=== PATIENT | female | born 1935 | race Caucasian/White ===

== ENCOUNTER → 2016-06-22 | Outpatient (CLI) | payer OTHER, MEDICARE ==
[~2016-06-22] MED LIST: ALBUAER19 INH; ALPR-411 PO; ATRINS NEB; B-COCAP2 PO; BIOT1CAP8 PO; BRVIN INH; BUDE0.5S INH; CALC250T8 PO; CHOL100010 PO; FLUO20CA35 PO; GLUCTAB32 PO; MISCCAP80 PO; OMEG10007 PO; OXGN; PRLSR20 PO
--- NOTE | 2016-06-22 11:30 | DIAGNOSTIC IMAGING REPORT ---
CHEST 2 VIEWS ROUTINE CLINICAL HISTORY: ASTHMA, GENERAL WEAKNESS, SHORTNESS OF BREATH COMPARISON STUDY: 01/21/2016 FINDINGS: There is a severe scoliosis. The cardiac and sternal contours remain stable. There is no lobar consolidation. Right basilar opacities are likely atelectatic.[There is no failure. There is a small right pleural effusion. IMPRESSION: Severe scoliosis. Right basilar opacities statistically atelectatic. Small right pleural effusion. Electronically signed by: Kt Painter M.D. 06/22/2016 11:29 AM Dictated Date/Time: 06/22/2016 11:27 AM
[2016-06-22 13:36] LABS: BASO % 0.3 %; BASO ABS # 0.02 K/uL (0-0.2); COMPLETE YES; HEMATOCRIT 36.7 % (37-47); IG% 0.2 %; LYMPH % 19.6 %; LYMPH ABS # 1.27 K/uL (1.2-3.4); MEAN CELL VOLUME 88.9 fL (80-100); MEAN CORPUSCULAR HEMOGLOBIN 30.3 pg (25-34); MEAN CORPUSCULAR HGB CONC 34.1 g/dl (32-36); MEAN PLATELET VOLUME 8.8 fL (7.4-10.4); MONO % 4.8 %; NEUT % 73.1 %; PLATELET COUNT 274 K/uL (130-400); RED BLOOD COUNT 4.13 M/uL (4.2-5.4); WHITE BLOOD COUNT 6.48 K/uL (4.8-10.8)
[2016-06-22 13:42] LABS: URINE APPEARANCE CLEAR (CLEAR); URINE BILIRUBIN NEG (NEG); URINE COLOR YELLOW; URINE NITRITE NEG (NEG); URINE PH 7.5 (4.5-7.5); UROBILINOGEN NEG (NEG)
[2016-06-22 13:50] LABS: MANUAL MICROSCOPIC REQUIRED? NO; REVIEW REQ? NO
[2016-06-22 14:13] LABS: BLOOD UREA NITROGEN 17 mg/dl (7-18); BUN/CREATININE RATIO 23.1 (10-20); CALCIUM 9.1 mg/dl (8.5-10.1); CARBON DIOXIDE 29 mmol/L (21-32); CHLORIDE 100 mmol/L (98-107); CREATININE 0.72 mg/dl (0.60-1.20); GLUCOSE 111 mg/dl (70-99); POTASSIUM 4.1 mmol/L (3.5-5.1); SODIUM 135 mmol/L (136-145)
[2016-06-22 14:20] LABS: RHEUMATOID FACTOR < 10.0 U/mL (0-15)
[2016-06-27 00:40] LABS: MYELOPEROXIDASE AB <1.0 AI (<1.0)
[2016-06-28 04:31] LABS: ANTI-CENTROMERE AB <1.0 NEG AI (<1.0 NEG); ANTI-SS-A <1.0 NEG AI (<1.0 NEG); ANTI-SS-B <1.0 NEG AI (<1.0 NEG); DNA ds CRITHIDIA NEGATIVE (NEGATIVE); Sm Antibody <1.0 NEG AI (<1.0 NEG)
== END | disposition home or self-care (01) ==
LOC: C.RADBC 10:36
PROVIDERS: ATTEND Physician Assistant Medical
DX: J45.909 Unspecified asthma, uncomplicated (principal); R53.1 Weakness; R06.02 Shortness of breath; M25.50 Pain in unspecified joint; M35.1 Other overlap syndromes; R76.8 Other specified abnormal immunological findings in serum

== ENCOUNTER → 2016-09-05 | Outpatient (CLI) | payer OTHER, MEDICARE ==
[2016-09-05 14:39] LABS: BASO % 0.4 %; BASO ABS # 0.02 K/uL (0-0.2); COMPLETE YES; EOS % 3.6 %; HEMATOCRIT 37.3 % (37-47); IG% 0.2 %; LYMPH % 31.7 %; LYMPH ABS # 1.78 K/uL (1.2-3.4); MEAN CELL VOLUME 91.2 fL (80-100); MEAN CORPUSCULAR HEMOGLOBIN 30.6 pg (25-34); MEAN CORPUSCULAR HGB CONC 33.5 g/dl (32-36); MEAN PLATELET VOLUME 8.9 fL (7.4-10.4); MONO % 9.1 %; PLATELET COUNT 286 K/uL (130-400); RED BLOOD COUNT 4.09 M/uL (4.2-5.4); WHITE BLOOD COUNT 5.62 K/uL (4.8-10.8)
[2016-09-05 14:44] LABS: ALT/SGPT 26 U/L (12-78); BLOOD UREA NITROGEN 14 mg/dl (7-18); BUN/CREATININE RATIO 18.4 (10-20); CARBON DIOXIDE 29 mmol/L (21-32); CHLORIDE 100 mmol/L (98-107); CREATININE 0.74 mg/dl (0.60-1.20); GLUCOSE 99 mg/dl (70-99); MAGNESIUM 2.3 mg/dl (1.8-2.4); POTASSIUM 3.9 mmol/L (3.5-5.1); SODIUM 136 mmol/L (136-145)
[2016-09-05 14:47] LABS: ALB/GLOB RATIO 0.9 (0.9-2); ALKALINE PHOSPHATASE 74 U/L (45-117); AST/SGOT 21 U/L (15-37)
[2016-09-05 14:51] LABS: CALCIUM 9.4 mg/dl (8.5-10.1)
== END | disposition home or self-care (01) ==
LOC: C.LABBC 10:18
PROVIDERS: ATTEND Internal Medicine
DX: M25.50 Pain in unspecified joint (principal)

== ENCOUNTER → 2017-03-09 | Outpatient (CLI) | payer OTHER, MEDICARE ==
[2017-03-09 11:18] LABS: ALKALINE PHOSPHATASE 84 U/L (45-117); ALT/SGPT 26 U/L (12-78); AST/SGOT 20 U/L (15-37); BLOOD UREA NITROGEN 17 mg/dl (7-18); BUN/CREATININE RATIO 21.6 (10-20); CALCIUM 9.6 mg/dl (8.5-10.1); CARBON DIOXIDE 29 mmol/L (21-32); CHLORIDE 100 mmol/L (98-107); CHOLESTEROL 346 mg/dl (0-200); CHOLESTEROL/HDL RATIO 2.6; CREATININE 0.81 mg/dl (0.60-1.20); GLUCOSE 108 mg/dl (70-99); HDL CHOLESTEROL 133 mg/dl; LDL CHOLESTEROL CALCULATED 200 mg/dl; SODIUM 135 mmol/L (136-145); TRIGLYCERIDES 67 mg/dl (0-150); VERY LOW DENSITY LIPOPROT CALC 13 mg/dl
[2017-03-09 11:20] LABS: BASO % 0.5 %; BASO ABS # 0.03 K/uL (0-0.2); COMPLETE YES; EOS % 3.2 %; HEMATOCRIT 39.4 % (37-47); IG% 0.2 %; LYMPH % 38.4 %; LYMPH ABS # 2.38 K/uL (1.2-3.4); MEAN CELL VOLUME 92.3 fL (80-100); MEAN CORPUSCULAR HEMOGLOBIN 31.1 pg (25-34); MEAN CORPUSCULAR HGB CONC 33.8 g/dl (32-36); MONO % 9.5 %; NEUT % 48.2 %; PLATELET COUNT 274 K/uL (130-400); RED BLOOD COUNT 4.27 M/uL (4.2-5.4); WHITE BLOOD COUNT 6.19 K/uL (4.8-10.8)
[2017-03-09 11:29] LABS: ALB/GLOB RATIO 0.9 (0.9-2)
== END | disposition home or self-care (01) ==
LOC: C.LABBC 07:40
PROVIDERS: ATTEND Internal Medicine
DX: M85.80 Other specified disorders of bone density and structure, unspecified site (principal); J45.909 Unspecified asthma, uncomplicated; M35.1 Other overlap syndromes; R73.9 Hyperglycemia, unspecified; E78.5 Hyperlipidemia, unspecified; M25.50 Pain in unspecified joint; M62.81 Muscle weakness (generalized)

== ENCOUNTER 2018-03-04 09:20 | Inpatient (IN) ==
[2018-03-04] MEDS ORDERED: ALBUT/IPRATROP 3MG/0.5MG NEB 3 ML VIAL INH STA (09:40)
[2018-03-04] MEDS ORDERED: VANCOMYCIN CONSULT ACTIVE PRN (09:40)
[2018-03-04] MEDS ORDERED: VANCOMYCIN HCL 1,250 MG in SODIUM CHLORIDE 0.9% 500 ML IV STA (09:40)
[2018-03-04] MEDS ORDERED: PIPERACILLIN/TAZOBACTAM 4.5 GM/120 ML BAG IV STA (09:40)
--- NOTE | 2018-03-04 10:00 | Emergency Department Note ---
Entered by Anamaria Umana acting as a scribe for ED Provider Note CHIEF COMPLAINT: Respiratory problems HISTORY OF PRESENT ILLNESS: The patient is an 82 year old female who presents to the Emergency Room with complaints of worsening respiratory problems that started 4 days ago. The patient notes she has constant cough and congestion. She reports she has been coughing constantly since 2am. The patient describes her pain as motor running in her chest and cant get a good breath She states she has congested lung disease but does not always have congestion in her lungs. She reports she has nausea and some vomiting, due to her cough. The patient states the slightest movement makes her experience shortness of breath. . She reports she is coughing up dark yellow phlegm that has not changed since she started getting sick. The patient notes she is weak all over. She was seen in the ER on day 1 of illness and treated with Levaquin. Her inhalers are not helping either. Pt denies LOC, headache, fevers, chills, diaphoresis, visual changes, neck pain, abdominal pain, back pain, melena, hematochezia, urinary symptoms, numbness, lymphadenopathy, rash, or other complaints. REVIEW OF SYSTEMS: See HPI for pertinent positives and negatives. A total of ten systems were reviewed and were otherwise negative. PMHx/PSHx: Bronchitis Scoliosis Dyspnea Hypokalemia UTI Weakness SOCIAL HISTORY: Patient lives at home. PHYSICAL EXAM: GENERAL: Awake, alert, well-appearing, in no distress HENT: Normocephalic, atraumatic. Oropharynx unremarkable. EYES: Normal conjunctiva. Sclera non-icteric. NECK: Inspection normal. Non-tender. Supple. No nuchal rigidity. FROM. No masses. RESPIRATORY: Expiratory wheezes and crackles in the right base and somewhat on the left base. Normal respiratory effort. CARDIAC: Tachycardic rate. Normal rhythm. No murmurs. No rubs. Extremities warm and well perfused. Pulses equal. No JVD. GI: Soft, non-distended. No tenderness to palpation. No rebound or guarding. No masses. RECTAL: Deferred. MUSCULOSKELETAL: Atraumatic. Chest examination reveals no tenderness. The back is symmetrical on inspection without obvious abnormality. There is no CVA tenderness to palpation. No joint edema. LOWER EXTREMITIES: Calves are equal size bilaterally and non-tender. No edema. No discoloration. NEURO: Normal sensorium. No sensory or motor deficits noted. SKIN: No rash or jaundice noted. EMERGENCY DEPARTMENT COURSE: 0937: Past medical records reviewed. The patient was evaluated in room B6, and a complete history and physical examination were performed. 1123: I checked on the patient. 1137: I reviewed the patient's case with Dr. Arcos, [facility]-Hospitalist . He will evaluate the patient for further management. MEDICAL DECISION MAKING: Triage Nursing notes reviewed. The patient's presentation and history were concerning for dyspnea and cough. Etiologies such as pneumonia, reactive airway disease, CHF, cardiac ischemia, pulmonary embolism, pneumothorax, COPD, musculoskeletal, infections, gastrointestinal, as well as others were entertained. The patient had increased breathing and was dyspneic. She has a productive cough. Despite using oral Levaquin and home nebulizer she is getting worse. She states she is having difficulty ambulating or doing anything with exertion because she gets extremely short of breath. The patient had an IV established. Blood work was obtained. She had blood cultures as well as a lactate performed. The patient was started on IV Zosyn and vancomycin. The patient had a DuoNeb performed as well. Given the patient's history of restrictive lung disease and her worsening condition she underwent CT imaging of the chest. The patient was found to have multifocal pneumonia, an unremarkable CBC, but elevated troponin. EKG showed a Q wave had developed in lead V2. She was given asa, lopressor, and started on IV heparin. Consultation made with internal medicine. I did educate her, her and daughter(RN), on the findings and need for further treatment. Pt was evaluated in the ER by the hospitalist team for admission. IMPRESSION: Multifocal pneumonia Non-STEMI Restrictive lung disease. PLAN: Admitted. I have personally spent greater than 30 minutes of critical care time in the direct management of this patient. This includes bedside care, interpretation of diagnostic studies, and testing, discussion with consultants, patient, and family members, and other required patient management activities. This 30 minutes is in excess of all separately billable procedures. The scribe's documentation has been prepared under my direction and personally reviewed by me in its entirety. I confirm that the note above accurately reflects all work, treatment, procedures, and medical decision making performed by me. Impression & Plan Multifocal pneumonia, Non-ST elevated myocardial infarction (non-STEMI) Past Med/Surg History Medical History Restrictive lung disease (Chronic) Bronchitis (Resolved) Scoliosis (Chronic) Urinary tract infection (Resolved) Family History Other Heart attack Social History Feels Safe at Home: Yes Smoking Status: Never smoker Preferred Language: Amharic Results & Data Vital Signs Vital Signs - 24 hr 03/04/18 09:28 03/04/18 09:37 03/04/18 09:40 Temperature 36.8 C Temperature Source Oral Sepsis Recent Fever Within 48 Hours No Sepsis New/Unexplained Change in Mental Status No Sepsis Action Taken by Nursing No Action Required Pulse Rate 106 H 98 H Pulse Rate [Apical] Pulse Rhythm Regular Pulse Rhythm [Apical] Pulse Strength Normal Respiratory Rate 20 30 H Respiratory Effort / Characteristics Non-Labored Respiratory Depth Normal Blood Pressure 134/72 139/78 Blood Pressure [Right Arm] Blood Pressure Mean 92 98 Blood Pressure Mean [Right Arm] Pulse Oximetry 92 94 Oxygen Delivery Method Room Air Room Air 03/04/18 09:41 03/04/18 09:54 03/04/18 10:00 Temperature Temperature Source Sepsis Recent Fever Within 48 Hours Sepsis New/Unexplained Change in Mental Status Sepsis Action Taken by Nursing Pulse Rate 100 H 101 H Pulse Rate [Apical] Pulse Rhythm Pulse Rhythm [Apical] Pulse Strength Respiratory Rate 35 H 26 H Respiratory Effort / Characteristics Respiratory Depth Blood Pressure 103/70 Blood Pressure [Right Arm] Blood Pressure Mean 81 Blood Pressure Mean [Right Arm] Pulse Oximetry 94 93 92 Oxygen Delivery Method Room Air 03/04/18 10:37 03/04/18 11:50 03/04/18 11:51 Temperature Temperature Source Sepsis Recent Fever Within 48 Hours Sepsis New/Unexplained Change in Mental Status Sepsis Action Taken by Nursing Pulse Rate 94 H 102 H Pulse Rate [Apical] 101 H Pulse Rhythm Pulse Rhythm [Apical] Regular Pulse Strength Respiratory Rate 24 22 Respiratory Effort / Characteristics Respiratory Depth Blood Pressure 130/89 Blood Pressure [Right Arm] 130/89 Blood Pressure Mean Blood Pressure Mean [Right Arm] 102 Pulse Oximetry 92 Oxygen Delivery Method Room Air Home Medications Current Medication List: was personally reviewed by me Laboratory Data Attestation: I reviewed the patient's lab results. Result diagrams: 03/04/18 09:45 03/04/18 09:45 Lab Results 03/04/18 03/04/18 03/04/18 Range/Units 09:45 09:45 09:45 WBC 4.66 L (4.8-10.8) K/uL RBC 4.04 L (4.2-5.4) M/uL Hgb 12.4 (12.0-16.0) g/dL Hct 36.4 L (37-47) % MCV 90.1 (80-100) fL MCH 30.7 (25-34) pg MCHC 34.1 (32-36) g/dL RDW Std Deviation 45.5 (36.4-46.3) fL RDW Coeff of Jaren 13.7 (11.5-14.5) % Plt Count 180 (130-400) K/uL MPV 9.3 (7.4-10.4) fL Immature Gran % (Auto) 0.2 % Neut % (Auto) 63.5 % Lymph % (Auto) 26.2 % Rutherford % (Auto) 9.7 % Eos % (Auto) 0.2 % Baso % (Auto) 0.2 % Immature Gran # (Auto) 0.01 (0.00-0.02) K/uL Neut # (Auto) 2.96 (1.4-6.5) K/uL Lymph # (Auto) 1.22 (1.2-3.4) K/uL Rutherford # (Auto) 0.45 (0.11-0.59) K/uL Eos # (Auto) 0.01 (0-0.5) K/uL Baso # (Auto) 0.01 (0-0.2) K/uL APTT 29.4 (21.0-31.0) Seconds PTT Ratio 1.1 Sodium 134 L (136-145) mmol/L Potassium 3.4 L (3.5-5.1) mmol/L Chloride 99 (98-107) mmol/L Carbon Dioxide 23 (21-32) mmol/L Anion Gap 12.0 H (3-11) BUN 10 (7-18) mg/dl Creatinine 0.78 (0.6-1.2) mg/dl Est Cr Clr Drug Dosing Not Reportable Est GFR ( Amer) 83.2 Est GFR (Non-Af Amer) 71.8 BUN/Creatinine Ratio 12.8 (10-20) Glucose 113 H (70-99) mg/dl Calcium 8.2 L (8.5-10.1) mg/dl Magnesium 2.0 (1.8-2.4) mg/dl Total Bilirubin 0.3 (0.1-1) mg/dl AST 38 H (15-37) U/L ALT 28 (12-78) U/L Alkaline Phosphatase 82 (45-117) U/L Troponin I 2.230 H* (0-0.045) ng/ml Total Protein 7.8 (6.4-8.2) gm/dl Albumin 3.5 (3.4-5.0) gm/dl Globulin 4.3 H (2.5-4.0) gm/dl Albumin/Globulin Ratio 0.8 L (0.9-2) Influenza Type A (PCR) (Neg) Influenza Type B (PCR) (Neg) 03/04/18 Range/Units 09:45 WBC (4.8-10.8) K/uL RBC (4.2-5.4) M/uL Hgb (12.0-16.0) g/dL Hct (37-47) % MCV (80-100) fL MCH (25-34) pg MCHC (32-36) g/dL RDW Std Deviation (36.4-46.3) fL RDW Coeff of Jaren (11.5-14.5) % Plt Count (130-400) K/uL MPV (7.4-10.4) fL Immature Gran % (Auto) % Neut % (Auto) % Lymph % (Auto) % Rutherford % (Auto) % Eos % (Auto) % Baso % (Auto) % Immature Gran # (Auto) (0.00-0.02) K/uL Neut # (Auto) (1.4-6.5) K/uL Lymph # (Auto) (1.2-3.4) K/uL Rutherford # (Auto) (0.11-0.59) K/uL Eos # (Auto) (0-0.5) K/uL Baso # (Auto) (0-0.2) K/uL APTT (21.0-31.0) Seconds PTT Ratio Sodium (136-145) mmol/L Potassium (3.5-5.1) mmol/L Chloride (98-107) mmol/L Carbon Dioxide (21-32) mmol/L Anion Gap (3-11) BUN (7-18) mg/dl Creatinine (0.6-1.2) mg/dl Est Cr Clr Drug Dosing Est GFR ( Amer) Est GFR (Non-Af Amer) BUN/Creatinine Ratio (10-20) Glucose (70-99) mg/dl Calcium (8.5-10.1) mg/dl Magnesium (1.8-2.4) mg/dl Total Bilirubin (0.1-1) mg/dl AST (15-37) U/L ALT (12-78) U/L Alkaline Phosphatase (45-117) U/L Troponin I (0-0.045) ng/ml Total Protein (6.4-8.2) gm/dl Albumin (3.4-5.0) gm/dl Globulin (2.5-4.0) gm/dl Albumin/Globulin Ratio (0.9-2) Influenza Type A (PCR) Neg for Influ A (Neg) Influenza Type B (PCR) Neg for Influ B (Neg) Administered Medications Vancomycin HCl 1,250 mg/ (Sodium Chloride) 525 mls @ 200 mls/hr IV NOW STA Stop: 03/04/18 12:09 Last Admin: 03/04/18 10:40 Dose: 200 mls/hr Discontinued Medications Albuterol (Duoneb) 3 ml INH NOW STA Stop: 03/04/18 09:41 Last Admin: 03/04/18 10:40 Dose: 3 ml Piperacillin Sod/Tazobactam Sod (Zosyn) 4.5 gm in 120 mls @ 200 mls/hr IV NOW STA Stop: 03/04/18 10:15 Last Infusion: 03/04/18 11:28 Dose: Admin: 03/04/18 10:40 Dose: 200 mls/hr Metoprolol Tartrate (Lopressor) 2.5 mg IV NOW STA Stop: 03/04/18 11:22 Last Admin: 03/04/18 11:51 Dose: 2.5 mg Imaging Data Radiologist's Impression: Radiology results as stated below per my review and the radiologist's interpretation: CT SCAN OF THE CHEST WITHOUT IV CONTRAST CLINICAL HISTORY: Dyspnea. COMPARISON STUDY: Chest x-ray dated 03/01/2018. Chest CT dated 10/22/2013. TECHNIQUE: CT scan of the thorax was performed from the thoracic inlet to the upper abdomen. Images are reviewed in the axial, sagittal, and coronal planes. IV contrast was not administered for this examination. A dose lowering technique was utilized adhering to the principles of ALARA. CT DOSE: 204.40 mGy.cm FINDINGS: Thyroid: Imaged portions of the thyroid gland are normal in size and attenuation. Thoracic aorta: There is mild atherosclerotic calcification of the thoracic aorta, which is normal in caliber and demonstrates standard 3-vessel arch anatomy. Heart: The heart is top normal in size and without pericardial effusion. The coronary arteries are densely calcified. Lungs and pleural spaces: There is atelectasis of the right lower lung secondary to severe scoliosis. Dense airspace consolidation is seen at the right lung base with a small right pleural effusion. Patchy airspace consolidation is identified in the left upper lobe and lingula, and the appearance is typical for multifocal pneumonia. Trace pleural effusion is seen on the left. A nodular focus of consolidation the left upper lobe seen on image #122 measures up to 10 mm. The trachea is patent. Fluid/secretions are suggested in the right lower lobe airways. Mediastinum: Prominent mediastinal lymph nodes are noted. A precarinal node measures 8 mm short axis. Marla: Not well assessed without IV contrast. Axillae: There is no axillary lymphadenopathy. Upper abdomen: Diverticula are noted in the partially imaged left colon visualized upper abdominal viscera is otherwise grossly unremarkable. Skeletal structures: The skeletal structures are osteopenic. There is severe thoracolumbar scoliosis with significant distortion of the thoracic cavity. No lytic or blastic bony lesions are seen. Chronic posttraumatic deformity is noted in the left proximal humerus. IMPRESSION: 1. There is dense airspace consolidation at the right lung base, with patchy airspace consolidation seen throughout the left upper lobe. The appearance is typical for multifocal pneumonia/aspiration pneumonitis. Clinical correlation will be required. 2. Several foci of consolidation in the left upper lobe demonstrate a more nodular appearance. These are almost certainly on an infectious/inflammatory basis. A follow-up chest CT in 3-4 months time is recommended to document resolution. 3. Small pleural effusions, right larger than left. 4. Severe thoracolumbar scoliosis. 5. Additional findings as above. Electronically signed by: Renan Lester M.D. 03/04/2018 10:34 AM ECG Data Attestation: I personally reviewed and interpreted this ECG as follows: Indication: SOB/dyspnea (dyspnea) Rate (beats per minute): 94 Rhythm: normal sinus Findings: + Q waves (Septal Q wave) and + ST depression (slight depression in lead IV-) Comparison ECG Date: from (03/01/18) Change: the following changes noted (Septal Q wave is new ) Blood Pressure Blood Pressure Findings: Normal blood pressure Blood Pressure Disposition: did not require urgent referral Discharge Plan Visit Data Chief Complaint: Respiratory Problems Stated Complaint: SOB,BRONCHITIS ED Provider: Jose Webber Discharge Problem: Multifocal pneumonia, Non-ST elevated myocardial infarction (non-STEMI) Patient Disposition: Being Evaluated by Hospitalist Forms Stand Alone Forms: My [facility] Prescriptions Prescriptions: No Action fluoxetine 20 mg capsule 20 mg PO DAILY RF: 0 glucosamine sulfate [Glucosamine] 500 mg Tablet 500 mg PO QPM RF: 0 omeprazole 40 mg capsule,delayed release(DR/EC) 40 mg PO QAM PRN (Reason: Gastric Reflux) RF: 0 alprazolam 0.5 mg tablet 1 tab PO HS RF: 0 budesonide [Pulmicort] 0.5 mg/2 mL Suspension For Nebulization 2 ml INHALATION BID RF: 0 vitamin B complex Tablet 1 tab PO HS RF: 0 albuterol sulfate [Ventolin HFA] 90 mcg/actuation Hfa Aerosol Inhaler 2 puff INHALATION QID PRN (Reason: Shortness Of Breath Or Wheezing) RF: 0 celecoxib 100 mg capsule 100 mg PO QAM RF: 0 ipratropium bromide 0.02 % Solution 2.5 ml INHALATION BID RF: 0 calcium citrate 200 mg (950 mg) Tablet 200 mg PO QPM RF: 0 arformoterol [Brovana] 15 mcg/2 mL Solution For Nebulization 2 ml INHALATION BID RF: 0 cholecalciferol (vitamin D3) [Vitamin D3] 2,000 unit Tablet 2,000 unit PO 1700 RF: 0 omega 8-[id number]-vpd-fish oil [Fish Oil] 1,000 mg (120 mg-180 mg) Capsule 1 cap PO 1700 RF: 0 biotin 1 mg Capsule 1 mg PO 1700 RF: 0 Referrals Referrals: Siddharth Spaulding MD [Primary Care Provider] - The scribe's documentation has been prepared under my direction and personally reviewed by me in its entirety. I confirm that the note above accurately reflects all work, treatment, procedures, and medical decision making performed by me.
[2018-03-04 10:02] LABS: Basophils # (auto) 0.01 K/uL (0-0.2); Basophils % (auto) 0.2 %; Eosinophils # (auto) 0.01 K/uL (0-0.5); Eosinophils % (auto) 0.2 %; Hematocrit (blood only) 36.4 % (37-47); Hemoglobin 12.4 g/dL (12.0-16.0); Immature Granulocytes # (auto) 0.01 K/uL (0.00-0.02); Immature Granulocytes % (auto) 0.2 %; Lymphocytes # (auto) 1.22 K/uL (1.2-3.4); Lymphocytes % (auto) 26.2 %; Mean Corpuscular Hgb Conc 34.1 g/dL (32-36); Mean Corpuscular Volume 90.1 fL (80-100); Mean Platelet Volume 9.3 fL (7.4-10.4); Monocytes # (auto) 0.45 K/uL (0.11-0.59); Monocytes % (auto) 9.7 %; Neutrophils # (auto) 2.96 K/uL (1.4-6.5); Neutrophils % (auto) 63.5 %; Platelet Count 180 K/uL (130-400); RDW Coefficient of Variation 13.7 % (11.5-14.5); RDW Standard Deviation 45.5 fL (36.4-46.3); Red Blood Count 4.04 M/uL (4.2-5.4); White Blood Count 4.66 K/uL (4.8-10.8)
[2018-03-04 10:10] LABS: Partial Thromboplastin Ratio 1.1; Partial Thromboplastin Time 29.4 Seconds (21.0-31.0)
[2018-03-04 10:27] LABS: Albumin Level 3.5 gm/dl (3.4-5.0); Aspartate Aminotransferase 38 U/L (15-37); BUN Creatinine Ratio 12.8 (10-20); Blood Urea Nitrogen 10 mg/dl (7-18); Calcium 8.2 mg/dl (8.5-10.1); Carbon Dioxide 23 mmol/L (21-32); Chloride 99 mmol/L (98-107); Est GFR (African American) 83.2; Est GFR (Non-African American) 71.8; Glucose 113 mg/dl (70-99); Potassium 3.4 mmol/L (3.5-5.1); Sodium 134 mmol/L (136-145)
[2018-03-04 10:29] LABS: Influenza A virus by PCR Neg for Influ A (Neg); Influenza B virus by PCR Neg for Influ B (Neg)
--- NOTE | 2018-03-04 10:35 | CT Scan Report ---
CT SCAN OF THE CHEST WITHOUT IV CONTRAST CLINICAL HISTORY: Dyspnea. COMPARISON STUDY: Chest x-ray dated 03/01/2018. Chest CT dated 10/22/2013. TECHNIQUE: CT scan of the thorax was performed from the thoracic inlet to the upper abdomen. Images are reviewed in the axial, sagittal, and coronal planes. IV contrast was not administered for this ex amination. A dose lowering technique was utilized adhering to the principles of ALARA. CT DOSE: 204.40 mGy.cm FINDINGS: Thyroid: Imaged portions of the thyroid gland are normal in size and attenuation. Thoracic aorta: There is mild atherosclerotic calcification of the thoracic aorta, which is normal in caliber and demonstrates standard 3-vessel arch anatomy. Heart: The heart is top normal in size and without pericardial effusion. The coronary arteries are de nsely calcified. Lungs and pleural spaces: There is atelectasis of the right lower lung secondary to severe scoliosis. Dense airspace consolidation is seen at the right lung base with a small right pleural effusion. Pat duglas airspace consolidation is identified in the left upper lobe and lingula, and the appearance is ty pical for multifocal pneumonia. Trace pleural effusion is seen on the left. A nodular focus of consol idation the left upper lobe seen on image #122 measures up to 10 mm. The trachea is patent. Fluid/sec retions are suggested in the right lower lobe airways. Mediastinum: Prominent mediastinal lymph nodes are noted. A precarinal node measures 8 mm short axis. Marla: Not well assessed without IV contrast. Axillae: There is no axillary lymphadenopathy. Upper abdomen: Diverticula are noted in the partially imaged left colon visualized upper abdominal vi scera is otherwise grossly unremarkable. Skeletal structures: The skeletal structures are osteopenic. There is severe thoracolumbar scoliosis with significant distortion of the thoracic cavity. No lytic or blastic bony lesions are seen. Chroni c posttraumatic deformity is noted in the left proximal humerus. IMPRESSION: 1. There is dense airspace consolidation at the right lung base, with patchy airspace consolidation s een throughout the left upper lobe. The appearance is typical for multifocal pneumonia/aspiration pne umonitis. Clinical correlation will be required. 2. Several foci of consolidation in the left upper lobe demonstrate a more nodular appearance. These are almost certainly on an infectious/inflammatory basis. A follow-up chest CT in 3-4 months time is recommended to document resolution. 3. Small pleural effusions, right larger than left. 4. Severe thoracolumbar scoliosis. 5. Additional findings as above. Electronically signed by: Renan Lester M.D. 03/04/2018 10:34 AM
[2018-03-04 10:54] LABS: Alanine Aminotransferase 28 U/L (12-78); Albumin Globulin Ratio 0.8 (0.9-2); Alkaline Phosphatase 82 U/L (45-117); Bilirubin,Total 0.3 mg/dl (0.1-1); Globulin 4.3 gm/dl (2.5-4.0); Total Protein 7.8 gm/dl (6.4-8.2)
[2018-03-04] MEDS ORDERED: METOPROLOL TARTRATE 1 MG/ML VIAL IV STA (11:21)
[2018-03-04] MEDS ORDERED: ASPIRIN CHEW 324 MG PO STA (11:21)
[2018-03-04] MEDS ORDERED: HEPARIN 25000 UNIT/500 ML D5W IV ONE (11:45)
[2018-03-04] MEDS: HEPARIN SOD 5,000 UNIT/0.5 ML VIAL ONE (11:53)
[2018-03-04 11:55] LABS: Prothrombin Time 10.3 Seconds (9.0-12.0)
[2018-03-04 12:21] LABS: Appearance Urine Clear (Clear); Bacteria Urine Automated Negative (Negative); Bilirubin Urine Negative (Negative); Color Urine Yellow; Glucose Urine UA Negative (Negative); Ketones Urine 1+ (Negative); Leukocyte Esterase Urine Negative (Negative); Nitrite Urine Negative (Negative); Protein Urine 1+ (Negative); Specific Gravity Urine 1.017 (1.000-1.030); Urobilinogen Urine Negative (Negative)
--- NOTE | 2018-03-04 13:18 | History & Physical Report ---
Date of Service March 04, 2018 Assessment & Plan (1) Multifocal pneumonia: CT chest on 03/04 showed multifocal pneumonia in the RLL and BROCK. Has been having fevers, shortness of breath, and productive cough at home. Has been on levofloxacin since 03/01 as outpatient with worsening of symptoms. - Vanc/Zosyn (skip atypical coverage as she hadn't improved with the levofloxacin) - MRSA swab - Sputum culture - [facility] consult as CT scan indicated concern for aspiration. Patient does report occasionally coughing with PO intake. - Pulm consult given her underlying restrictive lung disease - Hold steroids as below - Guiafenasin - Follow up blood cultures from 03/04 - DuoNebs standing (2) Non-ST elevated myocardial infarction (non-STEMI): Per patient, had an outpatient echo and stress test in the last month for some chest pain, ordered by Dr. Blakely, her chemical production technician. However, I cannot find the results of either test in [facility] or [facility] despite her reporting they were done at [facility]. Troponin in ED was 2.2, and she was given aspirin and started on heparin gtt. Denies chest pain, and EKG is stable from 12/2017 without ischemic changes (STDs in II & V4-V6 are sub-milimeter and similar to prior). - Hold heparin gtt - Start ASA 81mg daily - Cardiology consult - Trend troponins and EKGs (3) Restrictive lung disease: Life-long issues due to her scoliosis. Sees Dr. Blakely as outpatient with repeat PFTs planned next year. - Continue home long-acting nebulized treatments - DuoNebs standing - Hold prednisone as I do not think there is a large reactive component to her illness, plus she has had myopathy with steroids in the past and would prefer not to take them (except as part of her inhaled regimen) (4) Anxiety: - Continue home fluoxetine and Xanax PRN before bed. (5) DVT prophylaxis: Lovenox 40mg daily History of Present Illness Primary Care Provider: Siddharth Spaulding MD 82yo F w/ hx of scoliosis and restrictive lung disease who presents with multifocal pneumonia. She reports that she began coughing on Monday. She went to the ED on 03/01 and was started on a course of levofloxacin as an outpatient, but denies any improvement and has actually been getting worse. ( This is actually different than her PCP appt on 03/02 where it is recorded taht she was feeling better.) She reports a productive cough and fevers up to 101.7 at home. She also reports some nausea with coughing as well as some soreness. She has been feeling overall weak as well and has a headache. She has been taking Tylenol at home for her fevers. Allergies Allergy/AdvReac Type Severity Reaction Status Date / Time prednisone Allergy Intermediate MUSCLE Unverified 03/04/18 10:21 CONTROL Rmxpmmn-[id number]-Ncw Reductase Allergy Intermediate MUSCULAR Unverified 03/04/18 10: 21 Inhibitor ISSUES gabapentin Allergy Unknown UNKN Verified 03/04/18 10:21 valdecoxib Allergy Unknown UNKN Verified 03/04/18 10:21 methylprednisolone AdvReac Intermediate HOT FACE; Verified 03/04/18 10:21 DRY HEAVES; FACIAL MUSCLES TWITCHING nitrofurantoin AdvReac Mild UPSET Verified 03/04/18 10:21 STOMACH Home Medications Home Medications Medication Instructions Recorded Confirmed Type albuterol sulfate [Ventolin HFA] 2 puff INHALATION QID PRN 01/08/18 03/04/18 History alprazolam 1 tab PO HS 01/08/18 03/04/18 History arformoterol [Brovana] 2 ml INHALATION BID 01/08/18 03/04/18 History biotin 1 mg PO 1700 01/08/18 03/04/18 History budesonide [Pulmicort] 2 ml INHALATION BID 01/08/18 03/04/18 History calcium citrate 200 mg PO QPM 01/08/18 03/04/18 History celecoxib 100 mg PO QAM 01/08/18 03/04/18 History cholecalciferol (vitamin D3) 2,000 unit PO 1700 01/08/18 03/04/18 History [Vitamin D3] glucosamine sulfate [Glucosamine] 500 mg PO QPM 01/08/18 03/04/18 History ipratropium bromide 2.5 ml INHALATION BID 01/08/18 03/04/18 History omega 1-oms-ecu-fish oil [Fish Oil] 1 cap PO 1700 01/08/18 03/04/18 History omeprazole 40 mg PO QAM PRN 01/08/18 03/04/18 History vitamin B complex 1 tab PO HS 01/08/18 03/04/18 History fluoxetine 20 mg PO DAILY 03/04/18 03/04/18 History Past Med/Surg History Medical History Restrictive lung disease (Chronic) Bronchitis (Resolved) Scoliosis (Chronic) Urinary tract infection (Inactive) Surgical History H/O hysterectomy for benign disease Family History Other Heart attack Social History Current Living Situation: Spouse Other Information That Helps Us Care for You: No Feels Safe at Home: Yes Safety Concerns: Feels Safe At This Time Smoking Status: Never smoker Do You Dip or Chew Tobacco: No Second Hand Exposure: No Tobacco Cessation Education Requested by Patient: No Hx Alcohol Use: No Hx Substance Use: No Beliefs That Will Affect Care: None Preferred Language: Namibian Communication Ability: Effective Launchman Required: No Review of Systems Constitutional: + fever, + chills and + fatigue; no sweats Eyes: no diplopia Ear, Nose, Mouth, Throat: no ear trauma, no nasal discharge and no dental pain Respiratory: + cough, + chest congestion, + dyspnea, + pain with cough and + sputum production Cardiovascular: no chest pain, no dyspnea on exertion, no palpitations and no syncope Gastrointestinal: no abdominal pain, no belching, no nausea, no vomiting, no constipation, no diarrhea/loose stools, no blood in stools and no melena Musculoskeletal: no back pain, no joint pain and no muscle weakness Integumentary: no rash, no skin ulcer and no erythema Neurologic: no generalized weakness, no loss of sensation, no numbness and no paresthesia Psychiatric: no depression and no anxiety Endocrine: no fatigue, no polydipsia and no polyphagia Physical Exam 2 Vital Signs (Past 24 Hours): Last Vital Signs Temp 36.8 C 03/04/18 09:28 Pulse 89 03/04/18 12:31 Resp 29 H 03/04/18 12:31 BP 138/60 03/04/18 12:31 Pulse Ox 91 03/04/18 12:31 Constitutional: WD/WN, vitals as above Eyes: EOM intact bilaterally; no conjunctival abnormality ENMT: external ear and nose normal, oropharynx normal Neck: trachea midline, no thyromegaly normal visual inspection Respiratory: normal respiratory effort, lungs clear to auscultation + cough ; no respiratory distress Auscultation: + crackles, + rales and + rhonchi Cardiovascular: RRR, no murmur, no edema Gastrointestinal (Abdomen): Inspection/Auscultation: abdomen normal to inspection; abdomen not distended Musculoskeletal: no cyanosis or clubbing, extremities motor strength 5/5 Skin: no rashes, warm and dry Neurologic: moves all extremities and awake Psychiatric: Orientation: alert, oriented to person and cooperative
[2018-03-04] MEDS ORDERED: PIPERACILL/TAZOBAC CONSULT ACTIVE PRN (13:38)
[2018-03-04] MEDS ORDERED: ALPRAZolam 0.5 MG TABLET PO PRN (13:38)
[2018-03-04] MEDS ORDERED: ACETAMINOPHEN 325 MG TAB PO PRN (13:38)
[2018-03-04] MEDS ORDERED: ONDANSETRON INJ 2 MG/ML 2 ML VIAL IV PRN (13:38)
[2018-03-04] MEDS: ALBUT/IPRATROP 3MG/0.5MG NEB 3 ML VIAL NEB SCH ×4 (15:14→23:07)
[2018-03-04] MEDS ORDERED: fentaNYL citrate 100 MCG/2 ML VIAL IV ONE (15:34)
[2018-03-04] MEDS ORDERED: SUCCINYLCHOLINE CHLORIDE 20 MG/ML 10 ML VIAL IV ONE (15:34)
[2018-03-04] MEDS ORDERED: MIDAZOLAM HCL 5 MG/ML VIAL IV ONE (15:34)
[2018-03-04] MEDS ORDERED: ETOMIDATE 2 MG/ML 20 ML VIAL IV ONE (15:34)
[2018-03-04] MEDS: PIPERACILLIN/TAZOBACTAM 3.375 GM in DEXTROSE 5% 100 ML IV SCH (16:02)
--- NOTE | 2018-03-04 16:10 | Pharmacy Report ---
Pharmacy Abx Initial Consult - Date of Service March 04, 2018 - Pharmacy Dosing Scope Date of Consult: 03/04/18 Consultation requested by: Dr. Arcos Pharmacy is consulted to initiate Vancomycin and Zosyn IV dosing therapy, order appropriate labs and adjust drug dose/frequency. - Subjective The patient is a 82 year old F admitted on 03/04/18 12:36. - Objective Height: 4 ft 11 in Weight: 55 kg (BMI 24.5) Vital Signs (Past 12hrs): Vital Signs Temp Pulse Pulse Resp BP BP Pulse Ox 03/04/18 15:16 87 20 97 03/04/18 14:54 36.7 C 82 16 99/60 L 96 03/04/18 13:32 36.9 C 92 H 19 141/77 H 95 03/04/18 13:00 91 H 33 H 149/114 H 91 03/04/18 12:32 88 24 92 03/04/18 12:31 89 29 H 138/60 91 03/04/18 12:30 89 34 H 92 03/04/18 12:00 82 26 H 125/81 92 03/04/18 11:51 102 H 130/89 03/04/18 11:50 101 H 22 130/89 92 03/04/18 11:49 99 H 25 H 130/89 93 03/04/18 11:00 100 H 31 H 146/81 H 95 03/04/18 10:56 97 H 28 H 122/72 100 03/04/18 10:37 94 H 24 03/04/18 10:00 101 H 26 H 103/70 92 03/04/18 09:54 93 03/04/18 09:41 100 H 35 H 94 03/04/18 09:37 98 H 30 H 139/78 94 03/04/18 09:28 36.8 C 106 H 20 134/72 92 03/04/18 09:21 94 Lab Results (24hrs): Laboratory Tests (24 Hours) 03/04/18 03/04/18 03/04/18 09:45 09:45 09:45 WBC 4.66 L Neut # (Auto) 2.96 Creatinine 0.78 Est Cr Clr Drug Dosing Not Reportable Procalcitonin < 0.05 Micro Results: 03/04/18 10:25 Blood Culture - Pending Blood 03/04/18 09:45 Blood Culture - Pending Blood - Risk Factors for Resistance * Antimicrobial use within the last 90 days Levofloxacin - Assessment & Plan Assessment 82 [address] old F with CT chest on 03/04/18 showing multifocal pneumonia in RLL and BROCK. Has had fevers(up to 101.7), SOB, and productive cough at home. Has has some nausea assoc. with her coughing as well as soreness. Overall has just been feeling weak. Was seen 03/01 for symptoms and was started on Levaquin as an outpatient, with no relief from the antibiotic. Plan Vancomcyin and Zosyn for treatment of multifocal pneumonia Vancomycin IV * Estimated PK Parameters: Vd 0.7 L/kg, Otis 0.038 hr-1, t1/2 18.2hr * Loading dose: 1250 mg (~23 mg/kg) * Maintenance dose: 750 mg IV (~13.6 mg/kg) every 18 hours * Goal trough level for pneumonia : 15 to 20 mcg/mL * Since dosing at the half life, will check the trough level prior to steady state to be sure she is clearing the medication and adjust as needed. Piperacillin/tazobactam * 4.5 g bolus administered over 30 minutes, then 3.375 g IV extended infusion every 8 hours for CrCl greater than 20 mL/min OR every 12 hours for CrCl 20 mL/ min or less and dialysis. Pharmacy will continue to follow and will adjust dose/frequency as necessary. Thank you.
[2018-03-04] MEDS ORDERED: PRAVASTATIN SOD 20 MG TAB PO SCH (17:00)
[2018-03-04] MEDS ORDERED: FUROSEMIDE 40 MG/4 ML VIAL IV ONE (17:07)
[2018-03-04] MEDS ORDERED: NITROGLYCERIN 2% OINTMENT 30GM TUBE ONE (17:14)
[2018-03-04] MEDS ORDERED: HydrALAZINE HCL 20 MG/ML VIAL ONE (17:14)
[2018-03-04] MEDS ORDERED: MoRPHine SULFATE 2 MG/ML CARP ONE (17:18)
--- NOTE | 2018-03-04 17:36 | Consultation Report ---
DATE OF CONSULTATION: 03/04/2018 REQUESTING PHYSICIAN: Ty Arcos. REASON FOR CONSULTATION: Elevated troponin. Dear Dr. Arcos: Thank you for requesting cardiology consultation on Sherri with regard to her mildly elevated troponin. As you know, she is a very pleasant 82-year-old female with severe scoliosis. She describes having predominantly 1 functional lung. She notes about a week and a half ago, she was at an event where there were a number of people who were sick with bronchitis. She thought she had managed to avoid the illness. She presented to the Emergency Room at [facility] on 03/01/2018 with bronchitis and was evaluated and subsequently discharged home on outpatient antibiotics. She noted since she left the ER on Monday, she started having fevers, chills, sweats, and shaking chills. She has had a rattle in her chest. She describes some wheezing and progressive dyspnea. Before she was ill, she has chronic dyspnea noting she can walk about 20 feet. She gets short of breath walking in the grocery store. She does not walk to the mailbox, they live all on 1 floor. She describes the dyspnea as stable over the last number of years. It has been thought to be related to her kyphoscoliosis. She denies any lightheadedness, dizziness, presyncope, syncope. She denies any chest pain or chest pressure, either now or over the last couple of days. She denies any presyncope or syncope. She denies any lower extremity edema or symptoms of claudication. She is coughing and has had yellow green sputum. She does have osteoarthritis symptoms and a history of esophageal reflux. The rest of review of systems is otherwise negative. ALLERGIES: PREDNISONE, STATINS, GABAPENTIN, VALDECOXIB, METHYLPREDNISOLONE, AND NITROFURANTOIN. PAST MEDICAL HISTORY: 1. Admission for bilateral pneumonia, 02/2018. 2. Scoliosis. 3. Recent echocardiogram and stress echo at [facility]. 4. Chronic dyspnea on exertion. She denies a prior history of myocardial infarction, heart attack, or stroke. FAMILY HISTORY: Positive for heart disease in the men in her family. SOCIAL HISTORY: She is . She lives with her . She is a lifetime nonsmoker. MEDICATIONS: Reviewed in the electronic medical record. PHYSICAL EXAMINATION: GENERAL: She is awake, alert, oriented x3. She is in no acute distress although she does appear mildly short of breath talking in long sentences and does have a cough. VITAL SIGNS: Her heart rate is 92, blood pressure 141/77, respirations 19, her temperature is 36.9, and her saturations are 95% on 4 L. HEENT: 2+ carotid upstrokes, no evidence of carotid bruits. Jugular venous pressure appears normal. Sclerae are anicteric. Hearing is normal. RESPIRATORY: Globally decreased breath sounds. She has both inspiratory and expiratory wheezing. She also has inspiratory and expiratory rhonchi and had significantly decreased breath sounds in the right middle lung field. GASTROINTESTINAL: Abdomen is soft, nontender, nondistended. Positive bowel sounds. EXTREMITIES: No clubbing, cyanosis, or edema. PSYCHIATRIC: Affect appears appropriate. NEUROLOGIC: Grossly nonfocal. EKG: At 9:54 this morning, sinus rhythm, ST depression, consider inferolateral ischemia when compared to the EKG of 03/04/2018. When compared to the previous EKG, the ST depression appears slightly worse. IMAGING: Chest CT: Dense airspace consolidation in the right lung base as well as patchy airspace disease in the left upper lobe consistent with multifocal pneumonia, small pleural effusions, right greater than left, severe thoracolumbar scoliosis. There was no evidence of pericardial effusion. She has dense coronary artery calcification. LABORATORY STUDIES: Hemoglobin 12.4, platelet count of 180. Troponin on 03/01/2018 was negative at 0.15. Troponin here is 2.23. Sodium 134, potassium 3.4, BUN 10, creatinine 0.78. IMPRESSION: 1. Bilobar pneumonia. 2. Mild elevation of troponin, possibly demand ischemia versus a small non-ST elevation myocardial infarction. 3. EKG consistent with inferior lateral ST depression. 4. Recent echocardiogram and stress echo at [facility], which we will obtain. 5. History of hyperlipidemia with myalgias, on simvastatin. She is currently chest pain free. Before she became sick, her dyspnea was at her baseline. The challenge is always going to be how much of her shortness of breath complication is related to her scoliosis and lung disease and how much of it is cardiac in etiology. At this point, I would treat her with medicine. She is already on aspirin. I would add low dose beta blockers as long as it does not make her wheezing worse, and I would start pravastatin, which is hydrophilic and tends to be better tolerated than the lipophilic simvastatin. Will obtain her outpatient records. If there is any concern, will repeat her echocardiogram. I discussed with the nursing staff. Will repeat her troponin at 6:00 p.m. with her next PTT. If it is trending down, then her heparin can be stopped. If it is trending up, I would continue her heparin for 48 hours. She would also benefit from chest PT to help with her pneumonia. She is already on antibiotics. I did have a long discussion with Sherri and her family, and at this point, Sherri is not interested in a cardiac catheterization or invasive cardiac procedures at the age of 82. I discussed with her our job is to respect her wishes and that medical therapy is very effective for cardiovascular disease. Will continue to follow with you. Thank you for allowing us to participate in her care.
--- NOTE | 2018-03-04 17:39 | XRay Report ---
SINGLE VIEW CHEST CLINICAL HISTORY: Dyspnea. FINDINGS: 2 AP, portable, upright chest radiographs are compared to study dated 03/01/2018 and correl ated with chest CT performed earlier the same day 03/04/2018. The examination is degraded by portable technique and patient rotation. The cardiac silhouette is not well evaluated. There is atherosclerot ic calcification of the thoracic aorta. There is atelectasis of the right lung secondary to severe sc oliosis. Dense airspace consolidation at the right lung base and a right pleural effusion are unchang ed. Airspace consolidation is also seen throughout the left upper lobe. No pneumothorax is seen. The skeletal structures are osteopenic. Advanced degenerative change and severe scoliosis are noted in th e thoracic spine. There is chronic posttraumatic deformity of the left proximal humerus. IMPRESSION: There is multifocal airspace consolidation and a small right pleural effusion as above. L eft upper lobe consolidation appears to have increased from today's earlier examination. Electronically signed by: Renan Lester M.D. 03/04/2018 5:38 PM
[2018-03-04] MEDS ORDERED: RAPID SEQUENCE INDUCTION BAG ONE (17:42)
[2018-03-04] MEDS ORDERED: HydrALAZINE HCL 20 MG/ML VIAL IV STA (17:56)
[2018-03-04] MEDS ORDERED: PROPOFOL IV EMULSION 10 MG/ML 100 ML VIAL IV ONE (17:58)
[2018-03-04] MEDS ORDERED: METOPROLOL TARTRATE 1 MG/ML VIAL IV ONE (18:02)
--- NOTE | 2018-03-04 18:43 | XRay Report ---
KUB CLINICAL HISTORY: Enteric tube placement. FINDINGS: An AP, portable, supine radiograph of the lower chest and upper abdomen is compared to stud y dated 11/07/2015 and correlated with abdominal CT dated 11/05/2015. An enteric tube has been placed. The tip projects below the diaphragm over the mid to distal stomach. There is no evidence of bowel ob struction on the provided image. Multifocal airspace consolidation and a right pleural effusion are n oted. The skeletal structures are osteopenic. Severe scoliosis is noted in the thoracolumbar spine. IMPRESSION: 1. An enteric tube has been placed. The tip projects below the diaphragm over the mid to distal stoma ch. 2. Multifocal airspace consolidation is again noted. Electronically signed by: Renan Lester M.D. 03/04/2018 6:41 PM
--- NOTE | 2018-03-04 18:48 | XRay Report ---
SINGLE VIEW CHEST CLINICAL HISTORY: Respiratory failure. Intubation. FINDINGS: 2 AP, portable, semierect chest radiographs are compared to chest x-ray and chest [facility] earlier the same day 03/04/2018. The examination is degraded by portable technique and patient ro tation. An endotracheal tube has been placed. This was pullback on the second image and the tip proje cts 2.6 cm above the sha. An enteric tube has been placed and projects below the diaphragm. The ca rdiac silhouette is not well evaluated. There is atherosclerotic calcification of the thoracic aorta. There is atelectasis of the right lung secondary to severe scoliosis. Dense airspace consolidation a t the right lung base and a right pleural effusion are unchanged. Airspace consolidation is also seen throughout the left upper lobe. There is a small left pleural effusion. No pneumothorax is seen. The skeletal structures are osteopenic. Advanced degenerative change and severe scoliosis are noted in t he thoracic spine. There is chronic posttraumatic deformity of the left proximal humerus. IMPRESSION: 1. Endotracheal and enteric tube placement as above. 2. Multifocal airspace consolidation and small pleural effusions has not significantly changed from t he most recent prior examination. Electronically signed by: Renan Lester M.D. 03/04/2018 6:46 PM
[2018-03-04 18:59] LABS: Partial Thromboplastin Time 51.5 Seconds (21.0-31.0)
[2018-03-04] MEDS ORDERED: PROPOFOL 1,000 MG/100 ML VIAL IV SCH (19:30)
[2018-03-04] MEDS: BUDESONIDE 0.5 MG/2 ML VIAL (PULMICORT) INH SCH (19:50)
[2018-03-04] MEDS: ARFORMOTEROL TART 15MCG/2ML VIAL INH SCH (20:48)
[2018-03-04] MEDS: DEXMEDETOMIDINE HCL 200 MCG in SODIUM CHLORIDE 0.9% 48 ML IV SCH (20:58)
[2018-03-04] MEDS ORDERED: ENOXAPARIN INJ 30 MG/0.3 ML SYR SQ SCH (21:00)
[2018-03-04] MEDS: guaiFENesin 600 MG TABCR PO SCH (21:08)
[2018-03-04] MEDS: METOPROLOL SUCC 25MG EXT REL TAB PO SCH (21:08)
[2018-03-04] MEDS ORDERED: CONSULT PHARMACY STA (21:33)
--- NOTE | 2018-03-04 21:57 | Critical Care Consultation ---
Date of Consultation March 04, 2018 Assessment & Plan (1) Admitted to intensive care unit: 82 yo female with above mentioned medical comorbidities namely restrictive lung disease, and probable obstruction (since she is on LABA, LAMA, and SHO) with multilobar pneumonia with normal WBC and hypertroponemia. THe differential includes NSTMI versus severe sepsis. Procalcitonin is within normal and as such it speaks against bacterial infection. Influenza is negative. The patient developed symptoms of heart failure likely due to acute tachycardia versus NSTEMI. neurology use fentanyl and propofol for sedation while on the ventilator respiratory on MV PRVC TV 380 ml ( she is only 4'11" with an ideal body weight of 50 Kg) PEEP 5 continue Brovana, and xopenex Since there is multilobar affection will send legionella antigen and cover with doxycycline since QTc >500 will send also for viral panel cardiovascular heparin drip protocol and aspirin once able to have oral meds will resume statin. Appreciate cardiology input daily ECG and FU troponin REnal FU and replete lytes ID sputum culture FU blood cutlures continue zosyn and vancomycin doxycycline viral panel DVT prophylaxis she is on heparin critical care time 70 minutes (2) Multifocal pneumonia: (3) Non-ST elevated myocardial infarction (non-STEMI): (4) Scoliosis: (5) Restrictive lung disease: History of Present Illness Reason for Consultation: Acute respiratory failure Requesting Physician: Dr. Arcos Attending Physician: Ty Arcos MD History of Present Illness This is an 82yo F with PMHx of scoliosis and restrictive lung disease who started to have coughing on Monday. She went to the ED on 03/01 and was started on a course of levofloxacin as an outpatient, but she reports she was not getting any better. She may have become a little worse. She went to her PCP on 03/02. She apparently continued to have a productive cough and fevers up to 101.7 at home. This was associated with nausea and headaches. She was admitted and a CT scan of the chest shows multilobar areas of consolidation at least in RLL and BROCK. She was found to have an elevated troponin at 2.2 but cardiology was consulted and their impression is this is either from sepsis or a small NSTEMI. She was given aspirin. However, when I arrived her BP was 166/109 with HR 120-130 and she was in obvious heart failure. Bedside sonogram showed LV EF reduced. Bipap was unsuccessful in slowing her tahcypnea and tachycardia. We took the patient to the ICU intubated her and started propofol and gave her a small dose of 2.5 mg of metoprolol and her BP dropped to normal MAP of 72. But she is requiring 100% FiO2 and she has received lasix. Her troponin during the event was only 2.5 Patient daughter a PACU nurse had arrived from [facility] and was updated at the bedside together with the patients Allergies Allergy/AdvReac Type Severity Reaction Status Date / Time prednisone Allergy Intermediate MUSCLE Unverified 03/04/18 10:21 CONTROL Iplkoju-Aqu-Hwj Reductase Allergy Intermediate MUSCULAR Unverified 03/04/18 10: 21 Inhibitor ISSUES gabapentin Allergy Unknown UNKN Verified 03/04/18 10:21 valdecoxib Allergy Unknown UNKN Verified 03/04/18 10:21 methylprednisolone AdvReac Intermediate HOT FACE; Verified 03/04/18 10:21 DRY HEAVES; FACIAL MUSCLES TWITCHING nitrofurantoin AdvReac Mild UPSET Verified 03/04/18 10:21 STOMACH Home Medications Home Medications Medication Instructions Recorded Confirmed Type albuterol sulfate [Ventolin HFA] 2 puff INHALATION QID PRN 01/08/18 03/04/18 History alprazolam 1 tab PO HS 01/08/18 03/04/18 History arformoterol [Brovana] 2 ml INHALATION BID 01/08/18 03/04/18 History biotin 1 mg PO 1700 01/08/18 03/04/18 History budesonide [Pulmicort] 2 ml INHALATION BID 01/08/18 03/04/18 History calcium citrate 200 mg PO QPM 01/08/18 03/04/18 History celecoxib 100 mg PO QAM 01/08/18 03/04/18 History cholecalciferol (vitamin D3) 2,000 unit PO 1700 01/08/18 03/04/18 History [Vitamin D3] glucosamine sulfate [Glucosamine] 500 mg PO QPM 01/08/18 03/04/18 History ipratropium bromide 2.5 ml INHALATION BID 01/08/18 03/04/18 History omega 9-aio-gyz-fish oil [Fish Oil] 1 cap PO 1700 01/08/18 03/04/18 History omeprazole 40 mg PO QAM PRN 01/08/18 03/04/18 History vitamin B complex 1 tab PO HS 01/08/18 03/04/18 History fluoxetine 20 mg PO DAILY 03/04/18 03/04/18 History Patient History Medical History Restrictive lung disease (Chronic) Bronchitis (Resolved) Scoliosis (Chronic) Urinary tract infection (Inactive) Surgical History H/O hysterectomy for benign disease Family History Other Heart attack Social History Current Living Situation: Spouse Other Information That Helps Us Care for You: No Feels Safe at Home: Yes Safety Concerns: Feels Safe At This Time Smoking Status: Never smoker Do You Dip or Chew Tobacco: No Second Hand Exposure: No Tobacco Cessation Education Requested by Patient: No Hx Alcohol Use: No Hx Substance Use: No Beliefs That Will Affect Care: None Preferred Language: Danish Communication Ability: Effective Insole Doubler Required: No Review of Systems unable to obtain beyond what is in HPI. Physical Exam 2 Vital Signs (Past 24 Hours): Last Vital Signs Temp 36.7 C 03/04/18 14:54 Pulse 94 H 03/04/18 19:53 Resp 20 03/04/18 19:53 BP 147/111 H 03/04/18 18:26 Pulse Ox 97 03/04/18 19:53 Constitutional: + ill appearing Respiratory: intubated sedated. Rhales decreased impressively Cardiovascular: Rate/Rhythm: + tachycardic Heart Sounds: normal S1 and normal S2 Gastrointestinal (Abdomen): normal bowel sounds, soft, nontender, no hepatosplenomegaly Musculoskeletal: no clubbing cyanosis Neurologic: intubated sedated and on MV but was moving all 4 extremities. Results & Data Laboratory Results Laboratory Tests 03/01/18 03/04/18 03/04/18 18:15 09:45 09:45 WBC 4.66 L Hgb 12.4 Plt Count 180 APTT Potassium 3.4 L Creatinine 0.78 POC Lactic Acid Corbin Troponin I < 0.015 2.230 H* Albumin 3.5 Procalcitonin Influenza Type A (PCR) Influenza Type B (PCR) 03/04/18 03/04/18 03/04/18 09:45 09:45 09:55 WBC Hgb Plt Count APTT Potassium Creatinine POC Lactic Acid Corbin 1.37 Troponin I Albumin Procalcitonin < 0.05 Influenza Type A (PCR) Neg for Influ A Influenza Type B (PCR) Neg for Influ B 03/04/18 03/04/18 18:20 18:20 WBC Hgb Plt Count APTT 51.5 H* Potassium Creatinine POC Lactic Acid Corbin Troponin I 2.510 H* Albumin Procalcitonin Influenza Type A (PCR) Influenza Type B (PCR) Diagnostic Findings CT chest IMPRESSION: 1. There is dense airspace consolidation at the right lung base, with patchy airspace consolidation seen throughout the left upper lobe. The appearance is typical for multifocal pneumonia/aspiration pneumonitis. Clinical correlation will be required. 2. Several foci of consolidation in the left upper lobe demonstrate a more nodular appearance. These are almost certainly on an infectious/inflammatory basis. A follow-up chest CT in 3-4 months time is recommended to document resolution. 3. Small pleural effusions, right larger than left. 4. Severe thoracolumbar scoliosis. 5. Additional findings as above.
[2018-03-04] MEDS: DOXYCYCLINE HYCLATE 100 MG in DEXTROSE 5% 100 ML IV SCH (23:15)
[2018-03-04] MEDS ORDERED: MIDAZOLAM HCL 125 MG/250 ML BAG IV SCH (23:15)
[2018-03-05] MEDS: PIPERACILLIN/TAZOBACTAM 3.375 GM in DEXTROSE 5% 100 ML IV SCH ×3 (01:08→15:48)
--- NOTE | 2018-03-05 01:53 | Operative Report ---
DATE OF OPERATION: 03/04/2018 PROCEDURE: Emergent endotracheal intubation. INDICATION: Acute respiratory failure. CONSENT: Verbal consent was obtained from the patient herself and from her . She was in acute respirstory failure. DESCRIPTION OF THE PROCEDURE: The patient received 10 mg of etomidate and 100 mg of succinylcholine. A laryngoscope size 3 MAC was then used to visualize the vocal cords. An attempt to intubate the patient resulted in esophageal intubation. Patient has a very small mouth opening. The second attempt was done using a glidoscope to insert the size 7.5 ET tube in between the vocal cords. Again patient's voice box was anterior and mouth opening narrow. So we used a regular stylet rather than the glidoscope stylet to curve the ET anteriorly. The intubation was successful after the second attempt. The ET tube was connected to the CO2 detector and confirmation of correct placement was performed by CO2 exhalation as well as by auscultation. The patient was then connected to mechanical ventilation. I attest to the content of the Intraoperative Record and any orders documented therein. Any exceptions are noted below. NIMA
[2018-03-05 03:25] LABS: Hematocrit (blood only) 35.2 % (37-47); Hemoglobin 11.8 g/dL (12.0-16.0); Mean Platelet Volume 9.4 fL (7.4-10.4); Platelet Count 174 K/uL (130-400); RDW Standard Deviation 46.6 fL (36.4-46.3); Red Blood Count 3.87 M/uL (4.2-5.4); White Blood Count 6.17 K/uL (4.8-10.8)
[2018-03-05 03:35] LABS: Partial Thromboplastin Ratio 1.2; Partial Thromboplastin Time 31.2 Seconds (21.0-31.0)
[2018-03-05] MEDS ORDERED: DOBUTamine / D5W 500 MG/250 ML BAG IV PRN (03:41)
[2018-03-05 03:43] LABS: BUN Creatinine Ratio 13.3 (10-20); Calcium 7.9 mg/dl (8.5-10.1); Creatinine Clr Calc Pharmacy 27.4 ml/min; Est GFR (African American) 47.5; Magnesium 1.8 mg/dl (1.8-2.4); Potassium 3.6 mmol/L (3.5-5.1)
[2018-03-05 03:44] LABS: Mean Corpuscular Hgb Conc 33.5 g/dL (32-36)
[2018-03-05] MEDS: ALBUT/IPRATROP 3MG/0.5MG NEB 3 ML VIAL NEB SCH ×5 (03:44→23:20)
[2018-03-05] MEDS ORDERED: VANCOMYCIN HCL 750 MG in SODIUM CHLORIDE 0.9% 250 ML IV SCH (04:00)
[2018-03-05] MEDS ORDERED: HEPARIN IV BOLUS 4,000 UNITS in SYRINGE 0 ML IV ONE (04:06)
[2018-03-05] MEDS ORDERED: NORMOSOL-R 250 ML IV ONE (04:20)
[2018-03-05] MEDS: HEPARIN STANDARD DEXTROSE 25,000 UNITS/500 ML IV SCH (04:20)
[2018-03-05 06:10] LABS: iSTAT Allen Test Pass; iSTAT Arterial Blood Gas HCO3 24 meg/L (19-24); iSTAT Carbon Dioxide 25 mEq/l (24-31); iSTAT FiO2 80 %
[2018-03-05] MEDS: ARFORMOTEROL TART 15MCG/2ML VIAL INH SCH ×2 (07:07→19:16)
[2018-03-05] MEDS: BUDESONIDE 0.5 MG/2 ML VIAL (PULMICORT) INH SCH ×2 (07:07→19:16)
[2018-03-05] MEDS ORDERED: NORMOSOL-R 500 ML IV ONE (07:29)
--- NOTE | 2018-03-05 07:37 | XRay Report ---
XR chest 1V portable CLINICAL HISTORY: 82 years-old Female presenting with multifocal pna. TECHNIQUE: Portable upright AP view of the chest was obtained. COMPARISON: 03/04/2018. FINDINGS: Endotracheal tube terminates approximately 2 cm from the sha. Nasogastric tube descends below the diaphragm with sidehole also terminating below the diaphragm. Atherosclerosis of the aortic arch. Car diac silhouette grossly normal in size allowing for the severity of scoliosis. Extensive diffuse hazy opacity in the left lung with a mid to upper lung predominance. Dense opacity at the right lung base is likely in part due to chronic volume loss in the setting of severe dextroscoliotic curvature of t he thoracic spine. No large pleural effusion or pneumothorax. Severe scoliosis of the mid lumbar spin e. Posttraumatic deformity of the left humeral neck. Upper abdomen normal. IMPRESSION: 1. Appropriately positioned tubes. 2. Persistent left upper to mid lung infiltrates compatible with pneumonia. 3. Suspected chronic atelectasis of the right lung base. Electronically signed by: Siddharth Grant M.D. 03/05/2018 7:36 AM
[2018-03-05] MEDS: ASPIRIN 81 MG ECTAB PO SCH (07:50)
[2018-03-05] MEDS: FLUOXETINE HCL 20 MG CAP PO SCH (07:50)
[2018-03-05] MEDS: guaiFENesin 600 MG TABCR PO SCH ×2 (07:50→20:15)
[2018-03-05] MEDS: DEXMEDETOMIDINE HCL 200 MCG in SODIUM CHLORIDE 0.9% 48 ML IV SCH (07:51)
--- NOTE | 2018-03-05 08:25 | Clinical Documentation Query ---
DAGOBERTO Rodriguez : CLINICAL DOCUMENTATION QUERY CT scan of the chest read to include the following: "There is dense airspace consolidation at the right lung base, with patchy airspace consolidation seen throughout the left upper lobe. The appearance is typical for multifocal pneumonia/aspiration pneumonitis. Clinical correlation will be required". H&P simplified to "multifocal pneumonia". Patient does report occasional coughing with PO intake. STICK FEEDER consulted. Subsequently, she has been treated with IV Zosyn, Vancomycin, and has been endotracheally intubated for purposes of mechanica ventilation. In your clinical opinion is this patient being managed for: ( x ) (Possible/Suspected) Aspiration pneumonia ( ) Not Agree ( ) Other explanation of clinical findings (No explanation is considered a No Response) ( ) Unable to determine ( ) Need to Discuss (Phone CDS or qliq) (No discussion is considered a No Response) The medical record reflects the following clinical findings, treatment, and risk factors. Clinical Indicators: As above Treatment: As above Risk Factors: Age, scoliosis, limited mobility Please clarify and document your clinical opinion in the progress notes and discharge summary. Terms such as "probable", "suspected", "likely", "questionable", "possible", or "still to be ruled out" are acceptable. IF IN AGREEMENT, YOU MUST DOCUMENT ABOVE DIAGNOSTIC STATEMENT IN DAILY PROGRESS NOTES AND DISCHARGE SUMMARY. This document is not part of the patient' s record. Thank You, Valeriy Bauman, SOO [phone] [facility]OSPITALAmalia
--- NOTE | 2018-03-05 08:50 | Critical Care Progress Note ---
Date of Service March 05, 2018 Assessment & Plan (1) Admitted to intensive care unit: 82 yo female with above mentioned medical comorbidities namely restrictive lung disease, and probable obstruction (since she is on LABA, LAMA, and SHO) with multilobar pneumonia with normal WBC and hypertroponemia. THe differential includes NSTMI versus severe sepsis. Procalcitonin is within normal and as such it speaks against bacterial infection. Influenza is negative. The patient developed symptoms of heart failure likely due to acute tachycardia versus NSTEMI. NEURO versed while on the ventilator RASS -1 Restart home prozac CARDIO heparin drip protocol and aspirin Statin DCd d/y documented adverse effect Appreciate cardiology input daily ECG f/u troponin has decreased from peak of 3.78 to 2.55 Echo performed today per cardio, awaiting results Given 500cc bolus this AM to help with clinical dehydration, HR, pressures. On toprol XL 25mg qHS PULM Goal to extubate today continue Brovana, and xopenex Since there is multilobar affection will send legionella antigen and cover with doxycycline since QTc >500 will send also for viral panel RENAL Replaced potassium and magnesium. Continue to monitor. Monitor DESMOND, improving ID sputum culture did not reveal organisms FU blood cultures; NGTD continue zosyn and vancomycin doxycycline viral panel DVT prophylaxis heparin Supervising Physician Co-Signing Physician Notes Dr. Bynum was resident physician during care of patient. I separately evaluated patient for mirza portions of the history and the exam. I was present during the critical portion of medical decision making, and I discussed the case with the resident. I generally agree with the findings and plan. Patient was able to be liberated from the ventilator. Continue with diuresis with concern for volume overload. She was discussed in multidisciplinary rounds. Also discussed the case with cardiology Dr. Trujillo I have personally spent 35 minutes of critical care time in the direct management of this patient. This is a life/limb threatening event. This includes time spent evaluating patient, direct bedside care, chart review, placing orders, interpretation of diagnostic studies, discussion with consultants, patient, and/or family members regarding treatment decisions, as well as other required patient management activities. This time is exclusive of all separately billable procedures, and teaching time and separate from and in addition to any other critical care service time. Subjective Review of Systems Unobtainable due to endotracheal tube Physical Exam 2 Vital Signs (Past 24 Hours): Last Vital Signs Temp 36.7 C 03/04/18 14:54 Pulse 88 03/05/18 07:10 Resp 22 03/05/18 07:10 BP 89/46 L 03/05/18 05:40 Pulse Ox 95 03/05/18 07:10 Constitutional: average body habitus Comfortable, able to answer yes/no questions. Denies pain but becomes "combative" and tries to reach for ET tube. Eyes: EOM intact bilaterally; no conjunctival abnormality ENMT: external ear and nose normal, oropharynx normal Neck: trachea midline, no thyromegaly normal visual inspection Respiratory: normal respiratory effort, lungs clear to auscultation + cough ; no respiratory distress Auscultation: + crackles, + rales and + rhonchi Cardiovascular: Rate/Rhythm: + tachycardic Heart Sounds: normal S1 and normal S2 Gastrointestinal (Abdomen): normal bowel sounds, soft, nontender, no hepatosplenomegaly Musculoskeletal: no cyanosis or clubbing, extremities motor strength 5/5 Skin: no rashes, warm and dry Neurologic: moves all extremities and awake Psychiatric: Orientation: alert, oriented to person and cooperative Results & Data Laboratory Results 03/05/18 03/05/18 03/05/18 Range/Units 11:09 08:48 08:48 WBC (4.8-10.8) K/uL RBC (4.2-5.4) M/uL Hgb (12.0-16.0) g/dL Hct (37-47) % MCV (80-100) fL MCH (25-34) pg MCHC (32-36) g/dL RDW Std Deviation (36.4-46.3) fL RDW Coeff of Jaren (11.5-14.5) % Plt Count (130-400) K/uL MPV (7.4-10.4) fL APTT 88.2 H* (21.0-31.0) Seconds PTT Ratio 3.4 Sample Site POC pH (7.35-7.45) POC pCO2 (35-46) mmHg POC pO2 (80-95) mmHg POC HCO3 (19-24) gertrudis/L POC Total CO2 (24-31) mEq/l POC Base Excess (-9-1.8) gertrudis/L POC ABG O2 Sat (90-95) % Julian Test O2 Delivery Device POC O2 Rate Minute Ventilation POC FiO2 % Tidal Volume PEEP Sodium 136 (136-145) mmol/L Potassium 3.2 L (3.5-5.1) mmol/L Chloride 100 (98-107) mmol/L Carbon Dioxide 24 (21-32) mmol/L Anion Gap 11.0 (3-11) BUN 20 H (7-18) mg/dl Creatinine 1.22 H (0.6-1.2) mg/dl Est Cr Clr Drug Dosing 28.1 ml/min Est GFR ( Amer) 48.5 Est GFR (Non-Af Amer) 41.8 BUN/Creatinine Ratio 16.0 (10-20) Glucose 153 H (70-99) mg/dl Calcium 7.6 L (8.5-10.1) mg/dl Magnesium 2.0 (1.8-2.4) mg/dl Troponin I 2.550 H* (0-0.045) ng/ml NT-Pro-B Natriuret Pep (0-1800) pg/ml Nasal Screen MRSA (PCR) (Negative) Urine Legionella Ag 03/05/18 03/05/18 03/05/18 Range/Units 08:48 08:48 05:56 WBC 5.55 (4.8-10.8) K/uL RBC 3.47 L (4.2-5.4) M/uL Hgb 10.6 L (12.0-16.0) g/dL Hct 31.3 L (37-47) % MCV 90.2 (80-100) fL MCH 30.5 (25-34) pg MCHC 33.9 (32-36) g/dL RDW Std Deviation 46.4 H (36.4-46.3) fL RDW Coeff of Jaren 14.1 (11.5-14.5) % Plt Count 144 (130-400) K/uL MPV 9.5 (7.4-10.4) fL APTT 199.1 H* (21.0-31.0) Seconds PTT Ratio 7.5 Sample Site R Radial POC pH 7.38 (7.35-7.45) POC pCO2 40 (35-46) mmHg POC pO2 180 H (80-95) mmHg POC HCO3 24 (19-24) gertrudis/L POC Total CO2 25 (24-31) mEq/l POC Base Excess -2.0 (-9-1.8) gertrudis/L POC ABG O2 Sat 100.0 H (90-95) % Julian Test Pass O2 Delivery Device Ventilator POC O2 Rate 16 Minute Ventilation 6.08 POC FiO2 80 % Tidal Volume 380 PEEP 5 Sodium (136-145) mmol/L Potassium (3.5-5.1) mmol/L Chloride (98-107) mmol/L Carbon Dioxide (21-32) mmol/L Anion Gap (3-11) BUN (7-18) mg/dl Creatinine (0.6-1.2) mg/dl Est Cr Clr Drug Dosing ml/min Est GFR ( Amer) Est GFR (Non-Af Amer) BUN/Creatinine Ratio (10-20) Glucose (70-99) mg/dl Calcium (8.5-10.1) mg/dl Magnesium (1.8-2.4) mg/dl Troponin I (0-0.045) ng/ml NT-Pro-B Natriuret Pep (0-1800) pg/ml Nasal Screen MRSA (PCR) (Negative) Urine Legionella Ag 03/05/18 03/05/18 03/05/18 Range/Units 03:15 03:15 03:15 WBC (4.8-10.8) K/uL RBC (4.2-5.4) M/uL Hgb (12.0-16.0) g/dL Hct (37-47) % MCV (80-100) fL MCH (25-34) pg MCHC (32-36) g/dL RDW Std Deviation (36.4-46.3) fL RDW Coeff of Jaren (11.5-14.5) % Plt Count (130-400) K/uL MPV (7.4-10.4) fL APTT 31.2 H (21.0-31.0) Seconds PTT Ratio 1.2 Sample Site POC pH (7.35-7.45) POC pCO2 (35-46) mmHg POC pO2 (80-95) mmHg POC HCO3 (19-24) gertrudis/L POC Total CO2 (24-31) mEq/l POC Base Excess (-9-1.8) gertrudis/L POC ABG O2 Sat (90-95) % Julian Test O2 Delivery Device POC O2 Rate Minute Ventilation POC FiO2 % Tidal Volume PEEP Sodium 137 (136-145) mmol/L Potassium 3.6 (3.5-5.1) mmol/L Chloride 100 (98-107) mmol/L Carbon Dioxide 27 (21-32) mmol/L Anion Gap 10.0 (3-11) BUN 17 D (7-18) mg/dl Creatinine 1.24 H D (0.6-1.2) mg/dl Est Cr Clr Drug Dosing 27.4 ml/min Est GFR ( Amer) 47.5 Est GFR (Non-Af Amer) 41.0 BUN/Creatinine Ratio 13.3 (10-20) Glucose 158 H (70-99) mg/dl Calcium 7.9 L (8.5-10.1) mg/dl Magnesium 1.8 (1.8-2.4) mg/dl Troponin I 3.780 H* (0-0.045) ng/ml NT-Pro-B Natriuret Pep 40071 H (0-1800) pg/ml Nasal Screen MRSA (PCR) (Negative) Urine Legionella Ag 03/05/18 03/04/18 03/04/18 Range/Units 03:15 18:20 18:20 WBC 6.17 (4.8-10.8) K/uL RBC 3.87 L (4.2-5.4) M/uL Hgb 11.8 L (12.0-16.0) g/dL Hct 35.2 L (37-47) % MCV 91.0 (80-100) fL MCH 30.5 (25-34) pg MCHC 33.5 (32-36) g/dL RDW Std Deviation 46.6 H (36.4-46.3) fL RDW Coeff of Jaren 14.0 (11.5-14.5) % Plt Count 174 (130-400) K/uL MPV 9.4 (7.4-10.4) fL APTT 51.5 H* (21.0-31.0) Seconds PTT Ratio 2.0 Sample Site POC pH (7.35-7.45) POC pCO2 (35-46) mmHg POC pO2 (80-95) mmHg POC HCO3 (19-24) gertrudis/L POC Total CO2 (24-31) mEq/l POC Base Excess (-9-1.8) gertrudis/L POC ABG O2 Sat (90-95) % Julian Test O2 Delivery Device POC O2 Rate Minute Ventilation POC FiO2 % Tidal Volume PEEP Sodium (136-145) mmol/L Potassium (3.5-5.1) mmol/L Chloride (98-107) mmol/L Carbon Dioxide (21-32) mmol/L Anion Gap (3-11) BUN (7-18) mg/dl Creatinine (0.6-1.2) mg/dl Est Cr Clr Drug Dosing ml/min Est GFR ( Amer) Est GFR (Non-Af Amer) BUN/Creatinine Ratio (10-20) Glucose (70-99) mg/dl Calcium (8.5-10.1) mg/dl Magnesium (1.8-2.4) mg/dl Troponin I 2.510 H* (0-0.045) ng/ml NT-Pro-B Natriuret Pep (0-1800) pg/ml Nasal Screen MRSA (PCR) (Negative) Urine Legionella Ag 03/04/18 03/04/18 Range/Units 16:30 02:45 WBC (4.8-10.8) K/uL RBC (4.2-5.4) M/uL Hgb (12.0-16.0) g/dL Hct (37-47) % MCV (80-100) fL MCH (25-34) pg MCHC (32-36) g/dL RDW Std Deviation (36.4-46.3) fL RDW Coeff of Jaren (11.5-14.5) % Plt Count (130-400) K/uL MPV (7.4-10.4) fL APTT (21.0-31.0) Seconds PTT Ratio Sample Site POC pH (7.35-7.45) POC pCO2 (35-46) mmHg POC pO2 (80-95) mmHg POC HCO3 (19-24) gertrudis/L POC Total CO2 (24-31) mEq/l POC Base Excess (-9-1.8) gertrudis/L POC ABG O2 Sat (90-95) % Julian Test O2 Delivery Device POC O2 Rate Minute Ventilation POC FiO2 % Tidal Volume PEEP Sodium (136-145) mmol/L Potassium (3.5-5.1) mmol/L Chloride (98-107) mmol/L Carbon Dioxide (21-32) mmol/L Anion Gap (3-11) BUN (7-18) mg/dl Creatinine (0.6-1.2) mg/dl Est Cr Clr Drug Dosing ml/min Est GFR ( Amer) Est GFR (Non-Af Amer) BUN/Creatinine Ratio (10-20) Glucose (70-99) mg/dl Calcium (8.5-10.1) mg/dl Magnesium (1.8-2.4) mg/dl Troponin I (0-0.045) ng/ml NT-Pro-B Natriuret Pep (0-1800) pg/ml Nasal Screen MRSA (PCR) Negative (Negative) Urine Legionella Ag Pending Medications Administered Current Inpatient Medications Acetaminophen (Tylenol) 650 mg PO Q4H PRN PRN Reason: pain/fever Stop: 04/03/18 13:37 Albuterol (Duoneb) 3 ml NEB Q4R [facility] Stop: 04/03/18 15:59 Last Admin: 03/05/18 15:08 Dose: 3 ml Alprazolam (Xanax) 0.5 mg PO HS PRN PRN Reason: Insomnia Stop: 04/03/18 13:37 Arformoterol Tartrate (Brovana Neb) 15 mcg INH BIDR [facility] Stop: 04/03/18 19:59 Last Admin: 03/05/18 07:07 Dose: 15 mcg Aspirin (Ecotrin) 81 mg PO DAILY [facility] Stop: 04/04/18 08:59 Last Admin: 03/05/18 07:50 Dose: 81 mg Budesonide (Pulmicort Respules) 0.5 mg INH BIDR [facility] Stop: 04/03/18 19:59 Last Admin: 03/05/18 07:07 Dose: 0.5 mg Fluoxetine HCl (Prozac) 20 mg PO DAILY [facility] Stop: 04/04/18 08:59 Last Admin: 03/05/18 07:50 Dose: 20 mg Guaifenesin (Mucinex) 600 mg PO Q12 [facility] Stop: 04/03/18 20:59 Last Admin: 03/05/18 07:50 Dose: 600 mg Piperacillin Sod/Tazobactam (Sod 3.375 gm/ Dextrose) 115 mls @ 28.75 mls/hr IV Q8H [facility]; Protocol Stop: 03/11/18 15:59 Last Admin: 03/05/18 15:48 Dose: 28.8 mls/hr Doxycycline Hyclate 100 mg/ (Dextrose) 110 mls @ 50 mls/hr IV Q12H [facility] Stop: 03/06/18 21:59 Last Infusion: 03/05/18 14:47 Dose: Infused Midazolam HCl (Versed) 125 mg in 250 mls @ 0 mls/hr IV .Q24H [facility]; Protocol Stop: 04/03/18 23:14 Last Titration: 03/05/18 10:07 Dose: Infused Heparin Sodium/Dextrose (Heparin Sodium/Dextrose) 25,000 units in 500 mls @ 16 mls/hr IV .Q24H [facility]; Protocol Stop: 04/04/18 04:05 Last Titration: 03/05/18 12:35 Dose: 800 units/hr, 16 mls/hr Potassium Chloride (K Tobi / Wtr) 10 meq in 100 mls @ 100 mls/hr IV Q1H [facility] Stop: 03/05/18 18:59 Last Infusion: 03/05/18 17:05 Dose: Infused Metoprolol Succinate (Toprol Xl) 25 mg PO HS [facility] Stop: 04/03/18 20:59 Last Admin: 03/04/18 21:08 Dose: Not Given Miscellaneous Information (Consult) 1 ea N/A UD PRN PRN Reason: Consult Stop: 04/03/18 13:37 Ondansetron HCl (Zofran) 4 mg IV Q4H PRN PRN Reason: Nausea Stop: 04/03/18 13:37 Resident Activity Tracking Resident Involvement: Resident Care Provided Care Provided: Adult Hospital Medicine
[2018-03-05 08:56] LABS: Hematocrit (blood only) 31.3 % (37-47); Hemoglobin 10.6 g/dL (12.0-16.0); Mean Corpuscular Volume 90.2 fL (80-100); Mean Platelet Volume 9.5 fL (7.4-10.4); Platelet Count 144 K/uL (130-400); RDW Coefficient of Variation 14.1 % (11.5-14.5); RDW Standard Deviation 46.4 fL (36.4-46.3); Red Blood Count 3.47 M/uL (4.2-5.4); White Blood Count 5.55 K/uL (4.8-10.8)
[2018-03-05 09:06] LABS: Mean Corpuscular Hgb Conc 33.9 g/dL (32-36)
[2018-03-05 09:21] LABS: Calcium 7.6 mg/dl (8.5-10.1); Creatinine Clr Calc Pharmacy 28.1 ml/min; Est GFR (African American) 48.5; Est GFR (Non-African American) 41.8; Potassium 3.2 mmol/L (3.5-5.1)
--- NOTE | 2018-03-05 09:37 | Cardiology Progress Note ---
Date of Service March 05, 2018 She is intubated and sedated. His her daughter is with her to calm her.The events of last evening were reviewed in detail with the nursing staff and the nutrition associate. In addition they were reviewed with the hospitalists last evening as well. It appears she may have been over diuresed overnight given her lowish blood pressure. She has responded nicely to IV fluids. Physical Exam 2 Vital Signs (Past 24 Hours): Last Vital Signs Temp 36.7 C 03/04/18 14:54 Pulse 88 03/05/18 07:10 Resp 22 03/05/18 07:10 BP 89/46 L 03/05/18 05:40 Pulse Ox 95 03/05/18 07:10 PHYSICAL EXAMINATION: GENERAL: She is intubated and sedated she opens her eyes and squeezes her daughter's hand RESPIRATORY: Globally decreased breath sounds. She also has inspiratory and expiratory rhonchi and had significantly decreased breath sounds in the right middle lung field. GASTROINTESTINAL: Abdomen is soft, nontender, nondistended. Positive bowel sounds. EXTREMITIES: No clubbing, cyanosis, or edema. IMPRESSION: 1. Bilobar pneumonia. 2. Mild elevation of troponin, possibly demand ischemia versus a small non-ST elevation myocardial infarction. 3. EKG consistent with inferior lateral ST depression. 4. Dobutamine stress echo from [facility] physician group 01/2018 with no evidence of ischemia normal left ventricular systolic function with an EF in the range of 60-65% without evidence of left ventricular hypertrophy and type I diastolic dysfunction 5. History of hyperlipidemia with myalgias And weakness from her abdomen to her lower extremities 6. Hypoxic respiratory failure requiring intubation on 03/04/2018 Recommendations: 1. Echocardiogram this morning to reassess her LV function 2. Stop her statin therapy given the history of substantial leg weakness 3. Continue with beta-blockers as her blood pressure allows 4. Her BNP is significantly elevated and it is likely last evening's event was consistent with flash pulmonary edema. 5. As I discussed with the family we likely will need to consider cardiac catheterization once she improves from her pneumonia. If she were to have repeat episodes of flash pulmonary edema we may need to proceed sooner than later. In discussion with the patient yesterday she did not want to consider a catheterization. Her daughters are both nurses and I believe will have some say into her proceeding with catheterization. If we can consider a catheterization I will have Dr. House of interventional cardiology reviewed the CT of her chest given the fact that her anatomy will not be normal and make the procedure more difficult. 6. She will remain on heparin and aspirin 7. Continue trending her troponins which are only mildly elevated even in the face of hypoxic respiratory failure last night This was all discussed with the nurse and the nutrition associate service.
[2018-03-05 10:00] LABS: Partial Thromboplastin Ratio 7.5
[2018-03-05 10:01] LABS: Partial Thromboplastin Time 199.1 Seconds (21.0-31.0)
[2018-03-05 11:37] LABS: Partial Thromboplastin Ratio 3.4
[2018-03-05 11:40] LABS: Partial Thromboplastin Time 88.2 Seconds (21.0-31.0)
[2018-03-05] MEDS ORDERED: POTASSIUM CHLORIDE 20 MEQ/15 ML UDC PO STA (12:10)
[2018-03-05] MEDS ORDERED: MINERAL OIL 30 ML UDC PO SCH ×2 (12:30→16:30)
[2018-03-05] MEDS: MAGNESIUM SULFATE / D5W 1 GM/100 ML BAG IV SCH ×2 (12:35→13:45)
[2018-03-05] MEDS: DOXYCYCLINE HYCLATE 100 MG in DEXTROSE 5% 100 ML IV SCH ×2 (12:35→22:22)
[2018-03-05] MEDS: POTASSIUM CHLORIDE / WTR 10 MEQ/100 ML PLCT IV SCH ×6 (13:15→20:13)
[2018-03-05] MEDS ORDERED: SORBITOL 70% 30ML UDC PO SCH (14:30)
[2018-03-05] MEDS ORDERED: ALBUMIN 25% 50 ML with FUROSEMIDE 20 MG IV ONE (18:45)
[2018-03-05] MEDS: METOPROLOL SUCC 25MG EXT REL TAB PO SCH (20:14)
[2018-03-05] MEDS ORDERED: VANCOMYCIN TROUGH ONE (21:30)
[2018-03-05 22:18] LABS: Partial Thromboplastin Ratio 4.7
--- NOTE | 2018-03-05 22:24 | Hospitalist Progress Note ---
Date of Service March 05, 2018 Assessment & Plan (1) Multifocal pneumonia: Suspected aspiration pneumonia. CT chest on 03/04 showed multifocal pneumonia in the RLL and BROCK. Has been having fevers, shortness of breath, and productive cough at home. Has been on levofloxacin since 03/01 as outpatient with worsening of symptoms. 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 Patient does report occasionally coughing with PO intake.-still pending as pt was just extubated today - continue Guaifenasin - continue albuterol nebs, Budesonide bid, Brovana bid -follow CXR -suuplemental O2 and BiPAP to keep POx>92% (2) Sepsis: With tachycardia, tachypnea, fever, and PNA as source -improving, hypotension remains but may be more likely due to IV lasix given on admission (3) Acute respiratory failure with hypoxia: Secondary to PNA, acute systolic CHF, NSTEMI -treatment ongoing for all conditions (4) Non-ST elevated myocardial infarction (non-STEMI): With troponin peaked at 3.78 and serial chaneges of septal infarct on ECG. With preliminary report of ECHO with reduced EF 45-50%. Had normal dobutamine stress ECHO just in 01/2018. Denies chest pain Seen by Cardiology here and offered cardiac catheterization which pt is declining at this time -continue aspirin 81mg -cannot tolerate statins due to myalgias -continue heparin gtt x 48 hours -started on Toprol XL 25mg po qhs (5) Acute on chronic combined systolic and diastolic heart failure: With new mildly reduced EF likely secondary to NSTEMI, with chronic diastolic CHF -with likely flash pulm edema on admission, elevated proBNP -was given IV lasix 40mg x 1 on admission and then had significant hypotension -now getting albumin + lasix 20mg IV and BP doing well -started Toprol XL 25mg qpm -await further Cardiology recommendations -continue strict I/Os, daily weights (6) DESMOND (acute kidney injury): 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 -giving IL lasix and albumin now -follow BMP in AM -continue Frank cath (7) Restrictive lung disease: Life-long issues due to her scoliosis. 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 (11) DVT prophylaxis: Heparin gtt Dispo-remain in ICU overnight for BiPAP support and hypotension Subjective Pt was extubated this AM and did ok throughout the day but now is back on BiPAP with FiO2 0.4 due to tachypnea. BPs have been running quite low throughout the night and daytime. Now receiving IV lasix with albumin and BPs improved. Pt says she feels "ok" and daughter at bedside. She apparently discussed a cardiac catheterization with Cardiology and declined it this evening. Review of Systems All systems reviewed & are unremarkable except as noted in HPI & below Physical Exam 2 Vital Signs (Past 24 Hours): Last Vital Signs Temp 36.9 C 03/05/18 20:00 Pulse 93 H 03/05/18 21:01 Resp 20 03/05/18 21:00 BP 115/56 L 03/05/18 21:00 Pulse Ox 96 03/05/18 21:01 Constitutional: + thin; no acute distress (with BiPAP mask in place) Eyes: PERRL, conjunctivae normal, anicteric sclerae ENMT: external ear and nose normal, oropharynx normal Neck: trachea midline, no thyromegaly Respiratory: normal respiratory effort; no cough Auscultation: + rales (at left base) and + wheezes (at right lower lung field) Cardiovascular: RRR, no murmur, no edema Gastrointestinal (Abdomen): normal bowel sounds, soft, nontender, no hepatosplenomegaly Musculoskeletal: Extremities: extremities normal to inspection; no cyanosis and no clubbing Skin: no rashes, warm and dry Neurologic: moves all extremities and awake; no focal motor deficits Psychiatric: A+Ox3, euthymic affect Genitourinary: + abnormal external appearance (Frank in place with clear yellow urine) Results & Data Laboratory Results 03/05/18 03/05/18 03/05/18 Range/Units 19:42 18:13 11:09 WBC (4.8-10.8) K/uL RBC (4.2-5.4) M/uL Hgb (12.0-16.0) g/dL Hct (37-47) % MCV (80-100) fL MCH (25-34) pg MCHC (32-36) g/dL RDW Std Deviation (36.4-46.3) fL RDW Coeff of Jaren (11.5-14.5) % Plt Count (130-400) K/uL MPV (7.4-10.4) fL APTT 114.0 H* Cancelled 88.2 H* (21.0-31.0) Seconds PTT Ratio 4.7 Cancelled 3.4 Sample Site POC pH (7.35-7.45) POC pCO2 (35-46) mmHg POC pO2 (80-95) mmHg POC HCO3 (19-24) gertrudis/L POC Total CO2 (24-31) mEq/l POC Base Excess (-9-1.8) gertrudis/L POC ABG O2 Sat (90-95) % Julian Test O2 Delivery Device POC O2 Rate Minute Ventilation POC FiO2 % Tidal Volume PEEP Sodium (136-145) mmol/L Potassium (3.5-5.1) mmol/L Chloride (98-107) mmol/L Carbon Dioxide (21-32) mmol/L Anion Gap (3-11) BUN (7-18) mg/dl Creatinine (0.6-1.2) mg/dl Est Cr Clr Drug Dosing ml/min Est GFR ( Amer) Est GFR (Non-Af Amer) BUN/Creatinine Ratio (10-20) Glucose (70-99) mg/dl Calcium (8.5-10.1) mg/dl Magnesium (1.8-2.4) mg/dl Troponin I (0-0.045) ng/ml NT-Pro-B Natriuret Pep (0-1800) pg/ml Urine Legionella Ag 03/05/18 03/05/18 03/05/18 Range/Units 08:48 08:48 08:48 WBC 5.55 (4.8-10.8) K/uL RBC 3.47 L (4.2-5.4) M/uL Hgb 10.6 L (12.0-16.0) g/dL Hct 31.3 L (37-47) % MCV 90.2 (80-100) fL MCH 30.5 (25-34) pg MCHC 33.9 (32-36) g/dL RDW Std Deviation 46.4 H (36.4-46.3) fL RDW Coeff of Jaren 14.1 (11.5-14.5) % Plt Count 144 (130-400) K/uL MPV 9.5 (7.4-10.4) fL APTT (21.0-31.0) Seconds PTT Ratio Sample Site POC pH (7.35-7.45) POC pCO2 (35-46) mmHg POC pO2 (80-95) mmHg POC HCO3 (19-24) gertrudis/L POC Total CO2 (24-31) mEq/l POC Base Excess (-9-1.8) gertrudis/L POC ABG O2 Sat (90-95) % Julian Test O2 Delivery Device POC O2 Rate Minute Ventilation POC FiO2 % Tidal Volume PEEP Sodium 136 (136-145) mmol/L Potassium 3.2 L (3.5-5.1) mmol/L Chloride 100 (98-107) mmol/L Carbon Dioxide 24 (21-32) mmol/L Anion Gap 11.0 (3-11) BUN 20 H (7-18) mg/dl Creatinine 1.22 H (0.6-1.2) mg/dl Est Cr Clr Drug Dosing 28.1 ml/min Est GFR ( Amer) 48.5 Est GFR (Non-Af Amer) 41.8 BUN/Creatinine Ratio 16.0 (10-20) Glucose 153 H (70-99) mg/dl Calcium 7.6 L (8.5-10.1) mg/dl Magnesium 2.0 (1.8-2.4) mg/dl Troponin I 2.550 H* (0-0.045) ng/ml NT-Pro-B Natriuret Pep (0-1800) pg/ml Urine Legionella Ag 03/05/18 03/05/18 03/05/18 Range/Units 08:48 05:56 03:15 WBC (4.8-10.8) K/uL RBC (4.2-5.4) M/uL Hgb (12.0-16.0) g/dL Hct (37-47) % MCV (80-100) fL MCH (25-34) pg MCHC (32-36) g/dL RDW Std Deviation (36.4-46.3) fL RDW Coeff of Jaren (11.5-14.5) % Plt Count (130-400) K/uL MPV (7.4-10.4) fL APTT 199.1 H* 31.2 H (21.0-31.0) Seconds PTT Ratio 7.5 1.2 Sample Site R Radial POC pH 7.38 (7.35-7.45) POC pCO2 40 (35-46) mmHg POC pO2 180 H (80-95) mmHg POC HCO3 24 (19-24) gertrudis/L POC Total CO2 25 (24-31) mEq/l POC Base Excess -2.0 (-9-1.8) gertrudis/L POC ABG O2 Sat 100.0 H (90-95) % Julian Test Pass O2 Delivery Device Ventilator POC O2 Rate 16 Minute Ventilation 6.08 POC FiO2 80 % Tidal Volume 380 PEEP 5 Sodium (136-145) mmol/L Potassium (3.5-5.1) mmol/L Chloride (98-107) mmol/L Carbon Dioxide (21-32) mmol/L Anion Gap (3-11) BUN (7-18) mg/dl Creatinine (0.6-1.2) mg/dl Est Cr Clr Drug Dosing ml/min Est GFR ( Amer) Est GFR (Non-Af Amer) BUN/Creatinine Ratio (10-20) Glucose (70-99) mg/dl Calcium (8.5-10.1) mg/dl Magnesium (1.8-2.4) mg/dl Troponin I (0-0.045) ng/ml NT-Pro-B Natriuret Pep (0-1800) pg/ml Urine Legionella Ag 03/05/18 03/05/18 03/05/18 Range/Units 03:15 03:15 03:15 WBC 6.17 (4.8-10.8) K/uL RBC 3.87 L (4.2-5.4) M/uL Hgb 11.8 L (12.0-16.0) g/dL Hct 35.2 L (37-47) % MCV 91.0 (80-100) fL MCH 30.5 (25-34) pg MCHC 33.5 (32-36) g/dL RDW Std Deviation 46.6 H (36.4-46.3) fL RDW Coeff of Jaren 14.0 (11.5-14.5) % Plt Count 174 (130-400) K/uL MPV 9.4 (7.4-10.4) fL APTT (21.0-31.0) Seconds PTT Ratio Sample Site POC pH (7.35-7.45) POC pCO2 (35-46) mmHg POC pO2 (80-95) mmHg POC HCO3 (19-24) gertrudis/L POC Total CO2 (24-31) mEq/l POC Base Excess (-9-1.8) gertrudis/L POC ABG O2 Sat (90-95) % Julian Test O2 Delivery Device POC O2 Rate Minute Ventilation POC FiO2 % Tidal Volume PEEP Sodium 137 (136-145) mmol/L Potassium 3.6 (3.5-5.1) mmol/L Chloride 100 (98-107) mmol/L Carbon Dioxide 27 (21-32) mmol/L Anion Gap 10.0 (3-11) BUN 17 D (7-18) mg/dl Creatinine 1.24 H D (0.6-1.2) mg/dl Est Cr Clr Drug Dosing 27.4 ml/min Est GFR ( Amer) 47.5 Est GFR (Non-Af Amer) 41.0 BUN/Creatinine Ratio 13.3 (10-20) Glucose 158 H (70-99) mg/dl Calcium 7.9 L (8.5-10.1) mg/dl Magnesium 1.8 (1.8-2.4) mg/dl Troponin I 3.780 H* (0-0.045) ng/ml NT-Pro-B Natriuret Pep 46930 H (0-1800) pg/ml Urine Legionella Ag 03/04/18 Range/Units 02:45 WBC (4.8-10.8) K/uL RBC (4.2-5.4) M/uL Hgb (12.0-16.0) g/dL Hct (37-47) % MCV (80-100) fL MCH (25-34) pg MCHC (32-36) g/dL RDW Std Deviation (36.4-46.3) fL RDW Coeff of Jaren (11.5-14.5) % Plt Count (130-400) K/uL MPV (7.4-10.4) fL APTT (21.0-31.0) Seconds PTT Ratio Sample Site POC pH (7.35-7.45) POC pCO2 (35-46) mmHg POC pO2 (80-95) mmHg POC HCO3 (19-24) gertrudis/L POC Total CO2 (24-31) mEq/l POC Base Excess (-9-1.8) gertrudis/L POC ABG O2 Sat (90-95) % Julian Test O2 Delivery Device POC O2 Rate Minute Ventilation POC FiO2 % Tidal Volume PEEP Sodium (136-145) mmol/L Potassium (3.5-5.1) mmol/L Chloride (98-107) mmol/L Carbon Dioxide (21-32) mmol/L Anion Gap (3-11) BUN (7-18) mg/dl Creatinine (0.6-1.2) mg/dl Est Cr Clr Drug Dosing ml/min Est GFR ( Amer) Est GFR (Non-Af Amer) BUN/Creatinine Ratio (10-20) Glucose (70-99) mg/dl Calcium (8.5-10.1) mg/dl Magnesium (1.8-2.4) mg/dl Troponin I (0-0.045) ng/ml NT-Pro-B Natriuret Pep (0-1800) pg/ml Urine Legionella Ag Pending Diagnostic Findings CXR reviewed personally by me and agree with the following report: XR chest 1V portable CLINICAL HISTORY: 82 years-old Female presenting with multifocal pna. TECHNIQUE: Portable upright AP view of the chest was obtained. COMPARISON: 03/04/2018. FINDINGS: Endotracheal tube terminates approximately 2 cm from the sha. Nasogastric tube descends below the diaphragm with sidehole also terminating below the diaphragm. Atherosclerosis of the aortic arch. Cardiac silhouette grossly normal in size allowing for the severity of scoliosis. Extensive diffuse hazy opacity in the left lung with a mid to upper lung predominance. Dense opacity at the right lung base is likely in part due to chronic volume loss in the setting of severe dextroscoliotic curvature of the thoracic spine. No large pleural effusion or pneumothorax. Severe scoliosis of the mid lumbar spine. Posttraumatic deformity of the left humeral neck. Upper abdomen normal. IMPRESSION: 1. Appropriately positioned tubes. 2. Persistent left upper to mid lung infiltrates compatible with pneumonia. 3. Suspected chronic atelectasis of the right lung base. _ (1) Hypotension Hypotension type: hypotension due to drug Qualified Code(s): I95.2 - Hypotension due to drugs
[2018-03-06] MEDS: PIPERACILLIN/TAZOBACTAM 3.375 GM in DEXTROSE 5% 100 ML IV SCH ×2 (00:11→07:27)
[2018-03-06] MEDS: ALBUT/IPRATROP 3MG/0.5MG NEB 3 ML VIAL NEB SCH ×6 (03:24→23:18)
[2018-03-06] MEDS: HEPARIN STANDARD DEXTROSE 25,000 UNITS/500 ML IV SCH (04:23)
[2018-03-06 05:38] LABS: Basophils # (auto) 0.03 K/uL (0-0.2); Basophils % (auto) 0.4 %; Eosinophils # (auto) 0.02 K/uL (0-0.5); Eosinophils % (auto) 0.3 %; Hemoglobin 10.5 g/dL (12.0-16.0); Immature Granulocytes # (auto) 0.02 K/uL (0.00-0.02); Immature Granulocytes % (auto) 0.3 %; Lymphocytes # (auto) 1.41 K/uL (1.2-3.4); Lymphocytes % (auto) 19.1 %; Mean Corpuscular Hgb Conc 33.9 g/dL (32-36); Mean Corpuscular Volume 90.1 fL (80-100); Monocytes # (auto) 0.79 K/uL (0.11-0.59); Monocytes % (auto) 10.7 %; Neutrophils % (auto) 69.2 %; Platelet Count 156 K/uL (130-400); RDW Coefficient of Variation 14.1 % (11.5-14.5); RDW Standard Deviation 46.8 fL (36.4-46.3); Red Blood Count 3.44 M/uL (4.2-5.4); White Blood Count 7.37 K/uL (4.8-10.8)
[2018-03-06 05:39] LABS: iSTAT Allen Test Pass; iSTAT Arterial Blood Gas HCO3 25 meg/L (19-24); iSTAT Carbon Dioxide 26 mEq/l (24-31); iSTAT FiO2 40 %
[2018-03-06 05:53] LABS: Partial Thromboplastin Time 52.5 Seconds (21.0-31.0)
[2018-03-06 05:57] LABS: BUN Creatinine Ratio 14.7 (10-20); Calcium 7.7 mg/dl (8.5-10.1); Creatinine Clr Calc Pharmacy 34.2 ml/min; Est GFR (African American) 61.6; Est GFR (Non-African American) 53.2; Magnesium 2.6 mg/dl (1.8-2.4); Phosphorus 2.4 mg/dl (2.5-4.9); Potassium 3.4 mmol/L (3.5-5.1)
[2018-03-06] MEDS: ARFORMOTEROL TART 15MCG/2ML VIAL INH SCH ×2 (07:02→21:27)
[2018-03-06] MEDS: BUDESONIDE 0.5 MG/2 ML VIAL (PULMICORT) INH SCH ×2 (07:02→21:27)
--- NOTE | 2018-03-06 07:25 | XRay Report ---
XR chest 1V portable HISTORY: 82 years-old Female multifocal pna acute shortness of breath with follow-up pneumonia COMPARISON: Chest radiograph 03/05/2018, CT chest 03/04/2018 TECHNIQUE: Portable AP view the chest FINDINGS: Cardiac silhouette is enlarged, unchanged. No pneumothorax. Blunting of the right costophrenic angle suggests right pleural effusion, unchanged. No large left-sided pleural effusion. Pulmonary vascular congestion with persistent scattered airspace opacities throughout the left lung and right lung base, unchanged. Status post removal of the endotracheal and enteric tubes. Sigmoidal scoliosis of the tho racolumbar spine. Chronic fracture deformity of the left proximal humerus. IMPRESSION: 1. Status post extubation along with removal of the enteric tube. 2. Persistent patchy alveolar opacities throughout the left lung and right lung base with unchanged s mall right pleural effusion. 3. Cardiomegaly The above report was generated using voice recognition software. It may contain grammatical, syntax o r spelling errors. Electronically signed by: Javi Iqbal M.D. 03/06/2018 7:24 AM
[2018-03-06] MEDS: POTASSIUM CHLORIDE / WTR 10 MEQ/100 ML PLCT IV SCH ×2 (07:27→08:28)
[2018-03-06] MEDS: ASPIRIN 81 MG ECTAB PO SCH (07:57)
[2018-03-06] MEDS: FLUOXETINE HCL 20 MG CAP PO SCH (07:57)
[2018-03-06] MEDS: guaiFENesin 600 MG TABCR PO SCH ×2 (07:57→23:25)
--- NOTE | 2018-03-06 08:46 | Critical Care Progress Note ---
Date of Service March 06, 2018 Assessment & Plan (1) Admitted to intensive care unit: 82 yo female with above mentioned medical comorbidities namely restrictive lung disease, and probable obstruction (since she is on LABA, LAMA, and SHO)with multilobar pneumonia with normal WBC and hypertroponemia. Influenza is negative. The patient developed symptoms of heart failure likely due to acute tachycardia versus NSTEMI. Extubated yesterday, attempted to move to floor today, but developed anxiety and respiratory distress prior to transfer NEURO CAM neg 0/+1 for anxiety/agitation. Restarted home prozac Dyspnea is trigger of anxiety/panic attacks. Takes 0.25 xanax qHS and prn throughout the day at home. Have tried to minimize use considering respiratory distress. CARDIO heparin drip discontinued Statin DCd d/t documented adverse effect Appreciate cardiology input daily ECG f/u troponin has decreased from peak of 3.78 to 2.55 Echo performed: minimal IVC compression, EF 55-60. On toprol XL 25mg qHS PULM Extubated. Has required CPAP most of day but having difficulty coughing secretions. Converted to high flow oxygen. Will continue to monitor continue Brovana, and xopenex Since there is multilobar affection will send legionella antigen and cover with doxycycline since QTc >500 will send also for viral panel RENAL Replaced potassium and magnesium. Continue to monitor. Monitor DESMOND, improving Given hyponatremia and hypervolemia, will give lasix, starting with 60 bid today ID sputum culture did not reveal organisms FU blood cultures; NGTD converted zosyn and IV doxy to oral doxy (day 3) and augmentin (day 3) DVT prophylaxis SCDs Supervising Physician Co-Signing Physician Notes Dr. Bynum was resident physician during care of patient. I separately evaluated patient for mirza portions of the history and the exam. I was present during the critical portion of medical decision making, and I discussed the case with the resident. I generally agree with the findings and plan. Patient was doing well in the morning and we would continue with diuresis for possible volume overload. Patient had increasing work of breathing retractions and possibly sputum production concern for worsening pneumonia she was comfortable with temporary intubation to get over a correctable acute issue however she was not agreeable with long-term mechanical ventilation or tracheostomy. We ultimately proceeded with intubation to further elucidate the exact cause of the hypoxic respiratory failure. This appears to be related to flash pulmonary edema, I am concern for possible ejection fraction preserved heart failure. I have personally spent 90 minutes of critical care time in the direct management of this patient. This is a life/limb threatening event. This includes time spent evaluating patient, direct bedside care, chart review, placing orders, interpretation of diagnostic studies, discussion with consultants, patient, and/or family members regarding treatment decisions, as well as other required patient management activities. This time is exclusive of all separately billable procedures, and teaching time and separate from and in addition to any other critical care service time. Subjective Respiratory: + cough, + dyspnea and + sputum production Psychiatric: + anxiety Physical Exam 2 Vital Signs (Past 24 Hours): Last Vital Signs Temp 37.1 C 03/06/18 04:00 Pulse 82 03/06/18 07:05 Resp 24 03/06/18 07:05 BP 111/61 03/06/18 06:00 Pulse Ox 97 03/06/18 07:05 Constitutional: average body habitus Eyes: EOM intact bilaterally; no conjunctival abnormality ENMT: external ear and nose normal, oropharynx normal Neck: trachea midline, no thyromegaly normal visual inspection Respiratory: normal respiratory effort, lungs clear to auscultation + cough ; no respiratory distress Auscultation: + crackles, + rales and + rhonchi Cardiovascular: Rate/Rhythm: + tachycardic Heart Sounds: normal S1 and normal S2 Gastrointestinal (Abdomen): normal bowel sounds, soft, nontender, no hepatosplenomegaly Musculoskeletal: no cyanosis or clubbing, extremities motor strength 5/5 Spine: + scoliosis Skin: no rashes, warm and dry Neurologic: moves all extremities and awake Psychiatric: Orientation: alert, oriented to person and cooperative Results & Data Laboratory Results 03/06/18 03/06/18 03/06/18 Range/Units 05:27 05:27 05:27 WBC 7.37 (4.8-10.8) K/uL RBC 3.44 L (4.2-5.4) M/uL Hgb 10.5 L (12.0-16.0) g/dL Hct 31.0 L (37-47) % MCV 90.1 (80-100) fL MCH 30.5 (25-34) pg MCHC 33.9 (32-36) g/dL RDW Std Deviation 46.8 H (36.4-46.3) fL RDW Coeff of Jaren 14.1 (11.5-14.5) % Plt Count 156 (130-400) K/uL MPV 9.0 (7.4-10.4) fL Immature Gran % (Auto) 0.3 % Neut % (Auto) 69.2 % Lymph % (Auto) 19.1 % [place] % (Auto) 10.7 % Eos % (Auto) 0.3 % Baso % (Auto) 0.4 % Immature Gran # (Auto) 0.02 (0.00-0.02) K/uL Neut # (Auto) 5.10 (1.4-6.5) K/uL Lymph # (Auto) 1.41 (1.2-3.4) K/uL [place] # (Auto) 0.79 H (0.11-0.59) K/uL Eos # (Auto) 0.02 (0-0.5) K/uL Baso # (Auto) 0.03 (0-0.2) K/uL APTT 52.5 H* PTT Ratio 2.0 Sample Site POC pH (7.35-7.45) POC pCO2 (35-46) mmHg POC pO2 (80-95) mmHg POC HCO3 (19-24) gertrudis/L POC Total CO2 (24-31) mEq/l POC Base Excess (-9-1.8) gertrudis/L POC ABG O2 Sat (90-95) % Julian Test O2 Delivery Device POC O2 Rate POC FiO2 % IPAP Sodium 131 L (136-145) mmol/L Potassium 3.4 L (3.5-5.1) mmol/L Chloride 98 (98-107) mmol/L Carbon Dioxide 25 (21-32) mmol/L Anion Gap 8.0 (3-11) BUN 15 (7-18) mg/dl Creatinine 1.00 (0.6-1.2) mg/dl Est Cr Clr Drug Dosing 34.2 ml/min Est GFR ( Amer) 61.6 Est GFR (Non-Af Amer) 53.2 BUN/Creatinine Ratio 14.7 (10-20) Glucose 114 H (70-99) mg/dl Calcium 7.7 L (8.5-10.1) mg/dl Phosphorus 2.4 L (2.5-4.9) mg/dl Magnesium 2.6 H (1.8-2.4) mg/dl 03/06/18 03/05/18 03/05/18 Range/Units 05:25 19:42 18:13 WBC (4.8-10.8) K/uL RBC (4.2-5.4) M/uL Hgb (12.0-16.0) g/dL Hct (37-47) % MCV (80-100) fL MCH (25-34) pg MCHC (32-36) g/dL RDW Std Deviation (36.4-46.3) fL RDW Coeff of Jaren (11.5-14.5) % Plt Count (130-400) K/uL MPV (7.4-10.4) fL Immature Gran % (Auto) % Neut % (Auto) % Lymph % (Auto) % [place] % (Auto) % Eos % (Auto) % Baso % (Auto) % Immature Gran # (Auto) (0.00-0.02) K/uL Neut # (Auto) (1.4-6.5) K/uL Lymph # (Auto) (1.2-3.4) K/uL [place] # (Auto) (0.11-0.59) K/uL Eos # (Auto) (0-0.5) K/uL Baso # (Auto) (0-0.2) K/uL APTT 114.0 H* Cancelled PTT Ratio 4.7 Cancelled Sample Site L Radial POC pH 7.45 (7.35-7.45) POC pCO2 36 (35-46) mmHg POC pO2 79 L (80-95) mmHg POC HCO3 25 H (19-24) gertrudis/L POC Total CO2 26 (24-31) mEq/l POC Base Excess 1.0 (-9-1.8) gertrudis/L POC ABG O2 Sat 96.0 H (90-95) % Julian Test Pass O2 Delivery Device BIPAP POC O2 Rate 12 POC FiO2 40 % IPAP 14 Sodium (136-145) mmol/L Potassium (3.5-5.1) mmol/L Chloride (98-107) mmol/L Carbon Dioxide (21-32) mmol/L Anion Gap (3-11) BUN (7-18) mg/dl Creatinine (0.6-1.2) mg/dl Est Cr Clr Drug Dosing ml/min Est GFR ( Amer) Est GFR (Non-Af Amer) BUN/Creatinine Ratio (10-20) Glucose (70-99) mg/dl Calcium (8.5-10.1) mg/dl Phosphorus (2.5-4.9) mg/dl Magnesium (1.8-2.4) mg/dl Medications Administered Current Inpatient Medications Acetaminophen (Tylenol) 650 mg PO Q4H PRN PRN Reason: pain/fever Stop: 04/03/18 13:37 Acetylcysteine (Mucomyst 20%) 3 ml INH Q6R [facility] Stop: 04/05/18 13:59 Albuterol (Duoneb) 3 ml NEB Q4R [facility] Stop: 04/03/18 15:59 Last Admin: 03/06/18 11:11 Dose: 3 ml Alprazolam (Xanax) 0.5 mg PO HS PRN PRN Reason: Insomnia Stop: 04/03/18 13:37 Last Admin: 03/05/18 20:20 Dose: 0.5 mg Amoxicillin/Clavulanate Potassium (Augmentin 875mg) 1 tab PO BIDM [facility] Stop: 03/13/18 14:59 Arformoterol Tartrate (Brovana Neb) 15 mcg INH BIDR [facility] Stop: 04/03/18 19:59 Last Admin: 03/06/18 07:02 Dose: 15 mcg Aspirin (Ecotrin) 81 mg PO DAILY [facility] Stop: 04/04/18 08:59 Last Admin: 03/06/18 07:57 Dose: 81 mg Budesonide (Pulmicort Respules) 0.5 mg INH BIDR [facility] Stop: 04/03/18 19:59 Last Admin: 03/06/18 07:02 Dose: 0.5 mg Docusate Sodium (Colace) 100 mg PO BID [facility] Stop: 04/05/18 11:59 Doxycycline Hyclate (Vibramycin) 100 mg PO BID [facility] Stop: 03/11/18 20:59 Fluoxetine HCl (Prozac) 20 mg PO DAILY [facility] Stop: 04/04/18 08:59 Last Admin: 03/06/18 07:57 Dose: 20 mg Guaifenesin (Mucinex) 600 mg PO Q12 [facility] Stop: 04/03/18 20:59 Last Admin: 03/06/18 07:57 Dose: 600 mg Metoprolol Succinate (Toprol Xl) 25 mg PO HS DIASY Stop: 04/03/18 20:59 Last Admin: 03/05/18 20:14 Dose: 25 mg Potassium Chloride (Klor-Con M20) 60 meq PO BID DAISY Stop: 03/06/18 21:01 Last Admin: 03/06/18 11:12 Dose: 60 meq Resident Activity Tracking Resident Involvement: Resident Care Provided Care Provided: Adult [facility]
--- NOTE | 2018-03-06 09:53 | Cardiology Progress Note ---
Date of Service March 06, 2018 She was extubated overnight. She also received albumin and Lasix. She appears short of breath even with her BiPAP. She denies any chest pain or chest pressure. She still has shortness of breath. She has any palpitations or fluttering. She is not very hungry at this point. Her abdomen does appear slightly distended. She has no lower extremity edema Physical Exam 2 Vital Signs (Past 24 Hours): Last Vital Signs Temp 36.8 C 03/06/18 07:00 Pulse 86 03/06/18 09:00 Resp 33 H 03/06/18 09:00 BP 123/64 03/06/18 09:00 Pulse Ox 94 03/06/18 09:00 PHYSICAL EXAMINATION: GENERAL: She is awake and alert and responds to questions appropriately RESPIRATORY: Globally decreased breath sounds. She also has inspiratory and expiratory rhonchi and had significantly decreased breath sounds in the right middle lung field. Heart: Regular rate and rhythm no appreciable murmurs rubs or gallops GASTROINTESTINAL: Abdomen is soft, nontender, distended. Positive bowel sounds. EXTREMITIES: No clubbing, cyanosis, or edema. IMPRESSION: 1. Bilobar pneumonia. 2. Mild elevation of troponin, possibly demand ischemia versus a small non-ST elevation myocardial infarction. 3. EKG consistent with inferior lateral ST depression. 4. Dobutamine stress echo from [facility] physician group 01/2018 with no evidence of ischemia normal left ventricular systolic function with an EF in the range of 60-65% without evidence of left ventricular hypertrophy and type I diastolic dysfunction 5. History of hyperlipidemia with myalgias And weakness from her abdomen to her lower extremities 6. Hypoxic respiratory failure requiring intubation on 03/04/2018, Extubated and now on BiPAP 7. Echocardiogram this admission with normal LV function, normal RV function, type I diastolic dysfunction, and no significant valvular heart disease As discussed with the contract modeler service, We can discontinue her heparin as it is now 48 hours after her event. She should remain on aspirin and beta- blockers. We stopped her statin therapy given the family's concern that her lower extremity weakness in the past was related to statins. I discussed with the contract modeler that I would keep her on the geophysical laboratory supervisor side to improve her pulmonary function and to avoid the need for reintubation. She does not appear excessively prerenal on her laboratory studies and I would continue to diurese her until we see a bump in her BUN and creatinine. In discussion with interventional cardiology yesterday if she needed a cardiac catheterization a right radial approach as possible family as previously discussed the patient and now the family do not want to consider a catheterization at this point.
[2018-03-06] MEDS: DOXYCYCLINE HYCLATE 100 MG in DEXTROSE 5% 100 ML IV SCH (10:00)
[2018-03-06] MEDS ORDERED: FUROSEMIDE 40 MG TAB PO ONE (10:09)
--- NOTE | 2018-03-06 10:42 | Hospitalist Progress Note ---
Date of Service March 06, 2018 Assessment & Plan (1) Multifocal pneumonia: Suspected aspiration pneumonia as pt was vomiting prior to admission at home. CT chest on 03/04 showed multifocal pneumonia in the RLL and BROCK. Has been having fevers, shortness of breath, and productive cough at home. Has been on levofloxacin since 03/01 as outpatient with worsening of symptoms. Was with acute hypoxic respiratory failure on admission requiring intubation and ventilation-was extubated and requiring intermittent CPAP Now reintubated for severe hypoxia and worsening respiratory distress PCT negative arguing against severe sepsis with respiratory source, although I do believe with fevers at home, tachycardia, with sepsis due to aspiration PNA Sputum Gr stain neg for organisms - received Vanc/Zosyn/Doxy-day #3---> initially were going to transition to Augmentin, Doxy x 7 days total--> now will likely continue IV ZOsyn, doxy - f/u Sputum culture, Legionella ag, BCxs-NGTD - WEDDING DAY COORDINATOR consult as CT scan indicated concern for aspiration. Discussed with WEDDING DAY COORDINATOR today who will assess at lunch if respiratory status improves - continue Guaifenasin - continue Duonebs, Budesonide bid, Brovana bid -follow CXR -vent management as per Plate Driller (2) Sepsis: With tachycardia, tachypnea, fever, and PNA as source -worsening respiratory status again as above (3) Acute respiratory failure with hypoxia: Secondary to PNA, acute systolic CHF, NSTEMI, known restrictive lung disease due to severe scoliosis -treatment ongoing for all conditions except scoliosis -pt states she wants to be reintubated, but not for senior living if has difficulty coming off the vent -Palliative Consult placed of which pt is agreeable to to discuss goals of care (4) Non-ST elevated myocardial infarction (non-STEMI): With troponin peaked at 3.78 and serial changes of septal infarct on ECG and EKG consistent with inferior lateral ST depression. With preliminary report of ECHO with reduced EF 45-50% as per daughter as d/w Dr. House, however formal report back today and with LVEF 55-60%, with basal to midseptum with mild hypokinesis Had normal dobutamine stress ECHO just in 01/2018. Denies chest pain Seen by Cardiology here and offered cardiac catheterization which pt is declining at this time -continue aspirin 81mg -cannot tolerate statins due to myalgias -received heparin gtt x 48 hours and now will discontinue -continue Toprol XL 25mg po qhs (5) Acute on chronic diastolic (congestive) heart failure: Grade 1 diastolic dysfunction on ECHO With some mild hypokinesis as above, likely had some acute systolic and acute on chronic diastolic CHF -with likely flash pulm edema on admission, elevated proBNP -was given IV lasix 40mg x 1 on admission and then had significant hypotension -then received albumin + lasix 20mg IV and BP doing well -lasix 40mg po x 1 given this AM by Plate Driller and will dose daily based on response and clinical status -continue Toprol XL 25mg qpm -appreciate Cardiology recommendations -continue strict I/Os, daily weights, change to heart healthy diet, has 1800 mL fluid restriction (6) DESMOND (acute kidney injury): Soap Grinder sue from 0.78 to 1.24 in the setting of hypotension and sepsis, likely prerenal from IV lasix and/or ATN due to hypotension Is making plenty of urine. Soap Grinder improved today to 1.00 -follow BMP -continue Frank cath (7) Restrictive lung disease: Life-long issues due to her scoliosis. Follows with Pulmonology Suspect some obstructive component as well as is on LABA,LAMA, and ICS at home -track down old PFTs - Continue home long-acting nebulized treatments -Duonebs standing - no steroids needed -Pulm consulted (8) Hypotension: Possibly secondary to IV lasix vs sepsis as above-now resolved with giving IV albumin and lasix Follow closely (9) Hypokalemia: K+ 3.4 today -replaced with IV KCl and KCl 60 meq po bid ordered by ICU -follow BMP in AM (10) Anxiety: - Continue home fluoxetine and Xanax PRN before bed. (11) DVT prophylaxis: Heparin gtt stopped Will add SQ heparin Dispo-remain in ICU PT/OT consults placed Subjective Pt was on NC for a bit this AM and then tried to eat breakfast and has no appetite, got very SOB, with resp distress and had to be placed back on CPAP. Discussed case with Plate Driller today. Initially felt she was stable for transfer out of the ICU Later on in the morning, she became increasingly dyspneic and had a large ball of mucus that she coughed out. She was more and more hypoxic. After CPAP trial and HFNC trial, and much discussion with the pt, her daughter Padmini, and Dr. Rodriguez, decision was made to intubate her again. Review of Systems All systems reviewed & are unremarkable except as noted in HPI & below Physical Exam 2 Vital Signs (Past 24 Hours): Last Vital Signs Temp 36.8 C 03/06/18 07:00 Pulse 94 H 03/06/18 09:54 Resp 31 H 03/06/18 09:54 BP 123/64 03/06/18 09:00 Pulse Ox 94 03/06/18 09:54 Constitutional: + acute distress (severe) and + thin Eyes: PERRL, conjunctivae normal, anicteric sclerae ENMT: external ear and nose normal, oropharynx normal Neck: trachea midline, no thyromegaly Respiratory: no cough Auscultation: + rales (at right mid axillary field) and + rhonchi (left lung field) Cardiovascular: RRR, no murmur, no edema Gastrointestinal (Abdomen): normal bowel sounds, soft, nontender, no hepatosplenomegaly Musculoskeletal: Extremities: extremities normal to inspection; no cyanosis and no clubbing Skin: no rashes, warm and dry Neurologic: moves all extremities and awake; no focal motor deficits Psychiatric: A+Ox3, euthymic affect Genitourinary: + abnormal external appearance (Frank in place with clear yellow urine) Results & Data Laboratory Results 03/06/18 03/06/18 03/06/18 Range/Units 05:27 05:27 05:27 WBC 7.37 (4.8-10.8) K/uL RBC 3.44 L (4.2-5.4) M/uL Hgb 10.5 L (12.0-16.0) g/dL Hct 31.0 L (37-47) % MCV 90.1 (80-100) fL MCH 30.5 (25-34) pg MCHC 33.9 (32-36) g/dL RDW Std Deviation 46.8 H (36.4-46.3) fL RDW Coeff of Jaren 14.1 (11.5-14.5) % Plt Count 156 (130-400) K/uL MPV 9.0 (7.4-10.4) fL Immature Gran % (Auto) 0.3 % Neut % (Auto) 69.2 % Lymph % (Auto) 19.1 % [place] % (Auto) 10.7 % Eos % (Auto) 0.3 % Baso % (Auto) 0.4 % Immature Gran # (Auto) 0.02 (0.00-0.02) K/uL Neut # (Auto) 5.10 (1.4-6.5) K/uL Lymph # (Auto) 1.41 (1.2-3.4) K/uL [place] # (Auto) 0.79 H (0.11-0.59) K/uL Eos # (Auto) 0.02 (0-0.5) K/uL Baso # (Auto) 0.03 (0-0.2) K/uL APTT 52.5 H* (21.0-31.0) Seconds PTT Ratio 2.0 Sample Site POC pH (7.35-7.45) POC pCO2 (35-46) mmHg POC pO2 (80-95) mmHg POC HCO3 (19-24) gertrudis/L POC Total CO2 (24-31) mEq/l POC Base Excess (-9-1.8) gertrudis/L POC ABG O2 Sat (90-95) % Julian Test O2 Delivery Device POC O2 Rate POC FiO2 % IPAP Sodium 131 L (136-145) mmol/L Potassium 3.4 L (3.5-5.1) mmol/L Chloride 98 (98-107) mmol/L Carbon Dioxide 25 (21-32) mmol/L Anion Gap 8.0 (3-11) BUN 15 (7-18) mg/dl Creatinine 1.00 (0.6-1.2) mg/dl Est Cr Clr Drug Dosing 34.2 ml/min Est GFR ( Amer) 61.6 Est GFR (Non-Af Amer) 53.2 BUN/Creatinine Ratio 14.7 (10-20) Glucose 114 H (70-99) mg/dl Calcium 7.7 L (8.5-10.1) mg/dl Phosphorus 2.4 L (2.5-4.9) mg/dl Magnesium 2.6 H (1.8-2.4) mg/dl 03/06/18 03/05/18 03/05/18 Range/Units 05:25 19:42 18:13 WBC (4.8-10.8) K/uL RBC (4.2-5.4) M/uL Hgb (12.0-16.0) g/dL Hct (37-47) % MCV (80-100) fL MCH (25-34) pg MCHC (32-36) g/dL RDW Std Deviation (36.4-46.3) fL RDW Coeff of Jaren (11.5-14.5) % Plt Count (130-400) K/uL MPV (7.4-10.4) fL Immature Gran % (Auto) % Neut % (Auto) % Lymph % (Auto) % [place] % (Auto) % Eos % (Auto) % Baso % (Auto) % Immature Gran # (Auto) (0.00-0.02) K/uL Neut # (Auto) (1.4-6.5) K/uL Lymph # (Auto) (1.2-3.4) K/uL [place] # (Auto) (0.11-0.59) K/uL Eos # (Auto) (0-0.5) K/uL Baso # (Auto) (0-0.2) K/uL APTT 114.0 H* Cancelled (21.0-31.0) Seconds PTT Ratio 4.7 Cancelled Sample Site L Radial POC pH 7.45 (7.35-7.45) POC pCO2 36 (35-46) mmHg POC pO2 79 L (80-95) mmHg POC HCO3 25 H (19-24) gertrudis/L POC Total CO2 26 (24-31) mEq/l POC Base Excess 1.0 (-9-1.8) gertrudis/L POC ABG O2 Sat 96.0 H (90-95) % Julian Test Pass O2 Delivery Device BIPAP POC O2 Rate 12 POC FiO2 40 % IPAP 14 Sodium (136-145) mmol/L Potassium (3.5-5.1) mmol/L Chloride (98-107) mmol/L Carbon Dioxide (21-32) mmol/L Anion Gap (3-11) BUN (7-18) mg/dl Creatinine (0.6-1.2) mg/dl Est Cr Clr Drug Dosing ml/min Est GFR ( Amer) Est GFR (Non-Af Amer) BUN/Creatinine Ratio (10-20) Glucose (70-99) mg/dl Calcium (8.5-10.1) mg/dl Phosphorus (2.5-4.9) mg/dl Magnesium (1.8-2.4) mg/dl 03/05/ Range/Units 11:09 WBC (4.8-10.8) K/uL RBC (4.2-5.4) M/uL Hgb (12.0-16.0) g/dL Hct (37-47) % MCV (80-100) fL MCH (25-34) pg MCHC (32-36) g/dL RDW Std Deviation (36.4-46.3) fL RDW Coeff of Jaren (11.5-14.5) % Plt Count (130-400) K/uL MPV (7.4-10.4) fL Immature Gran % (Auto) % Neut % (Auto) % Lymph % (Auto) % [place] % (Auto) % Eos % (Auto) % Baso % (Auto) % Immature Gran # (Auto) (0.00-0.02) K/uL Neut # (Auto) (1.4-6.5) K/uL Lymph # (Auto) (1.2-3.4) K/uL [place] # (Auto) (0.11-0.59) K/uL Eos # (Auto) (0-0.5) K/uL Baso # (Auto) (0-0.2) K/uL APTT 88.2 H* (21.0-31.0) Seconds PTT Ratio 3.4 Sample Site POC pH (7.35-7.45) POC pCO2 (35-46) mmHg POC pO2 (80-95) mmHg POC HCO3 (19-24) gertrudis/L POC Total CO2 (24-31) mEq/l POC Base Excess (-9-1.8) gertrudis/L POC ABG O2 Sat (90-95) % Julian Test O2 Delivery Device POC O2 Rate POC FiO2 % IPAP Sodium (136-145) mmol/L Potassium (3.5-5.1) mmol/L Chloride (98-107) mmol/L Carbon Dioxide (21-32) mmol/L Anion Gap (3-11) BUN (7-18) mg/dl Creatinine (0.6-1.2) mg/dl Est Cr Clr Drug Dosing ml/min Est GFR ( Amer) Est GFR (Non-Af Amer) BUN/Creatinine Ratio (10-20) Glucose (70-99) mg/dl Calcium (8.5-10.1) mg/dl Phosphorus (2.5-4.9) mg/dl Magnesium (1.8-2.4) mg/dl Diagnostic Findings CXR personally reviewed and agree with the followiung report: XR chest 1V portable HISTORY: 82 years-old Female multifocal pna acute shortness of breath with follow-up pneumonia COMPARISON: Chest radiograph 03/05/2018, CT chest 03/04/2018 TECHNIQUE: Portable AP view the chest FINDINGS: Cardiac silhouette is enlarged, unchanged. No pneumothorax. Blunting of the right costophrenic angle suggests right pleural effusion, unchanged. No large left-sided pleural effusion. Pulmonary vascular congestion with persistent scattered airspace opacities throughout the left lung and right lung base, unchanged. Status post removal of the endotracheal and enteric tubes. Sigmoidal scoliosis of the thoracolumbar spine. Chronic fracture deformity of the left proximal humerus. IMPRESSION: 1. Status post extubation along with removal of the enteric tube. 2. Persistent patchy alveolar opacities throughout the left lung and right lung base with unchanged small right pleural effusion. 3. Cardiomegaly _ (1) Hypotension Hypotension type: hypotension due to drug Trimester: Qualified Code(s): I95.2 - Hypotension due to drugs
[2018-03-06] MEDS: POTASSIUM CHLORIDE 20 MEQ TABCR PO SCH ×2 (11:12→23:25)
[2018-03-06] MEDS ORDERED: LORazepam 0.25 MG/0.5 ML VIAL IV STA (12:38)
[2018-03-06] MEDS ORDERED: LORazepam 2 MG/4 ML VIAL ONE (12:42)
[2018-03-06] MEDS: DOCUSATE SODIUM 100 MG CAP PO SCH ×2 (14:00→23:24)
[2018-03-06] MEDS: ACETYLCYSTEINE 20% INHAL SOLN ***DISPENSED BY RESP. INH SCH ×2 (14:42→19:02)
[2018-03-06] MEDS ORDERED: ETOMIDATE 2 MG/ML 20 ML VIAL IV ONE (15:00)
[2018-03-06] MEDS ORDERED: VECURONIUM BROMIDE 10 MG VIAL IV ONE (15:00)
[2018-03-06] MEDS ORDERED: MIDAZOLAM HCL 5 MG/ML 1 ML VIAL IV ONE (15:00)
[2018-03-06] MEDS ORDERED: SUCCINYLCHOLINE CHLORIDE 20 MG/ML 10 ML VIAL IV ONE (15:00)
[2018-03-06] MEDS ORDERED: fentaNYL citrate 100 MCG/2 ML VIAL IV ONE (15:00)
[2018-03-06] MEDS ORDERED: AMOXICILLIN/CLAVULANATE 875 MG TAB PO SCH (15:00)
[2018-03-06 15:42] LABS: iSTAT Allen Test Pass; iSTAT Arterial Blood Gas HCO3 23 meg/L (19-24); iSTAT Carbon Dioxide 24 mEq/l (24-31); iSTAT FiO2 50 %
[2018-03-06] MEDS ORDERED: DEXMEDETOMIDINE HCL 200 MCG in SODIUM CHLORIDE 0.9% 48 ML IV STA (17:15)
[2018-03-06 18:11] LABS: Calcium 8.4 mg/dl (8.5-10.1); Creatinine Clr Calc Pharmacy 41.1 ml/min; Est GFR (Non-African American) 64.7; Potassium 3.7 mmol/L (3.5-5.1)
[2018-03-06] MEDS ORDERED: ALBUMIN 25% 100 ML IV SCH (19:15)
[2018-03-06] MEDS ORDERED: MoRPHine SULFATE 2 MG/ML CARP ONE (19:37)
[2018-03-06] MEDS ORDERED: RAPID SEQUENCE INDUCTION BAG ONE (19:39)
[2018-03-06] MEDS ORDERED: PHENYLEPHRINE HCL 10 MG/ML VIAL ONE (20:16)
[2018-03-06] MEDS ORDERED: DOXYCYCLINE HYCLATE 100 MG CAP PO SCH (21:00)
--- NOTE | 2018-03-06 21:16 | Procedure Note ---
Procedure Note Date of Service March 06, 2018 APC: Didier Duckworth PA-C. Attending: Dr. Rodriguez A time-out was completed verifying correct patient, procedure, site, positioning. Patient was evaluated and required intubation for hypoxic respiratory failure in the setting of florid pulmonary edema. Sedative agent used: Etomidate and fentanyl Paralysis agent used: Vecuronium The patient was prepared in the appropriate fashion. Sedation was achieved utilizing Etomidate, Fentynl, and Vecuronium per, per Dr. Rodriguez's administration. The patient was easily ventilated using [id number] to achieve adequate oxygenation. A 7.5 [place] endotracheal tube was placed under Direct visualization with Glidescope to 27 cm at the lip. The stylette was removed and balloon was inflated with 10mL of air. Appropriate Colorimetric change was appreciated. Bilateral breath sounds were heard without air sounds in the abdomen. Dr. Rodriguez was present for the entire procedure. Post Intubation Chest X-ray confirms placement without pneumothorax. Patient tolerated the procedure well and there were no immediate complications. Supervising Physician Co-Signing Physician Notes I was present and assisted with the entire procedure
--- NOTE | 2018-03-06 21:20 | XRay Report ---
SINGLE VIEW CHEST CLINICAL HISTORY: Respiratory failure. Intubation. Multifocal pneumonia. FINDINGS: An AP, portable, upright chest radiograph is compared to chest x-ray performed earlier the same day 03/06/2018 and correlated with chest CT dated 03/04/2018. The examination is degraded by por table technique and patient rotation. An endotracheal tube has been placed. This was pullback on the second image and the tip projects 3 cm above the sha. An enteric tube has been placed and projects below the diaphragm. The cardiac silhouette is not well evaluated. There is atherosclerotic calcific ation of the thoracic aorta. There is atelectasis of the right lung secondary to severe scoliosis. De nse airspace consolidation at the right lung base and a right pleural effusion are unchanged, as is a irspace consolidation throughout the left lung. A small left pleural effusion is noted. No pneumothor ax is seen. The skeletal structures are osteopenic. Advanced degenerative change and severe scoliosis are noted in the thoracic spine. There is chronic posttraumatic deformity of the left proximal humer us. IMPRESSION: 1. Endotracheal and enteric tube placement as above. 2. Multifocal airspace consolidation and small pleural effusions is unchanged to slightly progressed from today's earlier study. Electronically signed by: Renan Lester M.D. 03/06/2018 9:19 PM
--- NOTE | 2018-03-06 21:33 | Procedure Note ---
Procedure Note Date of Service March 06, 2018 Procedure: Flexible Bronchoscopy Attending/Glaze Maker: Dr. Rodriguez, Didier Duckworth PA-C Anesthetic/Sedation: Fentanyl, etomidate, vecuronium Indication: Fluid pulmonary edema with acute hypoxic respiratory failure. Consent was signed and placed on the chart prior to procedure. Indication, risks , and benefits were explained at length. A time-out was completed verifying correct patient, procedure, site, positioning , and implant(s) or special equipment if applicable. Findings: Trachea Atraumatic appearing w/ moderate pinkish pulmonary fluid - easily suctioned. Main Missy Atraumatic, sharp edges. LEFT Mainstem Bronchus: Moderate frothy pink fluid appreciated. Suctioned copiously. Atramatic appearing without purulent drainage. * BROCK Moderate clear to pinkish pulmonary fluid appreciated. No purulence appreciated. * LLL Moderate clear to pinkish pulmonary fluid appreciated. No purulence appreciated. RIGHT Mainstem Bronchus: Terminates abruptly w/ what appears to be anatomic abnormality - likely patient's kyphoscoliosis. * RUL: Unable to appreciated. No significant drainage appreciated. * RIGHT Bronchus Intermedius: Unable to appreciated. No significant drainage appreciated. * RML Unable to visualize. * RLL Unable to visualize. Specimens: BAL 30 mL x 1, LEFT Lower Lobe Complications: NONE Impression: Florid pulmonary edema without concerns for mucopurulent drainage. Consistent with flash pulmonary edema over initial impression of multifocal pneumonia. Plan: Sent BAL for Culture & Sensitivities, Gram Stain, AFB Images: Print out of images added to patients physical chart. Supervising Physician Co-Signing Physician Notes I was present and assisted with the entire procedure. There appeared to be no purulence, there was pink frothy sputum consistent with pulmonary edema.
[2018-03-06] MEDS: NOREPINEPHRINE BIT INJ 16 MG in DEXTROSE 5% 500 ML IV SCH (21:56)
--- NOTE | 2018-03-06 22:47 | Procedure Note ---
Procedure Note Date of Service March 06, 2018 Procedure: Internal Jugular Central Line Placement Attending: Dr. Rodriguez APC: Didier Duckworth PA-C Indication: Central Drug Administration, Poor Venous Access, Multiple Lab Draws Necessary, etc. Anesthesia: Lidocaine 1% Consent was signed and placed on the chart prior to procedure. Indication, risks , and benefits were explained at length. A time-out was completed verifying correct patient, procedure, site, positioning , and implants(s) or special equipment if applicable. Patients RIGHT Neck was cleansed and draped in the typical sterile fashion using Chloraprep. The Internal Jugular Vein and Carotid Artery were identified using ultrasound. The superficial tissue was anesthetized using 3.0 mL of 1% lidocaine without epinephrine under direct visualization with the ultrasound. After adequate anesthetization was achieved, the Internal Jugular vein was cannulated under direct ultrasound guidance using an introducer needle on a syringe. Good venous blood return was maintained prior to removal of syringe from introducer needle. Using Seldinger Technique, a guide wire was advanced through the introducer needle without resistance. The introducer needle was removed and ultrasound images were obtained of the guide wire within the Internal Jugular Vein and saved to the patients medical record. A small incision was made in penetrating fashion at the guide wire insertion site utilizing an 11 blade scalpel. The dilator was advanced to the vessel without resistance. The dilator was exchanged for the triple lumen catheter which was advanced into the vessel without resistance. The guide wire was removed intact from the catheter without issue. Claves were placed on each catheter tip with confirmation of good blood flow from each lumen. Each port was easily flushed with sterile saline. The catheter was placed at 15 cm and sutured in place. BioPatch was applied to the catheter and a sterile Tegaderm dressing was applied over the catheter with careful attention to sterility. Patient tolerated procedure well. No immediate complications were met. Post procedure x-ray was completed, placement was appropriate and no pneumothorax was noted. Images obtained are saved for permanent record Procedural Ultrasound Guidance: Procedure Date: 03/06/2018 Indication: Pressors, Multiple Medications Attending: Dr. Rodriguez APC: Didier Duckworth PA-C Artery AND Vein visualized: YES Compressible Vein: YES Guidewire or Short Catheter seen in vein prior to dilation: YES Line confirmed in Vein with ultrasound: YES Images obtained are saved for permanent record.
--- NOTE | 2018-03-06 23:04 | XRay Report ---
SINGLE VIEW CHEST CLINICAL HISTORY: Respiratory failure. Intubation. Multifocal pneumonia. FINDINGS: An AP, portable, upright chest radiograph is compared to chest x-ray performed earlier the same day 03/06/2018 and correlated with chest CT dated 03/04/2018. The examination is degraded by por table technique and patient rotation. A right internal jugular central venous catheter has been place d. The tip projects over the SVC. Endotracheal and enteric tubes are unchanged in position. The cardi ac silhouette is not well evaluated. There is atherosclerotic calcification of the thoracic aorta. Th ere is atelectasis of the right lung secondary to severe scoliosis. Dense airspace consolidation at t he right lung base and a right pleural effusion are unchanged, as is airspace consolidation throughou t the left lung. A small left pleural effusion is noted. No pneumothorax is seen. The skeletal struct ures are osteopenic. Advanced degenerative change and severe scoliosis are noted in the thoracic spin e. There is chronic posttraumatic deformity of the left proximal humerus. IMPRESSION: 1. A right internal jugular central venous catheter has been placed. No pneumothorax is seen post pro cedure. 2. Endotracheal and enteric tubes are again noted. 3. Multifocal airspace consolidation and small pleural effusions are unchanged from the most recent p rior examination. Electronically signed by: Renan Lester M.D. 03/06/2018 11:02 PM
--- NOTE | 2018-03-06 23:23 | Critical Care Progress Note ---
Date of Service March 06, 2018 Subjective Per discussion with patient's daughter by my attending physician, Dr. Rodriguez, agreeable to emergent endotracheal intubation for aggressive pulmonary toilet and airway management with the intent for bronchoscopy. Patient was intubated secondary to worsening state of hypoxia and respiratory drive. Patient with impending respiratory failure. I was present for conversation between patient' s daughter and my attending. They are agreeable to undergoing intubation with plan for emergent bronchoscopy, and central line placement. After procedures, the patient was noted to be relatively hypotensive. At this point, patient received 1 dose of phenylephrine which did help pressures. I did institute levofed secondary to sustained hypotension and known history of congestive heart failure. Did avoid alpha blockade alone, despite relatively sustained EF. I have personally spent 30 minutes of critical care time in the direct management of this patient. This is a life/limb threatening event. This includes time spent evaluating patient, direct bedside care, chart review, placing orders, interpretation of diagnostic studies, discussion with consultants, patient, and family members, as well as other required patient management activities. This time is exclusive of all separately billable procedures, and teaching time and separate from and in addition to any other critical care service time. Physical Exam 2 Vital Signs (Past 24 Hours): Last Vital Signs Temp 36.8 C 03/06/18 15:00 Pulse 80 03/06/18 21:29 Resp 18 03/06/18 21:38 BP 149/81 H 03/06/18 15:00 Pulse Ox 100 03/06/18 21:29
[2018-03-06] MEDS: METOPROLOL SUCC 25MG EXT REL TAB PO SCH (23:25)
[2018-03-07] MEDS ORDERED: ALBUMIN 25% 50 ML IV ONE (00:02)
[2018-03-07] MEDS ORDERED: PIPERACILL/TAZOBAC CONSULT ACTIVE PRN (00:09)
[2018-03-07] MEDS ORDERED: FUROSEMIDE 40 MG in SYRINGE 0 ML IV ONE ×2 (00:15→16:00)
[2018-03-07] MEDS: PIPERACILLIN/TAZOBACTAM 3.375 GM in DEXTROSE 5% 100 ML IV SCH ×4 (00:27→21:33)
[2018-03-07] MEDS ORDERED: IMPACT LIQD 1.0 CAL 1,000 ML BAG OG SCH (03:30)
[2018-03-07] MEDS: ALBUT/IPRATROP 3MG/0.5MG NEB 3 ML VIAL NEB SCH ×6 (03:34→22:57)
[2018-03-07] MEDS: ACETYLCYSTEINE 20% INHAL SOLN ***DISPENSED BY RESP. INH SCH ×4 (03:34→19:36)
[2018-03-07] MEDS: MIDAZOLAM HCL 5 MG/ML 1 ML VIAL IV PRN ×2 (03:46→08:21)
[2018-03-07 04:59] LABS: Basophils # (auto) 0.02 K/uL (0-0.2); Basophils % (auto) 0.2 %; Eosinophils # (auto) 0.01 K/uL (0-0.5); Eosinophils % (auto) 0.1 %; Hematocrit (blood only) 29.2 % (37-47); Immature Granulocytes # (auto) 0.02 K/uL (0.00-0.02); Immature Granulocytes % (auto) 0.2 %; Lymphocytes # (auto) 1.72 K/uL (1.2-3.4); Lymphocytes % (auto) 19.5 %; Mean Corpuscular Hgb Conc 34.2 g/dL (32-36); Mean Corpuscular Volume 89.8 fL (80-100); Mean Platelet Volume 9.3 fL (7.4-10.4); Monocytes # (auto) 0.89 K/uL (0.11-0.59); Monocytes % (auto) 10.1 %; Neutrophils # (auto) 6.17 K/uL (1.4-6.5); Neutrophils % (auto) 69.9 %; Platelet Count 181 K/uL (130-400); RDW Coefficient of Variation 13.9 % (11.5-14.5); RDW Standard Deviation 46.3 fL (36.4-46.3); Red Blood Count 3.25 M/uL (4.2-5.4); White Blood Count 8.83 K/uL (4.8-10.8)
[2018-03-07 05:09] LABS: Partial Thromboplastin Ratio 1.2; Partial Thromboplastin Time 30.8 Seconds (21.0-31.0)
[2018-03-07 05:18] LABS: Albumin Level 2.8 gm/dl (3.4-5.0); BUN Creatinine Ratio 21.4 (10-20); Bilirubin Direct 0.2 mg/dl (0-0.2); Calcium 8.1 mg/dl (8.5-10.1); Creatinine Clr Calc Pharmacy 43.1 ml/min; Est GFR (African American) 79.5; Est GFR (Non-African American) 68.6; Potassium 3.4 mmol/L (3.5-5.1)
[2018-03-07 05:21] LABS: Bilirubin,Total 0.6 mg/dl (0.1-1); Phosphorus 2.8 mg/dl (2.5-4.9); Total Protein 6.9 gm/dl (6.4-8.2)
[2018-03-07] MEDS: ARFORMOTEROL TART 15MCG/2ML VIAL INH SCH ×2 (07:06→20:00)
[2018-03-07] MEDS: BUDESONIDE 0.5 MG/2 ML VIAL (PULMICORT) INH SCH ×2 (07:06→19:59)
--- NOTE | 2018-03-07 07:30 | XRay Report ---
XR chest 1V portable CLINICAL HISTORY: 82 years-old Female presenting with f/u pulmonary edema. TECHNIQUE: Portable upright AP view of the chest was obtained. COMPARISON: 03/06/2018. FINDINGS: Endotracheal tube terminates in the mid thoracic trachea 3 cm from the sha. Right internal jugular central venous catheter terminates in the lower SVC. Nasogastric tube descends below the diaphragm, sidehole also below the diaphragm. Numerous overlying external leads and support devices degrade imag e quality. Positioning of the patient is also suboptimal degrading image quality. Atherosclerosis of aortic arch. Cardiac silhouette moderately enlarged. Persistent diffuse left lung opacity with less extensive right basilar opacities. Persistent blunting of the right costophrenic an gle, possibly effusion. Volume loss on the right is unchanged. Severe dextroscoliotic curvature of th e midthoracic spine with resultant architectural distortion of the mediastinum and lungs. Posttraumat ic deformity of the left humeral neck. IMPRESSION: 1. Diffuse lung infiltrates severely affecting the left lung. Infection cannot be excluded. Differen tial considerations include asymmetric edema among other etiologies. 2. Cardiomegaly. 3. Lines and tubes appropriately positioned. 4. Right pleural effusion suspected. Electronically signed by: Siddharth Grant M.D. 03/07/2018 7:29 AM
[2018-03-07] MEDS: DEXMEDETOMIDINE HCL 200 MCG in SODIUM CHLORIDE 0.9% 48 ML IV SCH ×3 (07:57→20:00)
[2018-03-07] MEDS: POTASSIUM CHLORIDE / WTR 20 MEQ/100 ML PLCT IV SCH ×4 (07:57→23:19)
--- NOTE | 2018-03-07 08:25 | Cardiology Progress Note ---
Date of Service March 07, 2018 Events from overnight were reviewed this service. She did undergo bronchoscopy with the results suggesting pink frothy sputum consistent with heart failure. She did become hypotensive overnight requiring Levophed. In discussion with the [employer] operator service she was hypertensive before she had worsening respiratory failure. This morning she is intubated and sedated on the ventilator. She does respond to pain and opens her eyes when palpating her abdomen. Physical Exam 2 Vital Signs (Past 24 Hours): Last Vital Signs Temp 36.8 C 03/07/18 00:00 Pulse 72 03/07/18 07:10 Resp 22 03/07/18 07:10 BP 117/66 03/07/18 04:45 Pulse Ox 96 03/07/18 07:10 PHYSICAL EXAMINATION: GENERAL: She is intubated and sedated. She does respond to abdominal palpation RESPIRATORY: Globally decreased breath sounds. She also has inspiratory and expiratory rhonchi and had Heart: Regular rate and rhythm no appreciable murmurs rubs or gallops GASTROINTESTINAL: Abdomen is soft, nontender, mildly distended. Positive bowel sounds. EXTREMITIES: No clubbing, cyanosis, or edema. IMPRESSION: 1. Bilobar pneumonia. 2. Mild elevation of troponin, possibly demand ischemia versus a small non-ST elevation myocardial infarction. 3. EKG consistent with inferior lateral ST depression. 4. Dobutamine stress echo from [facility] group 01/2018 with no evidence of ischemia normal left ventricular systolic function with an EF in the range of 60-65% without evidence of left ventricular hypertrophy and type I diastolic dysfunction 5. History of hyperlipidemia with myalgias And weakness from her abdomen to her lower extremities on statins 6. Hypoxic respiratory failure requiring intubation on 03/04/2018, Extubated and reintubated 03/06/2018 7. Echocardiogram this admission with normal LV function, normal RV function, type I diastolic dysfunction, and no significant valvular heart disease The question as to why she is having flash pulmonary edema. In discussion with the [employer] operator service this either represents ischemia causing heart failure, respiratory compromise secondary to underlying pneumonia leading to demand ischemia and heart failure, heart failure with preserved ejection fraction, or less likely hypertension causing flash pulmonary edema. I would recommend an ultrasound of her renal arteries to rule out renal artery stenosis. I would continue with aggressive diuresis until we see a bump in her BUN and creatinine. Again the family does not want to consider a cardiac catheterization. One option if she does not improve would be to consider a right heart catheterization in the [employer] to determine her cardiac output as well as her right-sided pressures and pulmonary artery wedge pressure I would continue with supportive measures including ventilation and blood pressure support as needed. We will closely monitor her urine output as well.
--- NOTE | 2018-03-07 08:45 | Critical Care Progress Note ---
Date of Service March 07, 2018 Assessment & Plan (1) Admitted to intensive care unit: 82 yo female with above mentioned medical comorbidities namely restrictive lung disease, and probable obstruction (since she is on LABA, LAMA, and SHO)with multilobar pneumonia with normal WBC and hypertroponemia. Influenza is negative. The patient developed symptoms of heart failure likely due to acute tachycardia versus NSTEMI. Briefly extubated (~36 hours), attempted to move to floor, but patient's respiratory status declined, requiring further oxygen, using accessory muscles, etc. She was extubated again after discussion with patient and family. NEURO RASS/+1 for anxiety/agitation. Restarted home prozac Dyspnea is trigger of anxiety/panic attacks. Takes 0.25 xanax qHS and prn throughout the day at home. Have tried to minimize use considering respiratory distress. Minimal options to treat anxiety considering QTc and respiratory status CARDIO Preserved EF HF heparin drip DCd Statin DCd d/t documented adverse effect Appreciate cardiology input daily ECG f/u troponin has decreased from peak of 3.78 to 2.55 Echo performed: minimal IVC compression, EF 55-60. Held Beta gonzalo today Family went ahead with cardiac cath, showed mildly elevated R-sided pressures but no apparent ischemia to cause heart failure. Likely a respiratory issue leading to demand ischemia. Still leaves us with scant options for treatment of heart failure PULM Intubated. Awake, anxious continue Brovana, and xopenex Since there is multilobar affection will send legionella antigen and cover with doxycycline since QTc >500 Doxy and zosyn on board for pna RENAL Replaced potassium. Continue to monitor. Continue diuresis until bmp bumps 1500cc fluid restriction ID sputum culture did not reveal organisms FU blood cultures; NGTD zosyn (06/27) and IV doxy (06/24). Convert to PO doxy/augmentin if extubated, taking PO. DVT prophylaxis lovenox daily Supervising Physician Co-Signing Physician Notes Dr. Bynum was resident physician during care of patient. I separately evaluated patient for mirza portions of the history and the exam. I was present during the critical portion of medical decision making, and I discussed the case with the resident. I generally agree with the findings and plan. Patient on rather minimal ventilator settings, will continue to decrease PEEP moved towards extubation. Had extensive discussion with patient's and daughter both are in agreement with DO NOT RESUSCITATE in event of cardiac arrest. I am concerned regarding ejection fraction preserved heart failure secondary to bronchoscopy which demonstrate very minimal findings for purulence in the airways and pink frothy sputum consistent with pulmonary edema. Patient was discussed on multidisciplinary rounds as well as cardiology. Patient underwent left heart cath as well as right heart cath, discussed the case with Dr. House. There does not appear to be a ischemic lesion amenable to stenting. Mildly elevated pulmonary arterial pressures. An extensive discussion with the patient's son and daughter as well as the patient's , patient had good respiratory parameters a tidal volume of 10 cc/kg despite her scoliosis negative expiratory force of -40 RSBI of less than 50 and she was saturating greater than 92% on 35% FiO2. Bronchoscopy yesterday demonstrated minimal findings for purulent secretions. We will proceed with extubation at this time. I have reviewed the hemodynamics, the patient does have an elevated BNP the echo cardiogram was reported as technically difficult, per cardiology notes a previous echocardiogram during this admission demonstrated type I diastolic dysfunction the patient's right-sided pulmonary pressures were also elevated, 80 % of patients with ejection fraction preserved heart failure can also have pulmonary hypertension. Included in the differential would be transient left ventricular systolic dysfunction. Moving forward we will attempt to control the patient's anxiety to the best of her ability to prevent catecholamine surges which could predispose the patient to transient left ventricle dysfunction however I feel the patient's symptoms are highly suggestive for EF preserved heart failure and will continue with heart failure treatment. I have personally spent 85 minutes of critical care time in the direct management of this patient. This is a life/limb threatening event. This includes time spent evaluating patient, direct bedside care, chart review, placing orders, interpretation of diagnostic studies, discussion with consultants, patient, and/or family members regarding treatment decisions, as well as other required patient management activities. This time is exclusive of all separately billable procedures, and teaching time and separate from and in addition to any other critical care service time. Subjective Review of Systems Unobtainable due to cognitive status and Unobtainable due to endotracheal tube Physical Exam 2 Vital Signs (Past 24 Hours): Last Vital Signs Temp 36.8 C 03/07/18 00:00 Pulse 82 03/07/18 08:31 Resp 18 03/07/18 08:31 BP 117/66 03/07/18 04:45 Pulse Ox 95 03/07/18 08:31 Constitutional: average body habitus and + mechanically ventilated Eyes: EOM intact bilaterally; no conjunctival abnormality ENMT: external ear and nose normal, oropharynx normal Neck: trachea midline, no thyromegaly normal visual inspection Respiratory: normal respiratory effort, lungs clear to auscultation + cough ; no respiratory distress Auscultation: + crackles, + rales and + rhonchi Cardiovascular: RRR, no murmur, no edema Heart Sounds: normal S1 and normal S2 Gastrointestinal (Abdomen): normal bowel sounds, soft, nontender, no hepatosplenomegaly Musculoskeletal: no cyanosis or clubbing, extremities motor strength 5/5 Spine: + scoliosis Skin: no rashes, warm and dry Neurologic: moves all extremities Results & Data Laboratory Results 03/07/18 03/07/18 03/07/18 Range/Units 15:06 15:01 04:18 WBC (4.8-10.8) K/uL RBC (4.2-5.4) M/uL Hgb (12.0-16.0) g/dL Hct (37-47) % MCV (80-100) fL MCH (25-34) pg MCHC (32-36) g/dL RDW Std Deviation (36.4-46.3) fL RDW Coeff of Jaren (11.5-14.5) % Plt Count (130-400) K/uL MPV (7.4-10.4) fL Immature Gran % (Auto) % Neut % (Auto) % Lymph % (Auto) % Mercer % (Auto) % Eos % (Auto) % Baso % (Auto) % Immature Gran # (Auto) (0.00-0.02) K/uL Neut # (Auto) (1.4-6.5) K/uL Lymph # (Auto) (1.2-3.4) K/uL Mercer # (Auto) (0.11-0.59) K/uL Eos # (Auto) (0-0.5) K/uL Baso # (Auto) (0-0.2) K/uL APTT (21.0-31.0) Seconds PTT Ratio POC pH 7.38 7.35 (7.35-7.45) POC pCO2 43 45 (35-46) mmHg POC pO2 185 H 36 L (80-95) mmHg POC HCO3 25 H 25 H (19-24) gertrudis/L POC Total CO2 27 26 (24-31) mEq/l POC Base Excess 0.0 -1.0 (-9-1.8) gertrudis/L POC ABG O2 Sat 100.0 H 65.0 L (90-95) % Sodium 134 L (136-145) mmol/L Potassium 3.4 L (3.5-5.1) mmol/L Chloride 100 (98-107) mmol/L Carbon Dioxide 25 (21-32) mmol/L Anion Gap 9.0 (3-11) BUN 17 (7-18) mg/dl Creatinine 0.81 (0.6-1.2) mg/dl Est Cr Clr Drug Dosing 43.1 ml/min Est GFR ( Amer) 79.5 Est GFR (Non-Af Amer) 68.6 BUN/Creatinine Ratio 21.4 H (10-20) Glucose 135 H (70-99) mg/dl POC Glucose (70-99) Lactate (0.4-2.0) mmol/L Calcium 8.1 L (8.5-10.1) mg/dl Phosphorus 2.8 (2.5-4.9) mg/dl Magnesium 2.0 (1.8-2.4) mg/dl Total Bilirubin 0.6 (0.1-1) mg/dl Direct Bilirubin 0.2 (0-0.2) mg/dl AST 41 H (15-37) U/L ALT 31 (12-78) U/L Alkaline Phosphatase 69 (45-117) U/L Total Protein 6.9 (6.4-8.2) gm/dl Albumin 2.8 L (3.4-5.0) gm/dl Urine Legionella Ag (NOT DETECTED) 03/07/18 03/07/18 03/07/18 Range/Units 04:18 04:18 01:39 WBC 8.83 (4.8-10.8) K/uL RBC 3.25 L (4.2-5.4) M/uL Hgb 10.0 L (12.0-16.0) g/dL Hct 29.2 L (37-47) % MCV 89.8 (80-100) fL MCH 30.8 (25-34) pg MCHC 34.2 (32-36) g/dL RDW Std Deviation 46.3 (36.4-46.3) fL RDW Coeff of Jaren 13.9 (11.5-14.5) % Plt Count 181 (130-400) K/uL MPV 9.3 (7.4-10.4) fL Immature Gran % (Auto) 0.2 % Neut % (Auto) 69.9 % Lymph % (Auto) 19.5 % Mercer % (Auto) 10.1 % Eos % (Auto) 0.1 % Baso % (Auto) 0.2 % Immature Gran # (Auto) 0.02 (0.00-0.02) K/uL Neut # (Auto) 6.17 (1.4-6.5) K/uL Lymph # (Auto) 1.72 (1.2-3.4) K/uL Mercer # (Auto) 0.89 H (0.11-0.59) K/uL Eos # (Auto) 0.01 (0-0.5) K/uL Baso # (Auto) 0.02 (0-0.2) K/uL APTT 30.8 (21.0-31.0) Seconds PTT Ratio 1.2 POC pH (7.35-7.45) POC pCO2 (35-46) mmHg POC pO2 (80-95) mmHg POC HCO3 (19-24) gertrudis/L POC Total CO2 (24-31) mEq/l POC Base Excess (-9-1.8) gertrudis/L POC ABG O2 Sat (90-95) % Sodium (136-145) mmol/L Potassium (3.5-5.1) mmol/L Chloride (98-107) mmol/L Carbon Dioxide (21-32) mmol/L Anion Gap (3-11) BUN (7-18) mg/dl Creatinine (0.6-1.2) mg/dl Est Cr Clr Drug Dosing ml/min Est GFR ( Amer) Est GFR (Non-Af Amer) BUN/Creatinine Ratio (10-20) Glucose (70-99) mg/dl POC Glucose 137 H (70-99) Lactate (0.4-2.0) mmol/L Calcium (8.5-10.1) mg/dl Phosphorus (2.5-4.9) mg/dl Magnesium (1.8-2.4) mg/dl Total Bilirubin (0.1-1) mg/dl Direct Bilirubin (0-0.2) mg/dl AST (15-37) U/L ALT (12-78) U/L Alkaline Phosphatase (45-117) U/L Total Protein (6.4-8.2) gm/dl Albumin (3.4-5.0) gm/dl Urine Legionella Ag (NOT DETECTED) 03/06/18 03/06/18 03/04/18 Range/Units 17:43 17:43 02:45 WBC (4.8-10.8) K/uL RBC (4.2-5.4) M/uL Hgb (12.0-16.0) g/dL Hct (37-47) % MCV (80-100) fL MCH (25-34) pg MCHC (32-36) g/dL RDW Std Deviation (36.4-46.3) fL RDW Coeff of Jaren (11.5-14.5) % Plt Count (130-400) K/uL MPV (7.4-10.4) fL Immature Gran % (Auto) % Neut % (Auto) % Lymph % (Auto) % Mercer % (Auto) % Eos % (Auto) % Baso % (Auto) % Immature Gran # (Auto) (0.00-0.02) K/uL Neut # (Auto) (1.4-6.5) K/uL Lymph # (Auto) (1.2-3.4) K/uL Mercer # (Auto) (0.11-0.59) K/uL Eos # (Auto) (0-0.5) K/uL Baso # (Auto) (0-0.2) K/uL APTT (21.0-31.0) Seconds PTT Ratio POC pH (7.35-7.45) POC pCO2 (35-46) mmHg POC pO2 (80-95) mmHg POC HCO3 (19-24) gertrudis/L POC Total CO2 (24-31) mEq/l POC Base Excess (-9-1.8) gertrudis/L POC ABG O2 Sat (90-95) % Sodium 133 L (136-145) mmol/L Potassium 3.7 (3.5-5.1) mmol/L Chloride 100 (98-107) mmol/L Carbon Dioxide 24 (21-32) mmol/L Anion Gap 9.0 (3-11) BUN 13 (7-18) mg/dl Creatinine 0.85 (0.6-1.2) mg/dl Est Cr Clr Drug Dosing 41.1 ml/min Est GFR ( Amer) 75.0 Est GFR (Non-Af Amer) 64.7 BUN/Creatinine Ratio 15.0 (10-20) Glucose 157 H (70-99) mg/dl POC Glucose (70-99) Lactate 1.8 (0.4-2.0) mmol/L Calcium 8.4 L (8.5-10.1) mg/dl Phosphorus (2.5-4.9) mg/dl Magnesium (1.8-2.4) mg/dl Total Bilirubin (0.1-1) mg/dl Direct Bilirubin (0-0.2) mg/dl AST (15-37) U/L ALT (12-78) U/L Alkaline Phosphatase (45-117) U/L Total Protein (6.4-8.2) gm/dl Albumin (3.4-5.0) gm/dl Urine Legionella Ag NOT DETECTED (NOT DETECTED) Medications Administered Current Inpatient Medications Acetaminophen (Tylenol) 650 mg PO Q4H PRN PRN Reason: pain/fever Stop: 04/03/18 13:37 Acetylcysteine (Mucomyst 20%) 3 ml INH Q6R [facility] Stop: 04/05/18 13:59 Last Admin: 03/07/18 14:21 Dose: Not Given Albuterol (Duoneb) 3 ml NEB Q4R [facility] Stop: 04/03/18 15:59 Last Admin: 03/07/18 16:00 Dose: 3 ml Alprazolam (Xanax) 0.5 mg PO HS PRN PRN Reason: Insomnia Stop: 04/03/18 13:37 Last Admin: 03/05/18 20:20 Dose: 0.5 mg Arformoterol Tartrate (Brovana Neb) 15 mcg INH BIDR [facility] Stop: 04/03/18 19:59 Last Admin: 03/07/18 07:06 Dose: 15 mcg Aspirin (Aspirin) 81 mg NG DAILY [facility] Stop: 04/06/18 08:59 Last Admin: 03/07/18 09:27 Dose: 81 mg Budesonide (Pulmicort Respules) 0.5 mg INH BIDR [facility] Stop: 04/03/18 19:59 Last Admin: 03/07/18 07:06 Dose: 0.5 mg Docusate Sodium (Colace) 100 mg NG BID [facility] Stop: 04/06/18 08:59 Last Admin: 03/07/18 09:27 Dose: 100 mg Enoxaparin Sodium (Lovenox) 40 mg SQ Q24H [facility] Stop: 04/06/18 10:59 Last Admin: 03/07/18 11:20 Dose: 40 mg Enteral Nutritional Formula (Impact 1.0 Jorden) 1,000 ml OG UD [facility]; Protocol Stop: 04/06/18 03:29 Last Admin: 03/07/18 04:15 Dose: 1,000 ml Fluoxetine HCl (Prozac) 20 mg NG DAILY [facility] Stop: 04/06/18 08:59 Last Admin: 03/07/18 09:27 Dose: 20 mg Guaifenesin (Mucinex) 600 mg PO Q12 [facility] Stop: 04/03/18 20:59 Last Admin: 03/06/18 23:25 Dose: Not Given Norepinephrine Bitartrate 16 (mg/ Dextrose) 516 mls @ 0 mls/hr IV .Q0M [facility]; Protocol Stop: 04/05/18 21:33 Last Titration: 03/07/18 10:42 Dose: 0 mcg/kg/min, 0 mls/hr Doxycycline Hyclate 100 mg/ (Dextrose) 110 mls @ 50 mls/hr IV Q12H [facility] Stop: 03/14/18 08:59 Last Infusion: 03/07/18 12:09 Dose: Infused Piperacillin Sod/Tazobactam (Sod 3.375 gm/ Dextrose) 115 mls @ 28.75 mls/hr IV Q8 [facility]; Protocol Stop: 03/11/18 10:30 Last Admin: 03/07/18 16:07 Dose: 28.8 mls/hr Dexmedetomidine HCl 200 mcg/ (Sodium Chloride) 50 mls @ 5.84 mls/hr IV .Q8H34M [facility]; Protocol Stop: 03/11/18 04:59 Last Admin: 03/07/18 13:46 Dose: 0.7 mcg/kg/hr, 10.2 mls/hr Potassium Chloride (K Tobi / Wtr) 10 meq in 100 mls @ 100 mls/hr IV Q1H [facility] Stop: 03/08/18 00:59 Metoprolol Succinate (Toprol Xl) 25 mg PO HS [facility] Stop: 04/03/18 20:59 Last Admin: 03/06/18 23:25 Dose: Not Given Midazolam HCl (Versed) 2 mg IV Q2H PRN PRN Reason: Agitation Stop: 04/05/18 21:13 Last Admin: 03/07/18 08:21 Dose: 2 mg Miscellaneous Information (Consult) 1 ea N/A UD PRN PRN Reason: Consult Stop: 04/06/18 00:08 Potassium Chloride (Brittany Ciel Elix) 40 meq PO TODAY@2100 ONE Stop: 03/07/18 21:01 Potassium Chloride (Brittany Ciel Elix) 40 meq PO TODAY@0300 ONE Stop: 03/08/18 03:01 Resident Activity Tracking Resident Involvement: Resident Care Provided Care Provided: Adult Hospital Medicine
[2018-03-07] MEDS ORDERED: FLUOXETINE HCL 20 MG/5 ML UDP NG SCH (09:00)
[2018-03-07] MEDS ORDERED: ASPIRIN 81 MG CHEW NG SCH (09:00)
[2018-03-07] MEDS: DOCUSATE SODIUM SYRUP 100 MG/10 ML UDC NG SCH ×2 (09:27→21:11)
[2018-03-07] MEDS: DOXYCYCLINE HYCLATE 100 MG in DEXTROSE 5% 100 ML IV SCH ×2 (09:29→21:13)
[2018-03-07] MEDS ORDERED: ENOXAPARIN INJ 40 MG/0.4 ML SYR SQ SCH (10:30)
[2018-03-07] MEDS ORDERED: POTASSIUM ACETATE 20 MEQ in 0.9 % SODIUM CHLORIDE 100 ML IV ONE (11:00)
[2018-03-07] MEDS: ENOXAPARIN INJ 40 MG/0.4 ML SYR SQ SCH (11:20)
[2018-03-07] MEDS ORDERED: LIDOCAINE HCL 1% 20 ML VIAL ONE (13:19)
--- NOTE | 2018-03-07 13:30 | Palliative Care Progress Note ---
Date of Service March 07, 2018 Subjective Patient discussed at ICU rounds and with hospitalist physician. She was reintubated last evening per patient's own wishes. Her daughter is heavily involved in her care and decision making. Will hold off consult until patient is either extubated or further decision making needs to be made. Will follow peripherally for now.
[2018-03-07] MEDS ORDERED: MIDAZOLAM HCL 1 MG/ML 2ML VIAL ONE (14:17)
[2018-03-07] MEDS ORDERED: NiCARDipine HCL INJ 2.5 MG/ML 10 ML AMP ONE (14:17)
[2018-03-07] MEDS ORDERED: NITROGLYCERIN/D5W 100MCG/ML 20ML SYR ONE (14:17)
[2018-03-07] MEDS ORDERED: HEPARIN (PORCINE) 1000 UNIT/ML 10 ML (CATH LAB USE ONLY) ONE (14:17)
[2018-03-07] MEDS ORDERED: fentaNYL citrate 100 MCG/2 ML VIAL ONE (14:42)
[2018-03-07 15:32] LABS: iSTAT Arterial Blood Gas HCO3 25 meg/L (19-24); iSTAT Carbon Dioxide 26 mEq/l (24-31)
[2018-03-07 15:41] LABS: iSTAT Arterial Blood Gas HCO3 25 meg/L (19-24); iSTAT Carbon Dioxide 27 mEq/l (24-31)
--- NOTE | 2018-03-07 15:48 | Pre Anesthesia Assessment ---
Date of Service March 07, 2018 Pre Sedation Assessment Vital Signs Temp Pulse Pulse Resp BP BP BP 03/07/18 14:00 81 18 102/57 L 03/07/18 13:00 82 18 102/54 L 03/07/18 12:30 83 106/58 L 03/07/18 12:00 36.8 C 85 18 119/56 L 03/07/18 11:45 75 18 117/61 03/07/18 11:30 82 20 03/07/18 11:10 71 29 H 03/07/18 11:04 79 107/58 L 03/07/18 10:45 85 88/41 L 03/07/18 10:30 82 100/51 L 03/07/18 10:16 82 92/46 L 03/07/18 10:00 85 101/50 L 03/07/18 09:45 83 101/50 L 03/07/18 09:30 87 107/52 L 03/07/18 09:15 83 126/61 03/07/18 09:00 80 126/63 03/07/18 08:45 83 129/65 03/07/18 08:31 82 18 03/07/18 08:30 79 133/60 03/07/18 08:15 74 18 116/62 03/07/18 08:00 36.8 C 77 18 111/54 L 03/07/18 07:46 77 18 120/63 03/07/18 07:10 72 22 03/07/18 07:00 77 18 114/69 03/07/18 05:51 70 20 03/07/18 04:45 74 117/66 03/07/18 04:30 70 124/66 03/07/18 04:15 68 123/62 03/07/18 04:00 73 136/71 03/07/18 03:45 71 96/67 L 03/07/18 03:40 65 18 03/07/18 03:31 67 109/73 03/07/18 03:30 70 18 03:15 66 111/63 18 03:00 67 119/69 03/07/18 02:45 67 127/67 18 02:30 61 119/60 18 02:15 67 130/77 03/07/18 02:00 68 104/68 12/19/18 01:45 66 116/62 18 01:30 65 114/65 18 01:15 64 115/72 18 01:00 66 116/72 18 00:45 64 129/67 18 00:30 64 99/58 L 18 00:15 73 107/63 03/07/18 00:00 36.8 C 70 109/67 18 23:45 70 116/72 18 23:30 64 110/57 L 18 23:18 67 18 18 23:16 72 18 23:15 69 89/53 L 18 23:06 67 90/53 L 18 23:00 68 68 18 96/57 L 96/57 L 18 22:00 69 18 82/49 L 18 21:38 18 18 21:29 80 18 18 21:18 64 18 67/44 L 18 21:05 79 18 83/50 L 18 20:30 80 18 111/66 03/06/18 19:35 108 H 36 H 130/67 03/06/18 19:15 36.8 C 86 32 H 129/73 18 19:02 87 29 H 18 18:15 90 28 H 124/78 18 17:35 109 H 36 H 18 17:00 100 H 32 H 154/89 H 18 16:00 97 H Pulse Ox 03/07/18 14:00 97 18 13:00 98 18 12:30 98 18 12:00 98 18 11:45 97 18 11:30 95 18 11:10 93 18 11:04 93 18 10:45 93 18 10:30 94 18 10:16 93 18 10:00 94 18 09:45 94 18 09:30 95 18 09:15 96 12/19/18 09:00 96 12/19/18 08:45 98 18 08:31 95 18 08:30 97 18 08:15 97 18 08:00 97 18 07:46 96 18 07:10 96 18 07:00 93 18 05:51 96 18 04:45 98 18 04:30 98 18 04:15 98 18 04:00 99 18 03:45 99 18 03:40 99 18 03:31 99 18 03:30 99 18 03:15 99 18 03:00 99 18 02:45 99 18 02:30 99 18 02:15 100 18 02:00 100 18 01:45 99 18 01:30 99 18 01:15 99 18 01:00 99 18 00:45 100 18 00:30 100 18 00:15 99 18 00:00 99 18 23:45 99 18/18 23:30 100 18/18 23:18 100 18/18 23:16 18/18 23:15 98 18/18 23:06 100 18/18 23:00 100 18/18 22:00 100 18/18 21:38 18/18 21:29 100 18/18 21:18 100 18/18 21:05 100 18/18 20:30 100 12/18/18 19:35 80 L 12/18/18 19:15 95 1218/18 19:02 96 18/18 18:15 95 12/18/18 17:35 92 1218/18 17:00 93 18/18 16:00 Cardiovascular RRR, no murmur, no edema Respiratory Additional Comments: intubated Pre-Sedation Airway Assessment Smoking Status: Never smoker Hx Sleep Apnea: No Hx Difficult Intubation: No Thyromental Distance: > or= 3.5 Finger Breadths Oral Cavity: + Dental Abnormalities Procedure Planning Contraindications for Sedation: none Current Medications Reviewed: Yes Notes The planned sedation has been discussed with the patient. Informed Consent was obtained. I have identified the patient, determined the appropriateness of sedation and have assessed the patient immediately prior to the procedure. All medicine(s) and interventions are by my order.
--- NOTE | 2018-03-07 15:50 | Post Anesthesia Assessment ---
Date of Service March 07, 2018 Post Sedation Assessment Vital Signs Temp Pulse Pulse Resp BP BP BP 03/07/18 14:00 81 18 102/57 L 03/07/18 13:00 82 18 102/54 L 03/07/18 12:30 83 106/58 L 03/07/18 12:00 36.8 C 85 18 119/56 L 03/07/18 11:45 75 18 117/61 03/07/18 11:30 82 20 03/07/18 11:10 71 29 H 03/07/18 11:04 79 107/58 L 03/07/18 10:45 85 88/41 L 03/07/18 10:30 82 100/51 L 03/07/18 10:16 82 92/46 L 03/07/18 10:00 85 101/50 L 03/07/18 09:45 83 101/50 L 03/07/18 09:30 87 107/52 L 03/07/18 09:15 83 126/61 03/07/18 09:00 80 126/63 03/07/18 08:45 83 129/65 03/07/18 08:31 82 18 03/07/18 08:30 79 133/60 03/07/18 08:15 74 18 116/62 03/07/18 08:00 36.8 C 77 18 111/54 L 03/07/18 07:46 77 18 120/63 03/07/18 07:10 72 22 03/07/18 07:00 77 18 114/69 03/07/18 05:51 70 20 03/07/18 04:45 74 117/66 03/07/18 04:30 70 124/66 18 04:15 68 123/62 03/07/18 04:00 73 136/71 03/07/18 03:45 71 96/67 L 03/07/18 03:40 65 18 03/07/18 03:31 67 109/73 03/07/18 03:30 70 18 03:15 66 111/63 18 03:00 67 119/69 03/07/18 02:45 67 127/67 18 02:30 61 119/60 18 02:15 67 130/77 03/07/18 02:00 68 104/68 12/19/18 01:45 66 116/62 18 01:30 65 114/65 18 01:15 64 115/72 18 01:00 66 116/72 18 00:45 64 129/67 18 00:30 64 99/58 L 18 00:15 73 107/63 03/07/18 00:00 36.8 C 70 109/67 18 23:45 70 116/72 18 23:30 64 110/57 L 18 23:18 67 18 18 23:16 72 18 23:15 69 89/53 L 18 23:06 67 90/53 L 18 23:00 68 68 18 96/57 L 96/57 L 18 22:00 69 18 82/49 L 18 21:38 18 18 21:29 80 18 18 21:18 64 18 67/44 L 18 21:05 79 18 83/50 L 18 20:30 80 18 111/66 03/06/18 19:35 108 H 36 H 130/67 03/06/18 19:15 36.8 C 86 32 H 129/73 18 19:02 87 29 H 18 18:15 90 28 H 124/78 18 17:35 109 H 36 H 18 17:00 100 H 32 H 154/89 H 18 16:00 97 H Pulse Ox 03/07/18 14:00 97 18 13:00 98 18 12:30 98 18 12:00 98 18 11:45 97 18 11:30 95 18 11:10 93 18 11:04 93 18 10:45 93 18 10:30 94 18 10:16 93 18 10:00 94 18 09:45 94 18 09:30 95 18 09:15 96 03/07/18 09:00 96 12/19/18 08:45 98 18 08:31 95 18 08:30 97 18 08:15 97 18 08:00 97 18 07:46 96 18 07:10 96 18 07:00 93 03/07/18 05:51 96 18 04:45 98 18 04:30 98 18 04:15 98 03/07/18 04:00 99 18 03:45 99 18 03:40 99 18 03:31 99 03/07/18 03:30 99 03/07/18 03:15 99 03/07/18 03:00 99 03/07/18 02:45 99 03/07/18 02:30 99 03/07/18 02:15 100 03/07/18 02:00 100 18 01:45 99 18 01:30 99 18 01:15 99 18 01:00 99 18 00:45 100 18 00:30 100 18 00:15 99 18 00:00 99 18 23:45 99 18 23:30 100 18/18 23:18 100 18/18 23:16 18/18 23:15 98 18/18 23:06 100 18 23:00 100 1818 22:00 100 18/18 21:38 18/18 21:29 100 18/18 21:18 100 18/18 21:05 100 18/18 20:30 100 18/18 19:35 80 L 18/18 19:15 95 18/18 19:02 96 18/18 18:15 95 18/18 17:35 92 18/18 17:00 93 1818 16:00 Recovery Score Activity: Moves 4 extremities Circulation: +/-20% PreAnes Value Consciousness: Arouseable (by name) Oxygen Saturation: O2 needed for >90% Post Sedation Plan On clinical assessment, the patient appears to have tolerated the sedation without complications. Patient is recovering as anticipated. Patient will continue to be monitored by nursing and may be discharged when sedation discharge criteria are met per below protocol. Upon Completions of procedure and additional 15 minutes continue every 5 minute vital signs and the P.A.R. score; then discharge to a Phase I or Fast Track to Phase II per the following guidelines: * Discharge Patient to appropriate Phase II area if PAR is 8 or greater or return to pre- procedure baseline. The post - procedure orders will be as directed. * If PAR score is less than 8 or not return to pre-procedure baseline then patient will follow Phase I monitoring till PAR is reached for Phase II. The Phase I may be done in procedure room or may call to secure a Phase I area. * If naloxone or flumazenil are used for reversal, hold in Phase I for continued monitoring from when last reversal dose was given for a minimum of 60 minutes or longer pending the nurse and/or physician discretion of patient condition before discharge to Phase II. Please call the Sedation Physician to re-evaluate and complete post-note for discharge to Phase II area. Do NOT discharge from procedure sedation or Phase 1 until post- sedation evaluation note is complete by procedure /sedation MD Sedation Discharge Instructions to be given to the patient at discharge to home.
--- NOTE | 2018-03-07 15:59 | Cardiac Catheterization ---
Cardiac Cath Procedure Full Procedure Date March 07, 2018 Pre-Procedure Diagnosis Pre-Procedure Diagnosis: Non STEMI AUC Score AUC Score: 7 Post-Procedure Diagnosis Post-Procedure Diagnosis: Mild CAD Procedure(s) Performed Procedure(s) Performed: Coronary Angiography, Left Heart Cath, Right Heart Cath , Ultrasound Guided Vascular Access and Radial Artery Angiography Spoilage Worker Jorge House MD Tight Barrel Inspector(s) Danielle Estimated Blood Loss Estimated Blood Loss: 10 Medication(s) Medication(s): Fentanyl, Heparin, Lidocaine 1% and Versed Summary of Findings Indication: Elevated troponin, flash pulmonary edema Access: ultrasound guided - 6Fr right ulnar artery, 6Fr antecubital vein Catheters: Ledbetter, pigtail; 6Fr swan Findings: LM -angiographically normal LAD -moderate caliber vessel, angiographically normal Circumflex -moderate caliber vessel, tortuous, angiographically normal and wraps around the apex. Gives off a moderate caliber first diagonal with 30-40% ostial stenosis. RCA -moderate caliber vessel, dominant with 30% mid segment disease RA 8 RV 40/8 PA 39/14/26 LV 10 PaSat 65% AoSat 100% Thermo CO/CI 4.8/3.1 Cande CO/CI 4.0/2.6 Arterial Closure: TR band (ulnar arteriography revealed suspected small perforation. Long sheath placed during procedure. Pressure held post procedure ). Summary: 1. Mild nonobstructive coronary artery disease -30% mid RCA 30-40% ostial stenosis of first diagonal 2. Normal left-sided filling pressures. Preserved cardiac output. 3. Borderline pulmonary artery pressures. 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
--- NOTE | 2018-03-07 17:03 | Hospitalist Progress Note ---
Date of Service March 07, 2018 Assessment & Plan (1) Multifocal pneumonia: Suspected aspiration pneumonia as pt was vomiting prior to admission at home. CT chest on 03/04 showed multifocal pneumonia in the RLL and BROCK. Had been having fevers, shortness of breath, and productive cough at home. Was on levofloxacin since 03/01 as outpatient with worsening of symptoms. Was with acute hypoxic respiratory failure on admission requiring intubation and ventilation-was extubated and requiring intermittent CPAP Now reintubated for severe hypoxia and worsening respiratory distress- veterinary pharmacologist hopeful to extubate after her cardiac catheterization later today PCT negative arguing against severe sepsis with respiratory source, although I do believe with fevers at home, tachycardia, with sepsis due to aspiration PNA Sputum Gr stain neg for organisms, sputum culture negative BAL with no growth on culture AFB pending, fungal smear negative Legionella antigen negative Blood cultures-no growth to date -Continue Zosyn/Doxy-day #4 - continue Duonebs, Budesonide bid, Brovana bid -follow CXR -vent management as per Customer Account Specialist (2) Sepsis: With tachycardia, tachypnea, fever, and PNA as source -Ventilated (3) Acute respiratory failure with hypoxia: Secondary to PNA, acute transient systolic and acute diastolic CHF, NSTEMI , known restrictive lung disease due to severe scoliosis -treatment ongoing for all conditions (except scoliosis) -Improved today on ventilator-we will continue to monitor and wean off ventilator as able to -Palliative Consult placed of which pt is agreeable to to discuss goals of care (4) Non-ST elevated myocardial infarction (non-STEMI): With troponin peaked at 3.78 and serial changes of septal infarct on ECG and EKG consistent with inferior lateral ST depression. Echo with LVEF 55-60%, with basal to midseptum with mild hypokinesis Had normal dobutamine stress ECHO just in 01/2018. Denies chest pain Cardiac catheterization planned for today -continue aspirin 81mg -cannot tolerate statins due to myalgias -received heparin gtt x 48 hours then discontinued -continue Toprol XL 25mg po qhs if blood pressure can tolerate (5) Acute on chronic diastolic (congestive) heart failure: Grade 1 diastolic dysfunction on ECHO With some mild hypokinesis as above, likely had some acute transient systolic and acute on chronic diastolic CHF -with likely flash pulm edema on admission, elevated proBNP -was given IV lasix 40mg x 1 on admission and then had significant hypotension -then received albumin + lasix 20mg IV and BP doing well, has received other doses of IV Lasix since then and is diuresing -appreciate Cardiology recommendations -continue strict I/Os, daily weights, heart healthy diet when tolerating p.o. again after extubation, continue fluid restriction -Mainstay of treatment will be preventing tachycardia and diuresis (6) DESMOND (acute kidney injury): Shading Painter sue from 0.78 to 1.24 in the setting of hypotension and sepsis, likely prerenal from IV lasix and/or ATN due to hypotension Is making plenty of urine. Shading Painter improved today to 0.81 -follow BMP -continue Frank cath (7) Restrictive lung disease: Life-long issues due to her scoliosis. Follows with Pulmonology Suspect some obstructive component as well as is on LABA,LAMA, and ICS at home -track down old PFTs - Continue home long-acting nebulized treatments -Duonebs - no steroids needed and are also not tolerated at all due to history of severe myopathy (8) Hypotension: Possibly secondary to IV lasix vs sepsis as well as sedation while on ventilator Was on levophed through the night while intubated for the second time, now weaned off Follow closely (9) Hypokalemia: K+ 3.4 today -replaced -follow BMP in AM (10) Anxiety: - Continue home fluoxetine and Xanax PRN before bed once taking p.o. -Receiving IV Versed while on the ventilator (11) DVT prophylaxis: SQ Lovenox Dispo-remain in ICU PT/OT consults placed Subjective Patient was on the vent this morning would wake up easily with verbal stimulus. She could shake her head yes or no and was communicating with pen and paper. When I told her she looked better today, she mouthed the words "thank you" around her ET tube. Blood pressures were low overnight and she was on Levophed which is now been weaned off. She was given IV Lasix last night and has diuresed a good amount. The patient and the daughter are now agreeable to cardiac catheterization which she will have today. Review of Systems Unobtainable due to endotracheal tube Physical Exam 2 Vital Signs (Past 24 Hours): Last Vital Signs Temp 36.9 C 03/07/18 16:00 Pulse 82 03/07/18 16:15 Resp 24 03/07/18 16:00 BP 114/55 L 03/07/18 16:15 Pulse Ox 92 03/07/18 16:15 Constitutional: + thin; no acute distress (Intubated and comfortable and wakes up easily and communicates) Eyes: PERRL, conjunctivae normal, anicteric sclerae ENMT: Ears: no hearing impairment (ET tube in place) Neck: trachea midline, no thyromegaly Respiratory: no respiratory distress Auscultation: + rales (Mild bibasilar- improved from previous); no wheezes Cardiovascular: RRR, no murmur, no edema Gastrointestinal (Abdomen): normal bowel sounds, soft, nontender, no hepatosplenomegaly Musculoskeletal: Extremities: extremities normal to inspection; no cyanosis and no clubbing Skin: no rashes, warm and dry Neurologic: moves all extremities and awake; no focal motor deficits Psychiatric: Orientation: alert Genitourinary: + abnormal external appearance (Frank in place with clear yellow urine) Results & Data Laboratory Results 03/07/18 03/07/18 03/07/18 Range/Units 15:06 15:01 04:18 WBC (4.8-10.8) K/uL RBC (4.2-5.4) M/uL Hgb (12.0-16.0) g/dL Hct (37-47) % MCV (80-100) fL MCH (25-34) pg MCHC (32-36) g/dL RDW Std Deviation (36.4-46.3) fL RDW Coeff of Jaren (11.5-14.5) % Plt Count (130-400) K/uL MPV (7.4-10.4) fL Immature Gran % (Auto) % Neut % (Auto) % Lymph % (Auto) % [place] % (Auto) % Eos % (Auto) % Baso % (Auto) % Immature Gran # (Auto) (0.00-0.02) K/uL Neut # (Auto) (1.4-6.5) K/uL Lymph # (Auto) (1.2-3.4) K/uL [place] # (Auto) (0.11-0.59) K/uL Eos # (Auto) (0-0.5) K/uL Baso # (Auto) (0-0.2) K/uL APTT (21.0-31.0) Seconds PTT Ratio POC pH 7.38 7.35 (7.35-7.45) POC pCO2 43 45 (35-46) mmHg POC pO2 185 H 36 L (80-95) mmHg POC HCO3 25 H 25 H (19-24) gertrudis/L POC Total CO2 27 26 (24-31) mEq/l POC Base Excess 0.0 -1.0 (-9-1.8) gertrudis/L POC ABG O2 Sat 100.0 H 65.0 L (90-95) % Sodium 134 L (136-145) mmol/L Potassium 3.4 L (3.5-5.1) mmol/L Chloride 100 (98-107) mmol/L Carbon Dioxide 25 (21-32) mmol/L Anion Gap 9.0 (3-11) BUN 17 (7-18) mg/dl Creatinine 0.81 (0.6-1.2) mg/dl Est Cr Clr Drug Dosing 43.1 ml/min Est GFR ( Amer) 79.5 Est GFR (Non-Af Amer) 68.6 BUN/Creatinine Ratio 21.4 H (10-20) Glucose 135 H (70-99) mg/dl POC Glucose (70-99) Calcium 8.1 L (8.5-10.1) mg/dl Phosphorus 2.8 (2.5-4.9) mg/dl Magnesium 2.0 (1.8-2.4) mg/dl Total Bilirubin 0.6 (0.1-1) mg/dl Direct Bilirubin 0.2 (0-0.2) mg/dl AST 41 H (15-37) U/L ALT 31 (12-78) U/L Alkaline Phosphatase 69 (45-117) U/L Total Protein 6.9 (6.4-8.2) gm/dl Albumin 2.8 L (3.4-5.0) gm/dl Urine Legionella Ag (NOT DETECTED) 03/07/18 03/07/18 03/07/18 Range/Units 04:18 04:18 01:39 WBC 8.83 (4.8-10.8) K/uL RBC 3.25 L (4.2-5.4) M/uL Hgb 10.0 L (12.0-16.0) g/dL Hct 29.2 L (37-47) % MCV 89.8 (80-100) fL MCH 30.8 (25-34) pg MCHC 34.2 (32-36) g/dL RDW Std Deviation 46.3 (36.4-46.3) fL RDW Coeff of Jaren 13.9 (11.5-14.5) % Plt Count 181 (130-400) K/uL MPV 9.3 (7.4-10.4) fL Immature Gran % (Auto) 0.2 % Neut % (Auto) 69.9 % Lymph % (Auto) 19.5 % [place] % (Auto) 10.1 % Eos % (Auto) 0.1 % Baso % (Auto) 0.2 % Immature Gran # (Auto) 0.02 (0.00-0.02) K/uL Neut # (Auto) 6.17 (1.4-6.5) K/uL Lymph # (Auto) 1.72 (1.2-3.4) K/uL [place] # (Auto) 0.89 H (0.11-0.59) K/uL Eos # (Auto) 0.01 (0-0.5) K/uL Baso # (Auto) 0.02 (0-0.2) K/uL APTT 30.8 (21.0-31.0) Seconds PTT Ratio 1.2 POC pH (7.35-7.45) POC pCO2 (35-46) mmHg POC pO2 (80-95) mmHg POC HCO3 (19-24) gertrudis/L POC Total CO2 (24-31) mEq/l POC Base Excess (-9-1.8) gertrudis/L POC ABG O2 Sat (90-95) % Sodium (136-145) mmol/L Potassium (3.5-5.1) mmol/L Chloride (98-107) mmol/L Carbon Dioxide (21-32) mmol/L Anion Gap (3-11) BUN (7-18) mg/dl Creatinine (0.6-1.2) mg/dl Est Cr Clr Drug Dosing ml/min Est GFR ( Amer) Est GFR (Non-Af Amer) BUN/Creatinine Ratio (10-20) Glucose (70-99) mg/dl POC Glucose 137 H (70-99) Calcium (8.5-10.1) mg/dl Phosphorus (2.5-4.9) mg/dl Magnesium (1.8-2.4) mg/dl Total Bilirubin (0.1-1) mg/dl Direct Bilirubin (0-0.2) mg/dl AST (15-37) U/L ALT (12-78) U/L Alkaline Phosphatase (45-117) U/L Total Protein (6.4-8.2) gm/dl Albumin (3.4-5.0) gm/dl Urine Legionella Ag (NOT DETECTED) 03/04/18 Range/Units 02:45 WBC (4.8-10.8) K/uL RBC (4.2-5.4) M/uL Hgb (12.0-16.0) g/dL Hct (37-47) % MCV (80-100) fL MCH (25-34) pg MCHC (32-36) g/dL RDW Std Deviation (36.4-46.3) fL RDW Coeff of Jaren (11.5-14.5) % Plt Count (130-400) K/uL MPV (7.4-10.4) fL Immature Gran % (Auto) % Neut % (Auto) % Lymph % (Auto) % [place] % (Auto) % Eos % (Auto) % Baso % (Auto) % Immature Gran # (Auto) (0.00-0.02) K/uL Neut # (Auto) (1.4-6.5) K/uL Lymph # (Auto) (1.2-3.4) K/uL [place] # (Auto) (0.11-0.59) K/uL Eos # (Auto) (0-0.5) K/uL Baso # (Auto) (0-0.2) K/uL APTT (21.0-31.0) Seconds PTT Ratio POC pH (7.35-7.45) POC pCO2 (35-46) mmHg POC pO2 (80-95) mmHg POC HCO3 (19-24) gertrudis/L POC Total CO2 (24-31) mEq/l POC Base Excess (-9-1.8) gertrudis/L POC ABG O2 Sat (90-95) % Sodium (136-145) mmol/L Potassium (3.5-5.1) mmol/L Chloride (98-107) mmol/L Carbon Dioxide (21-32) mmol/L Anion Gap (3-11) BUN (7-18) mg/dl Creatinine (0.6-1.2) mg/dl Est Cr Clr Drug Dosing ml/min Est GFR ( Amer) Est GFR (Non-Af Amer) BUN/Creatinine Ratio (10-20) Glucose (70-99) mg/dl POC Glucose (70-99) Calcium (8.5-10.1) mg/dl Phosphorus (2.5-4.9) mg/dl Magnesium (1.8-2.4) mg/dl Total Bilirubin (0.1-1) mg/dl Direct Bilirubin (0-0.2) mg/dl AST (15-37) U/L ALT (12-78) U/L Alkaline Phosphatase (45-117) U/L Total Protein (6.4-8.2) gm/dl Albumin (3.4-5.0) gm/dl Urine Legionella Ag NOT DETECTED (NOT DETECTED) Diagnostic Findings Chest x-ray from the morning of 03/07 personally reviewed and agree with the following report: XR chest 1V portable CLINICAL HISTORY: 82 years-old Female presenting with f/u pulmonary edema. TECHNIQUE: Portable upright AP view of the chest was obtained. COMPARISON: 03/06/2018. FINDINGS: Endotracheal tube terminates in the mid thoracic trachea 3 cm from the sha. Right internal jugular central venous catheter terminates in the lower SVC. Nasogastric tube descends below the diaphragm, sidehole also below the diaphragm. Numerous overlying external leads and support devices degrade image quality. Positioning of the patient is also suboptimal degrading image quality. Atherosclerosis of aortic arch. Cardiac silhouette moderately enlarged. Persistent diffuse left lung opacity with less extensive right basilar opacities. Persistent blunting of the right costophrenic angle, possibly effusion. Volume loss on the right is unchanged. Severe dextroscoliotic curvature of the midthoracic spine with resultant architectural distortion of the mediastinum and lungs. Posttraumatic deformity of the left humeral neck. IMPRESSION: 1. Diffuse lung infiltrates severely affecting the left lung. Infection cannot be excluded. Differential considerations include asymmetric edema among other etiologies. 2. Cardiomegaly. 3. Lines and tubes appropriately positioned. 4. Right pleural effusion suspected. _ (1) Hypotension Hypotension type: hypotension due to drug Trimester: Qualified Code(s): I95.2 - Hypotension due to drugs
[2018-03-07] MEDS ORDERED: POTASSIUM CHLORIDE / WTR 10 MEQ/100 ML PLCT IV SCH (21:00)
[2018-03-07] MEDS ORDERED: POTASSIUM CHLORIDE 20 MEQ/15 ML UDC PO ONE (21:00)
[2018-03-07] MEDS: LORazepam 0.25 MG/0.5 ML VIAL IV PRN (22:33)
[2018-03-08] MEDS: ACETYLCYSTEINE 20% INHAL SOLN ***DISPENSED BY RESP. INH SCH ×2 (02:11→11:34)
[2018-03-08] MEDS: ALBUT/IPRATROP 3MG/0.5MG NEB 3 ML VIAL NEB SCH ×3 (02:11→11:30)
[2018-03-08] MEDS ORDERED: FUROSEMIDE 40 MG in SYRINGE 0 ML IV ONE (02:15)
[2018-03-08] MEDS ORDERED: POTASSIUM CHLORIDE 20 MEQ/15 ML UDC PO ONE (03:00)
[2018-03-08 06:06] LABS: Basophils # (auto) 0.01 K/uL (0-0.2); Basophils % (auto) 0.1 %; Eosinophils # (auto) 0.02 K/uL (0-0.5); Eosinophils % (auto) 0.2 %; Hematocrit (blood only) 27.9 % (37-47); Hemoglobin 9.6 g/dL (12.0-16.0); Immature Granulocytes # (auto) 0.01 K/uL (0.00-0.02); Immature Granulocytes % (auto) 0.1 %; Lymphocytes # (auto) 0.89 K/uL (1.2-3.4); Lymphocytes % (auto) 10.3 %; Mean Corpuscular Hgb Conc 34.4 g/dL (32-36); Mean Corpuscular Volume 88.9 fL (80-100); Mean Platelet Volume 9.6 fL (7.4-10.4); Monocytes # (auto) 0.83 K/uL (0.11-0.59); Monocytes % (auto) 9.6 %; Neutrophils # (auto) 6.85 K/uL (1.4-6.5); Neutrophils % (auto) 79.7 %; Platelet Count 157 K/uL (130-400); RDW Coefficient of Variation 13.8 % (11.5-14.5); Red Blood Count 3.14 M/uL (4.2-5.4); White Blood Count 8.61 K/uL (4.8-10.8)
[2018-03-08] MEDS: PIPERACILLIN/TAZOBACTAM 3.375 GM in DEXTROSE 5% 100 ML IV SCH ×2 (06:33→13:14)
[2018-03-08 06:39] LABS: BUN Creatinine Ratio 23.7 (10-20); Calcium 8.6 mg/dl (8.5-10.1); Creatinine Clr Calc Pharmacy 47.2 ml/min; Est GFR (African American) 88.7; Est GFR (Non-African American) 76.5; Magnesium 1.9 mg/dl (1.8-2.4); Potassium 2.9 mmol/L (3.5-5.1)
[2018-03-08 06:41] LABS: Phosphorus 2.1 mg/dl (2.5-4.9)
[2018-03-08] MEDS: BUDESONIDE 0.5 MG/2 ML VIAL (PULMICORT) INH SCH (07:22)
[2018-03-08] MEDS: ARFORMOTEROL TART 15MCG/2ML VIAL INH SCH (07:22)
--- NOTE | 2018-03-08 07:24 | XRay Report ---
SINGLE VIEW CHEST CLINICAL HISTORY: Multifocal pneumonia. FINDINGS: An AP, portable, upright chest radiograph is compared to chest x-ray performed earlier the same day 03/07/2018 and correlated with chest CT dated 03/04/2018. The examination is degraded by por table technique and patient rotation. Endotracheal and enteric tubes have been removed. A right inter nal jugular central venous catheter is unchanged in position. The cardiac silhouette is not well eval uated. There is atherosclerotic calcification of the thoracic aorta. There is atelectasis of the righ t lung secondary to severe scoliosis. Dense airspace consolidation at the right lung base and a right pleural effusion are unchanged, as is airspace consolidation throughout the left lung. A small left pleural effusion is noted. No pneumothorax is seen. The skeletal structures are osteopenic. Advanced degenerative change and severe scoliosis are noted in the thoracic spine. 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 IMPRESSION: 1. Endotracheal and enteric tubes have been removed. 2. There has been no significant change in multifocal airspace consolidation and small pleural effusi ons as compared to yesterday. Electronically signed by: Renan Lester M.D. 03/08/2018 7:23 AM
--- NOTE | 2018-03-08 07:50 | Critical Care Progress Note ---
Date of Service March 08, 2018 Assessment & Plan (1) Admitted to intensive care unit: 82 yo female with above mentioned medical comorbidities namely restrictive lung disease, and probable obstruction (since she is on LABA, LAMA, and SHO)with multilobar pneumonia with normal WBC and hypertroponemia. Influenza is negative. The patient developed symptoms of heart failure likely due to acute tachycardia versus NSTEMI. Briefly extubated (~36 hours), attempted to move to floor, but patient's respiratory status declined, requiring further oxygen, using accessory muscles, etc. She was extubated again after discussion with patient and family. NEURO RASS/+1 for anxiety/agitation. Restarted home prozac Dyspnea is trigger of anxiety/panic attacks. Takes 0.25 xanax qHS and prn throughout the day at home. Have tried to minimize use considering respiratory distress. Minimal options to treat anxiety considering QTc and respiratory status Able to hold full conversation comfortably. CARDIO Preserved EF HF heparin drip DCd Statin DCd d/t documented adverse effect daily ECG troponin has decreased from peak of 3.78 to 2.55 Echo performed: minimal IVC compression, EF 55-60. Held Beta gonzalo today Family went ahead with cardiac cath, showed mildly elevated R-sided pressures but no apparent ischemia to cause heart failure. PCWP Still leaves us with scant options for treatment of heart failure Family requesting transfer to OSH for second opinion, would require intubation prior to transfer. PULM Awake, anxious. No respiratory distress. At bedside, able to hold full conversation while holding CPAP off of face. No accessory muscle use, no retractions, Maintained Oxygen saturation during this conversation. continue Brovana, and xopenex Legionella agn negative, will discuss on rounds whether to stop doxycycline or not Doxy and zosyn on board for pna RENAL Replaced potassium. Continue to monitor. Continue diuresis until bmp bumps 1500cc fluid restriction ID sputum culture did not reveal organisms FU blood cultures; NGTD zosyn (07/27) and IV doxy (07/24). Convert to PO doxy/augmentin if extubated, taking PO. DVT prophylaxis lovenox daily Supervising Physician Co-Signing Physician Notes Dr. Bynum was resident physician during care of patient. I separately evaluated patient for mirza portions of the history and the exam. I was present during the critical portion of medical decision making, and I discussed the case with the resident. I generally agree with the findings and plan. Patient was discussed in multidisciplinary rounds, I discussed the case with Dr. House, discussed the case with Dr. Lockett. Patient and patient's daughter would like to be transferred to a higher level of care for additional diagnostic workup and further evaluation. Patient still experiencing acute hypoxic respiratory failure, patient also has significant anxiety which has been treated with benzodiazepines secondary to prolonged QTC. I suspect the patient's baseline respiratory rate is elevated secondary to's restrictive lung disease from kyphoscoliosis. Patient does not appear to be in respiratory distress, she has been tolerating noninvasive ventilation 10 cm water pressure however she is able to lift her CPAP mask and talk to me in complete sentences without becoming dyspneic. The patient will be transferred to [facility] intensive care unit with a secured airway likely via helicopter EMS if they are unable to fly we will request the critical care transport team. I have personally spent 95 minutes of critical care time in the direct management of this patient. This is a life/limb threatening event. This includes time spent evaluating patient, direct bedside care, chart review, placing orders, interpretation of diagnostic studies, discussion with consultants, patient, and/or family members regarding treatment decisions, as well as other required patient management activities. This time is exclusive of all separately billable procedures, and teaching time and separate from and in addition to any other critical care service time. Subjective Review of Systems All systems reviewed & are unremarkable except as noted in HPI & below Constitutional: + malaise and + weakness Respiratory: + cough, + chest congestion and + dyspnea Cardiovascular: no chest pain Gastrointestinal: no nausea and no vomiting Psychiatric: + anxiety Physical Exam 2 Vital Signs (Past 24 Hours): Last Vital Signs Temp 36.8 C 03/07/18 20:00 Pulse 99 H 03/08/18 07:23 Resp 25 H 03/08/18 07:23 BP 134/64 03/08/18 06:30 Pulse Ox 97 03/08/18 07:23 Constitutional: + thin, + frail appearing and well groomed Able to hold conversation. Able to lift CPAP mask off face to hold full conversation comfortably Eyes: EOM intact bilaterally; no conjunctival abnormality ENMT: external ear and nose normal, oropharynx normal Neck: trachea midline, no thyromegaly normal visual inspection Respiratory: normal respiratory effort, lungs clear to auscultation + cough ; no respiratory distress Auscultation: + crackles, + rales and + rhonchi No accessory muscle use. no retractions. Cardiovascular: RRR, no murmur, no edema Heart Sounds: normal S1 and normal S2 Gastrointestinal (Abdomen): normal bowel sounds, soft, nontender, no hepatosplenomegaly Musculoskeletal: no cyanosis or clubbing, extremities motor strength 5/5 Spine: + scoliosis Skin: no rashes, warm and dry Neurologic: moves all extremities and awake Psychiatric: Orientation: alert, oriented to person and cooperative Results & Data Laboratory Results 03/08/18 03/08/18 03/07/18 Range/Units 05:53 05:53 15:06 WBC 8.61 (4.8-10.8) K/uL RBC 3.14 L (4.2-5.4) M/uL Hgb 9.6 L (12.0-16.0) g/dL Hct 27.9 L (37-47) % MCV 88.9 (80-100) fL MCH 30.6 (25-34) pg MCHC 34.4 (32-36) g/dL RDW Std Deviation 45.0 (36.4-46.3) fL RDW Coeff of Jaren 13.8 (11.5-14.5) % Plt Count 157 (130-400) K/uL MPV 9.6 (7.4-10.4) fL Immature Gran % (Auto) 0.1 % Neut % (Auto) 79.7 % Lymph % (Auto) 10.3 % [place] % (Auto) 9.6 % Eos % (Auto) 0.2 % Baso % (Auto) 0.1 % Immature Gran # (Auto) 0.01 (0.00-0.02) K/uL Neut # (Auto) 6.85 H (1.4-6.5) K/uL Lymph # (Auto) 0.89 L (1.2-3.4) K/uL [place] # (Auto) 0.83 H (0.11-0.59) K/uL Eos # (Auto) 0.02 (0-0.5) K/uL Baso # (Auto) 0.01 (0-0.2) K/uL POC pH 7.38 (7.35-7.45) POC pCO2 43 (35-46) mmHg POC pO2 185 H (80-95) mmHg POC HCO3 25 H (19-24) gertrudis/L POC Total CO2 27 (24-31) mEq/l POC Base Excess 0.0 (-9-1.8) gertrudis/L POC ABG O2 Sat 100.0 H (90-95) % Sodium 136 (136-145) mmol/L Potassium 2.9 L (3.5-5.1) mmol/L Chloride 98 (98-107) mmol/L Carbon Dioxide 30 (21-32) mmol/L Anion Gap 8.0 (3-11) BUN 18 (7-18) mg/dl Creatinine 0.74 (0.6-1.2) mg/dl Est Cr Clr Drug Dosing 47.2 ml/min Est GFR ( Amer) 88.7 Est GFR (Non-Af Amer) 76.5 BUN/Creatinine Ratio 23.7 H (10-20) Glucose 101 H (70-99) mg/dl Calcium 8.6 (8.5-10.1) mg/dl Phosphorus 2.1 L (2.5-4.9) mg/dl Magnesium 1.9 (1.8-2.4) mg/dl Urine Legionella Ag (NOT DETECTED) 03/07/18 03/04/18 Range/Units 15:01 02:45 WBC (4.8-10.8) K/uL RBC (4.2-5.4) M/uL Hgb (12.0-16.0) g/dL Hct (37-47) % MCV (80-100) fL MCH (25-34) pg MCHC (32-36) g/dL RDW Std Deviation (36.4-46.3) fL RDW Coeff of Jaren (11.5-14.5) % Plt Count (130-400) K/uL MPV (7.4-10.4) fL Immature Gran % (Auto) % Neut % (Auto) % Lymph % (Auto) % [place] % (Auto) % Eos % (Auto) % Baso % (Auto) % Immature Gran # (Auto) (0.00-0.02) K/uL Neut # (Auto) (1.4-6.5) K/uL Lymph # (Auto) (1.2-3.4) K/uL [place] # (Auto) (0.11-0.59) K/uL Eos # (Auto) (0-0.5) K/uL Baso # (Auto) (0-0.2) K/uL POC pH 7.35 (7.35-7.45) POC pCO2 45 (35-46) mmHg POC pO2 36 L (80-95) mmHg POC HCO3 25 H (19-24) gertrudis/L POC Total CO2 26 (24-31) mEq/l POC Base Excess -1.0 (-9-1.8) gertrudis/L POC ABG O2 Sat 65.0 L (90-95) % Sodium (136-145) mmol/L Potassium (3.5-5.1) mmol/L Chloride (98-107) mmol/L Carbon Dioxide (21-32) mmol/L Anion Gap (3-11) BUN (7-18) mg/dl Creatinine (0.6-1.2) mg/dl Est Cr Clr Drug Dosing ml/min Est GFR ( Amer) Est GFR (Non-Af Amer) BUN/Creatinine Ratio (10-20) Glucose (70-99) mg/dl Calcium (8.5-10.1) mg/dl Phosphorus (2.5-4.9) mg/dl Magnesium (1.8-2.4) mg/dl Urine Legionella Ag NOT DETECTED (NOT DETECTED) Diagnostic Findings SINGLE VIEW CHEST CLINICAL HISTORY: Multifocal pneumonia. FINDINGS: An AP, portable, upright chest radiograph is compared to chest x-ray performed earlier the same day 03/07/2018 and correlated with chest CT dated . The examination is degraded by portable technique and patient rotation. Endotracheal and enteric tubes have been removed. A right internal jugular central venous catheter is unchanged in position. The cardiac silhouette is not well evaluated. There is atherosclerotic calcification of the thoracic aorta. There is atelectasis of the right lung secondary to severe scoliosis. Dense airspace consolidation at the right lung base and a right pleural effusion are unchanged, as is airspace consolidation throughout the left lung. A small left pleural effusion is noted. No pneumothorax is seen. The skeletal structures are osteopenic. Advanced degenerative change and severe scoliosis are noted in the thoracic spine. There is chronic posttraumatic deformity of the left proximal humerus. IMPRESSION: 1. Endotracheal and enteric tubes have been removed. 2. There has been no significant change in multifocal airspace consolidation and small pleural effusions as compared to yesterday. Electronically signed by: Renan Lester M.D. 03/08/2018 7:23 AM Medications Administered Current Inpatient Medications Acetaminophen (Tylenol) 650 mg PO Q4H PRN PRN Reason: pain/fever Stop: 04/03/18 13:37 Albuterol (Duoneb) 3 ml NEB Q4R [facility] Stop: 04/03/18 15:59 Last Admin: 03/08/18 02:11 Dose: 3 ml Alprazolam (Xanax) 0.5 mg PO HS PRN PRN Reason: Insomnia Stop: 04/03/18 13:37 Last Admin: 03/05/18 20:20 Dose: 0.5 mg Arformoterol Tartrate (Brovana Neb) 15 mcg INH BIDR [facility] Stop: 04/03/18 19:59 Last Admin: 03/08/18 07:22 Dose: 15 mcg Aspirin (Ecotrin) 81 mg PO DAILY [facility] Stop: 04/07/18 08:59 Budesonide (Pulmicort Respules) 0.5 mg INH BIDR [facility] Stop: 04/03/18 19:59 Last Admin: 03/08/18 07:22 Dose: 0.5 mg Docusate Sodium (Colace) 100 mg PO BID [facility] Stop: 04/07/18 08:59 Enoxaparin Sodium (Lovenox) 40 mg SQ Q24H [facility] Stop: 04/06/18 10:59 Last Admin: 03/07/18 11:20 Dose: 40 mg Fluoxetine HCl (Prozac) 20 mg PO DAILY [facility] Stop: 04/07/18 08:59 Guaifenesin (Mucinex) 600 mg PO Q12 [facility] Stop: 04/03/18 20:59 Last Admin: 03/06/18 23:25 Dose: Not Given Norepinephrine Bitartrate 16 (mg/ Dextrose) 516 mls @ 0 mls/hr IV .Q0M [facility]; Protocol Stop: 04/05/18 21:33 Last Titration: 03/08/18 08:06 Dose: Infused Doxycycline Hyclate 100 mg/ (Dextrose) 110 mls @ 50 mls/hr IV Q12H [facility] Stop: 03/14/18 08:59 Last Admin: 03/08/18 08:37 Dose: 50 mls/hr Piperacillin Sod/Tazobactam (Sod 3.375 gm/ Dextrose) 115 mls @ 28.75 mls/hr IV Q8 [facility]; Protocol Stop: 03/11/18 10:30 Last Admin: 03/08/18 06:33 Dose: 28.8 mls/hr Dexmedetomidine HCl 200 mcg/ (Sodium Chloride) 50 mls @ 0 mls/hr IV .Q0M [facility]; Protocol Stop: 03/11/18 04:59 Last Admin: 03/08/18 08:07 Dose: Not Given Lorazepam (Ativan) 0.25 mg in 0.5 mls @ 0.5 mls/min IV Q4H PRN PRN Reason: Anxiety/Agitation Stop: 04/06/18 19:30 Last Admin: 03/08/18 10:20 Dose: 0.25 mls/min Potassium Chloride (K Tobi / Wtr) 20 meq in 100 mls @ 50 mls/hr IV Q2H [facility] Stop: 03/08/18 12:59 Last Admin: 03/08/18 08:45 Dose: 50 mls/hr Metoprolol Succinate (Toprol Xl) 25 mg PO HS [facility] Stop: 04/03/18 20:59 Last Admin: 03/06/18 23:25 Dose: Not Given Miscellaneous Information (Consult) 1 ea N/A UD PRN PRN Reason: Consult Stop: 04/06/18 00:08 Resident Activity Tracking Resident Involvement: Resident Care Provided Care Provided: Adult Hospital Medicine
[2018-03-08] MEDS: NOREPINEPHRINE BIT INJ 16 MG in DEXTROSE 5% 500 ML IV SCH (08:06)
[2018-03-08] MEDS: DEXMEDETOMIDINE HCL 200 MCG in SODIUM CHLORIDE 0.9% 48 ML IV SCH (08:07)
[2018-03-08] MEDS ORDERED: POTASSIUM CHLORIDE 20 MEQ/15 ML UDC PO STA (08:18)
[2018-03-08] MEDS ORDERED: POLYETHYLENE (MIRALAX) 17 GM PACK PO STA (08:21)
[2018-03-08] MEDS: DOXYCYCLINE HYCLATE 100 MG in DEXTROSE 5% 100 ML IV SCH (08:37)
[2018-03-08] MEDS: POTASSIUM CHLORIDE / WTR 20 MEQ/100 ML PLCT IV SCH ×2 (08:45→10:59)
[2018-03-08] MEDS ORDERED: FLUOXETINE HCL 20 MG CAP PO SCH (09:00)
[2018-03-08] MEDS ORDERED: ASPIRIN 81 MG ECTAB PO SCH (09:00)
[2018-03-08] MEDS ORDERED: DOCUSATE SODIUM 100 MG CAP PO SCH (09:00)
--- NOTE | 2018-03-08 09:11 | Cardiology Progress Note ---
Date of Service March 08, 2018 She is on BiPAP this morning and appears to be struggling. She is using accessory muscles to breathe. Her breathing is labored and she is tachycardic and hypertensive associated with this. She has any chest pain or chest pressure. The rest of her review systems is unobtainable Physical Exam 2 Vital Signs (Past 24 Hours): Last Vital Signs Temp 36.8 C 03/07/18 20:00 Pulse 99 H 03/08/18 07:23 Resp 25 H 03/08/18 07:23 BP 134/64 03/08/18 06:30 Pulse Ox 97 03/08/18 07:23 PHYSICAL EXAMINATION: GENERAL: She is on BiPAP and struggling. She is tachycardic and hypertensive RESPIRATORY: Globally decreased breath sounds. She also has inspiratory and expiratory rhonchi Heart: Regular rate and rhythm (Tachycardic) no appreciable murmurs rubs or gallops GASTROINTESTINAL: Abdomen is soft, nontender, mildly distended. Positive bowel sounds. EXTREMITIES: No clubbing, cyanosis, or edema. Neuro: She is awake moving extremities Findings: LM -angiographically normal LAD -moderate caliber vessel, angiographically normal Circumflex -moderate caliber vessel, tortuous, angiographically normal and wraps around the apex. Gives off a moderate caliber first diagonal with 30-40% ostial stenosis. RCA -moderate caliber vessel, dominant with 30% mid segment disease RA 8 RV 40/8 PA 39/14/26 LV 10 PaSat 65% AoSat 100% Thermo CO/CI 4.8/3.1 Cande CO/CI 4.0/2.6 IMPRESSION: 1. Bilobar pneumonia and ARDS 2. Mild elevation of troponin, possibly demand ischemia 3. EKG consistent with inferior lateral ST depression. 4. Dobutamine stress echo from [facility] physician group 01/2018 with no evidence of ischemia normal left ventricular systolic function with an EF in the range of 60-65% without evidence of left ventricular hypertrophy and type I diastolic dysfunction 5. History of hyperlipidemia with myalgias And weakness from her abdomen to her lower extremities on statins 6. Hypoxic respiratory failure requiring intubation on 03/04/2018, Extubated and reintubated 03/06/2018 and extubated on BiPap 7. Echocardiogram this admission with normal LV function, normal RV function, type I diastolic dysfunction, and no significant valvular heart disease 8. Cardiac catheterization yesterday with normal left-sided pressures with a left ventricular diastolic pressure of 10; normal cardiac output; mild nonobstructive coronary artery disease, and borderline pulmonary artery pressures while on the ventilator Based on her cardiac catheterization I do not feel that this is consistent with a picture of heart failure with preserved ejection fraction. Her left ventricular end-diastolic pressure is normal her cardiac output is normal and she does not have significant coronary artery disease that she should be having ischemic heart failure. One possibility is renal artery stenosis although think this is of low yield as she does not have as an outpatient significant hypertension that was uncontrollable. At this point it would suggest that her etiology for her hypoxic respiratory failure is an underlying infection with pulmonary compromise from her scoliosis and acute respiratory distress syndrome. I had a long conversation with the daughter who is a nurse. They would like her to be transferred to a tertiary care center and intubated for transfer by helicopter. This was also discussed with Dr. Lockett of the [facility] physician group hospitalist service. I spent approximately 20 minutes speaking with the family today. All their questions were answered in detail. In addition this case was discussed with Dr. House of interventional cardiology as well who agrees that this is not related to heart failure.
[2018-03-08] MEDS: LORazepam 0.25 MG/0.5 ML VIAL IV PRN (10:20)
[2018-03-08] MEDS ORDERED: fentaNYL citrate 100 MCG/2 ML VIAL ONE (10:28)
[2018-03-08] MEDS ORDERED: ETOMIDATE 2 MG/ML 20 ML VIAL IV ONE (10:28)
[2018-03-08] MEDS ORDERED: MIDAZOLAM HCL 1 MG/ML 2ML VIAL ONE (10:28)
[2018-03-08] MEDS ORDERED: RAPID SEQUENCE INDUCTION BAG ONE (10:30)
[2018-03-08] MEDS ORDERED: MIDAZOLAM HCL 1 MG/ML 2ML VIAL IV PRN (10:31)
--- NOTE | 2018-03-08 10:31 | Procedure Note ---
Procedure Note Date of Service March 08, 2018 Procedure Date: Noted above Procedure: Endotracheal intubation Pre-procedure Diagnosis: Acute hypoxic respiratory failure, need for transfer at risk for respiratory compromise during transport Post-procedure Diagnosis: same as above Prior to Procedure: Informed Consent: Prior to the procedure informed consent from the patient as well as the patient's daughter who is the power of varnish blender was obtained Attending Staff: Allison Rodriguez DO Indications: Patient is an 82-year-old female with a left lobe pneumonia and recurrent flash pulmonary edema who has been intubated twice and extubated twice. Family is requesting a second opinion from [facility], patient is at high risk for decompensation given prolonged ground transport time so helicopter EMS transport will be engaged and patient's airway will be secured prior to transfer. The identity of the patient was confirmed and a bedside time out was performed. Description of Procedure: Patient was evaluated and required intubation for impending respiratory failure. The patient was prepared in the usual fashion. A Cosby 2 laryngoscope was used. A 7.5 endotrachial tube was placed endotracheally to 21 cm at the teeth. A grade 3 view was obtained. Chest rise was bilateral. Bilateral breath sounds were heard without air sounds in the abdomen. Mist was noted in the endotracheal tube. End-tidal CO2 measurement was positive. Chest x-ray shows proper endotracheal tube placement. Complications: None Findings: Not applicable Specimens: Not applicable Estimated blood loss: Zero
[2018-03-08] MEDS ORDERED: fentaNYL citrate 100 MCG/2 ML VIAL IV PRN (10:34)
[2018-03-08] MEDS ORDERED: SODIUM CHLORIDE 0.9% IV ONE (11:00)
[2018-03-08] MEDS ORDERED: KETAMINE HCL IV ONE (11:00)
[2018-03-08] MEDS ORDERED: POTASSIUM PHOS 3 MMOL/1 ML INFUSION IV STA (11:06)
[2018-03-08] MEDS ORDERED: POTASSIUM PHOSPHATE 15 MMOL in SODIUM CHLORIDE 0.9% 250 ML IV ONE (11:45)
--- NOTE | 2018-03-08 13:26 | Discharge Summary ---
Date of Service March 08, 2018 Admission HPI Per Admitting Provider 82yo F w/ hx of scoliosis and restrictive lung disease who presents with multifocal pneumonia. She reports that she began coughing on Monday. She went to the ED on 03/01 and was started on a course of levofloxacin as an outpatient, but denies any improvement and has actually been getting worse. ( This is actually different than her PCP appt on 03/02 where it is recorded taht she was feeling better.) She reports a productive cough and fevers up to 101.7 at home. She also reports some nausea with coughing as well as some soreness. She has been feeling overall weak as well and has a headache. She has been taking Tylenol at home for her fevers. Principal Diagnosis Ventilator dependent respiratory failure, acute hypoxic respiratory failure, multifocal pneumonia Discharge Exam Constitutional + acute distress (Tachypnea, using accessory muscles to breathe, CPAP in place) and + thin Eyes PERRL, conjunctivae normal, anicteric sclerae ENMT external ear and nose normal, oropharynx normal Neck trachea midline, no thyromegaly Respiratory Auscultation: + rales (On the left base) and + rhonchi (At the right base) Cardiovascular Rate/Rhythm: regular rhythm and + tachycardic Heart Sounds: no murmur Extremities: no edema Gastrointestinal (Abdomen) normal bowel sounds, soft, nontender, no hepatosplenomegaly Musculoskeletal Extremities: extremities normal to inspection; no cyanosis and no clubbing Skin no rashes, warm and dry Neurologic moves all extremities and awake; no focal motor deficits Psychiatric Orientation: alert and oriented x 3 Affect: + anxious affect Genitourinary + abnormal external appearance (Frank in place with clear yellow urine) Discharge Data Allergies Allergy/AdvReac Type Severity Reaction Status Date / Time prednisone Allergy Intermediate MUSCLE Unverified 03/04/18 10:21 CONTROL Gcjrxfw-Kie-Mfq Reductase Allergy Intermediate MUSCULAR Unverified 03/04/18 10: 21 Inhibitor ISSUES gabapentin Allergy Unknown UNKN Verified 03/04/18 10:21 valdecoxib Allergy Unknown UNKN Verified 03/04/18 10:21 methylprednisolone AdvReac Intermediate HOT FACE; Verified 03/04/18 10:21 DRY HEAVES; FACIAL MUSCLES TWITCHING nitrofurantoin AdvReac Mild UPSET Verified 03/04/18 10:21 STOMACH Consultations 03/04/18 11:23 ED Decision to Admit Stat 03/04/18 13:38 Consult Cardiology Routine Consult Pulmonology Routine 03/05/18 10:33 Consult Quality Assistant Routine 03/06/18 10:31 Consult Palliative Care Routine 03/08/18 13:11 Burn CD for patient Stat Procedures Performed Operation Date: 03/07/18 14:00 Actual Procedures s Cineradiography w/Routine Exam - Jorge House MD p Cath, Right and Left Heart - Jorge House MD s Ultrasound Vascular Access - Jorge House MD Ordered Studies 03/04/18 09:40 CT chest wo con Stat 03/05/18 04:02 US point of care ultrasound Routine 03/06/18 21:15 US point of care ultrasound Urgent 03/07/18 13:33 CL Cath Imgs for PACS use only Routine 03/08/18 03/08/18 03/07/18 Range/Units 05:53 05:53 15:06 WBC 8.61 (4.8-10.8) K/uL RBC 3.14 L (4.2-5.4) M/uL Hgb 9.6 L (12.0-16.0) g/dL Hct 27.9 L (37-47) % MCV 88.9 (80-100) fL MCH 30.6 (25-34) pg MCHC 34.4 (32-36) g/dL RDW Std Deviation 45.0 (36.4-46.3) fL RDW Coeff of Jaren 13.8 (11.5-14.5) % Plt Count 157 (130-400) K/uL MPV 9.6 (7.4-10.4) fL Immature Gran % (Auto) 0.1 % Neut % (Auto) 79.7 % Lymph % (Auto) 10.3 % [place] % (Auto) 9.6 % Eos % (Auto) 0.2 % Baso % (Auto) 0.1 % Immature Gran # (Auto) 0.01 (0.00-0.02) K/uL Neut # (Auto) 6.85 H (1.4-6.5) K/uL Lymph # (Auto) 0.89 L (1.2-3.4) K/uL [place] # (Auto) 0.83 H (0.11-0.59) K/uL Eos # (Auto) 0.02 (0-0.5) K/uL Baso # (Auto) 0.01 (0-0.2) K/uL POC pH 7.38 (7.35-7.45) POC pCO2 43 (35-46) mmHg POC pO2 185 H (80-95) mmHg POC HCO3 25 H (19-24) gertrudis/L POC Total CO2 27 (24-31) mEq/l POC Base Excess 0.0 (-9-1.8) gertrudis/L POC ABG O2 Sat 100.0 H (90-95) % Sodium 136 (136-145) mmol/L Potassium 2.9 L (3.5-5.1) mmol/L Chloride 98 (98-107) mmol/L Carbon Dioxide 30 (21-32) mmol/L Anion Gap 8.0 (3-11) BUN 18 (7-18) mg/dl Creatinine 0.74 (0.6-1.2) mg/dl Est Cr Clr Drug Dosing 47.2 ml/min Est GFR ( Amer) 88.7 Est GFR (Non-Af Amer) 76.5 BUN/Creatinine Ratio 23.7 H (10-20) Glucose 101 H (70-99) mg/dl Calcium 8.6 (8.5-10.1) mg/dl Phosphorus 2.1 L (2.5-4.9) mg/dl Magnesium 1.9 (1.8-2.4) mg/dl 03/07/18 Range/Units 15:01 WBC (4.8-10.8) K/uL RBC (4.2-5.4) M/uL Hgb (12.0-16.0) g/dL Hct (37-47) % MCV (80-100) fL MCH (25-34) pg MCHC (32-36) g/dL RDW Std Deviation (36.4-46.3) fL RDW Coeff of Jaren (11.5-14.5) % Plt Count (130-400) K/uL MPV (7.4-10.4) fL Immature Gran % (Auto) % Neut % (Auto) % Lymph % (Auto) % [place] % (Auto) % Eos % (Auto) % Baso % (Auto) % Immature Gran # (Auto) (0.00-0.02) K/uL Neut # (Auto) (1.4-6.5) K/uL Lymph # (Auto) (1.2-3.4) K/uL [place] # (Auto) (0.11-0.59) K/uL Eos # (Auto) (0-0.5) K/uL Baso # (Auto) (0-0.2) K/uL POC pH 7.35 (7.35-7.45) POC pCO2 45 (35-46) mmHg POC pO2 36 L (80-95) mmHg POC HCO3 25 H (19-24) gertrudis/L POC Total CO2 26 (24-31) mEq/l POC Base Excess -1.0 (-9-1.8) gertrudis/L POC ABG O2 Sat 65.0 L (90-95) % Sodium (136-145) mmol/L Potassium (3.5-5.1) mmol/L Chloride (98-107) mmol/L Carbon Dioxide (21-32) mmol/L Anion Gap (3-11) BUN (7-18) mg/dl Creatinine (0.6-1.2) mg/dl Est Cr Clr Drug Dosing ml/min Est GFR ( Amer) Est GFR (Non-Af Amer) BUN/Creatinine Ratio (10-20) Glucose (70-99) mg/dl Calcium (8.5-10.1) mg/dl Phosphorus (2.5-4.9) mg/dl Magnesium (1.8-2.4) mg/dl Hospital Course (1) Multifocal pneumonia: Suspected aspiration pneumonia as pt was vomiting prior to admission at home. CT chest on 03/04 showed multifocal pneumonia in the RLL and BROCK. Had been having fevers, shortness of breath, and productive cough at home. Was on levofloxacin since 03/01 as outpatient with worsening of symptoms. Was with acute hypoxic respiratory failure on admission requiring intubation and ventilation-was extubated and requiring intermittent CPAP Then was reintubated on 03/06 for severe hypoxia and worsening respiratory distress She was extubated again on 03/07 after her cardiac catheterization Repeat chest x-ray on 03/08 again with atelectasis of the right lung due to severe scoliosis with associated pleural effusion, with persistent diffuse consolidation throughout the entire left lung Patient will be reintubated again prior to air transport to [facility] in [place] for recurrent respiratory failure no longer responding to noninvasive positive pressure ventilation. Suspect possible ARDS PCT negative arguing against severe sepsis with respiratory source, although I do believe with fevers at home, tachycardia, with sepsis due to aspiration PNA Sputum Gr stain neg for organisms, sputum culture negative BAL with no growth on culture AFB pending, fungal smear negative Legionella antigen negative Blood cultures-no growth to date -Continue Zosyn/Doxy-day #5 - continue Duonebs, Budesonide bid, Brovana bid -follow CXR -vent management as per Quality Assistant (2) Sepsis: With tachycardia, tachypnea, fever, and PNA as source Hypotensive at times but typically only with sedation used while ventilated -Ventilated (3) Acute respiratory failure with hypoxia: Secondary to PNA, possible acute transient systolic and acute diastolic CHF, NSTEMI, and known restrictive lung disease due to severe scoliosis Quality Assistant believes this is secondary to preserved ejection fraction heart failure, while bark grinder does not believe this is secondary to heart failure and thinks this is more ARDS and pneumonia -treatment ongoing for all conditions as above and below Will now be reintubated for a third time this hospital stay. -Plan to transfer to ICU at [facility] in [place] today by air (4) Non-ST elevated myocardial infarction (non-STEMI): With troponin peaked at 3.78 and serial changes of septal infarct on ECG and EKG consistent with inferior lateral ST depression. Echo with LVEF 55-60%, with basal to midseptum with mild hypokinesis Had normal dobutamine stress ECHO just in 01/2018. Cardiac catheterization on 03/07 with normal left-sided pressures with a left ventricular diastolic pressure of 10; normal cardiac output; mild nonobstructive coronary artery disease, and borderline pulmonary artery pressures while on the ventilator -continue aspirin 81mg -cannot tolerate statins due to myalgias -received heparin gtt x 48 hours then discontinued -continue Toprol XL 25mg po qhs if blood pressure can tolerate (5) Acute on chronic diastolic (congestive) heart failure: Grade 1 diastolic dysfunction on ECHO With some mild hypokinesis as above, possibly had some acute transient systolic and acute on chronic diastolic CHF -Also with likely flash pulm edema on admission when initial blood pressure was 200 systolic, elevated proBNP at 14,000 -Has intermittently received IV Lasix and is making plenty of urine -appreciate Cardiology recommendations-suspects that she is not currently having any acute diastolic CHF and that her hypoxia and pulmonary edema pattern is more consistent with ARDS. Her Cardiac catheterization was with normal left- sided pressures with a left ventricular diastolic pressure of 10; normal cardiac output; mild nonobstructive coronary artery disease, and borderline pulmonary artery pressures while on the ventilator -continue strict I/Os, daily weights, heart healthy diet when tolerating p.o. again after extubation, continue fluid restriction (6) DESMOND (acute kidney injury): Soa Engineer sue from 0.78 to 1.24 in the setting of hypotension and sepsis, likely prerenal from IV lasix and/or ATN due to hypotension Is making plenty of urine. Soa Engineer has now normalized -follow BMP -continue Frank cath (7) Restrictive lung disease: Life-long issues due to her scoliosis. Follows with Pulmonology Suspect some obstructive component as well as is on LABA,LAMA, and ICS at home - Continue home long-acting nebulized treatments -Duonebs - no steroids needed and are also not tolerated at all due to history of severe myopathy (8) Hypotension: Possibly secondary to IV lasix vs sepsis as well as sedation while on ventilator Was on levophed through the night while intubated for the second time, now weaned off Follow closely (9) Hypokalemia: Potassium persistently low likely secondary to IV furosemide -replaced -follow BMP in AM (10) Anxiety: - Continue home fluoxetine and Xanax PRN before bed once taking p.o. -Receiving IV Versed while on the ventilator (11) DVT prophylaxis: SQ Lovenox provided after heparin drip was stopped Dispo-plan is to transfer by [facility] to [facility] Total Time Total Time Spent Total Time Spent (In Minutes): Greater than 30 minutes Total Time Includes: Examination of the Patient, Discharge Planning and Medication Reconciliation Discharge Plan Discharge Items Patient Disposition: Transfer Acute Care Hospital Reason For Visit: MULTIFOCAL PNEUMONIA Discharge Diagnosis: Acute hypoxic respiratory failure, Pneumonia Condition: Critical Discharge Goals: Decrease discomfort, Diagnostic testing, Improve disease control and Therapeutic intervention Activity: As commented below Lifting: None Exercise/Sports: Rest today Non-emergency contact: Primary Care Provider Call non-emergency contact if: you have any medication questions Diet: Nothing by mouth Addtl Provider Instructions: Transferred urgently to [facility] Prescriptions: New acetaminophen [Mapap (acetaminophen)] 325 mg Tablet 650 mg PO Q4H PRN (Reason: fever or pain) Qty: 1 RF: 0 ipratropium-albuterol 0.5 mg-3 mg(2.5 mg base)/3 mL Solution For Nebulization 3 ml NEB Q4R Qty: 1 RF: 0 aspirin [Ecotrin Low Strength] 81 mg Tablet,Delayed Release (Dr/Ec) 81 mg PO DAILY Qty: 1 RF: 0 fentanyl citrate (PF) 50 mcg/mL Solution 50 mcg IV Q2H PRN (Reason: sedation) Qty: 1 RF: 0 docusate sodium 100 mg Capsule 100 mg PO BID Qty: 1 RF: 0 metoprolol succinate 25 mg Tablet Extended Release 24 Hr 25 mg PO HS Qty: 30 RF: 0 enoxaparin 40 mg/0.4 mL Syringe 40 mg subcut Q24H Qty: 1 RF: 0 midazolam (PF) 1 mg/mL Solution 2 mg IV Q2H PRN (Reason: anxiety) Qty: 1 RF: 0 Piperacill/Tazobac Consult [Consult] 1 ea N/A UD PRN (Reason: For antibiotics) Qty: 1 RF: 1 doxycycline hyclate 100 mg recon soln 100 mg IV Q12H 4 Days Qty: 10 RF: 0 Continue fluoxetine 20 mg capsule 20 mg PO DAILY RF: 0 omeprazole 40 mg capsule,delayed release(DR/EC) 40 mg PO QAM PRN (Reason: Gastric Reflux) RF: 0 alprazolam 0.5 mg tablet 1 tab PO HS RF: 0 budesonide [Pulmicort] 0.5 mg/2 mL Suspension For Nebulization 2 ml INHALATION BID RF: 0 arformoterol [Brovana] 15 mcg/2 mL Solution For Nebulization 2 ml INHALATION BID RF: 0 Discontinued glucosamine sulfate [Glucosamine] 500 mg Tablet 500 mg PO QPM RF: 0 vitamin B complex Tablet 1 tab PO HS RF: 0 albuterol sulfate [Ventolin HFA] 90 mcg/actuation Hfa Aerosol Inhaler 2 puff INHALATION QID PRN (Reason: Shortness Of Breath Or Wheezing) RF: 0 celecoxib 100 mg capsule 100 mg PO QAM RF: 0 ipratropium bromide 0.02 % Solution 2.5 ml INHALATION BID RF: 0 calcium citrate 200 mg (950 mg) Tablet 200 mg PO QPM RF: 0 cholecalciferol (vitamin D3) [Vitamin D3] 2,000 unit Tablet 2,000 unit PO 1700 RF: 0 omega [id number] oil [Fish Oil] 1,000 mg (120 mg-180 mg) Capsule 1 cap PO 1700 RF: 0 biotin 1 mg Capsule 1 mg PO 1700 RF: 0 Stand-Alone Forms: [facility] Discharge Orders: Discharge Order (Routine); Ordered 03/08/18 Ordered By: Shantal Lockett Admission Data Admit Date/Time: 03/04/18 12:36 Attending Provider: Shantal Lockett Admit Provider: Ty Arcos Primary Care Provider: Siddharth Spaulding Other Providers: Ty Arcos ; Yosef Trujillo ; Nader Doston ; Valeriy Rodriguez ; Lidia Suh Service: Intensive Care Unit Other Pending Studies at Discharge: Yes Studies:: Final cultures
[2018-03-08] MEDS: ENOXAPARIN INJ 40 MG/0.4 ML SYR SQ SCH (14:00)
== END 2018-03-08 15:15 | disposition short-term general hospital (02) | DRG 871 ==
LOC: ED 09:20 → 2S 12:36 → SUATTDRO 12:36 → 2S 13:09 → 1E 18:12

== ENCOUNTER 2019-11-20 06:57 | Inpatient (IN) ==
[2019-11-20] MEDS ORDERED: ONDANSETRON INJ 2 MG/ML 2 ML VIAL IV STA (07:10)
[2019-11-20] MEDS ORDERED: SODIUM CHLORIDE 0.9% 1000ML 1,000 ML IV SCH ×2 (07:15→12:15)
[2019-11-20 07:25] LABS: Basophils # (auto) 0.01 K/uL (0-0.2); Basophils % (auto) 0.1 %; Eosinophils # (auto) 0.01 K/uL (0-0.5); Eosinophils % (auto) 0.1 %; Hematocrit (blood only) 36.5 % (37-47); Hemoglobin 12.7 g/dL (12.0-16.0); Immature Granulocytes # (auto) 0.02 K/uL (0.00-0.02); Immature Granulocytes % (auto) 0.2 %; Lymphocytes # (auto) 1.24 K/uL (1.2-3.4); Lymphocytes % (auto) 11.5 %; Mean Corpuscular Hemoglobin 30.5 pg (25-34); Mean Corpuscular Hgb Conc 34.8 g/dL (32-36); Mean Corpuscular Volume 87.5 fL (80-100); Mean Platelet Volume 9.2 fL (7.4-10.4); Monocytes # (auto) 0.73 K/uL (0.11-0.59); Monocytes % (auto) 6.8 %; Neutrophils # (auto) 8.74 K/uL (1.4-6.5); Neutrophils % (auto) 81.3 %; Platelet Count 308 K/uL (130-400); RDW Coefficient of Variation 13.6 % (11.5-14.5); RDW Standard Deviation 43.4 fL (36.4-46.3); Red Blood Count 4.17 M/uL (4.2-5.4); White Blood Count 10.75 K/uL (4.8-10.8)
--- NOTE | 2019-11-20 07:25 | Emergency Department Note ---
Impression & Plan Respiratory failure, Hypoxia, Nausea & vomiting, Acute hyponatremia, Pulmonary edema, Non-ST elevation (NSTEMI) myocardial infarction ED Provider Note NAME: GRADY LOZANO AGE: 84 SEX: F : 1935 ARRIVES VIA: Walk-In INFORMANT: Patient, ED PROVIDER(S): Rob Akins DO CHIEF COMPLAINT: Nausea and vomiting HPI: The patient is an 84-year-old female who is scheduled for a colonoscopy today who presented to the emergency department for nausea and vomiting. The patient was found to have a positive Cologuard and was scheduled for colonoscopy. She started using the prep last evening. Ever since early this morning she started having loose bowel movements nausea and vomiting. She describes crampy upper abdominal pain which is intermittent. She states that she has had approximately 4-5 episodes of emesis every hour ever since about 2:00 this morning. She states her symptoms are moderate to severe. She is been unable to stop the vomiting. She denies having any chest pain or difficulty breathing. She does have difficulty breathing at baseline but this is no worse than usual. She did not call her family doctor or her event producer. The patient notices no black or bloody bowel movements or hematemesis. The patient states that she had no fever or cough. She states her symptoms are mildly improved at this time. ROS: See above HPI for pertinent positives & negatives. A total of 10 systems reviewed and were otherwise negative. PAST MEDICAL HISTORY: See Below PAST SURGICAL HISTORY: See Below FAMILY HISTORY: See Below SOCIAL HISTORY: See Below HOME MEDICATIONS: See Below ALLERGIES: See Below VITALS: See Below PHYSICAL EXAMINATION: GENERAL: The patient is awake and alert. The patient is very anxious appearing and appears to be actively retching. EYES: The conjunctivae are clear. The pupils are round and reactive. EARS, NOSE, MOUTH AND THROAT: The nose is without any evidence of any deformity. Mucous membranes are moist. Tongue is midline. NECK: The neck is nontender and supple. RESPIRATORY: Normal respiratory effort is noted there is no evidence of wheezing rhonchi or rales CARDIOVASCULAR: Regular rate and rhythm noted there no murmurs rubs or gallops normal S1 normal S2. GASTROINTESTINAL: The abdomen is soft and nondistended. There is upper abdo anu tenderness to palpation but no guarding or rigidity. MUSCULOSKELETAL/EXTREMITIES: There is no evidence of gross deformity full range of motion is noted in the hips and shoulders. SKIN: There is no obvious evidence of any rash. There are no petechiae, pallor or cyanosis noted. NEUROLOGIC: Patient is awake alert and oriented x3. MEDICAL DECISION MAKING: The patient is an 84-year-old female who presented to the emergency department for nausea vomiting. The patient was taking a prep for colonoscopy that was scheduled today. She started having nausea vomiting since about 1-2 o'clock this morning. Initially patient was having no respiratory issues but does have a history of underlying restrictive lung disease because of severe kyphoscoliosis. She was treated with IV fluids and IV antiemetics. She had a significant decrease in her nausea and vomiting however she started having very significant difficulty breathing. Lung sounds were diminished throughout. She was placed on BiPAP and ordered a nebulizer treatment. The patient was reev aluated multiple times. She was found to have low sodium. I discussed the patient's laboratory and radiographic studies with her and her family member. I discussed this case with the on-call [place] [facility]ist group. They have agreed to evaluate the patient in the emergency department for further management and disposition. It is unclear if this represents an aspiration phenomena or possibly sequelae from the patient's underlying restrictive lung disease. Triage Nursing notes reviewed. Prior medical records reviewed Vital Signs: reviewed and remarkable for hypoxia and tachycardia Differential diagnosis: Gastroenteritis, food borne illness, infections, appendicitis, diverticulitis, inflammatory bowel disease, obstruction, GI bleed, biliary pathology, volvulus, as well as other pathologies. ER treatment provided: See below Diagnostics interpreted by me: ECG: EKG was obtained in the emergency department. My interpretation is sinus tachycardia at 102 bpm. Inferior and lateral ST depressions were noted. This was compared to a tracing from September 172019. The ST segment abnormalities are new compared to the earlier tracing. Cardiac Monitoring: An order was placed for continuous cardiac monitoring. The monitor shows a rate of 105 bpm with sinus tachycardia rhythm. Laboratory studies: As stated above and show below. Imaging studies: See below Consultation(s): [id number]: I discussed this case with Dr. Maza who is on-call for the [facility] hospitalist group. They will evaluate the patient in the emergency department for further management and disposition. ED COURSE: Procedures: none PDMP:reviewed and no issues Critical Care: I have personally spent greater than 45 minutes of critical care time in the direct management of this patient. This includes bedside care, interpretation o f diagnostic studies, and testing, discussion with consultants, patient, and family members, and other required patient management activities. This 45 minutes is in excess of all separately billable procedures. Past Med/Surg History Medical History Abnormal CT scan Acute on chronic diastolic (congestive) heart failure Acute respiratory failure with hypoxia Admitted to intensive care unit Arthralgia of multiple sites Arthritis of left knee Asthma inhalers/nebulizer daily/prn Atypical chest pain Cervical arthritis Cervical myelopathy Cervicalgia Chronic obstructive pulmonary disease Depression Encounter for pre-operative examination Eustachian tube dysfunction General weakness Generalized anxiety disorder GERD without esophagitis Hearing loss Hyperlipidemia no meds Hypokalemia Hypotension MCTD (mixed connective tissue disease) Multifocal pneumonia Muscle spasm Muscle weakness-general Myopathy Non-occlusive coronary artery disease Non-ST elevated myocardial infarction (non-STEMI) On home oxygen therapy 2L via N/C qpm and HS Oral thrush Osteoarthritis Osteopenia Polyneuropathy Positive MICHAEL (antinuclear antibody) Restrictive lung disease Scoliosis Sepsis Throat irritation Trapezius muscle spasm Urinary incontinence Surgical History H/O foot surgery History of appendectomy History of arthroscopy of left knee History of bilateral cataract extraction History of biopsy right thigh--showed MCTD History of bronchoscopy x2 History of cardiac cath 04/2017 no stents History of colonoscopy History of thoracentesis History of tonsillectomy and adenoidectomy History of total hysterectomy with bilateral salpingo-oophorectomy (BSO) History of wisdom tooth extraction Family History Mother Alzheimer disease Brother Hx of CABG Depression Father Congestive heart failure Coronary heart disease Hearing loss Unknown Myocardial infarction Other No family history of adverse response to anesthesia Denies family history of Ovarian cancer Prostate cancer Breast cancer Colorectal cancer Social History Smoking Status: Never smoker Second Hand Exposure: No; Hx Alcohol Use: No Hx Substance Use: No Preferred Language: Azeri Communication Ability: Effective Visual Impairment: Limited Hearing Ability: Use of Hearing Aid Brick Tester Required: No Beliefs That Will Affect Care: None marital status: Current Living Situation: Spouse current occupational status: retired How many Children do You have: 5 Feels Safe at Home: Yes Childhood Exposure to Second-Hand Smoke: Yes caffeine: Yes Dental Care, Regularly: Yes Physical Activity Frequency: 3-4 Times per Week Seatbelt Use: always Sunscreen Use: Yes Allergies Allergies Allergy/AdvReac Type Severity Reaction Status Date / Time prednisone Allergy Intermediate MUSCLE Verified 11/20/19 08:25 CONTROL Quezjuj-Znr-Dsf Reductase Allergy Intermediate MUSCULAR Verified 11/20/19 08:25 Inhibitor ISSUES methylprednisolone Allergy Mild HOT FACE; Verified 11/20/19 08:25 DRY HEAVES; FACIAL MUSCLES TWITCHING ceftriaxone Allergy Unknown Hives Unverified 11/20/19 08:25 gabapentin [From Neurontin] Allergy Unknown Unknown Unverified 11/20/19 08:25 nitrofurantoin Allergy Unknown Unknown Unverified 11/20/19 08:25 valdecoxib [From Bextra] AdvReac Intermediate increased Unverified 11/20/19 08:25 BP Home Meds Home Medications Medication Instructions Recorded Confirmed biotin 1,000 mcg chewable tablet 2,000 mcg PO DAILY tab 10/04/18 11/20/19 cholecalciferol (vitamin D3) 25 1,000 units PO QPM 10/04/18 11/20/19 mcg (1,000 unit) capsule glucosamine-chondroitin 500 mg-400 1 cap PO QPM 10/04/18 11/20/19 mg capsule turmeric 400 mg capsule 400 mg PO QPM cap 10/04/18 11/20/19 vitamin B comp and C no.3 15 mg-10 1 cap PO QPM 10/04/18 11/20/19 mg-50 mg-5 mg-300 mg capsule albuterol sulfate [Ventolin HFA] 2 puff INHALATION Q4 PRN 12/05/18 11/20/19 calcium carbonate [Calcium 500] 500 mg PO QPM 12/05/18 11/20/19 omega 7-jbs-ebi-fish oil [Fish Oil] 1 cap PO QPM 12/05/18 11/20/19 Previous Rx's Medication Instructions Recorded polyethylene glycol 3350 [Miralax] 17 gm PO BID #30 ea 09/18/19 fluoxetine 10 mg capsule 10 mg PO QAM #90 cap 10/07/19 fluoxetine 20 mg capsule 20 mg PO QAM #90 cap 10/07/19 lactulose 10 gram/15 mL oral 20 gm PO BID #946 ml 10/10/19 solution arformoterol 15 mcg/2 mL solution 2 ml INHALATION BID #60 vial 11/13/19 for nebulization budesonide 0.25 mg/2 mL suspension 2 ml INHALATION BID #60 vial 11/13/19 for nebulization ipratropium bromide 0.02 % 0.5 mg INHALATION BID #60 vial 11/13/19 solution for inhalation alprazolam 0.5 mg tablet 0.5 mg PO HS #30 tab 11/14/19 omeprazole 20 mg capsule,delayed 20 mg PO DAILY #90 cap 11/14/19 release Results & Data (ED) Vital Signs Vital Signs - 24 hr 11/20/19 07:00 11/20/19 07:45 11/20/19 07:46 Temperature 36.8 C Temperature Source Oral Pulse Rate 99 H 94 H 96 H Pulse Rate [Apical] 97 H Pulse Rate from SpO2 Sensor 95 H 94 H Pulse Rhythm [Apical] Regular Pulse Strength [Apical] Normal Respiratory Rate 16 16 20 Respiratory Effort / Characteristics Short of Breath Respiratory Depth Normal Respiratory Pattern Regular Blood Pressure 139/86 149/85 H Blood Pressure [Left Arm] 149/85 H Blood Pressure Mean 103 98 Blood Pressure Mean [Left Arm] 106 Blood Pressure Position [Left Arm] Lying Pulse Oximetry 93 84 L 93 Oxygen Delivery Method Room Air Room Air Nasal Cannula Oxygen Flow Rate 3 Fraction of Inspired Oxygen Sepsis Recent Fever Within 48 Hours No Sepsis New/Unexplained Change in Mental Status No Sepsis Action Taken by Nursing No Action Required 11/20/19 07:50 11/20/19 08:05 11/20/19 08:06 Temperature Temperature Source Pulse Rate 96 H 103 H Pulse Rate [Apical] Pulse Rate from SpO2 Sensor 94 H 101 H 103 H Pulse Rhythm [Apical] Pulse Strength [Apical] Respiratory Rate 20 32 H Respiratory Effort / Characteristics Respiratory Depth Respiratory Pattern Blood Pressure 162/89 H Blood Pressure [Left Arm] Blood Pressure Mean 115 Blood Pressure Mean [Left Arm] Blood Pressure Position [Left Arm] Pulse Oximetry 93 85 L 84 L Oxygen Delivery Method Nasal Cannula Nasal Cannula Oxygen Flow Rate 4 4 Fraction of Inspired Oxygen Sepsis Recent Fever Within 48 Hours Sepsis New/Unexplained Change in Mental Status Sepsis Action Taken by Nursing 11/20/19 08:15 11/20/19 08:22 11/20/19 08:23 Temperature Temperature Source Pulse Rate 121 H 113 H Pulse Rate [Apical] 116 H Pulse Rate from SpO2 Sensor 123 H Pulse Rhythm [Apical] Pulse Strength [Apical] Respiratory Rate 29 H 36 H Respiratory Effort / Characteristics Spontaneous Gasping/Agonal Grunting Labored Grunting Labored Respiratory Depth Shallow Respiratory Pattern Regular Blood Pressure Blood Pressure [Left Arm] Blood Pressure Mean Blood Pressure Mean [Left Arm] Blood Pressure Position [Left Arm] Pulse Oximetry 83 L 85 L 95 Oxygen Delivery Method Nasal Cannula Nasal Cannula Oxygen Flow Rate 4 3 Fraction of Inspired Oxygen 100 Sepsis Recent Fever Within 48 Hours Sepsis New/Unexplained Change in Mental Status Sepsis Action Taken by Nursing 11/20/19 08:26 Temperature Temperature Source Pulse Rate 111 H Pulse Rate [Apical] Pulse Rate from SpO2 Sensor 111 H Pulse Rhythm [Apical] Pulse Strength [Apical] Respiratory Rate 36 H Respiratory Effort / Characteristics Respiratory Depth Respiratory Pattern Blood Pressure 191/92 H Blood Pressure [Left Arm] Blood Pressure Mean 121 Blood Pressure Mean [Left Arm] Blood Pressure Position [Left Arm] Pulse Oximetry 97 Oxygen Delivery Method BiPAP Oxygen Flow Rate Fraction of Inspired Oxygen 100 Sepsis Recent Fever Within 48 Hours Sepsis New/Unexplained Change in Mental Status Sepsis Action Taken by Alf Medications Current Medication List: was personally reviewed by me Laboratory Data Attestation: I reviewed the patient's lab results. Result diagrams: 11/20/19 07:13 11/20/19 07:13 Lab Results 11/20/19 11/20/19 11/20/19 Range/Units 07:13 07:13 07:13 WBC 10.75 (4.8-10.8) K/uL RBC 4.17 L (4.2-5.4) M/uL Hgb 12.7 (12.0-16.0) g/dL Hct 36.5 L (37-47) % MCV 87.5 (80-100) fL MCH 30.5 (25-34) pg MCHC 34.8 (32-36) g/dL RDW Std Deviation 43.4 (36.4-46.3) fL RDW Coeff of Jaren 13.6 (11.5-14.5) % Plt Count 308 (130-400) K/uL MPV 9.2 (7.4-10.4) fL Immature Gran % (Auto) 0.2 % Neut % (Auto) 81.3 % Lymph % (Auto) 11.5 % [place] % (Auto) 6.8 % Eos % (Auto) 0.1 % Baso % (Auto) 0.1 % Neut # (Auto) 8.74 H (1.4-6.5) K/uL Lymph # (Auto) 1.24 (1.2-3.4) K/uL [place] # (Auto) 0.73 H (0.11-0.59) K/uL Eos # (Auto) 0.01 (0-0.5) K/uL Baso # (Auto) 0.01 (0-0.2) K/uL Immature Gran # (Auto) 0.02 (0.00-0.02) K/uL Sodium 125 L (136-145) mmol/L Potassium 3.3 L (3.5-5.1) mmol/L Chloride 89 L (98-107) mmol/L Carbon Dioxide 24 (21-32) mmol/L Anion Gap 12.0 H (3-11) BUN 11 (7-18) mg/dl Creatinine 0.83 (0.6-1.2) mg/dl Est Cr Clr Drug Dosing Not Reportable Est GFR ( Amer) 76.1 Est GFR (Non-Af Amer) 65.7 BUN/Creatinine Ratio 13.0 (10-20) Glucose 174 H (70-99) mg/dl Osmolality 269 L (280-300) mOsm/kg Calcium 9.9 (8.5-10.1) mg/dl Magnesium 1.8 (1.8-2.4) mg/dl Total Bilirubin 0.5 (0.2-1) mg/dl AST 31 (15-37) U/L ALT 24 (12-78) U/L Alkaline Phosphatase 104 (45-117) U/L Troponin I (0-0.045) ng/ml Total Protein 8.3 H (6.4-8.2) gm/dl Albumin 3.8 (3.4-5.0) gm/dl Globulin 4.5 H (2.5-4.0) gm/dl Albumin/Globulin Ratio 0.8 L (0.9-2) Lipase 41 L (73-393) U/L 11/20/19 Range/Units 07:13 WBC (4.8-10.8) K/uL RBC (4.2-5.4) M/uL Hgb (12.0-16.0) g/dL Hct (37-47) % MCV (80-100) fL MCH (25-34) pg MCHC (32-36) g/dL RDW Std Deviation (36.4-46.3) fL RDW Coeff of Jaren (11.5-14.5) % Plt Count (130-400) K/uL MPV (7.4-10.4) fL Immature Gran % (Auto) % Neut % (Auto) % Lymph % (Auto) % [place] % (Auto) % Eos % (Auto) % Baso % (Auto) % Neut # (Auto) (1.4-6.5) K/uL Lymph # (Auto) (1.2-3.4) K/uL [place] # (Auto) (0.11-0.59) K/uL Eos # (Auto) (0-0.5) K/uL Baso # (Auto) (0-0.2) K/uL Immature Gran # (Auto) (0.00-0.02) K/uL Sodium (136-145) mmol/L Potassium (3.5-5.1) mmol/L Chloride (98-107) mmol/L Carbon Dioxide (21-32) mmol/L Anion Gap (3-11) BUN (7-18) mg/dl Creatinine (0.6-1.2) mg/dl Est Cr Clr Drug Dosing Est GFR ( Amer) Est GFR (Non-Af Amer) BUN/Creatinine Ratio (10-20) Glucose (70-99) mg/dl Osmolality (280-300) mOsm/kg Calcium (8.5-10.1) mg/dl Magnesium (1.8-2.4) mg/dl Total Bilirubin (0.2-1) mg/dl AST (15-37) U/L ALT (12-78) U/L Alkaline Phosphatase (45-117) U/L Troponin I 1.240 H* (0-0.045) ng/ml Total Protein (6.4-8.2) gm/dl Albumin (3.4-5.0) gm/dl Globulin (2.5-4.0) gm/dl Albumin/Globulin Ratio (0.9-2) Lipase (73-393) U/L Administered Medications Discontinued Medications Albuterol (Albut/Ipratrop 3mg/0.5mg Neb 3 Ml Vial) 3 ml NEB NOW STA Stop: 11/20/19 08:08 Last Admin: 11/20/19 08:14 Dose: 3 ml Documented by: [id number] Furosemide (Furosemide 40 Mg/4 Ml Vial) 40 mg IV NOW STA Stop: 11/20/19 08:33 Last Admin: 11/20/19 08:49 Dose: 40 mg Documented by: [id number] Sodium Chloride (Nss 1000ml) 1,000 mls @ 999 mls/hr IV .Q1H1M DAISY Stop: 11/20/19 08:15 Last Admin: 11/20/19 07:17 Dose: 999 mls/hr Documented by: [id number] Lorazepam (Ativan) 0.5 mg in 1 mls @ 1 mls/min IV NOW STA Stop: 11/20/19 08:13 Last Admin: 11/20/19 08:18 Dose: 1 mls/min Documented by: [id number] Ioversol (Ioversol 100ml) 94 ml IV ONCE ONE Stop: 11/20/19 07:59 Last Admin: 11/20/19 07:59 Dose: 94 ml Documented by: [id number] Ondansetron HCl (Ondansetron Inj 2 Mg/Ml 2 Ml Vial) 4 mg IV NOW STA Stop: 11/20/19 07:11 Last Admin: 11/20/19 07:17 Dose: 4 mg Documented by: [id number] Imaging Data Radiologist's Impression: XR chest 1V portable CLINICAL HISTORY: Shortness of breath. Vomiting. COMPARISON STUDY: 09/18/2019 FINDINGS: There is thoracolumbar scoliosis. There is diffuse elevation of interstitium, likely representing pulmonary edema. A bilateral infectious/inflammatory processes could appear similar but are statistically less likely. There is a small right pleural effusion.[There is an old proximal left humeral deformity. IMPRESSION: 1. Severe scoliosis 2. Pulmonary edema pattern. Small right pleural effusion. ACT 112: Negative or not required by law. Electronically signed by: Kt Painter M.D. 11/20/2019 8:30 AM Dictated: 11/20/19827 Transcribed: 11/20/19827 CT abd pelvis IV con only CLINICAL HISTORY: vomiting COMPARISON STUDY: 09/18/2019 TECHNIQUE: The patient was scanned in a dynamic helical fashion during intravenous administration of 94 cc of Optiray 320 A dose lowering technique was utilized adhering to the principles of ALARA. CT DOSE: 313.05 mGy.cm FINDINGS: Lower chest: There is a severe scoliosis. There are basilar opacities statistically atelectatic. There is small right pleural effusion. Liver: The contrast-enhanced liver is normal in size, contour, and attenuation. There is no intrahepatic biliary ductal dilatation. The hepatic veins and portal veins are patent. Gallbladder: Unremarkable. Spleen: Normal in size and attenuation. Pancreas: Unremarkable. Adrenal glands: Unremarkable. Kidneys: There is symmetric renal cortical enhancement. The kidneys are normal in size without hydronephrosis. Bowel: There are no transition zones indicate bowel obstruction. There is no evidence of acute diverticulitis. By history the appendix is surgically absent. Peritoneum: There is no intraperitoneal free air or abdominal ascites. Vasculature: The abdominal aorta is normal in course and caliber. Adenopathy: None. Pelvic viscera: The uterus is surgically absent Skeletal structures: There is a severe scoliosis. IMPRESSION: 1. Severe scoliosis. 2. Chronic right lower lobe atelectatic changes. Small right pleural effusion 3. No evidence of bowel obstruction. No evidence of free air 4. Surgically absent appendix. No evidence of acute diverticulitis. 5. No acute intra-abdominal or pelvic findings. ACT 112: Negative or not required by law. Electronically signed by: Kt Painter M.D. 11/20/2019 8:11 AM Dictated: 11/20/19805 Transcribed: 11/20/19805 Blood Pressure Blood Pressure Findings: Elevated blood pressure Blood Pressure Disposition: further management by hospitalist Discharge Plan Visit Data Chief Complaint: Vomiting Stated Complaint: VOMITING,VERY ILL ED Provider: Rob Akins Discharge Problem: Respiratory failure, Hypoxia, Nausea & vomiting, Acute hyponatremia, Pulmonary edema, Non-ST elevation (NSTEMI) myocardial infarction Patient Disposition: Being Evaluated by Hospitalist Condition: Good Forms Stand Alone Forms: [employer] Prescriptions Prescriptions: No Action fluoxetine 10 mg capsule 10 mg PO QAM Qty: 90 RF: 2 fluoxetine 20 mg capsule 20 mg PO QAM Qty: 90 RF: 3 budesonide 0.25 mg/2 mL suspension for nebulization 2 ml inhalation BID Qty: 60 RF: 11 ipratropium bromide 0.02 % solution 0.5 mg inhalation BID Qty: 60 RF: 11 Brovana 15 mcg/2 mL solution for nebulization 2 ml INHALATION BID Qty: 60 RF: 11 omeprazole 20 mg capsule,delayed release(DR/EC) 20 mg PO DAILY Qty: 90 RF: 3 alprazolam 0.5 mg tablet 0.5 mg PO HS Qty: 30 RF: 0 glucosamine-chondroitin 500-400 mg capsule 1 cap PO QPM RF: 0 B Complex Plus Vitamin C [id number] mg capsule 1 cap PO QPM RF: 0 biotin 1,000 mcg tablet,chewable 2,000 mcg PO DAILY RF: 0 cholecalciferol (vitamin D3) 1,000 unit capsule 1,000 units PO QPM RF: 0 turmeric 400 mg capsule 400 mg PO QPM RF: 0 lactulose 10 gram/15 mL solution 20 gm PO BID Qty: 946 RF: 2 omega 8-vop-rkz-fish oil [Fish Oil] 1,000 mg (120 mg-180 mg) Capsule 1 cap PO QPM RF: 0 calcium carbonate [Calcium 500] 500 mg calcium (1,250 mg) Tablet 500 mg PO QPM RF: 0 albuterol sulfate [Ventolin HFA] 90 mcg/actuation Hfa Aerosol Inhaler 2 puff INHALATION Q4 PRN (Reason: Shortness Of Breath) RF: 0 polyethylene glycol 3350 [Miralax] 17 gram powder in packet 17 gm PO BID Qty: 30 RF: 0 Referrals Referrals: Siddharth Spaulding MD [Primary Care Provider] - Discharge Problem: Respiratory failure Qualifiers: Chronicity: acute Respiratory failure complication: unspecified whether with hypoxia or hypercapnia Qualified Code(s): J96.00 - Acute respiratory failure, unspecified whether with hypoxia or hypercapnia Nausea & vomiting Qualifiers: Vomiting type: unspecified Vomiting Intractability: non-intractable Qualified Code(s): R11.2 - Nausea with vomiting, unspecified Pulmonary edema Qualifiers: Chronicity: acute Qualified Code(s): J81.0 - Acute pulmonary edema
[2019-11-20 07:40] LABS: Alanine Aminotransferase 24 U/L (12-78); Albumin Level 3.8 gm/dl (3.4-5.0); Aspartate Aminotransferase 31 U/L (15-37); Blood Urea Nitrogen 11 mg/dl (7-18); Calcium 9.9 mg/dl (8.5-10.1); Carbon Dioxide 24 mmol/L (21-32); Chloride 89 mmol/L (98-107); Est GFR (African American) 76.1; Est GFR (Non-African American) 65.7; Glucose 174 mg/dl (70-99); Lipase 41 U/L (73-393); Magnesium 1.8 mg/dl (1.8-2.4); Potassium 3.3 mmol/L (3.5-5.1); Sodium 125 mmol/L (136-145)
[2019-11-20 07:43] LABS: Albumin Globulin Ratio 0.8 (0.9-2); Alkaline Phosphatase 104 U/L (45-117); Bilirubin,Total 0.5 mg/dl (0.2-1); Globulin 4.5 gm/dl (2.5-4.0); Total Protein 8.3 gm/dl (6.4-8.2)
[2019-11-20] MEDS ORDERED: IOVERSOL 100ml IV ONE (07:58)
[2019-11-20] MEDS ORDERED: ALBUT/IPRATROP 3MG/0.5MG NEB 3 ML VIAL NEB STA (08:07)
[2019-11-20] MEDS ORDERED: LORazepam 0.5 MG/1 ML VIAL IV STA (08:12)
--- NOTE | 2019-11-20 08:12 | CT Scan Report ---
CT abd pelvis IV con only CLINICAL HISTORY: vomiting COMPARISON STUDY: 09/18/2019 TECHNIQUE: The patient was scanned in a dynamic helical fashion during intravenous administration of 94 cc of Optiray 320 A dose lowering technique was utilized adhering to the principles of ALARA. CT DOSE: 313.05 mGy.cm FINDINGS: Lower chest: There is a severe scoliosis. There are basilar opacities statistically atelectatic. Ther e is small right pleural effusion. Liver: The contrast-enhanced liver is normal in size, contour, and attenuation. There is no intrahepa tic biliary ductal dilatation. The hepatic veins and portal veins are patent. Gallbladder: Unremarkable. Spleen: Normal in size and attenuation. Pancreas: Unremarkable. Adrenal glands: Unremarkable. Kidneys: There is symmetric renal cortical enhancement. The kidneys are normal in size without hydron ephrosis. Bowel: There are no transition zones indicate bowel obstruction. There is no evidence of acute divert iculitis. By history the appendix is surgically absent. Peritoneum: There is no intraperitoneal free air or abdominal ascites. Vasculature: The abdominal aorta is normal in course and caliber. Adenopathy: None. Pelvic viscera: The uterus is surgically absent Skeletal structures: There is a severe scoliosis. IMPRESSION: 1. Severe scoliosis. 2. Chronic right lower lobe atelectatic changes. Small right pleural effusion 3. No evidence of bowel obstruction. No evidence of free air 4. Surgically absent appendix. No evidence of acute diverticulitis. 5. No acute intra-abdominal or pelvic findings. ACT 112: Negative or not required by law. Electronically signed by: Kt Painter M.D. 11/20/2019 8:11 AM
--- NOTE | 2019-11-20 08:31 | XRay Report ---
XR chest 1V portable CLINICAL HISTORY: Shortness of breath. Vomiting. COMPARISON STUDY: 09/18/2019 FINDINGS: There is thoracolumbar scoliosis. There is diffuse elevation of interstitium, likely repres enting pulmonary edema. A bilateral infectious/inflammatory processes could appear similar but are st atistically less likely. There is a small right pleural effusion.[There is an old proximal left humer al deformity. IMPRESSION: 1. Severe scoliosis 2. Pulmonary edema pattern. Small right pleural effusion. ACT 112: Negative or not required by law. Electronically signed by: Kt Painter M.D. 11/20/2019 8:30 AM
[2019-11-20] MEDS ORDERED: FUROSEMIDE 40 MG/4 ML VIAL IV STA (08:32)
[2019-11-20] MEDS ORDERED: Heparin IV Standard *NO* Bolus IV ONE (08:53)
[2019-11-20] MEDS ORDERED: ALBUT/IPRATROP 3MG/0.5MG NEB 3 ML VIAL NEB ONE (09:03)
[2019-11-20 09:06] LABS: Appearance Urine Clear (Clear); Bacteria Urine Automated Negative (Negative); Bilirubin Urine Negative (Negative); Blood Urine 2+ (Negative); Cast Urine Automated 0 /lpf (0-5); Color Urine Yellow; Epithelial Cell Urine Auto 0-5 /lpf (0-5); Glucose Urine UA Trace (Negative); Ketones Urine 2+ (Negative); Leukocyte Esterase Urine Negative (Negative); Nitrite Urine Negative (Negative); Specific Gravity Urine 1.025 (1.000-1.030); Urobilinogen Urine Negative (Negative); WBC Urine Automated 0 /hpf (0-5)
[2019-11-20 09:20] LABS: Prothrombin Time 10.9 Seconds (9.0-12.0)
[2019-11-20 09:27] LABS: Protein Urine 1+ (Negative); Sulfosalicylic Acid Urine Positive (Negative)
[2019-11-20] MEDS: HEPARIN SODIUM/DEXTROSE 25,000 UNITS/500 ML BAG IV SCH (09:29)
--- NOTE | 2019-11-20 09:39 | History & Physical Report ---
Date of Service November 20, 2019 Assessment & Plan (1) Respiratory failure: There is a 84-year-old female that presented with nausea and vomiting secondary to bowel prep last night for elective colonoscopy. She had a positive Cologuard as an outpatient and was scheduled for follow-up today. During her evaluation treatment she received IV fluids and developed acute respiratory distress with hypoxia. She was placed on BiPAP at 8/5. Troponin was elevated 1.24. EKG shows some chronic changes and motion artifact. Patient has no chest pain or tightness. This is multifactorial to her chronic restrictive lung disease with some obstructive pattern. In addition she appears to have some pulmonary edema. Auscultation reveals coarse bilateral rails with diffuse bronchospasm. Patient received 1 hour-long DuoNeb and had some improvement At this time we will continue DuoNebs as needed and continue her home nebulizer treatments including Brovana and ipratropium Patient desires to be a DNR/DNI We will also treat patient for non-ST elevated CO including heparin drip, oxygen therapy, and aspirin 324 mg Continue BiPAP now at 10/5 ABG has been requested We will monitor the patient in the intensive care unit (2) Non-ST elevation (NSTEMI) myocardial infarction: Previous cardiac catheterization with nonocclusive coronary artery disease Patient currently is not on aspirin or beta-gonzalo at home. She is also not on lisinopril At this time we will follow serial cardiac enzymes, EKGs, and request an echocardiogram Will initiate heparin infusion and monitor CBC closely secondary to positive Cologuard Patient currently has an INR of 1 Patient currently has no active bleeding We will monitor in the intensive care unit (3) Acute hyponatremia: Na+ 125 Most recent Na+ 140 09/18/2019 No acute mental status changes Urine osmolality 487 Serum osmolality 269 Repeat labs at 1700 (4) Atelectasis of right lung: This is chronic Currently on BiPAP. Will continue for now Once weaned off of positive pressure, initiate incentive spirometry Small pleural effusion is also chronic Continue to monitor (5) GERD without esophagitis: EGD in 2019 with no esophagitis Continue PPI Continue supportive care (6) Hyperglycemia: No history of DM Check HgB A1c Start Novolog SSI with ICU protocol (7) Restrictive lung disease: PFT report above in HPI Scheduled to follow-up with Dr. Drew next month with repeat PFTs Continue home regimen of nebulizers Add duo nebs PRN (8) Non-occlusive coronary artery disease: Cardiac catheterization with nonocclusive disease Not on aspirin or beta-gonzalo as an outpatient Elevated troponin at 1.24 Start aspirin 324 mg today Heparin drip initiated with weightbase protocol Follow serial enzymes and EKGs (9) Generalized anxiety disorder: Will hold benzodiazepines at this time secondary to acute respiratory failure Continue SSRIs (10) Positive colorectal cancer screening using Cologuard test: No active bleeding, hematochezia, bright red blood per rectum, melena Was scheduled for elective colonoscopy today [facility] and notified them that she was being admitted Follow-up with gastroenterology on discharge (11) Dysphagia: Although this is listed on patient's past medical history, video swallow completed 11/14/2018 revealed no aspiration We will continue with aspiration precautions Patient denies any cough with ingestion of foods or thin liquids Continue to monitor (12) DVT prophylaxis: Heparin drip per weightbase protocol initiated Please refer to Dr. Morris's addendum for further recommendations History of Present Illness Primary Care Provider: Siddharth Spaulding MD Attending: Dr. Morris This is an 84-year-old female with a past medical history including nocturnal hypoxia on 2 L of supplemental oxygen per minute via nasal cannula, generalized depression/anxiety disorder, nonocclusive coronary artery disease, osteopenia, mixed connective tissue disease, hyperlipidemia, intolerance to statins, hyperglycemia with no history of diabetes mellitus, GERD, severe restrictive lung disease, chronic arthralgia, scoliosis, history of endotracheal intubation with mechanical ventilation secondary to ARDs. She had a positive Cologuard test and was scheduled for elective colonoscopy today. She began her bowel prep last evening and had no bowel movement or diarrhea but did have nausea and vomiting. She has a previous EGD in [address] Vaughn which was normal. She also had a video swallow study at that time which was normal and showed no evidence of aspiration. She began to have nausea and vomiting this morning and was brought to the emergency department for evaluation when she had acute and sudden hypoxic respiratory failure. Initially it was thought that she might of aspirated but clinically she presents more as a flash pulmonary edema patient. On initial examination she was clear to aus cultation after her hypoxic event she was found to have coarse rales bilaterally in the bases with some upper field bronchospasm. She was placed on an hour-long nebulizer treatment with some improvement but continued adventitious findings. She was then placed on BiPAP with a setting of 8/5 and an FiO2 of 100%. She continues to be tachypneic with a rate between 38 and 44 breaths/min. BiPAP settings were adjusted to 10/5 and she had a decrease in respiratory rate and stated this is her respiratory status seem to be improved. Pulmonary function testing was last on 07/31/2017 and is listed below. She was scheduled to follow with Dr. Drew November 2019 with repeat PFTs prior to the appointment. She denies recent contact with sick individuals. She has no indication of COVID. She denies fever, chills, sweats, cough, chest pain, tightness. She has no abdominal pain or back pain. She has no flank pain. The patient lives at home with her . They have children that live out of the area. She and her are both lifelong non-smokers with no history of ethanol use. She denies any use of illicit substances or recreational drugs. I did have discussion regarding CODE STATUS. Both the patient and her state that she is a DNR/DNI and that she had a POLST form completed in the past. Due to her acute respiratory status, she stated that she may consider endotrach eal intubation with mechanical ventilation but at this time prefers noninvasive treatment. Patient is found to have an elevated troponin of 1.24. She also has some ST elevation on her EKG which appear to be chronic. There is also significant motion artifact on the EKG. Most recent echocardiogram was completed in 2018. A repeat echocardiogram has been ordered. Pulmonary function testing 07/31/2017 FEV 56%; post bronchodilator 56% FEV1 62%; postbronchodilator 63% FEV1/FVC 106; post bronchodilator 107 FEF 25 to 75% 81%; post bronchodilator 68% Interpretation per Dr. Drew: Spirometry shows a moderate decrease in forced vital capacity and FEV1 with a normal FEV1/FVC ratio. The pattern is that of moderate restriction. Repeat study done following bronchodilator showed no change in function. Comparison was made with prior study of 06/27/2017 and revealed a slight decline in forced vital capacity with no change in FEV1 Allergies Allergy/AdvReac Type Severity Reaction Status Date / Time prednisone Allergy Intermediate MUSCLE Verified 11/20/19 08:25 CONTROL Ospjlvi-Lmb-Wdd Reductase Allergy Intermediate MUSCULAR Verified 11/20/19 08:25 Inhibitor ISSUES methylprednisolone Allergy Mild HOT FACE; Verified 11/20/19 08:25 DRY HEAVES; FACIAL MUSCLES TWITCHING ceftriaxone Allergy Unknown Hives Unverified 11/20/19 08:25 gabapentin [From Neurontin] Allergy Unknown Unknown Unverified 11/20/19 08:25 nitrofurantoin Allergy Unknown Unknown Unverified 11/20/19 08:25 valdecoxib [From Bextra] AdvReac Intermediate increased Unverified 11/20/19 08:25 BP Home Medications Home Medications Medication Instructions Recorded Confirmed Type biotin 1,000 mcg chewable tablet 2,000 mcg PO DAILY tab 10/04/18 11/26/19 History cholecalciferol (vitamin D3) 25 1,000 units PO QPM 10/04/18 11/26/19 History mcg (1,000 unit) capsule glucosamine-chondroitin 500 mg-400 1 cap PO QPM 10/04/18 11/26/19 History mg capsule turmeric 400 mg capsule 400 mg PO QPM cap 10/04/18 11/26/19 History vitamin B comp and C no.3 15 mg-10 1 cap PO QPM 10/04/18 11/26/19 History mg-50 mg-5 mg-300 mg capsule albuterol sulfate [Ventolin HFA] 2 puff INHALATION Q4 PRN 12/05/18 11/26/19 History calcium carbonate [Calcium 500] 500 mg PO QPM 12/05/18 11/26/19 History omega 7-lrn-uob-fish oil [Fish Oil] 1 cap PO QPM 12/05/18 11/26/19 History polyethylene glycol 3350 [Miralax] 17 gm PO BID #30 ea 09/18/19 11/26/19 Rx fluoxetine 10 mg capsule 10 mg PO QAM #90 cap 10/07/19 11/26/19 Rx fluoxetine 20 mg capsule 20 mg PO QAM #90 cap 10/07/19 11/26/19 Rx lactulose 10 gram/15 mL oral 20 gm PO BID #946 ml 10/10/19 11/26/19 Rx solution arformoterol 15 mcg/2 mL solution 2 ml INHALATION BID #60 vial 11/13/19 11/26/19 Rx for nebulization budesonide 0.25 mg/2 mL suspension 2 ml INHALATION BID #60 vial 11/13/19 11/26/19 Rx for nebulization ipratropium bromide 0.02 % 0.5 mg INHALATION BID #60 vial 11/13/19 11/26/19 Rx solution for inhalation alprazolam 0.5 mg tablet 0.5 mg PO HS #30 tab 11/14/19 11/26/19 Rx omeprazole 20 mg capsule,delayed 20 mg PO DAILY #90 cap 11/14/19 11/26/19 Rx release aspirin 81 mg PO QAM #1 tab 11/23/19 11/26/19 Rx metoprolol succinate 25 mg PO QAM #30 tab 11/23/19 11/26/19 Rx ciprofloxacin HCl 500 mg PO BID #5 tab 11/24/19 11/26/19 Rx Past Med/Surg History Medical History Abnormal CT scan Acute on chronic diastolic (congestive) heart failure Acute respiratory failure with hypoxia Admitted to intensive care unit Arthralgia of multiple sites Arthritis of left knee Asthma inhalers/nebulizer daily/prn Atypical chest pain Cervical arthritis Cervical myelopathy Cervicalgia Chronic obstructive pulmonary disease Depression Encounter for pre-operative examination Eustachian tube dysfunction General weakness Generalized anxiety disorder GERD without esophagitis Hearing loss Hyperlipidemia no meds Hypokalemia Hypotension MCTD (mixed connective tissue disease) Multifocal pneumonia Muscle spasm Muscle weakness-general Myopathy Non-occlusive coronary artery disease Non-ST elevated myocardial infarction (non-STEMI) On home oxygen therapy 2L via N/C qpm and HS Oral thrush Osteoarthritis Osteopenia Polyneuropathy Positive MICHAEL (antinuclear antibody) Positive colorectal cancer screening using Cologuard test Restrictive lung disease Scoliosis Sepsis Throat irritation Trapezius muscle spasm Urinary incontinence Surgical History H/O foot surgery History of appendectomy History of arthroscopy of left knee History of bilateral cataract extraction History of biopsy right thigh--showed MCTD History of bronchoscopy x2 History of cardiac cath 04/2017 no stents History of colonoscopy History of thoracentesis History of tonsillectomy and adenoidectomy History of total hysterectomy with bilateral salpingo-oophorectomy (BSO) History of wisdom tooth extraction Family History Mother Alzheimer disease Brother Hx of CABG Depression Father Congestive heart failure Coronary heart disease Hearing loss Unknown Myocardial infarction Other No family history of adverse response to anesthesia Denies family history of Ovarian cancer Prostate cancer Breast cancer Colorectal cancer Social History Smoking Status: Never smoker Second Hand Exposure: No; Hx Alcohol Use: No Hx Substance Use: No Preferred Language: Tamaz[place] Communication Ability: Effective Visual Impairment: Limited Hearing Ability: Use of Hearing Aid 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 Patient on BiPAP. Does appear to have some accessory muscle use EYES: No icterus, gaze conjugate. Pupils equal round and reactive to light NOSE: No evidence of epistaxis. BiPAP mask in place and secure MOUTH: No lesions or candidiasis. Mucosa is moist. BiPAP mask in place and secure NECK: Supple. No appreciation of stridor LUNGS: Coarse rales bilaterally at the bases with diffuse bronchospasm HEART: Regular, tachycardic in the 120s ABDOMEN: Soft, NT, ND, BS Present. No rebound tenderness or guarding EXTREMITIES: No LE edema bilaterally, pedal pulses intact and equal bilaterally. No calf tenderness. No asymmetrical edema NEURO: A&OX3. Cranial nerves II through XII appear to be grossly intact wit hout focal deficit Results & Data Results & Data ([facility]) Vital Signs (Past 12 Hours) Vital Signs Temp Pulse Pulse Resp BP BP Pulse Ox 11/20/19 09:16 110 H 32 H 98 11/20/19 09:15 113 H 34 H 158/101 H 98 11/20/19 09:01 120 H 43 H 99 11/20/19 09:00 118 H 32 H 161/110 H 99 11/20/19 08:46 119 H 33 H 98 11/20/19 08:45 116 H 40 H 175/114 H 98 11/20/19 08:31 112 H 36 H 98 11/20/19 08:30 113 H 32 H 160/104 H 98 11/20/19 08:27 110 H 33 H 97 11/20/19 08:26 111 H 36 H 191/92 H 97 11/20/19 08:23 113 H 36 H 95 11/20/19 08:22 116 H 85 L 11/20/19 08:15 121 H 29 H 83 L 11/20/19 08:06 103 H 32 H 162/89 H 84 L 11/20/19 08:05 85 L 11/20/19 07:50 96 H 20 93 11/20/19 07:46 96 H 20 93 11/20/19 07:45 94 H 97 H 16 149/85 H 149/85 H 84 L 11/20/19 07:00 36.8 C 99 H 16 139/86 93 Laboratory Results 11/20/19 07:13 11/20/19 07:13 INR 1.0 (0.9-1.1) 11/20/19 07:13 11/20/19 09:22 ABG pH 7.30 L ABG pCO2 46 ABG pO2 160 H ABG HCO3 22 ABG O2 Saturation 99.1 H ABG Base Excess -4.2 Diagnostic Findings XR chest 1V portable CLINICAL HISTORY: Shortness of breath. Vomiting. COMPARISON STUDY: 09/18/2019 FINDINGS: There is thoracolumbar scoliosis. There is diffuse elevation of interstitium, likely representing pulmonary edema. A bilateral infectious/inflammatory processes could appear similar but are statistically less likely. There is a small right pleural effusion.[There is an old proximal l eft humeral deformity. IMPRESSION: 1. Severe scoliosis 2. Pulmonary edema pattern. Small right pleural effusion. ACT 112: Negative or not required by law. Electronically signed by: Kt Painter M.D. 11/20/2019 8:[address] abd pelvis IV con only CLINICAL HISTORY: vomiting COMPARISON STUDY: 09/18/2019 TECHNIQUE: The patient was scanned in a dynamic helical fashion during intravenous administration of 94 cc of Optiray 320 A dose lowering technique was utilized adhering to the principles of ALARA. CT DOSE: 313.05 mGy.cm FINDINGS: Lower chest: There is a severe scoliosis. There are basilar opacities statistically atelectatic. There is small right pleural effusion. Liver: The contrast-enhanced liver is normal in size, contour, and attenuation. There is no intrahepatic biliary ductal dilatation. The hepatic veins and portal veins are patent. Gallbladder: Unremarkable. Spleen: Normal in size and attenuation. Pancreas: Unremarkable. Adrenal glands: Unremarkable. Kidneys: There is symmetric renal cortical enhancement. The kidneys are normal in size without hydronephrosis. Bowel: There are no transition zones indicate bowel obstruction. There is no evidence of acute diverticulitis. By history the appendix is surgically absent. Peritoneum: There is no intraperitoneal free air or abdominal ascites. Vasculature: The abdominal aorta is normal in course and caliber. Adenopathy: None. Pelvic viscera: The uterus is surgically absent Skeletal structures: There is a severe scoliosis. IMPRESSION: 1. Severe scoliosis. 2. Chronic right lower lobe atelectatic changes. Small right pleural effusion 3. No evidence of bowel obstruction. No evidence of free air 4. Surgically absent appendix. No evidence of acute diverticulitis. 5. No acute intra-abdominal or pelvic findings. ACT 112: Negative or not required by law. Electronically signed by: Kt Painter M.D. 11/20/2019 8:11 AM Code Status & VTE Plan Code Status Level 5: DNR/DNI VTE Prophylaxis Plan VTE Prophylaxis will be ordered: Yes Critical Care Time Critical Care Time: Yes Total Critical Care Time: 45 Supervising Physician Co-Signing Physician Notes Patient was seen and examined by bedside. During face to face encounter, I obtained a history and physical examination. I discussed plan with Kroner [facility] and patient. I reviewed above document and agree with it. Patient will be admitted for acute respiratory failure and will be admitted to the ICU for respiratory support. Will also trend troponins. PG Care Time/CCT Total # of Minutes Spent Total Time Spent with Patient: Total time spent is greater than 50% in coordination of care (as documented) at patient's floor/unit and/or counseling patient: 70 minutes including discussion with , emergency room physician, attending. Critical Care Time: Yes Total Critical Care Time: 45 Coding Level of Care Code 86762 Initial Inpt Care Lvl 3 Diagnoses Respiratory failure J96.00 Chronicity: acute Respiratory failure complication: unspecified whether with hypoxia or hypercapnia Non-ST elevation (NSTEMI) myocardial infarction I21.4 Acute hyponatremia E87.1 Atelectasis of right lung J98.11 GERD without esophagitis K21.9 Hyperglycemia R73.9 Restrictive lung disease J98.4 Non-occlusive coronary artery disease I25.10 Generalized anxiety disorder F41.1 Positive colorectal cancer screening using Cologuard test R19.5 Dysphagia R13.10 DVT prophylaxis Z29.9 Additional Codes Critical Care Time - Critical Care Time: Yes ([id number]) Time Spent (min) 70 Comment 45 minutes of critical care time (1) Respiratory failure Chronicity: acute Respiratory failure complication: unspecified whether with hypoxia or hypercapnia Qualified Code(s): J96.00 - Acute respiratory failure, unspecified whether with hypoxia or hypercapnia
[2019-11-20 09:41] LABS: Base Excess ABG -4.2 mEq/L (-9-1.8); HCO3 ABG 22 mmol/L (19-24); Oxygen Saturation ABG 99.1 % (90-95); PCO2 ABG 46 mmHg (35-46); PO2 ABG 160 mmHg (80-95)
[2019-11-20 09:46] LABS: Allen Test Pos (Pos)
[2019-11-20 09:55] LABS: Partial Thromboplastin Ratio 0.9; Partial Thromboplastin Time 24.8 Seconds (21.0-31.0)
[2019-11-20] MEDS ORDERED: ASPIRIN CHEW 324 MG PO STA (10:40)
[2019-11-20] MEDS ORDERED: INSULIN ASPART 100 UNITS/ML 3 ML PEN SC SCH (11:42)
[2019-11-20] MEDS ORDERED: CARBOHYDRATES FOR HYPOGLYCEMIA PO PRN (11:42)
[2019-11-20] MEDS ORDERED: GLUCOSE 10 TABS/TUBE PO PRN (11:42)
[2019-11-20] MEDS ORDERED: DEXTROSE 50% 50 ML SYRINGE IV PRN (11:42)
[2019-11-20] MEDS ORDERED: ICU PROTOCOL FOR HYPERGLYCEMIA PRN (11:42)
[2019-11-20] MEDS ORDERED: ALBUT/IPRATROP 3MG/0.5MG NEB 3 ML VIAL INH PRN (11:42)
[2019-11-20] MEDS ORDERED: GLUCAGON FOR INJ 1 MG VIAL SQ PRN (11:42)
[2019-11-20] MEDS ORDERED: ICU ELECTROLYTE REPLACEMENT PROTOCOL PRN (11:42)
[2019-11-20] MEDS ORDERED: GLUCOSE 40% GEL 15 GM TUBE PO PRN (11:42)
[2019-11-20] MEDS ORDERED: PHARMACY GLYCEMIC MGMT CONSULT PRN (11:53)
--- NOTE | 2019-11-20 12:07 | Critical Care Consultation ---
Date of Consultation November 20, 2019 Assessment & Plan (1) Respiratory failure: Reason Critically Ill: 84y/o F w/ PMH significant nonocclusive coronary artery disease, restrictive lung disease requiring 3L NC at night only, osteopenia, mixed connective tissue disease, GERD, scoliosis, history of endotracheal intubation with mechanical ventilation secondary to ARDs. Presented to the hospital following colonoscopy prep for scheduled elective colonoscopy following previous positive Cologuard test. She began to have nausea and vomiting this morning and upon presentation to the ED was determined to have acute and sudden hypoxic respiratory failure. Neuro: - CAM ICU negative Cardiac/Vascular: - History of an STEMI, previous nonocclusive coronary artery disease - Patient not on aspirin or beta-gonzalo or lisinopril at home - Troponin on admission 1.24, up trending to 3.55 - Echo 11/19 demonstrated: - EF 25 to 30%. Severe hypokinesis/akinesis involving mid to distal segments and apex. No left ventricular hypertrophy - Mild pulmonary hypertension - Concern for target Takotsubo cardiomyopathy; will avoid sympathomimetics - Lasix for improvement in volume status Respiratory: - History of restrictive lung disease - CXR consistent with pulmonary edema - Originally required BiPAP, subsequently been able to be weaned to 4L NC - Received Lasix 40 mg x 2 for continued diuresis GI/Nutrition: - Tolerating oral intake - Start low-salt diet, with 1800 mL fluid restrict Renal/Lytes: - Hyponatremia on admission to 125, urine osmolality 487, serum osmolality 269 - Likely contributions from fluid status - Received 40 mg Lasix x2 - Continue to monitor : - Low-salt diet, 1800 mL fluid restriction ENDO: - No previous history of diabetes or thyroid disorder HEME: - Hgb stable at 13 - continue to monitor ID: - No current concern for infectious etiology Lines/IV Access: - PIV x1 DVT Prophylaxis: - Heparin drip (2) Non-ST elevation (NSTEMI) myocardial infarction: (3) Positive colorectal cancer screening using Cologuard test: (4) Pulmonary edema: (5) Non-occlusive coronary artery disease: (6) Hyperlipidemia: (7) Hyperglycemia: (8) General weakness: Supervising Physician Co-Signing Physician Notes Dr. Henderson was resident physician during care of patient. I separately evaluated patient for mirza portions of the history and the exam. I was present during the critical portion of medical decision making, and I discussed the case with the resident. I generally agree with the findings and plan. Patient is tolerating noninvasive mechanical ventilation for acute hypoxic respiratory failure after mild volume expansion following IV fluid rehydration after prep for colonoscopy. Blood gas while on noninvasive ventilator revealed a acidosis: I suspect this was respiratory acidosis as the patient's bicarb was 24 and the PCO2 was 46 which likely was starting to improve being on the noninvasive ventilator. She has known restrictive lung disease secondary to kyphoscoliosis and in review of notes appears to have an obstructive component. She was found to have hyponatremia with this subsequent hypoosmolar component. In the emergency department she was given additional diuretics. Her troponin is elevated at 1.24. She is currently on heparin for a possible NSTEMI. She had also been given an hour-long breathing treatment for diffuse bronchospasm. Repeat H&H for possible blood loss in the setting of continuing heparin drip. I have personally spent 55 minutes of critical care time in the direct management of this patient. This is a life/limb threatening event. This inc ludes time spent evaluating patient, direct bedside care, chart review, placing orders, interpretation of diagnostic studies, discussion with consultants, patient, and/or family members regarding treatment decisions, as well as other required patient management activities. This time is exclusive of all separately billable procedures, and teaching time and separate from and in addition to any other critical care service time. History of Present Illness Attending Physician: Benito Morris History of Present Illness Sherri Gutierrez is a 84y/o F w/ PMH significant nonocclusive coronary artery disease, restrictive lung disease requiring 3L NC at night only, osteopenia, mixed connective tissue disease, GERD, scoliosis, history of endotracheal intubation with mechanical ventilation secondary to ARDs. Presented to the hospital following colonoscopy prep for scheduled elective colonoscopy following previous positive Cologuard test. She began to have nausea and vomiting this morning and upon presentation to the ED was determined to have acute and sudden hypoxic respiratory failure. She was initially placed on an hour-long nebulizer treatment with some improvement, but ultimately required placement on BiPAP 10/5 before improvement in her respiratory rate and she started to feel slightly better. She also received Lasix in the ED prior to transfer and so far has produced approximately 1700mL of urine since admission. She denies recent contact with sick indivi duals, fevers, chills, sweats, cough, chest pain, tightness, abdominal pain, lightheadedness, dizziness, changes in vision. Patient has previously filled out a POLST form indicating that she prefers to be DNR/DNI. Allergies Allergy/AdvReac Type Severity Reaction Status Date / Time prednisone Allergy Intermediate MUSCLE Verified 11/20/19 08:25 CONTROL Awfecor-Qcj-Hhm Reductase Allergy Intermediate MUSCULAR Verified 11/20/19 08:25 Inhibitor ISSUES methylprednisolone Allergy Mild HOT FACE; Verified 11/20/19 08:25 DRY HEAVES; FACIAL MUSCLES TWITCHING ceftriaxone Allergy Unknown Hives Unverified 11/20/19 08:25 gabapentin [From Neurontin] Allergy Unknown Unknown Unverified 11/20/19 08:25 nitrofurantoin Allergy Unknown Unknown Unverified 11/20/19 08:25 valdecoxib [From Bextra] AdvReac Intermediate increased Unverified 11/20/19 08:25 BP Home Medications Home Medications Medication Instructions Recorded Confirmed Type biotin 1,000 mcg chewable tablet 2,000 mcg PO DAILY tab 10/04/18 11/20/19 History cholecalciferol (vitamin D3) 25 1,000 units PO QPM 10/04/18 11/20/19 History mcg (1,000 unit) capsule glucosamine-chondroitin 500 mg-400 1 cap PO QPM 10/04/18 11/20/19 History mg capsule turmeric 400 mg capsule 400 mg PO QPM cap 10/04/18 11/20/19 History vitamin B comp and C no.3 15 mg-10 1 cap PO QPM 10/04/18 11/20/19 History mg-50 mg-5 mg-300 mg capsule albuterol sulfate [Ventolin HFA] 2 puff INHALATION Q4 PRN 12/05/18 11/20/19 History calcium carbonate [Calcium 500] 500 mg PO QPM 12/05/18 11/20/19 History omega 4-sja-qyj-fish oil [Fish Oil] 1 cap PO QPM 12/05/18 11/20/19 History polyethylene glycol 3350 [Miralax] 17 gm PO BID #30 ea 09/18/19 11/20/19 Rx fluoxetine 10 mg capsule 10 mg PO QAM #90 cap 10/07/19 11/20/19 Rx fluoxetine 20 mg capsule 20 mg PO QAM #90 cap 10/07/19 11/20/19 Rx lactulose 10 gram/15 mL oral 20 gm PO BID #946 ml 10/10/19 11/20/19 Rx solution arformoterol 15 mcg/2 mL solution 2 ml INHALATION BID #60 vial 11/13/19 11/20/19 Rx for nebulization budesonide 0.25 mg/2 mL suspension 2 ml INHALATION BID #60 vial 11/13/19 11/20/19 Rx for nebulization ipratropium bromide 0.02 % 0.5 mg INHALATION BID #60 vial 11/13/19 11/20/19 Rx solution for inhalation alprazolam 0.5 mg tablet 0.5 mg PO HS #30 tab 11/14/19 11/20/19 Rx omeprazole 20 mg capsule,delayed 20 mg PO DAILY #90 cap 11/14/19 11/20/19 Rx release Patient History Medical History (Updated 11/20/19 @ 11:59 by Peng Henderson MD) Abnormal CT scan Acute on chronic diastolic (congestive) heart failure Acute respiratory failure with hypoxia Admitted to intensive care unit Arthralgia of multiple sites Arthritis of left knee Asthma inhalers/nebulizer daily/prn Atypical chest pain Cervical arthritis Cervical myelopathy Cervicalgia Chronic obstructive pulmonary disease Depression Encounter for pre-operative examination Eustachian tube dysfunction General weakness Generalized anxiety disorder GERD without esophagitis Hearing loss Hyperlipidemia no meds Hypokalemia Hypotension MCTD (mixed connective tissue disease) Multifocal pneumonia Muscle spasm Muscle weakness-general Myopathy Non-occlusive coronary artery disease Non-ST elevated myocardial infarction (non-STEMI) On home oxygen therapy 2L via N/C qpm and HS Oral thrush Osteoarthritis Osteopenia Polyneuropathy Positive MICHAEL (antinuclear antibody) Positive colorectal cancer screening using Cologuard test Restrictive lung disease Scoliosis Sepsis Throat irritation Trapezius muscle spasm Urinary incontinence Surgical History H/O foot surgery History of appendectomy History of arthroscopy of left knee History of bilateral cataract extraction History of biopsy right thigh--showed MCTD History of bronchoscopy x2 History of cardiac cath 04/2017 no stents History of colonoscopy History of thoracentesis History of tonsillectomy and adenoidectomy History of total hysterectomy with bilateral salpingo-oophorectomy (BSO) History of wisdom tooth extraction Family History Mother Alzheimer disease Brother Hx of CABG Depression Father Congestive heart failure Coronary heart disease Hearing loss Unknown Myocardial infarction Other No family history of adverse response to anesthesia Denies family history of Ovarian cancer Prostate cancer Breast cancer Colorectal cancer Social History Smoking Status: Never smoker Second Hand Exposure: No; Do You Dip or Chew Tobacco: No; Tobacco Cessation Education Requested by Patient: No Hx Alcohol Use: No Hx Substance Use: No Preferred Language: Belarusian Communication Ability: Effective Visual Impairment: Limited Hearing Ability: Use of Hearing Aid Formwork Carpenter Required: No Beliefs That Will Affect Care: None marital status: Current Living Situation: Spouse current occupational status: retired How many Children do You have: 5 Other Information That Helps Us Care for You: No Feels Safe at Home: Yes Safety Concerns: Feels Safe At This Time Childhood Exposure to Second-Hand Smoke: Yes caffeine: Yes Dental Care, Regularly: Yes Physical Activity Frequency: 3-4 Times per Week Seatbelt Use: always Sunscreen Use: Yes Review of Systems Review of Systems: All systems reviewed & are unremarkable except as noted in HPI & below Physical Exam Constitutional: WD/WN, vitals as above Eyes: PERRL, conjunctivae normal, anicteric sclerae ENMT: external ear and nose normal, oropharynx normal Neck: trachea midline, no thyromegaly Respiratory: + labored breathing; no retractions and does not use accessory muscles Auscultation: + diminished lung sounds (b/l bases); no crackles, no rales and no rhonchi Cardiovascular: Rate/Rhythm: regular rhythm and + tachycardic Heart Sounds: no gallop, no murmur and no cardiac rub Vessels: normal peripheral pulses; no JVD Extremities: no pedal edema Gastrointestinal (Abdomen): normal bowel sounds, soft, nontender, no hepatosplenomegaly Musculoskeletal: Extremities: no cyanosis and no clubbing Skin: no rashes, warm and dry Neurologic: PERRL, EOMI, accommodation nl, no face palsy, no dysarthria deep tendon reflexes 2+ bilaterally and moves all extremities Psychiatric: Orientation: alert and oriented x 3 Lymphatic: no cervical lymphadenopathy Results & Data Results & Data ([facility]) Vital Signs (Past 12 Hours) Vital Signs Temp Pulse Pulse Resp BP BP Pulse Ox 11/20/19 11:04 36.8 C 111 H 35 H 133/88 100 11/20/19 11:01 111 H 35 H 133/88 100 11/20/19 11:00 108 H 34 H 99 11/20/19 10:46 103 H 25 H 100 11/20/19 10:45 105 H 29 H 121/71 98 11/20/19 10:31 104 H 27 H 100 11/20/19 10:30 107 H 32 H 117/93 99 11/20/19 10:16 102 H 26 H 100 11/20/19 10:15 102 H 25 H 119/77 100 11/20/19 10:01 109 H 28 H 100 11/20/19 10:00 106 H 29 H 114/77 100 11/20/19 09:53 109 H 33 H 98 11/20/19 09:46 98 H 24 99 11/20/19 09:45 99 H 25 H 99/61 L 99 11/20/19 09:31 103 H 29 H 98 11/20/19 09:30 104 H 28 H 130/73 97 11/20/19 09:16 110 H 32 H 98 11/20/19 09:15 113 H 34 H 158/101 H 98 11/20/19 09:01 120 H 43 H 99 11/20/19 09:00 118 H 32 H 161/110 H 99 11/20/19 08:46 119 H 33 H 98 11/20/19 08:45 116 H 40 H 175/114 H 98 11/20/19 08:31 112 H 36 H 98 11/20/19 08:30 113 H 32 H 160/104 H 98 11/20/19 08:27 110 H 33 H 97 11/20/19 08:26 111 H 36 H 191/92 H 97 11/20/19 08:23 113 H 36 H 95 11/20/19 08:22 116 H 85 L 11/20/19 08:15 121 H 29 H 83 L 11/20/19 08:06 103 H 32 H 162/89 H 84 L 11/20/19 08:05 85 L 11/20/19 07:50 96 H 20 93 11/20/19 07:46 96 H 20 93 11/20/19 07:45 94 H 97 H 16 149/85 H 149/85 H 84 L 11/20/19 07:00 36.8 C 99 H 16 139/86 93 Laboratory Results 11/20/19 11/20/19 11/20/19 Range/Units 09:22 08:45 08:45 WBC (4.8-10.8) K/uL RBC (4.2-5.4) M/uL Hgb (12.0-16.0) g/dL Hct (37-47) % MCV (80-100) fL MCH (25-34) pg MCHC (32-36) g/dL RDW Std Deviation (36.4-46.3) fL RDW Coeff of Jaren (11.5-14.5) % Plt Count (130-400) K/uL MPV (7.4-10.4) fL Immature Gran % (Auto) % Neut % (Auto) % Lymph % (Auto) % [place] % (Auto) % Eos % (Auto) % Baso % (Auto) % Neut # (Auto) (1.4-6.5) K/uL Lymph # (Auto) (1.2-3.4) K/uL [place] # (Auto) (0.11-0.59) K/uL Eos # (Auto) (0-0.5) K/uL Baso # (Auto) (0-0.2) K/uL Immature Gran # (Auto) (0.00-0.02) K/uL PT (9.0-12.0) Seconds INR (0.9-1.1) APTT (21.0-31.0) Seconds PTT Ratio ABG pH 7.30 L (7.35-7.45) ABG pCO2 46 (35-46) mmHg ABG pO2 160 H (80-95) mmHg ABG HCO3 22 (19-24) mmol/L ABG O2 Saturation 99.1 H (90-95) % ABG Base Excess -4.2 (-9-1.8) mEq/L Julian Test Pos (Pos) Barometric Pressure 728.9 mm/Hg Oxygen Given 80% Sodium (136-145) mmol/L Potassium (3.5-5.1) mmol/L Chloride (98-107) mmol/L Carbon Dioxide (21-32) mmol/L Anion Gap (3-11) BUN (7-18) mg/dl Creatinine (0.6-1.2) mg/dl Est Cr Clr Drug Dosing Est GFR ( Amer) Est GFR (Non-Af Amer) BUN/Creatinine Ratio (10-20) Glucose (70-99) mg/dl Osmolality (280-300) mOsm/kg Calcium (8.5-10.1) mg/dl Magnesium (1.8-2.4) mg/dl Total Bilirubin (0.2-1) mg/dl AST (15-37) U/L ALT (12-78) U/L Alkaline Phosphatase (45-117) U/L Troponin I (0-0.045) ng/ml Total Protein (6.4-8.2) gm/dl Albumin (3.4-5.0) gm/dl Globulin (2.5-4.0) gm/dl Albumin/Globulin Ratio (0.9-2) Lipase (73-393) U/L Urine Color Urine Appearance (Clear) Urine pH (4.5-7.5) Ur Specific [place] (1.000-1.030) Urine Protein (Negative) Urine Glucose (UA) (Negative) Urine Ketones (Negative) Urine Blood (Negative) Urine Nitrite (Negative) Urine Bilirubin (Negative) Urine Urobilinogen (Negative) Ur Leukocyte Esterase (Negative) Urine WBC (Auto) (0-5) /hpf Urine RBC (Auto) (0-4) /hpf U Hyaline Cast (Auto) (0-5) /lpf U Epithel Cells (Auto) (0-5) /lpf Urine Bacteria (Auto) (Negative) Urine Osmolality 487 L (500-800) mOsm/kg Ur Random Sodium 124 mmol/L 11/20/19 11/20/19 11/20/19 Range/Units 08:45 07:13 07:13 WBC (4.8-10.8) K/uL RBC (4.2-5.4) M/uL Hgb (12.0-16.0) g/dL Hct (37-47) % MCV (80-100) fL MCH (25-34) pg MCHC (32-36) g/dL RDW Std Deviation (36.4-46.3) fL RDW Coeff of Jaren (11.5-14.5) % Plt Count (130-400) K/uL MPV (7.4-10.4) fL Immature Gran % (Auto) % Neut % (Auto) % Lymph % (Auto) % [place] % (Auto) % Eos % (Auto) % Baso % (Auto) % Neut # (Auto) (1.4-6.5) K/uL Lymph # (Auto) (1.2-3.4) K/uL [place] # (Auto) (0.11-0.59) K/uL Eos # (Auto) (0-0.5) K/uL Baso # (Auto) (0-0.2) K/uL Immature Gran # (Auto) (0.00-0.02) K/uL PT 10.9 (9.0-12.0) Seconds INR 1.0 (0.9-1.1) APTT 24.8 (21.0-31.0) Seconds PTT Ratio 0.9 ABG pH (7.35-7.45) ABG pCO2 (35-46) mmHg ABG pO2 (80-95) mmHg ABG HCO3 (19-24) mmol/L ABG O2 Saturation (90-95) % ABG Base Excess (-9-1.8) mEq/L Julian Test (Pos) Barometric Pressure mm/Hg Oxygen Given Sodium (136-145) mmol/L Potassium (3.5-5.1) mmol/L Chloride (98-107) mmol/L Carbon Dioxide (21-32) mmol/L Anion Gap (3-11) BUN (7-18) mg/dl Creatinine (0.6-1.2) mg/dl Est Cr Clr Drug Dosing Est GFR ( Amer) Est GFR (Non-Af Amer) BUN/Creatinine Ratio (10-20) Glucose (70-99) mg/dl Osmolality (280-300) mOsm/kg Calcium (8.5-10.1) mg/dl Magnesium (1.8-2.4) mg/dl Total Bilirubin (0.2-1) mg/dl AST (15-37) U/L ALT (12-78) U/L Alkaline Phosphatase (45-117) U/L Troponin I (0-0.045) ng/ml Total Protein (6.4-8.2) gm/dl Albumin (3.4-5.0) gm/dl Globulin (2.5-4.0) gm/dl Albumin/Globulin Ratio (0.9-2) Lipase (73-393) U/L Urine Color Yellow Urine Appearance Clear (Clear) Urine pH 8.0 H (4.5-7.5) Ur Specific [place] 1.025 (1.000-1.030) Urine Protein 1+ H (Negative) Urine Glucose (UA) Trace H (Negative) Urine Ketones 2+ H (Negative) Urine Blood 2+ H (Negative) Urine Nitrite Negative (Negative) Urine Bilirubin Negative (Negative) Urine Urobilinogen Negative (Negative) Ur Leukocyte Esterase Negative (Negative) Urine WBC (Auto) 0 (0-5) /hpf Urine RBC (Auto) 10-30 H (0-4) /hpf U Hyaline Cast (Auto) 0 (0-5) /lpf U Epithel Cells (Auto) 0-5 (0-5) /lpf Urine Bacteria (Auto) Negative (Negative) Urine Osmolality (500-800) mOsm/kg Ur Random Sodium mmol/L 11/20/19 11/20/19 11/20/19 Range/Units 07:13 07:13 07:13 WBC (4.8-10.8) K/uL RBC (4.2-5.4) M/uL Hgb (12.0-16.0) g/dL Hct (37-47) % MCV (80-100) fL MCH (25-34) pg MCHC (32-36) g/dL RDW Std Deviation (36.4-46.3) fL RDW Coeff of Jaren (11.5-14.5) % Plt Count (130-400) K/uL MPV (7.4-10.4) fL Immature Gran % (Auto) % Neut % (Auto) % Lymph % (Auto) % [place] % (Auto) % Eos % (Auto) % Baso % (Auto) % Neut # (Auto) (1.4-6.5) K/uL Lymph # (Auto) (1.2-3.4) K/uL [place] # (Auto) (0.11-0.59) K/uL Eos # (Auto) (0-0.5) K/uL Baso # (Auto) (0-0.2) K/uL Immature Gran # (Auto) (0.00-0.02) K/uL PT (9.0-12.0) Seconds INR (0.9-1.1) APTT (21.0-31.0) Seconds PTT Ratio ABG pH (7.35-7.45) ABG pCO2 (35-46) mmHg ABG pO2 (80-95) mmHg ABG HCO3 (19-24) mmol/L ABG O2 Saturation (90-95) % ABG Base Excess (-9-1.8) mEq/L Julian Test (Pos) Barometric Pressure mm/Hg Oxygen Given Sodium 125 L (136-145) mmol/L Potassium 3.3 L (3.5-5.1) mmol/L Chloride 89 L (98-107) mmol/L Carbon Dioxide 24 (21-32) mmol/L Anion Gap 12.0 H (3-11) BUN 11 (7-18) mg/dl Creatinine 0.83 (0.6-1.2) mg/dl Est Cr Clr Drug Dosing Not Reportable Est GFR ( Amer) 76.1 Est GFR (Non-Af Amer) 65.7 BUN/Creatinine Ratio 13.0 (10-20) Glucose 174 H (70-99) mg/dl Osmolality 269 L (280-300) mOsm/kg Calcium 9.9 (8.5-10.1) mg/dl Magnesium 1.8 (1.8-2.4) mg/dl Total Bilirubin 0.5 (0.2-1) mg/dl AST 31 (15-37) U/L ALT 24 (12-78) U/L Alkaline Phosphatase 104 (45-117) U/L Troponin I 1.240 H* (0-0.045) ng/ml Total Protein 8.3 H (6.4-8.2) gm/dl Albumin 3.8 (3.4-5.0) gm/dl Globulin 4.5 H (2.5-4.0) gm/dl Albumin/Globulin Ratio 0.8 L (0.9-2) Lipase 41 L (73-393) U/L Urine Color Urine Appearance (Clear) Urine pH (4.5-7.5) Ur Specific [place] (1.000-1.030) Urine Protein (Negative) Urine Glucose (UA) (Negative) Urine Ketones (Negative) Urine Blood (Negative) Urine Nitrite (Negative) Urine Bilirubin (Negative) Urine Urobilinogen (Negative) Ur Leukocyte Esterase (Negative) Urine WBC (Auto) (0-5) /hpf Urine RBC (Auto) (0-4) /hpf U Hyaline Cast (Auto) (0-5) /lpf U Epithel Cells (Auto) (0-5) /lpf Urine Bacteria (Auto) (Negative) Urine Osmolality (500-800) mOsm/kg Ur Random Sodium mmol/L 11/20/19 Range/Units 07:13 WBC 10.75 (4.8-10.8) K/uL RBC 4.17 L (4.2-5.4) M/uL Hgb 12.7 (12.0-16.0) g/dL Hct 36.5 L (37-47) % MCV 87.5 (80-100) fL MCH 30.5 (25-34) pg MCHC 34.8 (32-36) g/dL RDW Std Deviation 43.4 (36.4-46.3) fL RDW Coeff of Jaren 13.6 (11.5-14.5) % Plt Count 308 (130-400) K/uL MPV 9.2 (7.4-10.4) fL Immature Gran % (Auto) 0.2 % Neut % (Auto) 81.3 % Lymph % (Auto) 11.5 % [place] % (Auto) 6.8 % Eos % (Auto) 0.1 % Baso % (Auto) 0.1 % Neut # (Auto) 8.74 H (1.4-6.5) K/uL Lymph # (Auto) 1.24 (1.2-3.4) K/uL [place] # (Auto) 0.73 H (0.11-0.59) K/uL Eos # (Auto) 0.01 (0-0.5) K/uL Baso # (Auto) 0.01 (0-0.2) K/uL Immature Gran # (Auto) 0.02 (0.00-0.02) K/uL PT (9.0-12.0) Seconds INR (0.9-1.1) APTT (21.0-31.0) Seconds PTT Ratio ABG pH (7.35-7.45) ABG pCO2 (35-46) mmHg ABG pO2 (80-95) mmHg ABG HCO3 (19-24) mmol/L ABG O2 Saturation (90-95) % ABG Base Excess (-9-1.8) mEq/L Julian Test (Pos) Barometric Pressure mm/Hg Oxygen Given Sodium (136-145) mmol/L Potassium (3.5-5.1) mmol/L Chloride (98-107) mmol/L Carbon Dioxide (21-32) mmol/L Anion Gap (3-11) BUN (7-18) mg/dl Creatinine (0.6-1.2) mg/dl Est Cr Clr Drug Dosing Est GFR ( Amer) Est GFR (Non-Af Amer) BUN/Creatinine Ratio (10-20) Glucose (70-99) mg/dl Osmolality (280-300) mOsm/kg Calcium (8.5-10.1) mg/dl Magnesium (1.8-2.4) mg/dl Total Bilirubin (0.2-1) mg/dl AST (15-37) U/L ALT (12-78) U/L Alkaline Phosphatase (45-117) U/L Troponin I (0-0.045) ng/ml Total Protein (6.4-8.2) gm/dl Albumin (3.4-5.0) gm/dl Globulin (2.5-4.0) gm/dl Albumin/Globulin Ratio (0.9-2) Lipase (73-393) U/L Urine Color Urine Appearance (Clear) Urine pH (4.5-7.5) Ur Specific [place] (1.000-1.030) Urine Protein (Negative) Urine Glucose (UA) (Negative) Urine Ketones (Negative) Urine Blood (Negative) Urine Nitrite (Negative) Urine Bilirubin (Negative) Urine Urobilinogen (Negative) Ur Leukocyte Esterase (Negative) Urine WBC (Auto) (0-5) /hpf Urine RBC (Auto) (0-4) /hpf U Hyaline Cast (Auto) (0-5) /lpf U Epithel Cells (Auto) (0-5) /lpf Urine Bacteria (Auto) (Negative) Urine Osmolality (500-800) mOsm/kg Ur Random Sodium mmol/L Medications Administered Current Inpatient Medications Albuterol (Albut/Ipratrop 3mg/0.5mg Neb 3 Ml Vial) 3 ml INH Q4H PRN PRN Reason: Dyspnea Stop: 12/20/19 11:41 Arformoterol Tartrate (Arformoterol Tart 15mcg/2ml Vial) 15 mcg INH BID DAISY Stop: 12/20/19 20:59 Calcium Carbonate (Calcium Carbonate 1250mg Tab) 1,250 mg PO QPM DAISY Stop: 12/20/19 20:59 Dextrose (Dextrose 50% 50 Ml Syringe) 25 - 50 ml IV UD PRN; Protocol PRN Reason: Hypoglycemia Protocol Stop: 12/20/19 11:41 Fluoxetine HCl (Fluoxetine Hcl 10 Mg Cap) 10 mg PO QAM DAISY Stop: 12/21/19 08:59 Fluoxetine HCl (Fluoxetine Hcl 20 Mg Cap) 20 mg PO QAM DAISY Stop: 12/21/19 08:59 Glucagon (Glucagon For Inj 1 Mg Vial) 1 mg SQ UD PRN; Protocol PRN Reason: Hypoglycemia Protocol Stop: 12/20/19 11:41 Glucose (Glucose 10 Tabs/Tube) 4 - 8 tabs PO UD PRN; Protocol PRN Reason: Hypoglycemia Protocol Stop: 12/20/19 11:41 Glucose (Glucose 40% Gel 15 Gm Tube) 15 - 30 gm PO UD PRN; Protocol PRN Reason: Hypoglycemia Protocol Stop: 12/20/19 11:41 Heparin Sodium/Dextrose (Heparin Sodium/Dextrose) 25,000 units in 500 mls @ 17 mls/hr IV .Q24H DAISY; Protocol Stop: 12/20/19 08:59 Last Admin: 11/20/19 09:29 Dose: 850 units/hr, 17 mls/hr Documented by: Sodium Chloride (Nss 1000ml) 1,000 mls @ 0 mls/hr IV .Q0M DAISY Stop: 12/20/19 11:41 Potassium Chloride (K Tobi / Wtr) 10 meq in 100 mls @ 100 mls/hr IV Q1H STA Stop: 11/20/19 12:41 Insulin Aspart (Insulin Aspart 100 Units/Ml 3 Ml Pen) 0 units SC ACHS DAISY Stop: 12/20/19 11:41 Ipratropium [place] (Ipratropium [place] Neb Soln 0.02% 2.5 Ml Vial) 0.5 mg INH BIDR DAISY Stop: 12/20/19 18:59 Miscellaneous ([facility] Protocol For Hyperglycemia) 1 ea N/A PRN PRN; Protocol PRN Reason: Hyperglycemia Protocol Stop: 11/22/19 11:41 Miscellaneous ([facility] Electrolyte Replacement Protocol) 1 ea N/A UD PRN PRN Reason: for e-lyte repletion Stop: 11/27/19 11:41 Miscellaneous (Carbohydrates For Hypoglycemia ) 15 - 30 gm PO UD PRN PRN Reason: Hypoglycemia Protocol Stop: 12/20/19 11:41 Miscellaneous Information (Pharmacy Glycemic Mgmt Consult) 1 ea N/A UD PRN; Protocol PRN Reason: Consult Stop: 12/20/19 11:52 Non-Formulary Medication (Vitamin B Comp And C No.3 [B Complex Plus Vitamin C]) 1 cap PO QPM DAISY Stop: 12/20/19 20:59 Pantoprazole Sodium (Pantoprazole 40 Mg Tab) 40 mg PO DAILY DAISY Stop: 12/21/19 08:59 Vitamin D (Cholecalciferol 1,000 Units 25 Mcg Tab) 1,000 units PO QPM DAISY Stop: 12/20/19 20:59 Resident Activity Tracking Resident Involvement: Resident Care Provided Care Provided: Adult Hospital Medicine (Critical Care) (1) Pulmonary edema Chronicity: acute Qualified Code(s): J81.0 - Acute pulmonary edema (2) Respiratory failure Chronicity: acute Respiratory failure complication: unspecified whether with hypoxia or hypercapnia Qualified Code(s): J96.00 - Acute respiratory failure, unspecified whether with hypoxia or hypercapnia
[2019-11-20] MEDS: POTASSIUM CHLORIDE / WTR 10 MEQ/100 ML PLCT IV SCH ×3 (12:28→18:28)
[2019-11-20 12:44] LABS: Creatine Kinase MB 14.1 ng/ml (0.5-3.6)
--- NOTE | 2019-11-20 14:04 | Pharmacy Report ---
Pharmacy Glycemic Short Note 2 - Date of Service November 20, 2019 - Glycemic Short BSG Results (Last 24 hours): 11/20/19 11/20/19 07:13 11:59 Glucose 174 H POC Glucose 208 H OUTPATIENT ANTIDIABETIC REGIMEN: * None ASSESSMENT: * Patient with no known history of diabetes likely experiencing stress induced hyperglycemia. A1c ordered for tomorrow, last result was 5.2% in apr 2018. Will proceed with novolog correction factor coverage only for now. Patient is NPO and ordered a heparin infusion. PLAN FOR INPATIENT GLYCEMIC CONTROL: * Hold outpatient oral diabetes medications * Basal insulin * None * Bolus insulin * NovoLog per scale ACHS or Q6hrs while NPO * Goal Range: Low 120 mg/dL - High 150 mg/dL * Correction Factor: 40 mg/dL/unit
--- NOTE | 2019-11-20 14:35 | Billing Data ---
Date of Service November 20, 2019 Coding Level of Care Code Critical Care 1st 30-74 mins Time Spent (min) 55 Comment I have personally spent 55 minutes of critical care time in the direct management of this patient. This is a life/limb threatening event. This includes time spent evaluating patient, direct bedside care, chart review, placing orders, interpretation of diagnostic studies, discussion with consultants, patient, and/or family members regarding treatment decisions, as well as other required patient management activities. This time is exclusive of all separately billable procedures, and teaching time and separate from and in addition to any other critical care service time.
--- NOTE | 2019-11-20 14:36 | XCELERA ---
[id number]
[2019-11-20 15:29] LABS: Partial Thromboplastin Ratio 1.4
[2019-11-20 17:15] LABS: Hematocrit (blood only) 38.4 % (37-47); Hemoglobin 13.1 g/dL (12.0-16.0)
[2019-11-20] MEDS ORDERED: FUROSEMIDE 40 MG in SYRINGE 0 ML IV ONE (17:30)
[2019-11-20] MEDS: IPRATROPIUM BROMIDE NEB SOLN 0.02% 2.5 ML VIAL INH SCH (17:35)
[2019-11-20] MEDS: FORMOTEROL 20 MCG/2 ML VIAL INH SCH (17:36)
[2019-11-20 17:48] LABS: BUN Creatinine Ratio 11.8 (10-20); Calcium 8.9 mg/dl (8.5-10.1); Creatinine Clr Calc Pharmacy 33.2 ml/min; Est GFR (Non-African American) 60.4; Potassium 3.6 mmol/L (3.5-5.1); Troponin I 3.55 ng/ml (0-0.045)
[2019-11-20] MEDS: INSULIN ASPART 100 UNITS/ML 3 ML PEN SC SCH ×2 (17:48→23:06)
[2019-11-20 17:54] LABS: Creatine Kinase MB 15.6 ng/ml (0.5-3.6)
[2019-11-20] MEDS ORDERED: HEPARIN IV BOLUS 4,000 UNITS in SYRINGE 0 ML IV ONE (18:30)
[2019-11-20] MEDS ORDERED: LORazepam 0.25 MG/0.5 ML VIAL IV STA (20:40)
[2019-11-20] MEDS: CHOLECALCIFEROL 1,000 UNITS 25 MCG TAB PO SCH (20:53)
[2019-11-20] MEDS: CALCIUM CARBONATE 1250MG TAB PO SCH (20:53)
[2019-11-20] MEDS ORDERED: VITAMIN B COMP AND C NO 3 PO SCH (21:00)
[2019-11-21 00:55] LABS: Partial Thromboplastin Ratio > 5.0
[2019-11-21 01:01] LABS: Partial Thromboplastin Time > 139.0 Seconds (21.0-31.0)
[2019-11-21 02:23] LABS: Basophils # (auto) 0.01 K/uL (0-0.2); Basophils % (auto) 0.1 %; Eosinophils # (auto) 0.01 K/uL (0-0.5); Eosinophils % (auto) 0.1 %; Hematocrit (blood only) 33.8 % (37-47); Hemoglobin 12.1 g/dL (12.0-16.0); Immature Granulocytes # (auto) 0.02 K/uL (0.00-0.02); Immature Granulocytes % (auto) 0.2 %; Lymphocytes # (auto) 1.58 K/uL (1.2-3.4); Lymphocytes % (auto) 14.5 %; Mean Corpuscular Hemoglobin 30.2 pg (25-34); Mean Corpuscular Hgb Conc 35.8 g/dL (32-36); Mean Corpuscular Volume 84.3 fL (80-100); Mean Platelet Volume 8.8 fL (7.4-10.4); Monocytes # (auto) 1.09 K/uL (0.11-0.59); Neutrophils # (auto) 8.15 K/uL (1.4-6.5); Neutrophils % (auto) 75.1 %; Platelet Count 247 K/uL (130-400); RDW Coefficient of Variation 13.5 % (11.5-14.5); RDW Standard Deviation 41.4 fL (36.4-46.3); Red Blood Count 4.01 M/uL (4.2-5.4); White Blood Count 10.86 K/uL (4.8-10.8)
[2019-11-21 02:39] LABS: BUN Creatinine Ratio 17.2 (10-20); Calcium 8.4 mg/dl (8.5-10.1); Creatinine Clr Calc Pharmacy 31.8 ml/min; Est GFR (African American) 66.3; Est GFR (Non-African American) 57.2; Magnesium 1.6 mg/dl (1.8-2.4); Potassium 3.3 mmol/L (3.5-5.1)
[2019-11-21 02:46] LABS: Partial Thromboplastin Ratio > 5.0
[2019-11-21 02:47] LABS: Phosphorus 3.9 mg/dl (2.5-4.9); Troponin I 3.58 ng/ml (0-0.045)
[2019-11-21 02:50] LABS: Partial Thromboplastin Time > 139.0 Seconds (21.0-31.0)
[2019-11-21] MEDS ORDERED: POTASSIUM CHLORIDE / WTR 10 MEQ/100 ML PLCT IV STA (03:27)
[2019-11-21] MEDS ORDERED: POTASSIUM CHLORIDE 20 MEQ/15 ML UDC PO STA (03:27)
[2019-11-21] MEDS: MAGNESIUM SULFATE / D5W 1 GM/100 ML BAG IV SCH ×3 (03:39→07:46)
[2019-11-21] MEDS ORDERED: POTASSIUM CHLORIDE 20 MEQ/15 ML UDC PO ONE (03:45)
[2019-11-21 04:37] LABS: Partial Thromboplastin Ratio 2.3
[2019-11-21 06:01] LABS: Estimated Average Glucose 114 mg/dl; Hemoglobin A1C 5.6 % (4.5-5.6)
[2019-11-21] MEDS: IPRATROPIUM BROMIDE NEB SOLN 0.02% 2.5 ML VIAL INH SCH ×2 (07:10→20:01)
[2019-11-21] MEDS: FORMOTEROL 20 MCG/2 ML VIAL INH SCH ×2 (07:10→20:01)
[2019-11-21] MEDS: FLUOXETINE HCL 10 MG CAP PO SCH (07:48)
[2019-11-21] MEDS: PANTOprazole 40 MG TAB PO SCH (07:49)
[2019-11-21] MEDS: FLUOXETINE HCL 20 MG CAP PO SCH (07:49)
[2019-11-21] MEDS: INSULIN ASPART 100 UNITS/ML 3 ML PEN SC SCH ×3 (07:49→18:09)
--- NOTE | 2019-11-21 08:49 | XRay Report ---
XR chest 1V portable CLINICAL HISTORY: Hypoxia, pulmonary edema COMPARISON STUDY: Chest radiograph November 20, 2019. FINDINGS: Note is made of severe thoracolumbar spine scoliosis and old healed fracture of the proxima l left humerus. Cardiomegaly is unchanged. Interstitial thickening has improved since exam November 19, 2012. There is right basilar atelectasis with a small left pleural fusion. There is a suspected sm all left pleural effusion. IMPRESSION: 1. Mild interstitial thickening, likely reflecting pulmonary edema, improved since prior exam. 2. Small bilateral pleural effusions with bibasilar opacities. ACT 112: Negative or not required by law. Electronically signed by: Mark Mclaughlin M.D. 11/21/2019 8:47 AM
--- NOTE | 2019-11-21 08:50 | Hospitalist Progress Note ---
Date of Service November 21, 2019 Assessment & Plan (1) Respiratory failure: Pulmonary edema appears to be improved from yesterday. Cumulative ins and outs are -44 mL since admission (Frank catheter is in place) Appears to have Takotsubo cardiomyopathy with unknown etiology Successfully weaned off BiPAP last night Currently on supplemental oxygen at 2 L/min via nasal cannula Continue bronchodilators with home regimen and as needed duo nebs Outpatient follow-up with Dr. drew on discharge Chest x-ray with no evidence of consolidation or infiltrate. Kyphoscoliosis certainly contributes to her respiratory failure. (2) Non-ST elevation (NSTEMI) myocardial infarction: Previous cardiac catheterization with nonocclusive coronary artery disease Echocardiogram yesterday shows cardiomyopathy with associated elevation of troponin at 3.58 This appears to be Takotsubo cardiomyopathy Aspirin 81 mg daily Ideally she should be started on beta-gonzalo or MUKESH inhibitor but at this time her blood pressure would not tolerate Cardiology is involved. Appreciate Dr. Trujillo's input We will monitor in the intensive care unit for now (3) Acute hyponatremia: Na+ 125 on admission and now 126 Most recent Na+ 140 09/18/2019 Follow serial labs Fluid restriction of 1800 cc daily Renal function is improved Continue to monitor closely (4) Electrolyte imbalance: Magnesium 1.6 this morning * 3 g of magnesium sulfate have been ordered Potassium 3.3 this morning * Oral repletion ordered Hyponatremia * See above ICU electrolyte replacement protocol in place (5) Atelectasis of right lung: This is chronic Start incentive spirometry Small pleural effusions are chronic Continue to monitor (6) GERD without esophagitis: EGD in 2019 with no esophagitis Continue PPI Continue supportive care Outpatient follow-up with gastroenterology (7) Hyperglycemia: Most likely stress-induced hyperglycemia No history of DM HgB A1c 5.4 Continue Novolog SSI with ICU protocol (8) Restrictive lung disease: Scheduled to follow-up with Dr. Drew this month with repeat PFTs Continue home regimen of nebulizers Continue duo nebs PRN (9) Non-occlusive coronary artery disease: Cardiac catheterization with nonocclusive disease Not on aspirin or beta-gonzalo as an outpatient Elevated troponin at 1.24 now 3.58 Continue aspirin 81 mg daily Continue Heparin drip with weightbase protocol for now Follow serial enzymes and EKGs (10) Generalized anxiety disorder: Will hold benzodiazepines at this time secondary to acute respiratory failure Continue SSRIs (11) Positive colorectal cancer screening using Cologuard test: Hemoglobin is stable. We will watch closely as patient was started on heparin drip yesterday and aspirin therapy was initiated for cardiomyopathy No active bleeding, hematochezia, bright red blood per rectum, melena Was scheduled for elective colonoscopy 11/20/2019 [facility] aware that she was admitted Follow-up with gastroenterology on discharge (12) Dysphagia: Although this is listed on patient's past medical history, video swallow completed 11/14/2018 revealed no aspiration We will continue with aspiration precautions Patient denies any cough with ingestion of foods or thin liquids Continue to monitor (13) DVT prophylaxis: Heparin drip per weightbase protocol initiated Please refer to Dr. Morris's addendum for further recommendations Admission and Anticipated Discharge Date Admission Date: November 20, 2019 Subjective Attending: Dr. Morris This is an 84-year-old female that was admitted on 11/20/2019 for acute respiratory failure and elevated troponin. Echocardiogram was completed and showed a reduction in left ventricular ejection fraction to 25- 30%. Troponin initially was elevated 1.24 and continue to rise and is currently 3.58. There is no significant EKG changes but patient does have a prolonged QTC of 502 ms. Patient was successfully weaned off of BiPAP overnight and is currently on 2 L/m in of supplemental oxygen via nasal cannula. She has no fever. Echocardiogram does show new apical hypokinesis to akinesis. Patient is seen at bedside and reports that she is feeling much better than yesterday. She has no chest pain or tightness. She does have easy fatigability and dyspnea with light exertion. She has no significant wheezes. She has no fever. She has no sweats. She denies any lower extremity pain. Specifically, she has no calf pain or lower extremity edema. She has no other acute complaints. Review of Systems Review of Systems: All systems reviewed & are unremarkable except as noted in HPI & below Physical Exam Physical Exam: GENERAL : No acute distress. Pleasant positive for conversational dyspnea EYES: No icterus, gaze conjugate. Pupils equal round and reactive to light NOSE: No evidence of epistaxis. Nasal cannula is in place and secure MOUTH: No lesions or candidiasis. Mucosa is moist NECK: Supple. No appreciation of carotid bruits or stridor LUNGS: Coarse rales at the bilateral bases. No use of accessory muscles HEART: Regular, rate is in the low 90s ABDOMEN: Soft, NT, ND, BS Present EXTREMITIES: No LE edema bilaterally, pedal pulses intact and equal bilaterally. NEURO: A&OX3. Cranial nerves II through XII appear to be grossly intact without focal deficit Results & Data Results & Data ([facility]) Vital Signs (Past 12 Hours) Vital Signs Temp Pulse Pulse Resp BP Pulse Ox Pulse Ox 11/21/19 07:32 37.1 C 92 11/21/19 07:10 89 20 93 11/21/19 06:00 84 22 97/48 L 96 11/21/19 05:00 87 20 118/58 L 94 11/21/19 04:00 36.9 C 83 21 107/45 L 93 11/21/19 03:00 86 24 112/59 L 92 11/21/19 02:00 86 20 96/54 L 96 11/21/19 01:00 89 23 85/47 L 94 11/21/19 00:00 37.1 C 90 19 83/50 L 95 11/20/19 23:00 94 H 22 101/63 94 11/20/19 22:09 97 11/20/19 22:00 90 20 89/51 L 96 11/20/19 21:00 95 H 20 105/68 94 Laboratory Results 11/21/19 02:15 11/21/19 02:15 Troponin is 3.58 Diagnostic Findings Repeat chest x-ray this morning reveals persistent pulmonary edema that appears to be improved since yesterday. ECG Rhythm: normal sinus Findings: + prolonged QT (502 ms) PG Care Time/CCT Total # of Minutes Spent Total Time Spent with Patient: Total time spent is greater than 50% in coordination of care (as documented) at patient's floor/unit and/or counseling patient: 30 minutes including discussion with Dr. Trujillo Coding Level of Care Code 35076 Subseq Hosp Care Lvl 3 Diagnoses Respiratory failure J96.00 Chronicity: acute Respiratory failure complication: unspecified whether with hypoxia or hypercapnia Non-ST elevation (NSTEMI) myocardial infarction I21.4 Acute hyponatremia E87.1 Electrolyte imbalance E87.8 Atelectasis of right lung J98.11 GERD without esophagitis K21.9 Hyperglycemia R73.9 Restrictive lung disease J98.4 Non-occlusive coronary artery disease I25.10 Generalized anxiety disorder F41.1 Positive colorectal cancer screening using Cologuard test R19.5 Dysphagia R13.10 DVT prophylaxis Z29.9 Time Spent (min) 30 (1) Respiratory failure Chronicity: acute Respiratory failure complication: unspecified whether with hypoxia or hypercapnia Qualified Code(s): J96.00 - Acute respiratory failure, unspecified whether with hypoxia or hypercapnia
--- NOTE | 2019-11-21 09:04 | Critical Care Progress Note ---
Date of Service November 21, 2019 Assessment & Plan (1) Respiratory failure: Reason Critically Ill: 84y/o F w/ PMH significant nonocclusive coronary artery disease, restrictive lung disease requiring 3L NC at night only; continuing improvement following administration of of Lasix throughout the day yesterday and this morning, returned to home O2 requirement overnight, with continued daytime requirement of 2L NC. Stable for downgrade from ICU level of care following continued improvement. Neuro: - CAM ICU negative Cardiac/Vascular: - History of an STEMI, previous nonocclusive coronary artery disease - Patient not on aspirin or beta-gonzalo or lisinopril at home - Troponin on admission 1.24, up trending to 3.55 - Echo 11/19 demonstrated: - EF 25 to 30%. Severe hypokinesis/akinesis involving mid to distal segments and apex. No left ventricular hypertrophy - Mild pulmonary hypertension - Concern for target Takotsubo cardiomyopathy; will continue on heparin for 48 hours - Received total Lasix 100 mg IV over the last 30 hours - Now clinically dry, with some hypotension; this is to be expected given hibernating cardiomyopathy demonstrated with Takotsubo Respiratory: - History of restrictive lung disease - CXR consistent with pulmonary edema - Originally required BiPAP, subsequently been able to be weaned to 2L NC GI/Nutrition: - Tolerating oral intake - Start low-salt diet, with 1800 mL fluid restrict Renal/Lytes: - Hyponatremia on admission to 125, urine osmolality 487, serum osmolality 269 - Likely contributions from fluid status and vomiting from - Received 20 mg Lasix x1 this AM - Continue to monitor : - Low-salt diet, 1800 mL fluid restriction ENDO: - No previous history of diabetes or thyroid disorder HEME: - Hgb/Hct stable - continue to monitor ID: - No current concern for infectious etiology Lines/IV Access: - PIV x1 DVT Prophylaxis: - Heparin drip (2) Non-ST elevation (NSTEMI) myocardial infarction: (3) Positive colorectal cancer screening using Cologuard test: (4) Pulmonary edema: (5) Non-occlusive coronary artery disease: (6) Hyperlipidemia: (7) Hyperglycemia: (8) General weakness: Admission and Anticipated Discharge Date Admission Date: November 20, 2019 Supervising Physician Co-Signing Physician Notes Dr. Henderson was resident physician during care of patient. I separately evaluated patient for mirza portions of the history and the exam. I was present during the critical portion of medical decision making, and I discussed the case with the resident. I generally agree with the findings and plan. Patient was discussed on multidisciplinary rounds. Reviewed cardiology notes. Patient was given 20 mg Lasix for additional volume/preload reduction. Hypoxic respiratory failure is significantly improved. Of note patient did have syncopal event when standing to go to bedside commode. Believe this is secondary to aggressive diuresis. Continued heparin for another 24 hours per cardiology recommendations. Patient is stable for downgrade out of ICU. Subjective Overnight patient continued to do well was able to be weaned to 3 L nasal cannula (this is home regimen). Continue to require oxygen for throughout the day in the form of 2 L nasal cannula. States that she feels much improved from original presentation yesterday morning, feels like with the nausea and vomiting that she had she just could not consistently catch her breath. States that she was having nausea and subsequent vomiting, up to 3 times an hour every hour from initiation of second phase of colonoscopy prep until presentation in the emergency department. Review of Systems Review of Systems: All systems reviewed & are unremarkable except as noted in Subjective Physical Exam Constitutional: WD/WN, vitals as above Eyes: PERRL, conjunctivae normal, anicteric sclerae ENMT: external ear and nose normal, oropharynx normal Neck: trachea midline, no thyromegaly Respiratory: + labored breathing; no retractions and does not use accessory muscles Auscultation: + diminished lung sounds (b/l bases); no crackles, no rales and no rhonchi Cardiovascular: Rate/Rhythm: regular rhythm and + tachycardic Heart Sounds: no gallop, no murmur and no cardiac rub Vessels: normal peripheral pulses; no JVD Extremities: no pedal edema Gastrointestinal (Abdomen): normal bowel sounds, soft, nontender, no hepatosplenomegaly Musculoskeletal: Extremities: no cyanosis and no clubbing Skin: no rashes, warm and dry Neurologic: PERRL, EOMI, accommodation nl, no face palsy, no dysarthria deep tendon reflexes 2+ bilaterally and moves all extremities Psychiatric: Orientation: alert and oriented x 3 Lymphatic: no cervical lymphadenopathy Results & Data Results & Data ([facility]) Vital Signs (Past 12 Hours) Vital Signs Temp Pulse Pulse Resp BP Pulse Ox Pulse Ox 11/21/19 07:32 37.1 C 92 11/21/19 07:10 89 20 93 11/21/19 06:00 84 22 97/48 L 96 11/21/19 05:00 87 20 118/58 L 94 11/21/19 04:00 36.9 C 83 21 107/45 L 93 11/21/19 03:00 86 24 112/59 L 92 11/21/19 02:00 86 20 96/54 L 96 11/21/19 01:00 89 23 85/47 L 94 11/21/19 00:00 37.1 C 90 19 83/50 L 95 11/20/19 23:00 94 H 22 101/63 94 11/20/19 22:09 97 11/20/19 22:00 90 20 89/51 L 96 Resident Activity Tracking Resident Involvement: Resident Care Provided Care Provided: Adult Hospital Medicine (Critical Care) (1) Pulmonary edema Chronicity: acute Qualified Code(s): J81.0 - Acute pulmonary edema (2) Respiratory failure Chronicity: acute Respiratory failure complication: unspecified whether with hypoxia or hypercapnia Qualified Code(s): J96.00 - Acute respiratory failure, unspecified whether with hypoxia or hypercapnia
--- NOTE | 2019-11-21 09:07 | Cardiology Consultation ---
Date of Consultation Consultation was discussed with the jde developer service as well as the nursing. Patient was prepping for colonoscopy. She noted with a second prep at about 1:00 in the morning she had profound vomiting. She notes she threw up at least 3 times every hour throughout the night. Finally she got to the point where she was pale and white she was markedly short of breath and came to the hospital. She did receive IV fluids in the ER which only made her respiratory status worse. Her initial troponin was positive. She was admitted to the ICU. Echocardiogram is most consistent with Takasubo's cardiomyopathy. She is also found to be hyponatremic, hypokalemic, and hypomagnesemic. She notes that she was prepping for colonoscopy.At approximately 1:00 in the morning after taking the second part of her prep she had profound vomiting 3 times every hour throughout the evening. She suddenly had onset of significant shortness of breath. She felt Lightheaded and weak.She never had chest pain or chest pressure. She normally has shortness of breath. With a flight of stairs she will stop 2-3 times.Even walking across the floor in her house she gets shortness of breath. She denies any chest pain or chest pressure in the days prior to this episode nor did she have any chest discomfort this morning. She has chronically low blood pressure and notes some orthostatic symptoms on a regular basis. She has any presyncope or syncope. She has any palpitations or fluttering.Her appetite and weight have been stable she has been dealing with constipation issues since July. This morning she notes she feels dramatically better. She still is short of breath talking in sentences. She has no lower extremity edema she denies any chest pain.She does have a cough which is new for her. Her is been doing the grocery shopping they denied any sick contacts and he is not sick at home either she denies any fevers or chills in the days prior to her hospitalization nor has she had any loss of taste or smell. The rest of complete review of systems is negative November 21, 2019 History of Present Illness Attending Physician: Benito Morris Allergies Allergy/AdvReac Type Severity Reaction Status Date / Time prednisone Allergy Intermediate MUSCLE Verified 11/20/19 08:25 CONTROL [id number]-Utf Reductase Allergy Intermediate MUSCULAR Verified 11/20/19 08:25 Inhibitor ISSUES methylprednisolone Allergy Mild HOT FACE; Verified 11/20/19 08:25 DRY HEAVES; FACIAL MUSCLES TWITCHING ceftriaxone Allergy Unknown Hives Unverified 11/20/19 08:25 gabapentin [From Neurontin] Allergy Unknown Unknown Unverified 11/20/19 08:25 nitrofurantoin Allergy Unknown Unknown Unverified 11/20/19 08:25 valdecoxib [From Bextra] AdvReac Intermediate increased Unverified 11/20/19 08:25 BP Home Medications Home Medications Medication Instructions Recorded Confirmed Type biotin 1,000 mcg chewable tablet 2,000 mcg PO DAILY tab 10/04/18 11/20/19 History cholecalciferol (vitamin D3) 25 1,000 units PO QPM 10/04/18 11/20/19 History mcg (1,000 unit) capsule glucosamine-chondroitin 500 mg-400 1 cap PO QPM 10/04/18 11/20/19 History mg capsule turmeric 400 mg capsule 400 mg PO QPM cap 10/04/18 11/20/19 History vitamin B comp and C no.3 15 mg-10 1 cap PO QPM 10/04/18 11/20/19 History mg-50 mg-5 mg-300 mg capsule albuterol sulfate [Ventolin HFA] 2 puff INHALATION Q4 PRN 12/05/18 11/20/19 History calcium carbonate [Calcium 500] 500 mg PO QPM 12/05/18 11/20/19 History omega 4-rew-mmf-fish oil [Fish Oil] 1 cap PO QPM 12/05/18 11/20/19 History polyethylene glycol 3350 [Miralax] 17 gm PO BID #30 ea 09/18/19 11/20/19 Rx fluoxetine 10 mg capsule 10 mg PO QAM #90 cap 10/07/19 11/20/19 Rx fluoxetine 20 mg capsule 20 mg PO QAM #90 cap 10/07/19 11/20/19 Rx lactulose 10 gram/15 mL oral 20 gm PO BID #946 ml 10/10/19 11/20/19 Rx solution arformoterol 15 mcg/2 mL solution 2 ml INHALATION BID #60 vial 11/13/19 11/20/19 Rx for nebulization budesonide 0.25 mg/2 mL suspension 2 ml INHALATION BID #60 vial 11/13/19 11/20/19 Rx for nebulization ipratropium bromide 0.02 % 0.5 mg INHALATION BID #60 vial 11/13/19 11/20/19 Rx solution for inhalation alprazolam 0.5 mg tablet 0.5 mg PO HS #30 tab 11/14/19 11/20/19 Rx omeprazole 20 mg capsule,delayed 20 mg PO DAILY #90 cap 11/14/19 11/20/19 Rx release Patient History Medical History Abnormal CT scan Acute on chronic diastolic (congestive) heart failure Acute respiratory failure with hypoxia Admitted to intensive care unit Arthralgia of multiple sites Arthritis of left knee Asthma inhalers/nebulizer daily/prn Atypical chest pain Cervical arthritis Cervical myelopathy Cervicalgia Chronic obstructive pulmonary disease Depression Encounter for pre-operative examination Eustachian tube dysfunction General weakness Generalized anxiety disorder GERD without esophagitis Hearing loss Hyperlipidemia no meds Hypokalemia Hypotension MCTD (mixed connective tissue disease) Multifocal pneumonia Muscle spasm Muscle weakness-general Myopathy Non-occlusive coronary artery disease Non-ST elevated myocardial infarction (non-STEMI) On home oxygen therapy 2L via N/C qpm and HS Oral thrush Osteoarthritis Osteopenia Polyneuropathy Positive MICHAEL (antinuclear antibody) Positive colorectal cancer screening using Cologuard test Restrictive lung disease Scoliosis Sepsis Throat irritation Trapezius muscle spasm Urinary incontinence Surgical History H/O foot surgery History of appendectomy History of arthroscopy of left knee History of bilateral cataract extraction History of biopsy right thigh--showed MCTD History of bronchoscopy x2 History of cardiac cath 04/2017 no stents History of colonoscopy History of thoracentesis History of tonsillectomy and adenoidectomy History of total hysterectomy with bilateral salpingo-oophorectomy (BSO) History of wisdom tooth extraction Family History Mother Alzheimer disease Brother Hx of CABG Depression Father Congestive heart failure Coronary heart disease Hearing loss Unknown Myocardial infarction Other No family history of adverse response to anesthesia Denies family history of Ovarian cancer Prostate cancer Breast cancer Colorectal cancer Social History Smoking Status: Never smoker Second Hand Exposure: No; Do You Dip or Chew Tobacco: No; Tobacco Cessation Education Requested by Patient: No Hx Alcohol Use: No Hx Substance Use: No Preferred Language: Tunisian Communication Ability: Effective Visual Impairment: Limited Hearing Ability: Use of Hearing Aid Ui Ux Developer Required: No Beliefs That Will Affect Care: None marital status: Current Living Situation: Spouse current occupational status: retired How many Children do You have: 5 Other Information That Helps Us Care for You: No Feels Safe at Home: Yes Safety Concerns: Feels Safe At This Time Childhood Exposure to Second-Hand Smoke: Yes caffeine: Yes Dental Care, Regularly: Yes Physical Activity Frequency: 3-4 Times per Week Seatbelt Use: always Sunscreen Use: Yes Results & Data ([facility]) Vital Signs (Past 12 Hours) Vital Signs Temp Pulse Pulse Resp BP Pulse Ox Pulse Ox 11/21/19 07:32 37.1 C 92 11/21/19 07:10 89 20 93 11/21/19 06:00 84 22 97/48 L 96 11/21/19 05:00 87 20 118/58 L 94 11/21/19 04:00 36.9 C 83 21 107/45 L 93 11/21/19 03:00 86 24 112/59 L 92 11/21/19 02:00 86 20 96/54 L 96 11/21/19 01:00 89 23 85/47 L 94 11/21/19 00:00 37.1 C 90 19 83/50 L 95 11/20/19 23:00 94 H 22 101/63 94 11/20/19 22:09 97 11/20/19 22:00 90 20 89/51 L 96 11/20/19 21:00 95 H 20 105/68 94 PHYSICAL EXAMINATION: GENERAL: She is awake alert and oriented x3 she is short of breath talking in sentences but at rest appears comfortable H EENT: Mildly reduced carotid upstrokes no evidence of carotid bruits RESPIRATORY: Significantly decreased breath sounds on the right the left lung correia were clear without rales rhonchi or wheezing Heart: Regular rate and rhythm (Tachycardic) no appreciable murmurs rubs or gallops GASTROINTESTINAL: Abdomen is soft, nontender, mildly distended. Positive bowel sounds. EXTREMITIES: No clubbing, cyanosis, or edema. Psychiatric. Her affect appeared appropriate Neuro: She is awake moving extremities Catheterization in 2018 Findings: LM -angiographically normal LAD -moderate caliber vessel, angiographically normal Circumflex -moderate caliber vessel, tortuous, angiographically normal and wraps around the apex. Gives off a moderate caliber first diagonal with 30-40% ostial stenosis. RCA -moderate caliber vessel, dominant with 30% mid segment disease RA 8 RV 40/8 PA 39/14/26 LV 10 IMPRESSION: 1. Takasubo's cardiomyopathy 2. Mild elevation of troponin,Secondary to #1. No evidence of acute coronary syndrome 3. EKG with mild QT prolongation secondary to hypokalemia, no acute ST-T changes 4. History of normal LV function in 2018 now with severe LV dysfunction In a pattern consistent with #1 5. History of hyperlipidemia with myalgias And weakness from her abdomen to her lower extremities on statins 6. Hypoxic respiratory failure requiring intubation on 03/04/2018, 7. Severe restrictive lung disease secondary to scoliosis 8. Cardiac catheterization 2018 with Mild epicardial coronary artery disease 9. Hyponatremia, hypokalemia, and hypomagnesemia all secondary to her prep for her colonoscopy with profound vomiting At this point it is supportive care. There is no room to give her beta-blockers given her relatively low blood pressure.Hopefully as her LV function continues to improve over the next 3 to 7 days her blood pressure will come up and we can add appropriate guideline Directed medical therapy. Based on her carotid upstroke it would suggest that her LV function is already improving from yesterday. I would continue with her heparin in the short-term on the outside chance that she is at risk for forming an LV thrombus given the severity of her LV dysfunction but would only continue this for 48 hours. She should remain on aspirin. She cannot be on statin therapy due to a history of profound myalgias. Her volume status at this point is equal with regards to I's and O's.If she were to be acutely short of breath a small dose of Lasix should be considered. Continue to replete her electrolytes. She is on a 1800 Cc fluid restriction. Her potassium and magnesium are being repleted. Her QT should improve as her potassium was repleted. This was all discussed with the jde developer service.
[2019-11-21] MEDS: ASPIRIN 81 MG ECTAB PO SCH (09:08)
[2019-11-21] MEDS: HEPARIN SODIUM/DEXTROSE 25,000 UNITS/500 ML BAG IV SCH ×2 (09:08→18:11)
--- NOTE | 2019-11-21 09:54 | Billing Data ---
Date of Service November 21, 2019 Coding Level of Care Code 66140 Subseq Hosp Care Lvl 3
[2019-11-21] MEDS ORDERED: FUROSEMIDE 20 MG in SYRINGE 0 ML IV ONE (10:00)
[2019-11-21 11:24] LABS: Partial Thromboplastin Time 82.6 Seconds (21.0-31.0)
[2019-11-21 18:24] LABS: Partial Thromboplastin Ratio 1.9
[2019-11-21 18:36] LABS: Partial Thromboplastin Time 54.2 Seconds (21.0-31.0)
[2019-11-22] MEDS: INSULIN ASPART 100 UNITS/ML 3 ML PEN SC SCH ×5 (00:15→20:33)
[2019-11-22] MEDS: CALCIUM CARBONATE 1250MG TAB PO SCH ×2 (00:17→20:09)
[2019-11-22] MEDS: CHOLECALCIFEROL 1,000 UNITS 25 MCG TAB PO SCH ×2 (00:17→20:10)
[2019-11-22 05:52] LABS: Basophils # (auto) 0.01 K/uL (0-0.2); Basophils % (auto) 0.1 %; Eosinophils # (auto) 0.07 K/uL (0-0.5); Eosinophils % (auto) 0.8 %; Hematocrit (blood only) 33.5 % (37-47); Hemoglobin 11.6 g/dL (12.0-16.0); Immature Granulocytes # (auto) 0.02 K/uL (0.00-0.02); Immature Granulocytes % (auto) 0.2 %; Lymphocytes % (auto) 23.3 %; Mean Corpuscular Hemoglobin 29.7 pg (25-34); Mean Corpuscular Hgb Conc 34.6 g/dL (32-36); Mean Corpuscular Volume 85.7 fL (80-100); Mean Platelet Volume 9.4 fL (7.4-10.4); Monocytes # (auto) 1.35 K/uL (0.11-0.59); Neutrophils # (auto) 5.48 K/uL (1.4-6.5); Neutrophils % (auto) 60.6 %; Platelet Count 240 K/uL (130-400); RDW Coefficient of Variation 13.8 % (11.5-14.5); RDW Standard Deviation 42.8 fL (36.4-46.3); Red Blood Count 3.91 M/uL (4.2-5.4); White Blood Count 9.03 K/uL (4.8-10.8)
--- NOTE | 2019-11-22 06:00 | Electrocardiogram Report ---
Test Reason : Blood Pressure : / mmHG Vent. Rate : 102 BPM Atrial Rate : 102 BPM P-R Int : 170 ms QRS Dur : 092 ms QT Int : 400 ms P-R-T Axes : 084 088 088 degrees QTc Int : 521 ms Poor data quality, interpretation may be adversely affected Sinus tachycardia Incomplete right bundle branch block Septal infarct , age undetermined Nonspecific T wave abnormality Prolonged QT Abnormal ECG When compared with ECG of 18-SEP-2019 10:42, Septal infarct is now Present T wave amplitude has increased in Anterior leads Nonspecific T wave abnormality now evident in Lateral leads QT has lengthened Confirmed by Arnoldo Lopez ([id number]) on 11/22/2019 6:00:00 AM Referred By: REFERRED SELF Confirmed By:Arnoldo Lopez
[2019-11-22 06:15] LABS: Partial Thromboplastin Ratio 2.2
[2019-11-22 06:17] LABS: BUN Creatinine Ratio 24.8 (10-20); Calcium 8.3 mg/dl (8.5-10.1); Creatinine Clr Calc Pharmacy 39.1 ml/min; Est GFR (African American) 76.1; Est GFR (Non-African American) 65.7; Magnesium 2.5 mg/dl (1.8-2.4); Potassium 3.2 mmol/L (3.5-5.1)
[2019-11-22 06:20] LABS: Phosphorus 2.7 mg/dl (2.5-4.9)
[2019-11-22 06:21] LABS: Partial Thromboplastin Time 62.4 Seconds (21.0-31.0)
--- NOTE | 2019-11-22 06:34 | Electrocardiogram Report ---
Test Reason : Blood Pressure : / mmHG Vent. Rate : 087 BPM Atrial Rate : 087 BPM P-R Int : 156 ms QRS Dur : 082 ms QT Int : 418 ms P-R-T Axes : 062 088 130 degrees QTc Int : 502 ms Normal sinus rhythm Prolonged QT T wave abnormality, consider lateral ischemia Cannot rule out Septal infarct Abnormal ECG When compared with ECG of 20-NOV-2019 08:08, T wave inversion now evident in Lateral leads Confirmed by Arnoldo Lopez ([id number]) on 11/22/2019 6:34:05 AM Referred By: REFERRED SELF Confirmed By:Arnoldo Lopez
[2019-11-22] MEDS: IPRATROPIUM BROMIDE NEB SOLN 0.02% 2.5 ML VIAL INH SCH ×2 (07:01→19:27)
[2019-11-22] MEDS: FORMOTEROL 20 MCG/2 ML VIAL INH SCH ×2 (07:19→19:27)
[2019-11-22] MEDS ORDERED: POTASSIUM CHLORIDE 20 MEQ TABCR PO STA (07:24)
[2019-11-22] MEDS: ONDANSETRON INJ 2 MG/ML 2 ML VIAL IV PRN ×2 (09:03→17:36)
[2019-11-22] MEDS: POTASSIUM CHLORIDE / WTR 10 MEQ/100 ML PLCT IV SCH ×3 (09:06→11:04)
[2019-11-22] MEDS: PANTOprazole 40 MG TAB PO SCH (09:40)
[2019-11-22] MEDS: FLUOXETINE HCL 20 MG CAP PO SCH (09:40)
[2019-11-22] MEDS: ASPIRIN 81 MG ECTAB PO SCH (09:41)
[2019-11-22] MEDS: FLUOXETINE HCL 10 MG CAP PO SCH (09:41)
--- NOTE | 2019-11-22 10:11 | Cardiology Progress Note ---
Date of Service November 22, 2019 Assessment & Plan Admission and Anticipated Discharge Date Admission Date: November 20, 2019 Subjective weak and tired. No CP or SOB, No Palps, no dizziness sitting up in bed, no edema, no N/V Results & Data ([facility]) Vital Signs (Past 12 Hours) Vital Signs Temp Pulse Pulse Resp BP Pulse Ox 11/22/19 07:35 37.0 C 87 18 91/56 L 97 11/22/19 07:21 101 H 22 90 11/22/19 03:36 37.0 C 81 17 91/52 L 97 11/21/19 23:35 37.1 C 88 18 99/52 L 95 PHYSICAL EXAMINATION: GENERAL: She is awake alert and oriented x3 she is short of breath talking in sentences but at rest appears comfortable H EENT: Normal carotid upstrokes no evidence of carotid bruits RESPIRATORY: Significantly decreased breath sounds on the right the left lung correia were clear without rales rhonchi or wheezing Heart: Regular rate and rhythm no appreciable murmurs rubs or gallops GASTROINTESTINAL: Abdomen is soft, nontender, mildly distended. Positive bowel sounds. EXTREMITIES: No clubbing, cyanosis, or edema. Psychiatric. Her affect appeared appropriate Neuro: She is awake moving extremities Catheterization in 2018 Findings: LM -angiographically normal LAD -moderate caliber vessel, angiographically normal Circumflex -moderate caliber vessel, tortuous, angiographically normal and wraps around the apex. Gives off a moderate caliber first diagonal with 30-40% ostial stenosis. RCA -moderate caliber vessel, dominant with 30% mid segment disease RA 8 RV 40/8 PA 39/14/26 LV 10 IMPRESSION: 1. Takasubo's cardiomyopathy 2. Mild elevation of troponin,Secondary to #1. No evidence of acute coronary syndrome 3. EKG with mild QT prolongation secondary to hypokalemia, no acute ST-T changes 4. History of normal LV function in 2018 now with severe LV dysfunction In a pattern consistent with #1 5. History of hyperlipidemia with myalgias And weakness from her abdomen to her lower extremities on statins 6. Hypoxic respiratory failure requiring intubation on 03/04/2018, 7. Severe restrictive lung disease secondary to scoliosis 8. Cardiac catheterization 2018 with Mild epicardial coronary artery disease 9. Hyponatremia, hypokalemia, and hypomagnesemia all secondary to her prep for her colonoscopy with profound vomiting Pulse feels much stronger today, HR slower and BP 120 mm/hg in room. NA+ slowly improving Repleting K+ and Mg ok Stop Heparin at 48 hours Low Dose BB tomorrow if BP allows Fluid restriction CXR yesterday better Discussed with daughter via Face time will s/o to [facility] cardiology for holiday weekend
[2019-11-22] MEDS: HEPARIN SODIUM/DEXTROSE 25,000 UNITS/500 ML BAG IV SCH (11:34)
--- NOTE | 2019-11-22 12:30 | XRay Report ---
XR KUB/Abdomen 1 view CLINICAL HISTORY: N/V, scoliosis, high pitched bowel sounds COMPARISON STUDY: 10/01/2019 FINDINGS: There is a marked thoracolumbar scoliosis. There is blunting of the right lateral costophre torin angle. There is no pathologic bowel dilatation. There is no conventional radiographic evidence of bowel obstruction. A catheter projects over the perineal region. IMPRESSION: Severe scoliosis. Nonobstructive bowel gas pattern ACT 112: Negative or not required by law. Electronically signed by: Kt Painter M.D. 11/22/2019 12:28 PM
--- NOTE | 2019-11-22 12:47 | Pharmacy Report ---
Pharmacy Glycemic Sign Off Nt - Date of Service November 22, 2019 - Assessment & Plan ASSESSMENT: * Pharmacy was consulted by Renan Gudino on 11/19 for glycemic control and to write orders per [facility] inpatient glycemic control protocol. * A1c 5.6 % on 11-21-19 * Major changes made by pharmacy to antidiabetic regimen include: * Novolog with correctional coverage only. Patient experienced initial and brief stress induced hyperglycemia that quickly resolved. * Patient has been receiving/requiring 0 units of insulin per day for adequate glycemic control (Received 4 units of novolog day of admission) * BSGs ranging 112- 176 mg/dl * Regimen has only required minor adjustments over the past 48hrs to achieve this level of control * Do not anticipate further changes in patient status that would quickly deteriorate glycemic control (i.e. patient to be NPO for upcoming procedure, steroids tapering, starting tube feedings, etc). * Please see recommendations for outpatient antidiabetic regimen below. PLAN FOR INPATIENT GLYCEMIC CONTROL: No changes needed to current regimen. * No basal * Continue NovoLog per scale ACHS/Q6hrs while NPO * Goal range = 120 - 150 mg/dl * CF = 40 mg/dl/unit * CR = none * Pharmacy is signing off of glycemic consult and will no longer be making adjustments to inpatient regimen. Please feel free to re-consult if needed. Thank you.
--- NOTE | 2019-11-22 13:02 | XRay Report ---
XR chest 1V portable CLINICAL HISTORY: Hemoptysis COMPARISON STUDY: Chest CT July 10, 2018. Chest radiograph November 21, 2019. FINDINGS: Evaluation is made difficult by severe thoracolumbar spine scoliosis. Small right pleural e ffusion is noted. There is no pneumothorax. Pulmonary edema has slightly improved. Left basilar opaci ty has improved. Cardiomediastinal silhouette is stable. IMPRESSION: 1. Interval improvement in pulmonary edema. 2. Persistent small right pleural effusion with right basilar opacity that could reflect atelectasis or consolidation. Radiographic follow-up is recommended. 3. Interval improvement in left basilar opacity. ACT 112: Negative or not required by law. Electronically signed by: Mark Mclaughlin M.D. 11/22/2019 1:01 PM
--- NOTE | 2019-11-22 13:06 | Hospitalist Progress Note ---
Date of Service November 22, 2019 Assessment & Plan (1) Respiratory failure: Pulmonary edema appears to be improved But there is some blunting on the chest x-ray in the right costophrenic angle Cumulative ins and outs are -99.4 mL since admission (Frank catheter is in place) Appears to have Takotsubo cardiomyopathy with unknown etiology Some hemoptysis yesterday which was very scant Chest x-ray today shows possibility of consolidation of the right costophrenic angle. This is most likely atelectasis secondary to chronic pleural effusion and scoliosis * We will empirically start azithromycin * No fluoroquinolones secondary to prolonged QTC Currently on supplemental oxygen at 2 L/min via nasal cannula * Wean off as tolerated after today Continue bronchodilators with home regimen and as needed duo nebs Outpatient follow-up with Dr. Drew scheduled for 12/03/2019 Kyphoscoliosis certainly contributes to her respiratory failure. (2) Non-ST elevation (NSTEMI) myocardial infarction: Previous cardiac catheterization with nonocclusive coronary artery disease Echocardiogram 11/20/2019 shows cardiomyopathy with associated elevation of troponin at 3.58 This appears to be Takotsubo cardiomyopathy Aspirin 81 mg daily started Ideally she should be started on beta-gonzalo or MUKESH inhibitor but at this time her blood pressure would not tolerate Cardiology is involved. Appreciate Dr. Trujillo's input Continue to monitor in telemetry (3) Acute hyponatremia: Na+ 125 on admission 126, 127 Most recent Na+ 140 09/18/2019 Follow serial labs Fluid restriction of 1800 cc daily Renal function is improved Continue to monitor closely (4) Electrolyte imbalance: Magnesium Resolved and now 2.5 Potassium 3.2 * 40 mEqOral repletion ordered * 30 mEq via K rider also ordered Hyponatremia * See above (5) Atelectasis of right lung: This is chronic No fever Continue incentive spirometry Small pleural effusions are chronic Concerned that the chronic atelectasis and chronic pleural effusion could be masking consolidation. Procalcitonin is pending. (6) GERD without esophagitis: EGD in 2019 with no esophagitis Continue PPI Continue supportive care Outpatient follow-up with gastroenterology (7) Hyperglycemia: Most likely stress-induced hyperglycemia No history of DM HgB A1c 5.4 Continue Novolog SSI with ICU protocol (8) Restrictive lung disease: Scheduled to follow-up with Dr. Drew 12/03/2019 with repeat PFTs Continue home regimen of nebulizers Continue duo nebs PRN (9) Non-occlusive coronary artery disease: Cardiac catheterization with nonocclusive disease Not on aspirin or beta-gonzalo as an outpatient Elevated troponin peaked at 3.58 now trending downward Continue aspirin 81 mg daily Heparin drip was discontinued after 48 hours (10) Generalized anxiety disorder: Will restart home alprazolam Continue SSRIs (11) Positive colorectal cancer screening using Cologuard test: Hemoglobin 11.6. No active bleeding, hematochezia, bright red blood per rectum, melena Was scheduled for elective colonoscopy 11/20/2019 [facility] aware that she was admitted Follow-up with gastroenterology on discharge (12) Dysphagia: Although this is listed on patient's past medical history, video swallow completed 11/14/2018 revealed no aspiration We will continue with aspiration precautions Patient denies any cough with ingestion of foods or thin liquids Continue to monitor (13) DVT prophylaxis: Heparin drip discontinued Start Heparin 5000 units Sub q every 12 hours OOB to chair Please refer to Dr. Arcos's addendum for further recommendations Admission and Anticipated Discharge Date Admission Date: November 20, 2019 Subjective Attending: Dr. Arcos Patient seen and examined at bedside with daughter Padmini present.Patient says that she feels better but continues to have easy fatigability.No apparent arrhythmias or ectopy to the patient.She denies fever or chills.She does have a mild cough and developed some hemoptysis with very scant blood-streaked sputum.No significant clotting of sputum.She had some nausea this morning but that is resolved.Overall she feels as though she is doing well. Review of Systems Review of Systems: All systems reviewed & are unremarkable except as noted in HPI & below Physical Exam Physical Exam: GENERAL : No acute distress EYES: No icterus, gaze conjugate NOSE: No evidence of epistaxis MOUTH: No lesions or candidiasis NECK: Supple LUNGS: Fine rales at the bilateral bases. No bronchospasm. No rhonchi. HEART: Regular, rate controlled ABDOMEN: Soft, NT, ND, BS Present but with some high-pitched sounds in the sigm oid region EXTREMITIES: No LE edema, pedal pulses intact NEURO: A&OX3 Results & Data Results & Data ([facility]) Vital Signs (Past 12 Hours) Vital Signs Temp Pulse Pulse Pulse Resp BP Pulse Ox 11/22/19 11:12 36.8 C 89 18 108/60 98 11/22/19 09:00 88 11/22/19 07:35 37.0 C 87 18 91/56 L 97 11/22/19 07:21 101 H 22 90 11/22/19 03:36 37.0 C 81 17 91/52 L 97 Laboratory Results 11/22/19 05:21 11/22/19 05:21 Laboratory Tests 11/20/19 11/20/19 11/21/19 07:13 16:58 02:15 Troponin I 1.240 H* 3.550 H* 3.580 H* 11/21/19 10:27 Troponin I 2.060 H* Laboratory Tests 11/20/19 11/20/19 11/21/19 07:13 16:58 02:15 Magnesium 1.6 L Troponin I 1.240 H* 3.550 H* 3.580 H* 11/21/19 11/22/19 10:27 05:21 Magnesium 2.5 H Troponin I 2.060 H* Diagnostic Findings XR KUB/Abdomen 1 view CLINICAL HISTORY: N/V, scoliosis, high pitched bowel sounds COMPARISON STUDY: 10/01/2019 FINDINGS: There is a marked thoracolumbar scoliosis. There is blunting of the right lateral costophrenic angle. There is no pathologic bowel dilatation. There is no conventional radiographic evidence of bowel obstruction. A catheter projects over the perineal region. IMPRESSION: Severe scoliosis. Nonobstructive bowel gas pattern ACT 112: Negative or not required by law. Electronically signed by: Kt Painter M.D. 11/22/2019 12:28 PM XR chest 1V portable CLINICAL HISTORY: Hemoptysis COMPARISON STUDY: Chest CT July 10, 2018. Chest radiograph November 21, 2019. FINDINGS: Evaluation is made difficult by severe thoracolumbar spine scoliosis. Small right pleural effusion is noted. There is no pneumothorax. Pulmonary edema has slightly improved. Left basilar opacity has improved. Cardiomediastinal silhouette is stable. IMPRESSION: 1. Interval improvement in pulmonary edema. 2. Persistent small right pleural effusion with right basilar opacity that could reflect atelectasis or consolidation. Radiographic follow-up is recommended. 3. Interval improvement in left basilar opacity. ACT 112: Negative or not required by law. Electronically signed by: Mark Mclaughlin M.D. 11/22/2019 1:01 PM PG Care Time/CCT Total # of Minutes Spent Total Time Spent with Patient: Total time spent is greater than 50% in coordination of care (as documented) at patient's floor/unit and/or counseling patient:40 minutes including discussion with daughter and other providers Coding Level of Care Code 40643 Subseq Hosp Care Lvl 3 Diagnoses Respiratory failure J96.00 Chronicity: acute Respiratory failure complication: unspecified whether with hypoxia or hypercapnia Non-ST elevation (NSTEMI) myocardial infarction I21.4 Acute hyponatremia E87.1 Electrolyte imbalance E87.8 Atelectasis of right lung J98.11 GERD without esophagitis K21.9 Hyperglycemia R73.9 Restrictive lung disease J98.4 Non-occlusive coronary artery disease I25.10 Generalized anxiety disorder F41.1 Positive colorectal cancer screening using Cologuard test R19.5 Dysphagia R13.10 DVT prophylaxis Z29.9 (1) Respiratory failure Chronicity: acute Respiratory failure complication: unspecified whether with hypoxia or hypercapnia Qualified Code(s): J96.00 - Acute respiratory failure, unspecified whether with hypoxia or hypercapnia
[2019-11-22] MEDS ORDERED: AZITHROMYCIN 250 MG TAB PO ONE (13:44)
[2019-11-22] MEDS: ALPRAZolam 0.5 MG TABLET PO SCH (20:19)
[2019-11-22] MEDS: HEPARIN SOD 5,000 UNIT/0.5 ML VIAL SQ SCH (22:53)
[2019-11-23] MEDS: FORMOTEROL 20 MCG/2 ML VIAL INH SCH ×2 (07:11→19:32)
[2019-11-23] MEDS: IPRATROPIUM BROMIDE NEB SOLN 0.02% 2.5 ML VIAL INH SCH ×2 (07:11→19:32)
[2019-11-23 07:23] LABS: Basophils # (auto) 0.01 K/uL (0-0.2); Basophils % (auto) 0.1 %; Eosinophils % (auto) 1.4 %; Hemoglobin 11.5 g/dL (12.0-16.0); Immature Granulocytes # (auto) 0.01 K/uL (0.00-0.02); Immature Granulocytes % (auto) 0.1 %; Lymphocytes # (auto) 1.65 K/uL (1.2-3.4); Lymphocytes % (auto) 23.6 %; Mean Corpuscular Hgb Conc 33.8 g/dL (32-36); Mean Corpuscular Volume 88.8 fL (80-100); Mean Platelet Volume 9.3 fL (7.4-10.4); Monocytes # (auto) 1.04 K/uL (0.11-0.59); Monocytes % (auto) 14.9 %; Neutrophils # (auto) 4.19 K/uL (1.4-6.5); Neutrophils % (auto) 59.9 %; Platelet Count 230 K/uL (130-400); RDW Coefficient of Variation 14.2 % (11.5-14.5); RDW Standard Deviation 46.4 fL (36.4-46.3); Red Blood Count 3.83 M/uL (4.2-5.4)
[2019-11-23] MEDS: HEPARIN SOD 5,000 UNIT/0.5 ML VIAL SQ SCH ×3 (07:44→20:04)
[2019-11-23] MEDS: INSULIN ASPART 100 UNITS/ML 3 ML PEN SC SCH ×4 (07:44→20:16)
[2019-11-23] MEDS: PANTOprazole 40 MG TAB PO SCH (07:47)
[2019-11-23] MEDS: FLUOXETINE HCL 10 MG CAP PO SCH (07:47)
[2019-11-23] MEDS: FLUOXETINE HCL 20 MG CAP PO SCH (07:48)
[2019-11-23] MEDS: ASPIRIN 81 MG ECTAB PO SCH (07:48)
[2019-11-23 07:57] LABS: BUN Creatinine Ratio 19.2 (10-20); Calcium 9.1 mg/dl (8.5-10.1); Creatinine Clr Calc Pharmacy 44.1 ml/min; Est GFR (African American) 87.4; Est GFR (Non-African American) 75.4; Magnesium 2.5 mg/dl (1.8-2.4); Phosphorus 2.7 mg/dl (2.5-4.9)
[2019-11-23 08:57] LABS: Potassium 4.5 mmol/L (3.5-5.1)
[2019-11-23] MEDS ORDERED: AZITHROMYCIN 250 MG TAB PO SCH (09:00)
--- NOTE | 2019-11-23 12:56 | Hospitalist Progress Note ---
Date of Service November 23, 2019 Assessment & Plan (1) Takotsubo cardiomyopathy: Echo on 11/19 with EF 25-30%; consistent with Takasubo's cardiomyopathy. No known inciting event. - Will start low-dose beta-gonzalo today per cardiology. - Appears euvolemic on exam today. (2) Respiratory failure: Due to pulmonary edema - Improved today. - Wean O2 as tolerated after today - Continue bronchodilators with home regimen and as needed duo nebs - Outpatient follow-up with Dr. Drew scheduled for 12/03/2019 - Kyphoscoliosis certainly contributes to her respiratory failure. - On 11/22, started short course of azithromycin. Last dose will be 11/24/2019. (3) Non-ST elevation (NSTEMI) myocardial infarction: Previous cardiac catheterization in 2018 with nonocclusive coronary artery disease. Echocardiogram on 11/20/2019 shows cardiomyopathy with associated elevation of troponin at 3.58. - Aspirin 81 mg daily started - Started beta-gonzalo on 11/22; can start ACEi as outpatient as BP tolerates. - Continue to monitor in telemetry (4) Acute hyponatremia: Na+ 125 on admission 126, 127. Most recent Na+ 140 09/18/2019. - Fluid restriction of 1800 cc daily. - Improving today. (5) Atelectasis of right lung: This is chronic. No fever. Procalcitonin negative. - Started on azithromycin (6) GERD without esophagitis: EGD in 2019 with no esophagitis. - Continue PPI - Continue supportive care - Outpatient follow-up with gastroenterology (7) Restrictive lung disease: Scheduled to follow-up with Dr. Drew 12/03/2019 with repeat PFTs. - Continue home regimen of nebulizers - Continue duoNebs PRN (8) Non-occlusive coronary artery disease: Cardiac catheterization with nonocclusive disease in 2018. - Elevated troponin peaked at 3.58 now trending downward; heparin drip was discontinued after 48 hours. - Continue aspirin 81 mg daily (9) Generalized anxiety disorder: Well-controlled today. - Continue home alprazolam & SSRI (10) Positive colorectal cancer screening using Cologuard test: All of this was kicked off due to prep for colonoscopy. No active bleeding, hematochezia, bright red blood per rectum, melena. - Was scheduled for elective colonoscopy 11/20/2019. - [facility] aware that she was admitted. - Follow-up with gastroenterology on discharge. (11) DVT prophylaxis: Heparin 5,000 units SQ Q12h Admission and Anticipated Discharge Date Admission Date: November 20, 2019 Subjective Getting stronger each day. No shortness of breath today. Reports no fevers/chills, chest pain, shortness of breath, abdominal pain, nausea, or vomiting. Physical Exam Constitutional: WD/WN, vitals as above Eyes: EOM intact bilaterally; no conjunctival abnormality ENMT: external ear and nose normal, oropharynx normal Neck: trachea midline, no thyromegaly normal visual inspection Respiratory: normal respiratory effort, lungs clear to auscultation no respiratory distress Cardiovascular: RRR, no murmur, no edema Vessels: no JVD Extremities: no edema Gastrointestinal (Abdomen): Inspection/Auscultation: abdomen normal to inspection; abdomen not distended Musculoskeletal: no cyanosis or clubbing, extremities motor strength 5/5 Skin: no rashes, warm and dry Neurologic: moves all extremities and awake Psychiatric: Orientation: alert, oriented to person and cooperative Results & Data Results & Data ([facility]) Vital Signs (Past 12 Hours) Vital Signs Temp Pulse Resp BP Pulse Ox 11/23/19 11:58 36.8 C 96 H 19 103/60 100 11/23/19 07:33 36.8 C 80 18 99/49 L 98 11/23/19 07:14 84 18 97 11/23/19 04:04 36.8 C 81 18 110/56 L 96 PG Care Time/CCT Total # of Minutes Spent Total Time Spent with Patient: Total time spent is greater than 50% in coordination of care (as documented) at patient's floor/unit and/or counseling patient: Coding Level of Care Code 33653 Subseq Hosp Care Lvl 3 Diagnoses Takotsubo cardiomyopathy I51.81 Respiratory failure J96.00 Chronicity: acute Respiratory failure complication: unspecified whether with hypoxia or hypercapnia Non-ST elevation (NSTEMI) myocardial infarction I21.4 Acute hyponatremia E87.1 Atelectasis of right lung J98.11 GERD without esophagitis K21.9 Restrictive lung disease J98.4 Non-occlusive coronary artery disease I25.10 Generalized anxiety disorder F41.1 Positive colorectal cancer screening using Cologuard test R19.5 DVT prophylaxis Z29.9 (1) Respiratory failure Chronicity: acute Respiratory failure complication: unspecified whether with hypoxia or hypercapnia Qualified Code(s): J96.00 - Acute respiratory failure, unspecified whether with hypoxia or hypercapnia
[2019-11-23] MEDS: METOPROLOL SUCC 25MG EXT REL TAB PO SCH (13:11)
--- NOTE | 2019-11-23 15:17 | Cardiology Progress Note ---
Date of Service November 23, 2019 Assessment & Plan (1) Takotsubo cardiomyopathy: (2) Electrolyte imbalance: (3) Non-occlusive coronary artery disease: (4) Shortness of breath: (5) Restrictive lung disease: ASSESSMENT/PLAN: 1. Takotsubo cardiomyopathy: Clinically she appears improved when reviewing notes and discussing with her. Recommend metoprolol succinate 25 mg once daily today. This can be further titrated in the future. Other appropriate therapy can be initiated as blood pressure tolerates. She appears euvolemic today. We did discuss the diagnosis. 2. Electrolyte imbalance: Sodium levels have improved. Potassium has normalized. As per primary service. 3. CAD: Nonobstructive CAD reported in the past (2018). No angina. Continue aspirin 81 mg daily. She has not tolerated statin therapy. 4. Restrictive lung disease/shortness of breath/respiratory failure: She was thought to have presented with pulmonary edema. She is doing much better from a pulmonary status currently. She does have chronic but stable dyspnea with exertion. She appears euvolemic currently. 5. Disposition: Continue to follow with her primary resource specialist teacher, Dr. Trujillo. Please call with any other questions or concerns. Patient care communicated with primary hospitalist, Dr. Arcos. Admission and Anticipated Discharge Date Admission Date: November 20, 2019 Subjective She feels better today. She was found sitting at the bedside in a chair for the first time. She denies chest pain, syncope, near-syncope, palpitations, or edema. She states that she has chronic dyspnea with exertion but denies shortness of breath at rest or orthopnea. Her daughter who is a nurse, was present at the bedside. Review of systems: As above. Physical Exam Physical Exam: Gen.: No acute distress. Alert and oriented. HEENT: Anicteric sclera. Neck: No JVD. Cardiac: No ventricular heave. Regular. Normal S1-S2. No murmurs, rubs, or gallops. Pulmonary: Decreased breath sounds at the right base, but otherwise clear. Abdomen: Soft, nontender, nondistended, with normoactive bowel sounds. No bruits noted. Extremities: 2+ radial pulses bilaterally. 2+ posterior tibialis pulses bilaterally. No edema or cyanosis. Psychiatric: Affect appears appropriate. Results & Data ([facility]) Vital Signs (Past 12 Hours) Vital Signs Temp Pulse Pulse Resp BP Pulse Ox 11/23/19 13:00 92 H 105/53 L 11/23/19 11:58 36.8 C 96 H 19 103/60 100 11/23/19 07:33 36.8 C 80 18 99/49 L 98 11/23/19 07:14 84 18 97 11/23/19 04:04 36.8 C 81 18 110/56 L 96 Intake & Output 11/21/19 11/22/19 11/23/19 11/24/19 06:59 06:59 06:59 06:59 Intake Total 1916.617 / 2673.008 1352.283 / 4222.656 0422.733 / 1369.733 480 / 480 Output Total 2300 / 2300 1250 / 1250 853 / 853 450 / 450 Balance -383.383 / -383.383 -175.717 / -175.717 516.733 / 516.733 30 / 30 Weight 53.7 kg 53.6 kg 54.3 kg Laboratory Results Laboratory Results - last 24 hr 11/22/19 11/23/19 11/23/19 20:19 06:37 06:37 WBC 7.00 RBC 3.83 L Hgb 11.5 L Hct 34.0 L MCV 88.8 MCH 30.0 MCHC 33.8 RDW Std Deviation 46.4 H RDW Coeff of Jaren 14.2 Plt Count 230 MPV 9.3 Immature Gran % (Auto) 0.1 Neut % (Auto) 59.9 Lymph % (Auto) 23.6 Alexander % (Auto) 14.9 Eos % (Auto) 1.4 Baso % (Auto) 0.1 Neut # (Auto) 4.19 Lymph # (Auto) 1.65 Alexander # (Auto) 1.04 H Eos # (Auto) 0.10 Baso # (Auto) 0.01 Immature Gran # (Auto) 0.01 Sodium 135 L D Potassium 4.5 D Chloride 101 Carbon Dioxide 30 Anion Gap 4.0 BUN 14 Creatinine 0.74 Est Cr Clr Drug Dosing 44.1 Est GFR ( Amer) 87.4 Est GFR (Non-Af Amer) 75.4 BUN/Creatinine Ratio 19.2 Glucose 104 H POC Glucose 146 H Calcium 9.1 Phosphorus 2.7 Magnesium 2.5 H 11/23/19 11/23/19 07:32 11:17 WBC RBC Hgb Hct MCV MCH MCHC RDW Std Deviation RDW Coeff of Jaren Plt Count MPV Immature Gran % (Auto) Neut % (Auto) Lymph % (Auto) Alexander % (Auto) Eos % (Auto) Baso % (Auto) Neut # (Auto) Lymph # (Auto) Alexander # (Auto) Eos # (Auto) Baso # (Auto) Immature Gran # (Auto) Sodium Potassium Chloride Carbon Dioxide Anion Gap BUN Creatinine Est Cr Clr Drug Dosing Est GFR ( Amer) Est GFR (Non-Af Amer) BUN/Creatinine Ratio Glucose POC Glucose 101 H 82 Calcium Phosphorus Magnesium Diagnostic Findings Telemetry personally reviewed: Sinus rhythm. No arrhythmia. Medications Administered Current Inpatient Medications Albuterol (Albut/Ipratrop 3mg/0.5mg Neb 3 Ml Vial) 3 ml INH Q4H PRN PRN Reason: Dyspnea Stop: 12/20/19 11:41 Alprazolam (Alprazolam 0.5 Mg Tablet) 0.5 mg PO HS [facility] Stop: 12/22/19 20:59 Last Admin: 11/22/19 20:19 Dose: 0.5 mg Documented by: Aspirin (Aspirin 81 Mg Ectab) 81 mg PO QAM [facility] Stop: 12/21/19 08:59 Last Admin: 11/23/19 07:48 Dose: 81 mg Documented by: Azithromycin (Azithromycin 250 Mg Tab) 250 mg PO QAM DAISY Stop: 11/30/19 08:59 Last Admin: 11/23/19 07:46 Dose: 250 mg Documented by: Calcium Carbonate (Calcium Carbonate 1250mg Tab) 1,250 mg PO QPM DAISY Stop: 12/20/19 20:59 Last Admin: 11/22/19 20:09 Dose: Not Given Documented by: Dextrose (Dextrose 50% 50 Ml Syringe) 25 - 50 ml IV UD PRN; Protocol PRN Reason: Hypoglycemia Protocol Stop: 12/20/19 11:41 Fluoxetine HCl (Fluoxetine Hcl 10 Mg Cap) 10 mg PO QAM [facility] Stop: 12/21/19 08:59 Last Admin: 11/23/19 07:47 Dose: 10 mg Documented by: Fluoxetine HCl (Fluoxetine Hcl 20 Mg Cap) 20 mg PO QAM [facility] Stop: 12/21/19 08:59 Last Admin: 11/23/19 07:48 Dose: 20 mg Documented by: Formoterol Fumarate (Formoterol 20 Mcg/2 Ml Vial) 20 mcg INH BIDR [facility] Stop: 12/20/19 18:59 Last Admin: 11/23/19 07:11 Dose: 20 mcg Documented by: Glucagon (Glucagon For Inj 1 Mg Vial) 1 mg SQ UD PRN; Protocol PRN Reason: Hypoglycemia Protocol Stop: 12/20/19 11:41 Glucose (Glucose 10 Tabs/Tube) 4 - 8 tabs PO UD PRN; Protocol PRN Reason: Hypoglycemia Protocol Stop: 12/20/19 11:41 Glucose (Glucose 40% Gel 15 Gm Tube) 15 - 30 gm PO UD PRN; Protocol PRN Reason: Hypoglycemia Protocol Stop: 12/20/19 11:41 Heparin Sodium (Porcine) (Heparin Sod 5,000 Unit/0.5 Ml Vial) 5,000 units SQ Q8 [facility] Stop: 12/22/19 21:59 Last Admin: 11/23/19 13:12 Dose: 5,000 units Documented by: Sodium Chloride (Nss 1000ml) 1,000 mls @ 0 mls/hr IV .Q0M [facility] Stop: 12/20/19 12:14 Insulin Aspart (Insulin Aspart 100 Units/Ml 3 Ml Pen) 0 units SC ACHS [facility] Stop: 12/21/19 07:29 Last Admin: 11/23/19 12:06 Dose: Not Given Documented by: Ipratropium [place] (Ipratropium [place] Neb Soln 0.02% 2.5 Ml Vial) 0.5 mg INH BIDR [facility] Stop: 12/20/19 18:59 Last Admin: 11/23/19 07:11 Dose: 0.5 mg Documented by: Metoprolol Succinate (Metoprolol Succ 25mg Ext Rel Tab) 25 mg PO QAM [facility] Stop: 12/23/19 12:59 Last Admin: 11/23/19 13:11 Dose: 25 mg Documented by: Miscellaneous (Icu Electrolyte Replacement Protocol) 1 ea N/A UD PRN PRN Reason: for e-lyte repletion Stop: 11/27/19 11:41 Miscellaneous (Carbohydrates For Hypoglycemia ) 15 - 30 gm PO UD PRN PRN Reason: Hypoglycemia Protocol Stop: 12/20/19 11:41 Ondansetron HCl (Ondansetron Inj 2 Mg/Ml 2 Ml Vial) 4 mg IV Q4H PRN PRN Reason: Nausea Stop: 12/22/19 08:49 Last Admin: 11/22/19 17:36 Dose: 4 mg Documented by: Pantoprazole Sodium (Pantoprazole 40 Mg Tab) 40 mg PO DAILY DAISY Stop: 12/21/19 08:59 Last Admin: 11/23/19 07:47 Dose: 40 mg Documented by: Vitamin D (Cholecalciferol 1,000 Units 25 Mcg Tab) 1,000 units PO QPM DAISY Stop: 12/20/19 20:59 Last Admin: 11/22/19 20:10 Dose: Not Given Documented by: PG Care Time/CCT Total # of Minutes Spent Total Time Spent with Patient: Total time spent is greater than 50% in coordination of care (as documented) at patient's floor/unit and/or counseling patient: Coding Level of Care Code 25197 Subseq Hosp Care Lvl 3 Diagnoses Takotsubo cardiomyopathy I51.81 Electrolyte imbalance E87.8 Non-occlusive coronary artery disease I25.10 Shortness of breath R06.02 Restrictive lung disease J98.4
[2019-11-23 17:59] LABS: Appearance Urine Cloudy (Clear); Bacteria Urine Automated 4+ (Negative); Bilirubin Urine Negative (Negative); Blood Urine 3+ (Negative); Color Urine Dark Yellow; Epithelial Cell Urine Auto >30 /lpf (0-5); Glucose Urine UA Negative (Negative); Ketones Urine Negative (Negative); Leukocyte Esterase Urine 2+ (Negative); Nitrite Urine Positive (Negative); Protein Urine 1+ (Negative); RBC Urine Automated >30 /hpf (0-4); Specific Gravity Urine 1.026 (1.000-1.030); Urobilinogen Urine Negative (Negative); WBC Urine Automated >30 /hpf (0-5); pH Urine 5.5 (4.5-7.5)
[2019-11-23] MEDS: CHOLECALCIFEROL 1,000 UNITS 25 MCG TAB PO SCH (20:02)
[2019-11-23] MEDS: CALCIUM CARBONATE 1250MG TAB PO SCH (20:02)
[2019-11-23] MEDS: ALPRAZolam 0.5 MG TABLET PO SCH (20:03)
--- NOTE | 2019-11-24 04:36 | Electrocardiogram Report ---
Test Reason : Blood Pressure : / mmHG Vent. Rate : 090 BPM Atrial Rate : 090 BPM P-R Int : 150 ms QRS Dur : 082 ms QT Int : 410 ms P-R-T Axes : 076 063 124 degrees QTc Int : 501 ms Sinus rhythm with Premature supraventricular complexes Prolonged QT Abnormal ECG When compared with ECG of 21-NOV-2019 06:40, Premature supraventricular complexes are now Present ST now depressed in Anterior leads T wave inversion more evident in Lateral leads Confirmed by Arnoldo Lopez ([id number]) on 11/24/2019 4:36:02 AM Referred By: REFERRED SELF Confirmed By:Arnoldo Lopez
[2019-11-24 06:56] LABS: Basophils # (auto) 0.03 K/uL (0-0.2); Basophils % (auto) 0.3 %; Eosinophils # (auto) 0.24 K/uL (0-0.5); Eosinophils % (auto) 2.7 %; Hematocrit (blood only) 34.1 % (37-47); Hemoglobin 11.4 g/dL (12.0-16.0); Immature Granulocytes # (auto) 0.01 K/uL (0.00-0.02); Immature Granulocytes % (auto) 0.1 %; Lymphocytes # (auto) 2.36 K/uL (1.2-3.4); Lymphocytes % (auto) 26.9 %; Mean Corpuscular Hemoglobin 30.4 pg (25-34); Mean Corpuscular Hgb Conc 33.4 g/dL (32-36); Mean Corpuscular Volume 90.9 fL (80-100); Mean Platelet Volume 9.3 fL (7.4-10.4); Monocytes # (auto) 1.04 K/uL (0.11-0.59); Monocytes % (auto) 11.9 %; Neutrophils # (auto) 5.08 K/uL (1.4-6.5); Neutrophils % (auto) 58.1 %; Platelet Count 257 K/uL (130-400); RDW Coefficient of Variation 14.4 % (11.5-14.5); RDW Standard Deviation 47.9 fL (36.4-46.3); Red Blood Count 3.75 M/uL (4.2-5.4); White Blood Count 8.76 K/uL (4.8-10.8)
[2019-11-24] MEDS: IPRATROPIUM BROMIDE NEB SOLN 0.02% 2.5 ML VIAL INH SCH (07:20)
[2019-11-24] MEDS: FORMOTEROL 20 MCG/2 ML VIAL INH SCH (07:20)
[2019-11-24 07:24] LABS: BUN Creatinine Ratio 27.7 (10-20); Calcium 8.9 mg/dl (8.5-10.1); Creatinine Clr Calc Pharmacy 45.4 ml/min; Est GFR (African American) 90.4; Magnesium 2.2 mg/dl (1.8-2.4); Phosphorus 3.1 mg/dl (2.5-4.9); Potassium 4.3 mmol/L (3.5-5.1)
[2019-11-24] MEDS: HEPARIN SOD 5,000 UNIT/0.5 ML VIAL SQ SCH (07:50)
[2019-11-24] MEDS: METOPROLOL SUCC 25MG EXT REL TAB PO SCH (07:51)
[2019-11-24] MEDS: INSULIN ASPART 100 UNITS/ML 3 ML PEN SC SCH (07:51)
[2019-11-24] MEDS: FLUOXETINE HCL 20 MG CAP PO SCH (07:53)
[2019-11-24] MEDS: ASPIRIN 81 MG ECTAB PO SCH (07:54)
[2019-11-24] MEDS: FLUOXETINE HCL 10 MG CAP PO SCH (07:54)
[2019-11-24] MEDS: PANTOprazole 40 MG TAB PO SCH (07:55)
[2019-11-24] MEDS ORDERED: CIPROFLOXACIN 500 MG TAB PO SCH (09:00)
--- NOTE | 2019-11-24 15:09 | Discharge Summary ---
Date of Service November 24, 2019 Admission HPI Per Admitting Provider Attending: Dr. Morris This is an 84-year-old female with a past medical history including nocturnal hypoxia on 2 L of supplemental oxygen per minute via nasal cannula, generalized depression/anxiety disorder, nonocclusive coronary artery disease, osteopenia, mixed connective tissue disease, hyperlipidemia, intolerance to statins, hyperglycemia with no history of diabetes mellitus, GERD, severe restri ctive lung disease, chronic arthralgia, scoliosis, history of endotracheal intubation with mechanical ventilation secondary to ARDs. She had a positive Cologuard test and was scheduled for elective colonoscopy today. She began her bowel prep last evening and had no bowel movement or diarrhea but did have nausea and vomiting. She has a previous EGD in [address] Vaughn which was normal. She also had a video swallow study at that time which was normal and showed no evidence of aspiration. She began to have nausea and vomiting this morning and was brought to the emergency department for ev aluation when she had acute and sudden hypoxic respiratory failure. Initially it was thought that she might of aspirated but clinically she presents more as a flash pulmonary edema patient. On initial examination she was clear to auscultation after her hypoxic event she was found to have coarse rales bilaterally in the bases with some upper field bronchospasm. She was placed on an hour-long nebulizer treatment with some improvement but continued adventitious findings. She was then placed on BiPAP with a setting of 8/5 and an FiO2 of 100%. She continues to be tachypneic with a rate between 38 and 44 breaths/min. BiPAP settings were adjusted to 10/5 and she had a decrease in respiratory rate and stated this is her respiratory status seem to be improved. Pulmonary function testing was last on 07/31/2017 and is listed below. She was scheduled to follow with Dr. Drew November 2019 with repeat PFTs prior to the appointment. She denies recent contact with sick individuals. She has no indication of COVID. She denies fever, chills, sweats, cough, chest pain, tightness. She has no abdominal pain or back pain. She has no flank pain. The patient lives at home with her . They have children that live out of the area. She and her are both lifelong non-smokers with no history of ethanol use. She denies any use of illicit substances or recreational drugs. I did have discussion regarding CODE STATUS. Both the patient and her state that she is a DNR/DNI and that she had a POLST form completed in the past. Due to her acute respiratory status, she stated that she may consider endotracheal intubation with mechanical ventilation but at this time prefers noninvasive treatment. Patient is found to have an elevated troponin of 1.24. She also has some ST elevation on her EKG which appear to be chronic. There is also significant motion artifact on the EKG. Most recent echocardiogram was completed in 2018. A repeat echocardiogram has been ordered. Pulmonary function testing 07/31/2017 FEV 56%; post bronchodilator 56% FEV1 62%; postbronchodilator 63% FEV1/FVC 106; post bronchodilator 107 FEF 25 to 75% 81%; post bronchodilator 68% Interpretation per Dr. Drew: Spirometry shows a moderate decrease in forced vital capacity and FEV1 with a normal FEV1/FVC ratio. The pattern is that of moderate restriction. Repeat study done following bronchodilator showed no change in function. Comparison was made with prior study of 06/27/2017 and revealed a slight decline in forced vital capacity with no change in FEV1 Principal Diagnosis Takotsubo cardiomyopathy Discharge Exam Constitutional WD/WN, vitals as above Eyes EOM intact bilaterally; no conjunctival abnormality ENMT external ear and nose normal, oropharynx normal Neck trachea midline, no thyromegaly normal visual inspection Respiratory normal respiratory effort, lungs clear to auscultation no respiratory distress Cardiovascular RRR, no murmur, no edema Vessels: no JVD Extremities: no edema Gastrointestinal (Abdomen) Inspection/Auscultation: abdomen normal to inspection; abdomen not distended Musculoskeletal no cyanosis or clubbing, extremities motor strength 5/5 Skin no rashes, warm and dry Neurologic moves all extremities and awake Psychiatric Orientation: alert, oriented to person and cooperative Discharge Data Allergies Allergy/AdvReac Type Severity Reaction Status Date / Time prednisone Allergy Intermediate MUSCLE Verified 11/20/19 08:25 CONTROL Qyngmpx-Jgu-Eme Reductase Allergy Intermediate MUSCULAR Verified 11/20/19 08:25 Inhibitor ISSUES methylprednisolone Allergy Mild HOT FACE; Verified 11/20/19 08:25 DRY HEAVES; FACIAL MUSCLES TWITCHING ceftriaxone Allergy Unknown Hives Unverified 11/20/19 08:25 gabapentin [From Neurontin] Allergy Unknown Unknown Unverified 11/20/19 08:25 nitrofurantoin Allergy Unknown Unknown Unverified 11/20/19 08:25 valdecoxib [From Bextra] AdvReac Intermediate increased Unverified 11/20/19 08:25 BP Consultations 11/20/19 08:22 ED Decision to Admit Stat 11/20/19 11:42 Consult Case Management - Discharge Planning Routine Consult Help Desk Associate Routine 11/20/19 14:36 Consult Cardiology Routine Ordered Studies 11/20/19 07:10 CT abd pelvis IV con only Stat Hospital Course (1) Takotsubo cardiomyopathy: Echo on 11/19 with EF 25-30%; consistent with Takasubo's cardiomyopathy. No known inciting event. - Appeared euvolemic on exam in days prior to discharge. No Lasix needed once she was euvolemic. - Started low-dose Toprol XL 25 mg daily. Limited to some extent by her BP which was running in the 90-100/70 range in the hospital. - Will titrate beta-gonzalo and add ACEi as outpatient. - Patient seen in patient by Dr. Trujillo, but asked to see Dr. Diaz as outpatient as her follows with him. (2) Respiratory failure: Due to pulmonary edema. Resolved with Lasix. - Weaned O2 prior to discharge. - Continue bronchodilators with home regimen and as needed duo nebs - Outpatient follow-up with Dr. Drew scheduled for 12/03/2019 - Kyphoscoliosis certainly contributes to her respiratory failure. (3) Non-ST elevation (NSTEMI) myocardial infarction: Previous cardiac catheterization in 2018 with nonocclusive coronary artery disease. Echocardiogram on 11/20/2019 shows cardiomyopathy with associated elevati on of troponin at 3.58. - Aspirin 81 mg daily started - Started beta-gonzalo on 11/22; can start ACEi as outpatient as BP tolerates. (4) Acute hyponatremia: Na+ 125 on admission 126, 127. Most recent Na+ 140 09/18/2019. Likely hypervolemic hypernatremia from heart failure. - Fluid restriction of 1800 cc daily. - By discharge, had been stable for 2 days at 135. She naturally only drinks <2L/day of water. I expect this will correct with time. PCP can check BMP in a week or so. (5) Atelectasis of right lung: This is chronic. No fever. Procalcitonin negative. - Was on short course of antibiotics in the hospital. Done by discharge. (6) GERD without esophagitis: EGD in 2019 with no esophagitis. - Continue PPI - Continue supportive care - Outpatient follow-up with gastroenterology (7) Restrictive lung disease: Scheduled to follow-up with Dr. Drew 12/03/2019 with repeat PFTs. - Continue home regimen of nebulizers - Continue duoNebs PRN (8) Non-occlusive coronary artery disease: Cardiac catheterization with non-occlusive disease in 2018. - Elevated troponin peaked at 3.58 now trending downward; heparin drip was discontinued after 48 hours. - Continue aspirin 81 mg daily (9) Generalized anxiety disorder: Well-controlled today. - Continue home alprazolam & SSRI (10) Positive colorectal cancer screening using Cologuard test: All of this was kicked off due to prep for colonoscopy. No active bleeding, hematochezia, bright red blood per rectum, melena. - Was scheduled for elective colonoscopy 11/20/2019. - [facility] aware that she was admitted. - Follow-up with gastroenterology on discharge. (11) DVT prophylaxis: Heparin 5,000 units SQ Q12h Total Time Total Time Spent Total Time Spent (In Minutes): 35 Discharge Plan Discharge Items Patient Disposition: Home - Self-Care Reason For Visit: ACUTE RESPIRATORY FAILUREM ELEVATED TROPONIN Discharge Diagnosis: Takotsubo cardiomyopathy Condition on Discharge: Good Activity: Resume your previous activity Non-emergency contact: Primary Care Provider and Piercing Artist Call non-emergency contact if: your symptoms worsen and your temperature is above 101 Follow-up/Referrals: Siddharth Spaulding MD [Primary Care Provider] - Meño Diaz MD [Physician] - (Please see Dr. Diaz in 1-2 weeks after discharge.) Diet: Heart Healthy and Low Sodium (2gm) Addtl Attending Provider Instructions: Ms. Gutierrez, You were admitted to the hospital after having respiratory issues after receiving IV fluids after you had a lot of trouble with your colonoscopy preparation. We feel this was caused by your heart not squeezing as well. This is an issue called Takotsubo cardiomyopathy. This is usually seen in older women after a significant stress. Your stress may have been the colonoscopy preparation, but we do not really know for sure. The fortunate thing is that this usually goes back to normal, often in as little as a few months. We are starting you on a beta gonzalo medication called Toprol XL (or metoprolol succinate) which is meant to help reduce stress on the heart. This helps the heart recover. Dr. Diaz will help titrate or adjust this medication when you next see him. He may also start you on another new medication to help the heart continue to recover. However, we want to let your heart adjust to the new medication first, so we are not starting it on discharge. Finally, we're sending you home on a short course of Ciprofloxacin for a mild UTI seen on urinalysis. Your next dose is tonight, then two times a day for [address] Diaz's office for an appointment in 1-2 weeks. Please call his office if you experience any lower extremity swelling, shortness of breath, increasing breathlessness with exertion, or any other concerning symptoms. Pending Studies at Discharge: No Stand-Alone Forms: My [facility] New [employer] (III) Development & Management, Smoking Cessation Medications and DC Order Prescriptions: New aspirin 81 mg Tablet,Delayed Release (Dr/Ec) 81 mg PO QAM Qty: 1 RF: 0 metoprolol succinate 25 mg Tablet Extended Release 24 Hr 25 mg PO QAM Qty: 30 RF: 1 ciprofloxacin HCl 500 mg Tablet 500 mg PO BID Qty: 5 RF: 0 Continued fluoxetine 10 mg capsule 10 mg PO QAM Qty: 90 RF: 2 fluoxetine 20 mg capsule 20 mg PO QAM Qty: 90 RF: 3 budesonide 0.25 mg/2 mL suspension for nebulization 2 ml inhalation BID Qty: 60 RF: 11 ipratropium bromide 0.02 % solution 0.5 mg inhalation BID Qty: 60 RF: 11 Brovana 15 mcg/2 mL solution for nebulization 2 ml INHALATION BID Qty: 60 RF: 11 omeprazole 20 mg capsule,delayed release(DR/EC) 20 mg PO DAILY Qty: 90 RF: 3 alprazolam 0.5 mg tablet 0.5 mg PO HS Qty: 30 RF: 0 glucosamine-chondroitin 500-400 mg capsule 1 cap PO QPM RF: 0 B Complex Plus Vitamin C 60-28-05-5-300 mg capsule 1 cap PO QPM RF: 0 biotin 1,000 mcg tablet,chewable 2,000 mcg PO DAILY RF: 0 cholecalciferol (vitamin D3) 1,000 unit capsule 1,000 units PO QPM RF: 0 turmeric 400 mg capsule 400 mg PO QPM RF: 0 lactulose 10 gram/15 mL solution 20 gm PO BID Qty: 946 RF: 2 omega 5-wqa-uln-fish oil [Fish Oil] 1,000 mg (120 mg-180 mg) Capsule 1 cap PO QPM RF: 0 calcium carbonate [Calcium 500] 500 mg calcium (1,250 mg) Tablet 500 mg PO QPM RF: 0 albuterol sulfate [Ventolin HFA] 90 mcg/actuation Hfa Aerosol Inhaler 2 puff INHALATION Q4 PRN (Reason: Shortness Of Breath) RF: 0 polyethylene glycol 3350 [Miralax] 17 gram powder in packet 17 gm PO BID Qty: 30 RF: 0 Discharge Orders: Discharge Order (Routine); Ordered 11/24/19 Ordered By: Ty Arcos Admission Data Admit Date/Time: 11/20/19 09:48 Attending Provider: Ty Arcos Admit Provider: Benito Morris Primary Care Provider: Siddharth Spaulding Other Providers: Valeriy Rodriguez ; Yosef Trujillo ; Ty Arcos Other Interventions: Discharge Summary Assessment (RN) Last Done: 11/24/19 11:06 Coding Level of Care Code D/C Day Management >30 mins Diagnoses Takotsubo cardiomyopathy I51.81 Respiratory failure J96.00 Chronicity: acute Respiratory failure complication: unspecified whether with hypoxia or hypercapnia Non-ST elevation (NSTEMI) myocardial infarction I21.4 Acute hyponatremia E87.1 Atelectasis of right lung J98.11 GERD without esophagitis K21.9 Restrictive lung disease J98.4 Non-occlusive coronary artery disease I25.10 Generalized anxiety disorder F41.1 Positive colorectal cancer screening using Cologuard test R19.5 DVT prophylaxis Z29.9
== END 2019-11-24 12:14 | disposition home or self-care (01) | DRG 280 ==
LOC: ED 06:57 → 1E 09:48 → SUATTDRO 09:48 → 1E 11:04 → 2E 11-21 11:54

== ENCOUNTER 2020-01-07 17:26 | Inpatient (IN) ==
[2020-01-07] MEDS ORDERED: ONDANSETRON INJ 2 MG/ML 2 ML VIAL IV STA (18:02)
--- NOTE | 2020-01-07 18:10 | Emergency Department Note ---
History of Present Illness General Chief complaint: Illness Time Seen by Provider: 01/07/20 17:29 Source: patient Mode of arrival: EMS Limitations: no limitations History of Present Illness Provider complaint: vomiting, chills, weakness Onset (ago): day(s) 3 Maximum Pain Intensity: 0 Associated symptoms: + fever/chills, + loss of appetite, + malaise, + nausea /vomiting and + weakness; no chest pain, no headaches and no shortness of breath Treatments prior to arrival: none This is an 84-year-old female presents the emergency department complaining of nausea and vomiting which began this afternoon. Patient states she has been feeling unwell for the last 3 days. States she has felt weak and fatigued since undergoing a colonoscopy approximately a month ago. Patient did recently finished a course of antibiotics for urinary tract infection. Patient states last night she began to not feel well had chills and some slight nausea. Today symptoms persisted, and around noon she attempted drink a smoothie. States then this afternoon she began vomiting. Patient states she vomited multiple times, no blood was noted, and all appeared to be the smoothie she had previously ingested. She states she did have several episodes of diarrhea, no blood or black stools noted there. Patient states after feeling very chilled she has not felt hot, however when she checked her temperature she did not have a fever. Patient states she does chronically wear oxygen and has a history of trouble breathing including her asthma. Patient denies any other known sick contacts. Patient was slated to undergo coronavirus testing tomorrow. Pt seen during a time of high acuity and national emergency pandemic while wearing PPE. Home Medications Home Medications Medication Instructions Recorded Confirmed Type glucosamine-chondroitin 500 mg-400 1 cap PO QPM 10/04/18 01/07/20 History mg capsule vitamin B comp and C no.3 15 mg-10 1 cap PO QPM 10/04/18 01/07/20 History mg-50 mg-5 mg-300 mg capsule albuterol sulfate [Ventolin HFA] 2 puff INHALATION Q4 PRN 12/05/18 01/07/20 History omega 1-lcq-yxr-fish oil [Fish Oil] 1 cap PO QPM 12/05/18 01/07/20 History fluoxetine 10 mg capsule 10 mg PO QAM #90 cap 10/07/19 01/07/20 Rx fluoxetine 20 mg capsule 20 mg PO QAM #90 cap 10/07/19 01/07/20 Rx arformoterol 15 mcg/2 mL solution 2 ml INHALATION BID #60 vial 11/13/19 01/07/20 Rx for nebulization budesonide 0.25 mg/2 mL suspension 2 ml INHALATION BID #60 vial 11/13/19 01/07/20 Rx for nebulization ipratropium bromide 0.02 % 0.5 mg INHALATION BID #60 vial 11/13/19 01/07/20 Rx solution for inhalation aspirin 81 mg PO QAM #1 tab 11/23/19 01/07/20 Rx metoprolol succinate 25 mg PO QAM #30 tab 11/23/19 01/07/20 Rx alprazolam 0.5 mg tablet 0.5 mg PO HS #30 tab 12/16/19 01/07/20 Rx alprazolam 0.25 mg PO DAILY PRN 01/07/20 01/07/20 History biotin 5 mg PO QAM 01/07/20 01/07/20 History calcium carbonate [Calcium 600] 600 mg PO QPM 01/07/20 01/07/20 History cholecalciferol (vitamin D3) 50 mcg PO QAM 01/07/20 01/07/20 History [Vitamin D3] omeprazole 20 mg PO QAM 01/07/20 01/07/20 History polyethylene glycol 3350 [Miralax] 17 gm PO DAILY 01/07/20 01/07/20 History turmeric root extract 1,000 mg PO QPM 01/07/20 01/07/20 History potassium chloride [Klor-Con M20] 20 meq PO QAM #30 tab 01/09/20 Rx Allergies Allergy/AdvReac Type Severity Reaction Status Date / Time ceftriaxone Allergy Intermediate Hives Verified 01/07/20 19:01 prednisone Allergy Intermediate MUSCLE Verified 01/07/20 19:01 CONTROL Ltnpffl-Ovg-Huv Reductase Allergy Intermediate MUSCULAR Verified 01/07/20 19:01 Inhibitor ISSUES methylprednisolone Allergy Mild HOT FACE; Verified 01/07/20 19:01 DRY HEAVES; FACIAL MUSCLES TWITCHING gabapentin [From Neurontin] Allergy Unknown Unknown Verified 01/07/20 19:01 nitrofurantoin Allergy Unknown Unknown Verified 01/07/20 19:01 valdecoxib [From Bextra] AdvReac Intermediate increased Verified 01/07/20 19:01 BP Past Med/Surg History Medical History Abnormal CT scan Acute on chronic diastolic (congestive) heart failure Acute respiratory failure with hypoxia Admitted to intensive care unit Arthralgia of multiple sites Arthritis of left knee Asthma inhalers/nebulizer daily/prn Atypical chest pain Cervical arthritis Cervical myelopathy Cervicalgia Chronic obstructive pulmonary disease Depression Encounter for pre-operative examination Eustachian tube dysfunction General weakness Generalized anxiety disorder GERD without esophagitis Hearing loss Hyperlipidemia no meds Hypokalemia Hypotension MCTD (mixed connective tissue disease) Multifocal pneumonia Muscle spasm Muscle weakness-general Myopathy Non-occlusive coronary artery disease Non-ST elevated myocardial infarction (non-STEMI) On home oxygen therapy 2L via N/C qpm and HS Oral thrush Osteoarthritis Osteopenia Polyneuropathy Positive MICHAEL (antinuclear antibody) Positive colorectal cancer screening using Cologuard test Restrictive lung disease Scoliosis Sepsis Throat irritation Trapezius muscle spasm Urinary incontinence Surgical History H/O foot surgery History of appendectomy History of arthroscopy of left knee History of bilateral cataract extraction History of biopsy right thigh--showed MCTD History of bronchoscopy x2 History of cardiac cath 04/2017 no stents History of colonoscopy History of thoracentesis History of tonsillectomy and adenoidectomy History of total hysterectomy with bilateral salpingo-oophorectomy (BSO) History of wisdom tooth extraction Family History Mother Alzheimer disease Brother Hx of CABG Depression Father Congestive heart failure Coronary heart disease Hearing loss Unknown Myocardial infarction Other No family history of adverse response to anesthesia Denies family history of Ovarian cancer Prostate cancer Breast cancer Colorectal cancer Social History Smoking Status: Never smoker Second Hand Exposure: No; Hx Alcohol Use: No Hx Substance Use: No Preferred Language: Haitian Communication Ability: Effective Visual Impairment: Limited Hearing Ability: Use of Hearing Aid Handstitching Machine Collar Feller Required: No Beliefs That Will Affect Care: None marital status: Current Living Situation: Spouse current occupational status: retired How many Children do You have: 5 Feels Safe at Home: Yes Childhood Exposure to Second-Hand Smoke: Yes caffeine: Yes Dental Care, Regularly: Yes Physical Activity Frequency: 3-4 Times per Week Seatbelt Use: always Sunscreen Use: Yes Assistive Devices: Glasses and Walker Review of Systems See HPI for pertinent positives & negatives. and A total of 10 systems reviewed and were otherwise negative Physical Exam Vital Signs Vital Signs - 24 hr 01/07/20 17:16 01/07/20 20:16 Temperature 36.9 C Temperature Source Oral Pulse Rate 81 Pulse Rate [Right Finger] 73 Respiratory Rate 20 18 Respiratory Effort / Characteristics Non-Labored Spontaneous Respiratory Depth Normal Respiratory Pattern Regular Blood Pressure 164/86 H Blood Pressure [Right Arm] 156/81 H Blood Pressure Mean 112 Blood Pressure Mean [Right Arm] 106 Blood Pressure Position Lying Pulse Oximetry 89 L 91 Oxygen Delivery Method Room Air Sepsis Recent Fever Within 48 Hours Yes Sepsis New/Unexplained Change in Mental Status No Sepsis Action Taken by Nursing No Action Required GENERAL: alert, ill appearing holding emesis bag, frail appearing, mild distress, pt began vomiting during exam EYE EXAM: normal conjunctiva, PERRL and EOM's grossly intact OROPHARYNX: no exudate, no erythema, lips, buccal mucosa, and tongue normal and mucous membranes are moist NECK: supple, no nuchal rigidity, no adenopathy, non-tender LUNGS: Clear to auscultation. Normal chest wall mechanics, no w/r/r, on oxygen via nasal cannula HEART: no murmurs, S1 normal and S2 normal ABDOMEN: abdomen soft, non-tender, normo-active bowel sounds, no masses, no rebound or guarding. BACK: Back is symmetrical on inspection and there is no deformity, no midline tenderness, no CVA tenderness. Kyphosis. SKIN: no rashes and no bruising UPPER EXTREMITIES: upper extremities are grossly normal. FROM, nml pulses b/l. LOWER EXTREMITIES: No pitting edema. FROM, nml pulses b/l. NEURO EXAM: Normal sensorium, cranial nerves II-XII grossly intact, normal speech, no gross weakness of arms, no gross weakness of legs. Gross sensation intact. Course Course 1999: Updated patient and her daughter on her iPad on results at bedside. They are in agreement with plan for additional inpatient evaluation and treatment. Patient states she does feel improved compared to my initial evaluation when she began to have dry heaving and vomiting. No current tachypnea or increased work of breathing. Daughter does state that patient had a follow-up echo to recheck her cardiac function following her episode of Takotsubo cardiomyopathy last week with Dr. Diaz. Daughter also relates that last night she spiked a fever and had an episode of urinary incontinence, and daughter was suspicious for a recurrent UTI. Patient did take a single dose of Cipro this morning that she had leftover from a prior infection before the vomiting started. 2114: Discussed with Dr. Talavera. Administered Medications Discontinued Medications Alprazolam (Alprazolam 0.5 Mg Tablet) 0.5 mg PO HS DAISY Stop: 02/07/20 20:59 Last Admin: 01/08/20 20:57 Dose: 0.5 mg Documented by: [id number] Alprazolam (Alprazolam 0.5 Mg Tablet) 0.5 mg PO NOW STA Stop: 01/08/20 03:42 Last Admin: 01/08/20 03:54 Dose: 0.5 mg Documented by: [id number] Aspirin (Aspirin 81 Mg Ectab) 81 mg PO QAM DAISY Stop: 02/07/20 08:59 Last Admin: 01/09/20 08:30 Dose: 81 mg Documented by: [id number] Admin: 01/08/20 08:15 Dose: 81 mg Documented by: [id number] Budesonide (Budesonide 0.25 Mg/2 Ml Vial (Pulmicort)) 0.25 mg INH BIDR DAISY Stop: 02/07/20 06:59 Last Admin: 01/09/20 07:20 Dose: 0.25 mg Documented by: [id number] Admin: 01/08/20 19:14 Dose: 0.25 mg Documented by: [id number] Admin: 01/08/20 07:23 Dose: 0.25 mg Documented by: [id number] Calcium Carbonate (Calcium Carbonate 1250mg Tab) 1,250 mg PO QPM DAISY Stop: 02/07/20 20:59 Last Admin: 01/08/20 20:57 Dose: 1,250 mg Documented by: [id number] Enoxaparin Sodium (Enoxaparin Inj 40 Mg/0.4 Ml Syr) 40 mg SQ Q24H DAISY Stop: 02/07/20 08:59 Last Admin: 01/09/20 08:30 Dose: 40 mg Documented by: [id number] Admin: 01/08/20 09:27 Dose: 40 mg Documented by: [id number] Fluoxetine HCl (Fluoxetine Hcl 10 Mg Cap) 10 mg PO QAM [facility] Stop: 02/07/20 08:59 Last Admin: 01/09/20 08:30 Dose: 10 mg Documented by: [id number] Admin: 01/08/20 08:15 Dose: 10 mg Documented by: [id number] Fluoxetine HCl (Fluoxetine Hcl 20 Mg Cap) 20 mg PO QAM [facility] Stop: 02/07/20 08:59 Last Admin: 01/09/20 08:30 Dose: 20 mg Documented by: [id number] Admin: 01/08/20 08:16 Dose: 20 mg Documented by: [id number] Formoterol Fumarate (Formoterol 20 Mcg/2 Ml Vial) 20 mcg INH BIDR [facility] Stop: 02/07/20 06:59 Last Admin: 01/09/20 07:20 Dose: 20 mcg Documented by: [id number] Admin: 01/08/20 19:14 Dose: 20 mcg Documented by: [id number] Admin: 01/08/20 07:24 Dose: 20 mcg Documented by: [id number] Sodium Chloride (Nss 1000ml) 1,000 mls @ 80 mls/hr IV .[id number] [facility] Stop: 01/08/20 06:44 Last Infusion: 01/08/20 02:39 Dose: 0 mls/hr Documented by: [id number] Admin: 01/07/20 18:38 Dose: 125 mls/hr Documented by: [id number] Piperacillin Sod/Tazobactam Sod (Zosyn) 4.5 gm in 120 mls @ 240 mls/hr IV NOW ONE Stop: 01/07/20 19:56 Last Infusion: 01/07/20 20:44 Dose: 0 mls/hr Documented by: [id number] Admin: 01/07/20 20:15 Dose: 240 mls/hr Documented by: [id number] Potassium Chloride (K [place] / Wtr) 10 meq in 100 mls @ 100 mls/hr IV Q1H DAISY Stop: 01/08/20 19:59 Last Infusion: 01/08/20 20:43 Dose: 0 mls/hr Documented by: [id number] Admin: 01/08/20 19:23 Dose: 100 mls/hr Documented by: [id number] Infusion: 01/08/20 19:13 Dose: 100 mls/hr Documented by: [id number] Admin: 01/08/20 18:13 Dose: 100 mls/hr Documented by: [id number] Infusion: 01/08/20 18:10 Dose: 100 mls/hr Documented by: [id number] Admin: 01/08/20 17:10 Dose: 100 mls/hr Documented by: [id number] Ioversol (Ioversol 100ml) 91 ml IV ONCE ONE Stop: 01/07/20 21:23 Last Admin: 01/07/20 21:23 Dose: 91 ml Documented by: [id number] Ipratropium [place] (Ipratropium [place] Neb Soln 0.02% 2.5 Ml Vial) 0.5 mg INH BIDR DAISY Stop: 02/07/20 06:59 Last Admin: 01/09/20 07:20 Dose: 0.5 mg Documented by: [id number] Admin: 01/08/20 19:14 Dose: 0.5 mg Documented by: [id number] Admin: 01/08/20 07:24 Dose: 0.5 mg Documented by: [id number] Metoprolol Succinate (Metoprolol Succ 25mg Ext Rel Tab) 25 mg PO QAM DAISY Stop: 02/07/20 08:59 Last Admin: 01/09/20 08:30 Dose: 25 mg Documented by: [id number] Admin: 01/08/20 08:15 Dose: 25 mg Documented by: [id number] Ondansetron HCl (Ondansetron Inj 2 Mg/Ml 2 Ml Vial) 4 mg IV NOW STA Stop: 01/07/20 18:03 Last Admin: 01/07/20 18:38 Dose: 4 mg Documented by: [id number] Pantoprazole Sodium (Pantoprazole 40 Mg Tab) 40 mg PO DAILY DAISY Stop: 02/07/20 08:59 Last Admin: 01/09/20 08:30 Dose: 40 mg Documented by: [id number] Admin: 01/08/20 08:16 Dose: 40 mg Documented by: [id number] Polyethylene Glycol (Polyethylene (Miralax) 17 Gm Pack) 17 gm PO DAILY DAISY Stop: 02/07/20 08:59 Last Admin: 01/09/20 08:30 Dose: 17 gm Documented by: [id number] Admin: 01/08/20 08:16 Dose: 17 gm Documented by: [id number] Potassium Chloride (Potassium Chloride 20 Meq Tabcr) 20 meq PO NOW ONE Stop: 01/08/20 17:01 Last Admin: 01/08/20 17:10 Dose: 20 meq Documented by: [id number] Potassium Chloride (Potassium Chloride 20 Meq Tabcr) 20 meq PO QAM DAISY Stop: 02/08/20 11:44 Last Admin: 01/09/20 12:32 Dose: 20 meq Documented by: [id number] Vitamin B Complex (Vitamin B Complex Tab) 1 tab PO QPM DAISY Stop: 02/07/20 20:59 Last Admin: 01/08/20 20:57 Dose: 1 tab Documented by: [id number] Vitamin D (Cholecalciferol 1,000 Units 25 Mcg Tab) 2,000 units PO QAM DAISY Stop: 02/07/20 08:59 Last Admin: 01/09/20 08:30 Dose: 2,000 units Documented by: [id number] Admin: 01/08/20 08:16 Dose: 2,000 units Documented by: [id number] Medical Decision Making Differential Diagnosis Differential: Gastroenteritis, Food Borne, Esophageal Perforation, , Electrolyte Abnormality, Dehydration, Intraabdominal Infection, UTI/Pyelonephritis, Bowel Obstruction, Biliary Pathology, amongst other pathology entertained. Medical Records Attestation: I reviewed the patient's medical records. Home Medications Current Medication List: was personally reviewed by me Laboratory Data Attestation: I reviewed the patient's lab results. Result diagrams: 01/09/20 09:50 01/09/20 09:50 Lab Results 01/07/20 01/07/20 01/07/20 Range/Units 18:22 18:30 18:30 WBC 4.13 L (4.8-10.8) K/uL RBC 4.08 L (4.2-5.4) M/uL Hgb 11.9 L (12.0-16.0) g/dL Hct 36.4 L (37-47) % MCV 89.2 (80-100) fL MCH 29.2 (25-34) pg MCHC 32.7 (32-36) g/dL RDW Std Deviation 47.8 H (36.4-46.3) fL RDW Coeff of Jaren 14.5 (11.5-14.5) % Plt Count 245 (130-400) K/uL MPV 8.8 (7.4-10.4) fL Immature Gran % (Auto) 0.2 % Neut % (Auto) 69.1 % Lymph % (Auto) 15.5 % [place] % (Auto) 14.5 % Eos % (Auto) 0.5 % Baso % (Auto) 0.2 % Neut # (Auto) 2.85 (1.4-6.5) K/uL Lymph # (Auto) 0.64 L (1.2-3.4) K/uL [place] # (Auto) 0.60 H (0.11-0.59) K/uL Eos # (Auto) 0.02 (0-0.5) K/uL Baso # (Auto) 0.01 (0-0.2) K/uL Immature Gran # (Auto) 0.01 (0.00-0.02) K/uL PT 11.1 (9.0-12.0) Seconds INR 1.1 (0.9-1.1) APTT 26.9 (21.0-31.0) Seconds PTT Ratio 1.0 Sodium (136-145) mmol/L Potassium (3.5-5.1) mmol/L Chloride (98-107) mmol/L Carbon Dioxide (21-32) mmol/L Anion Gap (3-11) BUN (7-18) mg/dl Creatinine (0.6-1.2) mg/dl Est Cr Clr Drug Dosing ml/min Est GFR ( Amer) Est GFR (Non-Af Amer) BUN/Creatinine Ratio (10-20) Glucose (70-99) mg/dl Lactate (0.4-2.0) mmol/L Calcium (8.5-10.1) mg/dl Magnesium (1.8-2.4) mg/dl Total Bilirubin (0.2-1) mg/dl AST (15-37) U/L ALT (12-78) U/L Alkaline Phosphatase (45-117) U/L Troponin I (0-0.045) ng/ml Total Protein (6.4-8.2) gm/dl Albumin (3.4-5.0) gm/dl Globulin (2.5-4.0) gm/dl Albumin/Globulin Ratio (0.9-2) Lipase (73-393) U/L Procalcitonin (0-0.5) ng/ml Urine Color Urine Appearance (Clear) Urine pH (4.5-7.5) Ur Specific [place] (1.000-1.030) Urine Protein (Negative) Urine Glucose (UA) (Negative) Urine Ketones (Negative) Urine Blood (Negative) Urine Nitrite (Negative) Urine Bilirubin (Negative) Urine Urobilinogen (Negative) Ur Leukocyte Esterase (Negative) Urine WBC (Auto) (0-5) /hpf Urine RBC (Auto) (0-4) /hpf U Hyaline Cast (Auto) (0-5) /lpf U Epithel Cells (Auto) (0-5) /lpf Urine Bacteria (Auto) (Negative) Adenovirus (PCR) Not Detected (NotDetected) B. pertussis DNA (PCR) Not Detected (NotDetected) B.parapertussis DNA PCR Not Detected (NotDetected) C. pneumoniae DNA (PCR) Not Detected (NotDetected) Coronavirus OC43 (PCR) Not Detected (NotDetected) Coronavirus HKU1 (PCR) Not Detected (NotDetected) Coronavirus 229E (PCR) Not Detected (NotDetected) COVID-19 PCR Not Detected (NotDetected) Coronavirus NL63 (PCR) Not Detected (NotDetected) Human Metapneumovir PCR Not Detected (NotDetected) Influenza Type A (PCR) Not Detected (NotDetected) Influenza Type B (PCR) Not Detected (NotDetected) M. pneumoniae (PCR) Not Detected (NotDetected) Parainfluenza 1 (PCR) Not Detected (NotDetected) Parainfluenza 2 (PCR) Not Detected (NotDetected) Parainfluenza 3 (PCR) Not Detected (NotDetected) Parainfluenza 4 (PCR) Not Detected (NotDetected) RSV (PCR) Not Detected (NotDetected) Entero/Rhino (PCR) Not Detected (NotDetected) 01/07/20 01/07/20 01/07/20 Range/Units 18:30 18:30 18:30 WBC (4.8-10.8) K/uL RBC (4.2-5.4) M/uL Hgb (12.0-16.0) g/dL Hct (37-47) % MCV (80-100) fL MCH (25-34) pg MCHC (32-36) g/dL RDW Std Deviation (36.4-46.3) fL RDW Coeff of Jaren (11.5-14.5) % Plt Count (130-400) K/uL MPV (7.4-10.4) fL Immature Gran % (Auto) % Neut % (Auto) % Lymph % (Auto) % [place] % (Auto) % Eos % (Auto) % Baso % (Auto) % Neut # (Auto) (1.4-6.5) K/uL Lymph # (Auto) (1.2-3.4) K/uL [place] # (Auto) (0.11-0.59) K/uL Eos # (Auto) (0-0.5) K/uL Baso # (Auto) (0-0.2) K/uL Immature Gran # (Auto) (0.00-0.02) K/uL PT (9.0-12.0) Seconds INR (0.9-1.1) APTT (21.0-31.0) Seconds PTT Ratio Sodium 133 L (136-145) mmol/L Potassium 3.6 (3.5-5.1) mmol/L Chloride 100 (98-107) mmol/L Carbon Dioxide 28 (21-32) mmol/L Anion Gap 5.0 (3-11) BUN 18 (7-18) mg/dl Creatinine 0.81 (0.6-1.2) mg/dl Est Cr Clr Drug Dosing 41.4 ml/min Est GFR ( Amer) 78.4 Est GFR (Non-Af Amer) 67.6 BUN/Creatinine Ratio 21.9 H (10-20) Glucose 132 H (70-99) mg/dl Lactate 1.0 (0.4-2.0) mmol/L Calcium 9.0 (8.5-10.1) mg/dl Magnesium 2.1 (1.8-2.4) mg/dl Total Bilirubin 0.2 (0.2-1) mg/dl AST 28 (15-37) U/L ALT 32 (12-78) U/L Alkaline Phosphatase 101 (45-117) U/L Troponin I 0.104 H* (0-0.045) ng/ml Total Protein 8.1 (6.4-8.2) gm/dl Albumin 3.6 (3.4-5.0) gm/dl Globulin 4.5 H (2.5-4.0) gm/dl Albumin/Globulin Ratio 0.8 L (0.9-2) Lipase (73-393) U/L Procalcitonin < 0.05 (0-0.5) ng/ml Urine Color Urine Appearance (Clear) Urine pH (4.5-7.5) Ur Specific [place] (1.000-1.030) Urine Protein (Negative) Urine Glucose (UA) (Negative) Urine Ketones (Negative) Urine Blood (Negative) Urine Nitrite (Negative) Urine Bilirubin (Negative) Urine Urobilinogen (Negative) Ur Leukocyte Esterase (Negative) Urine WBC (Auto) (0-5) /hpf Urine RBC (Auto) (0-4) /hpf U Hyaline Cast (Auto) (0-5) /lpf U Epithel Cells (Auto) (0-5) /lpf Urine Bacteria (Auto) (Negative) Adenovirus (PCR) (NotDetected) B. pertussis DNA (PCR) (NotDetected) B.parapertussis DNA PCR (NotDetected) C. pneumoniae DNA (PCR) (NotDetected) Coronavirus OC43 (PCR) (NotDetected) Coronavirus HKU1 (PCR) (NotDetected) Coronavirus 229E (PCR) (NotDetected) COVID-19 PCR (NotDetected) Coronavirus NL63 (PCR) (NotDetected) Human Metapneumovir PCR (NotDetected) Influenza Type A (PCR) (NotDetected) Influenza Type B (PCR) (NotDetected) M. pneumoniae (PCR) (NotDetected) Parainfluenza 1 (PCR) (NotDetected) Parainfluenza 2 (PCR) (NotDetected) Parainfluenza 3 (PCR) (NotDetected) Parainfluenza 4 (PCR) (NotDetected) RSV (PCR) (NotDetected) Entero/Rhino (PCR) (NotDetected) 01/07/20 01/07/20 Range/Units 20:12 22:48 WBC (4.8-10.8) K/uL RBC (4.2-5.4) M/uL Hgb (12.0-16.0) g/dL Hct (37-47) % MCV (80-100) fL MCH (25-34) pg MCHC (32-36) g/dL RDW Std Deviation (36.4-46.3) fL RDW Coeff of Jaren (11.5-14.5) % Plt Count (130-400) K/uL MPV (7.4-10.4) fL Immature Gran % (Auto) % Neut % (Auto) % Lymph % (Auto) % [place] % (Auto) % Eos % (Auto) % Baso % (Auto) % Neut # (Auto) (1.4-6.5) K/uL Lymph # (Auto) (1.2-3.4) K/uL [place] # (Auto) (0.11-0.59) K/uL Eos # (Auto) (0-0.5) K/uL Baso # (Auto) (0-0.2) K/uL Immature Gran # (Auto) (0.00-0.02) K/uL PT (9.0-12.0) Seconds INR (0.9-1.1) APTT (21.0-31.0) Seconds PTT Ratio Sodium (136-145) mmol/L Potassium (3.5-5.1) mmol/L Chloride (98-107) mmol/L Carbon Dioxide (21-32) mmol/L Anion Gap (3-11) BUN (7-18) mg/dl Creatinine (0.6-1.2) mg/dl Est Cr Clr Drug Dosing ml/min Est GFR ( Amer) Est GFR (Non-Af Amer) BUN/Creatinine Ratio (10-20) Glucose (70-99) mg/dl Lactate (0.4-2.0) mmol/L Calcium (8.5-10.1) mg/dl Magnesium (1.8-2.4) mg/dl Total Bilirubin (0.2-1) mg/dl AST (15-37) U/L ALT (12-78) U/L Alkaline Phosphatase (45-117) U/L Troponin I 0.519 H* (0-0.045) ng/ml Total Protein (6.4-8.2) gm/dl Albumin (3.4-5.0) gm/dl Globulin (2.5-4.0) gm/dl Albumin/Globulin Ratio (0.9-2) Lipase 45 L (73-393) U/L Procalcitonin (0-0.5) ng/ml Urine Color Yellow Urine Appearance Clear (Clear) Urine pH 7.5 (4.5-7.5) Ur Specific [place] 1.015 (1.000-1.030) Urine Protein 1+ H (Negative) Urine Glucose (UA) Negative (Negative) Urine Ketones 2+ H (Negative) Urine Blood 3+ H (Negative) Urine Nitrite Negative (Negative) Urine Bilirubin Negative (Negative) Urine Urobilinogen Negative (Negative) Ur Leukocyte Esterase Negative (Negative) Urine WBC (Auto) 0 (0-5) /hpf Urine RBC (Auto) >30 H (0-4) /hpf U Hyaline Cast (Auto) 0 (0-5) /lpf U Epithel Cells (Auto) 5-10 H (0-5) /lpf Urine Bacteria (Auto) Negative (Negative) Adenovirus (PCR) (NotDetected) B. pertussis DNA (PCR) (NotDetected) B.parapertussis DNA PCR (NotDetected) C. pneumoniae DNA (PCR) (NotDetected) Coronavirus OC43 (PCR) (NotDetected) Coronavirus HKU1 (PCR) (NotDetected) Coronavirus 229E (PCR) (NotDetected) COVID-19 PCR (NotDetected) Coronavirus NL63 (PCR) (NotDetected) Human Metapneumovir PCR (NotDetected) Influenza Type A (PCR) (NotDetected) Influenza Type B (PCR) (NotDetected) M. pneumoniae (PCR) (NotDetected) Parainfluenza 1 (PCR) (NotDetected) Parainfluenza 2 (PCR) (NotDetected) Parainfluenza 3 (PCR) (NotDetected) Parainfluenza 4 (PCR) (NotDetected) RSV (PCR) (NotDetected) Entero/Rhino (PCR) (NotDetected) Imaging Data Radiologist's Impression: XR chest 1V portable HISTORY: 84 years-old Female SEPSIS acute sepsis COMPARISON: Chest radiograph 11/22/2019 TECHNIQUE: Portable AP view of the chest FINDINGS: Cardiac silhouette is enlarged, unchanged. There is mild pulmonary vascular congestion.. Trace right pleural effusion. Asymmetric right lung base opacities. No pneumothorax. Severe sigmoidal thoracolumbar scoliosis. Healed remote fracture deformity of the proximal left humerus. IMPRESSION: 1. Cardiomegaly with pulmonary vascular congestion. 2. Trace right pleural effusion with right lung base opacities suggestive of atelectasis versus pneumonia. 3. Severe sigmoidal thoracolumbar scoliosis. ACT 112: Negative or not required by law. The above report was generated using voice recognition software. It may contain grammatical, syntax or spelling errors. Electronically signed by: Javi Iqbal M.D. 01/07/2020 7:[address] abdomen and pelvis with contrast: Impression: No acute abnormality in the abdomen or pelvis. Severe scoliosis with dysmorphic appearance of the thorax. Moderate colonic stool burden. Recommend correlation with constipation. Hysterectomy. Opacities in the lungs may represent at electasis, aspiration, or pneumonia. Clinical correlation recommended. Radiologist: Erasto Gomez MD ECG Data Attestation: I personally reviewed and interpreted this ECG as follows: Indication: + vomiting Rate (beats per minute): 78 Rhythm: + normal sinus ECG Intervals/blocks: + Normal QRS and + Normal QT ECG [place]: + Normal ECG ST segments: + Normal ST segments Comparison ECG Date: from (11/22/2019) Change: no significant change Blood Pressure Blood Pressure Findings: Elevated blood pressure Blood Pressure Disposition: further management by hospitalist [facility] Narrative Pt presenting markedly ill appearing with recurrent dry heaving and vomiting, no gross blood. Pt denied abdominal pain prior to vomiting. Pt with questionable evolving pneumonia/effusion which given age and in the setting of vomiting, aspiration was considered and pt covered with antibiotics as a precaution. Troponin elevated mildly, despite reassuring EKG, no chest pain or SOB. Pt was recently admitted and found to have Takysubo CM. Daughter states she did have follow-up echo however this was not accessible in the EMR. Daughter updated on plan for inpatient monitoring and was in agreement. Biofire negative. Pt sent for CT a/p given otherwise unclear etiology of vomiting with exception of foodborne illness or reaction to cipro pt took for suspected UTI. CT a/p reassuring. Pt improved on repeat exam and reported feeling improved. IVF given slowly and cautiously given recent CM. An order was placed for continuous cardiac monitoring. The monitor shows a rate of _82_ with _normal sinus_ rhythm. Impression & Plan Fever, Vomiting, Elevated troponin, Hematuria Discharge Plan Visit Data Chief Complaint: Illness ED Provider: Cass Nichole Discharge Problem: Fever, Vomiting, Elevated troponin, Hematuria Patient Disposition: Admitted As Inpatient Discharge Instructions Interventions: ED Discharge Assessment Last Done: 01/08/20 00:17 Discharge Problem: Fever Qualifiers: Fever type: unspecified Qualified Code(s): R50.9 - Fever, unspecified Vomiting Qualifiers: Vomiting type: unspecified Vomiting Intractability: non-intractable Nausea presence: with nausea Qualified Code(s): R11.2 - Nausea with vomiting, unspecified Hematuria Qualifiers: Hematuria type: unspecified type Qualified Code(s): R31.9 - Hematuria, unspecified
[2020-01-07] MEDS ORDERED: SODIUM CHLORIDE 0.9% 1000ML 1,000 ML IV SCH (18:15)
[2020-01-07 18:47] LABS: Basophils # (auto) 0.01 K/uL (0-0.2); Basophils % (auto) 0.2 %; Eosinophils # (auto) 0.02 K/uL (0-0.5); Eosinophils % (auto) 0.5 %; Hematocrit (blood only) 36.4 % (37-47); Hemoglobin 11.9 g/dL (12.0-16.0); Immature Granulocytes # (auto) 0.01 K/uL (0.00-0.02); Immature Granulocytes % (auto) 0.2 %; Lymphocytes # (auto) 0.64 K/uL (1.2-3.4); Lymphocytes % (auto) 15.5 %; Mean Corpuscular Hemoglobin 29.2 pg (25-34); Mean Corpuscular Hgb Conc 32.7 g/dL (32-36); Mean Corpuscular Volume 89.2 fL (80-100); Mean Platelet Volume 8.8 fL (7.4-10.4); Monocytes % (auto) 14.5 %; Neutrophils # (auto) 2.85 K/uL (1.4-6.5); Neutrophils % (auto) 69.1 %; Platelet Count 245 K/uL (130-400); RDW Coefficient of Variation 14.5 % (11.5-14.5); RDW Standard Deviation 47.8 fL (36.4-46.3); Red Blood Count 4.08 M/uL (4.2-5.4); White Blood Count 4.13 K/uL (4.8-10.8)
[2020-01-07 18:58] LABS: INR 1.1 (0.9-1.1); Partial Thromboplastin Time 26.9 Seconds (21.0-31.0); Prothrombin Time 11.1 Seconds (9.0-12.0)
--- NOTE | 2020-01-07 19:08 | XRay Report ---
XR chest 1V portable HISTORY: 84 years-old Female SEPSIS acute sepsis COMPARISON: Chest radiograph 11/22/2019 TECHNIQUE: Portable AP view of the chest FINDINGS: Cardiac silhouette is enlarged, unchanged. There is mild pulmonary vascular congestion.. Trace right pleural effusion. Asymmetric right lung base opacities. No pneumothorax. Severe sigmoidal thoracolumb ar scoliosis. Healed remote fracture deformity of the proximal left humerus. IMPRESSION: 1. Cardiomegaly with pulmonary vascular congestion. 2. Trace right pleural effusion with right lung base opacities suggestive of atelectasis versus pneum onia. 3. Severe sigmoidal thoracolumbar scoliosis. ACT 112: Negative or not required by law. The above report was generated using voice recognition software. It may contain grammatical, syntax o r spelling errors. Electronically signed by: Javi Iqbal M.D. 01/07/2020 7:07 PM
[2020-01-07 19:17] LABS: Albumin Level 3.6 gm/dl (3.4-5.0); BUN Creatinine Ratio 21.9 (10-20); Creatinine Clr Calc Pharmacy 41.4 ml/min; Est GFR (African American) 78.4; Est GFR (Non-African American) 67.6; Magnesium 2.1 mg/dl (1.8-2.4); Potassium 3.6 mmol/L (3.5-5.1)
[2020-01-07] MEDS ORDERED: PIPERACILLIN/TAZOBACTAM 4.5 GM/120 ML BAG IV ONE (19:27)
[2020-01-07] MEDS ORDERED: PIPERACILL/TAZOBAC CONSULT ACTIVE PRN (19:27)
[2020-01-07 19:33] LABS: Albumin Globulin Ratio 0.8 (0.9-2); Bilirubin,Total 0.2 mg/dl (0.2-1); Globulin 4.5 gm/dl (2.5-4.0); Total Protein 8.1 gm/dl (6.4-8.2); Troponin I 0.104 ng/ml (0-0.045)
[2020-01-07 19:35] LABS: Adenovirus PCR Not Detected (NotDetected); Bordetella parapertussis PCR Not Detected (NotDetected); Bordetella pertussis PCR Not Detected (NotDetected); Chlamydia pneumoniae PCR Not Detected (NotDetected); Coronavirus 229E PCR Not Detected (NotDetected); Coronavirus CoV-2 (COVID19)PCR Not Detected (NotDetected); Coronavirus HKU1 PCR Not Detected (NotDetected); Coronavirus NL63 PCR Not Detected (NotDetected); Coronavirus OC43PCR Not Detected (NotDetected); Human Metapneumovirus PCR Not Detected (NotDetected); Influenza A PCR Not Detected (NotDetected); Influenza B PCR Not Detected (NotDetected); Mycoplasma pneumoniae PCR Not Detected (NotDetected); Parainfluenza Virus 1 PCR Not Detected (NotDetected); Parainfluenza Virus 2 PCR Not Detected (NotDetected); Parainfluenza Virus 3 PCR Not Detected (NotDetected); Parainfluenza Virus 4 PCR Not Detected (NotDetected); Respiratory Syncytial VirusPCR Not Detected (NotDetected); Rhinovirus/Enterovirus PCR Not Detected (NotDetected)
[2020-01-07 20:27] LABS: Appearance Urine Clear (Clear); Bacteria Urine Automated Negative (Negative); Bilirubin Urine Negative (Negative); Blood Urine 3+ (Negative); Cast Urine Automated 0 /lpf (0-5); Color Urine Yellow; Glucose Urine UA Negative (Negative); Ketones Urine 2+ (Negative); Leukocyte Esterase Urine Negative (Negative); Nitrite Urine Negative (Negative); RBC Urine Automated >30 /hpf (0-4); Specific Gravity Urine 1.015 (1.000-1.030); Urobilinogen Urine Negative (Negative); WBC Urine Automated 0 /hpf (0-5); pH Urine 7.5 (4.5-7.5)
[2020-01-07 20:37] LABS: Protein Urine 1+ (Negative); Sulfosalicylic Acid Urine Positive (Negative)
[2020-01-07] MEDS ORDERED: IOVERSOL 100ml IV ONE (21:22)
--- NOTE | 2020-01-07 22:54 | History & Physical Report ---
Date of Service January 07, 2020 Assessment & Plan (1) Nausea & vomiting: Ms. Gutierrez is an 84 yo female with h/o Takotsubo cardiomyopathy, CAD, HLD, Asthma, restrictive lung disease (on 2L supplemental O2 at night) who presented to [facility] for 1-day history of fever/chills, nausea and vomiting. Nausea/Vomiting - relatively acute onset of symptoms with subclinical fever and chills at home, afebrile in ED, nausea improved after Zofran IV x1 - suspect acute viral gastroenteritis - less likely manifestation of Takotsubo Cardiomyopathy given lack of heart failure symptoms and clear GI symptoms; however given previous episode of N/V with Takotsubo in 11/2019 this is still a possibility - patient given crackers in water in ED, heart healthy diet ordered for tomorrow, advance diet as tolerated - Zofran 4 mg IV Q6H PRN nausea - NSS 80cc/hr for total of 1L, started in ED, will finish - going forward, would be cautious with IVFs given h/o cardiomyopathy - monitor vital signs and exam - monitor electrolytes, BMP, Mg, Phos tomorrow Elevated Troponin - no chest pain - no ST/T-wave changes on EKG - mildly elevated Troponin .104 (1830) --> - suspect demand ischemia more than true NSTEMI given lack of chest pain, dehydration 2/2 GI symptoms, and h/o Takotsubo - TTE ordered - will hold off on Cardiology consult pending TTE results - PRN Nitro ordered for chest pain - PRN EKG for chest pain - Serial EKG tomorrow AM Right Lung Base Opacity - suspect atelectasis vs restrictive lung disease 2/2 severe scoliosis - hemodynamically stable, no cough, afebrile in the ED, no white count, lactate/procal WNL - less likely to represent pneumonia - received Zosyn IV in the ED, would not continue abx at this time - continue to monitor VS - monitor WBC - CBC - cannot r/o right pleural effusion 2/2 cardiomyopathy - ordered TTE as mentioned above - cautious IVFs as mentioned above - continue to monitor exam for signs of hypervolemia although currently euvolemic on exam Takotsubo Cardiomyopathy - history of such with two previous episodes - had Echo with Dr. Diaz ([facility]) last Monday but unsure of results - continue Toprol XL 25 mg PO QAM - continue Aspirin 81 mg PO QAM - otherwise plan as above Asthma - no current symptoms - continue nebulizer in the hospital - PRN Albuterol nebs ordered for SOB GERD without Esophagitis - Protonix 20 mg PO daily per hospital formulary Depression/Anxiety - continue home dose Fluoxetine 30 mg PO QAM - continue home Xanax 0.5 mg PO QHS FEN/GI: heart-healthy diet DVT Prophylaxis: SQ Lovenox 40 mg Code Status: DNR/DNI Disposition: med/surg with tele (2) Elevated troponin: (3) Takotsubo cardiomyopathy: (4) Hyperlipidemia: (5) Hyperglycemia: (6) General weakness: (7) GERD without esophagitis: (8) Depression: (9) Cervical arthritis: (10) Asthma: (11) Restrictive lung disease: (12) Scoliosis: Admission and Anticipated Discharge Date Admission Date: 01/07/2020 History of Present Illness Chief Complaint: nausea/vomiting Primary Care Provider: Siddharth Spaulding MD Ms. Gutierrez is an 84 yo female with h/o Takotsubo cardiomyopathy, CAD, HLD, Asthma, restrictive lung disease (on 2L supplemental O2 at night) who presented to [facility] for 1-day history of fever/chills, nausea and vomiting. Patient was hospitalized in 11/2019 for N/V that began after drinking Colonoscopy prep, which was determined to be secondary to Takotsubo Cardiomyopathy with EF 25-30% at that time per TTE. Since that hospitalization the patient reports feeling weak and fatigued. Starting last night the patient started to have fever/chills with measured temperature of 100.1F as well as nausea. Called her PCP and was started on Cipro for UTI, which she took for the first time this morning. NBNB vomiting several times this morning after drinking a smoothie, followed by persistent nausea. Has not been able to eat anything today although she has been able to keep down fluids. Denies fever/chills today, denies chest pain, shortness of breath, orthopnea, PND, lower extremity edema. Also denies diarrhea or dysuria, increased urinary frequency/urgency, malodorous urine, flank pain. In the ED the patient received Zofran IV for nausea and was started on NSS @125cc/hr; reports nausea is resolved after Zofran and now only reports feeling fatigued and hungry from not eating. PMHx: extensive, as recorded in chart FamHx: father of NC and brother had NC at age 70 SurgHx: hysterectomy "many years ago" SocialHx: proficient in all ADLs, lives with and he helps with iADLs. Patient mobile in the home without cane or walker but needs walker for stability when walking outside. No alcohol/smoking/drug use. Allergies Allergy/AdvReac Type Severity Reaction Status Date / Time ceftriaxone Allergy Intermediate Hives Verified 01/07/20 19:01 prednisone Allergy Intermediate MUSCLE Verified 01/07/20 19:01 CONTROL [id number]-Lzx Reductase Allergy Intermediate MUSCULAR Verified 01/07/20 19:01 Inhibitor ISSUES methylprednisolone Allergy Mild HOT FACE; Verified 01/07/20 19:01 DRY HEAVES; FACIAL MUSCLES TWITCHING gabapentin [From Neurontin] Allergy Unknown Unknown Verified 01/07/20 19:01 nitrofurantoin Allergy Unknown Unknown Verified 01/07/20 19:01 valdecoxib [From Bextra] AdvReac Intermediate increased Verified 01/07/20 19:01 BP Home Medications Home Medications Medication Instructions Recorded Confirmed Type glucosamine-chondroitin 500 mg-400 1 cap PO QPM 10/04/18 01/07/20 History mg capsule vitamin B comp and C no.3 15 mg-10 1 cap PO QPM 10/04/18 01/07/20 History mg-50 mg-5 mg-300 mg capsule albuterol sulfate [Ventolin HFA] 2 puff INHALATION Q4 PRN 12/05/18 01/07/20 History omega 9-mdm-qaj-fish oil [Fish Oil] 1 cap PO QPM 12/05/18 01/07/20 History fluoxetine 10 mg capsule 10 mg PO QAM #90 cap 10/07/19 01/07/20 Rx fluoxetine 20 mg capsule 20 mg PO QAM #90 cap 10/07/19 01/07/20 Rx arformoterol 15 mcg/2 mL solution 2 ml INHALATION BID #60 vial 11/13/19 01/07/20 Rx for nebulization budesonide 0.25 mg/2 mL suspension 2 ml INHALATION BID #60 vial 11/13/19 01/07/20 Rx for nebulization ipratropium bromide 0.02 % 0.5 mg INHALATION BID #60 vial 11/13/19 01/07/20 Rx solution for inhalation aspirin 81 mg PO QAM #1 tab 11/23/19 01/07/20 Rx metoprolol succinate 25 mg PO QAM #30 tab 11/23/19 01/07/20 Rx alprazolam 0.5 mg tablet 0.5 mg PO HS #30 tab 12/16/19 01/07/20 Rx alprazolam 0.25 mg PO DAILY PRN 01/07/20 01/07/20 History biotin 5 mg PO QAM 01/07/20 01/07/20 History calcium carbonate [Calcium 600] 600 mg PO QPM 01/07/20 01/07/20 History cholecalciferol (vitamin D3) 50 mcg PO QAM 01/07/20 01/07/20 History [Vitamin D3] omeprazole 20 mg PO QAM 01/07/20 01/07/20 History polyethylene glycol 3350 [Miralax] 17 gm PO DAILY 01/07/20 01/07/20 History turmeric root extract 1,000 mg PO QPM 01/07/20 01/07/20 History Past Med/Surg History Medical History Abnormal CT scan Acute on chronic diastolic (congestive) heart failure Acute respiratory failure with hypoxia Admitted to intensive care unit Arthralgia of multiple sites Arthritis of left knee Asthma inhalers/nebulizer daily/prn Atypical chest pain Cervical arthritis Cervical myelopathy Cervicalgia Chronic obstructive pulmonary disease Depression Encounter for pre-operative examination Eustachian tube dysfunction General weakness Generalized anxiety disorder GERD without esophagitis Hearing loss Hyperlipidemia no meds Hypokalemia Hypotension MCTD (mixed connective tissue disease) Multifocal pneumonia Muscle spasm Muscle weakness-general Myopathy Non-occlusive coronary artery disease Non-ST elevated myocardial infarction (non-STEMI) On home oxygen therapy 2L via N/C qpm and HS Oral thrush Osteoarthritis Osteopenia Polyneuropathy Positive MICHAEL (antinuclear antibody) Positive colorectal cancer screening using Cologuard test Restrictive lung disease Scoliosis Sepsis Throat irritation Trapezius muscle spasm Urinary incontinence Surgical History H/O foot surgery History of appendectomy History of arthroscopy of left knee History of bilateral cataract extraction History of biopsy right thigh--showed MCTD History of bronchoscopy x2 History of cardiac cath 04/2017 no stents History of colonoscopy History of thoracentesis History of tonsillectomy and adenoidectomy History of total hysterectomy with bilateral salpingo-oophorectomy (BSO) History of wisdom tooth extraction Family History Mother Alzheimer disease Brother Hx of CABG Depression Father Congestive heart failure Coronary heart disease Hearing loss Unknown Myocardial infarction Other No family history of adverse response to anesthesia Denies family history of Ovarian cancer Prostate cancer Breast cancer Colorectal cancer Social History Smoking Status: Never smoker Second Hand Exposure: No; Hx Alcohol Use: No Hx Substance Use: No Preferred Language: Citizen Of [place] Communication Ability: Effective Visual Impairment: Limited Hearing Ability: Use of Hearing Aid Clothing Busheler Required: No Beliefs That Will Affect Care: None marital status: Current Living Situation: Spouse current occupational status: retired How many Children do You have: 5 Feels Safe at Home: Yes Childhood Exposure to Second-Hand Smoke: Yes caffeine: Yes Dental Care, Regularly: Yes Physical Activity Frequency: 3-4 Times per Week Seatbelt Use: always Sunscreen Use: Yes Assistive Devices: Glasses, Hearing Aid - Left, Hearing Aid - Right, Oxygen - at Night and Walker Review of Systems Constitutional: + fever, + chills and + fatigue Eyes: no worsening vision Ear, Nose, Mouth, Throat: no hearing loss Respiratory: no cough and no dyspnea Cardiovascular: no chest pain, no dyspnea on exertion, no orthopnea, no paroxysmal nocturnal dyspnea, no palpitations, no syncope and no edema Gastrointestinal: + nausea and + vomiting; no abdominal pain, no diarrhea/loose stools and no blood in stools Genitourinary: no dysuria, no urinary frequency, no urinary urgency, no urinary incontinence, no hematuria and no flank pain Integumentary: no rash Neurologic: no falls Hematologic / Lymphatic: no easy bleeding and no easy bruising Physical Exam Constitutional: WD/WN, vitals as above Eyes: PERRL, conjunctivae normal, anicteric sclerae Respiratory: normal respiratory effort; no respiratory distress, no labored breathing, does not use accessory muscles and no cough Auscultation: + diminished lung sounds (in right lower lung field); no rales, no rhonchi and no wheezes Cardiovascular: Rate/Rhythm: regular rate and regular rhythm Heart Sounds: + murmur (systolic ejection murmur at right sternal border) Gastrointestinal (Abdomen): normal bowel sounds, soft, nontender, no hepatosplenomegaly Musculoskeletal: no cyanosis or clubbing, extremities motor strength 5/5 Skin: no rashes, warm and dry Psychiatric: A+Ox3, euthymic affect Results & Data Results & Data ([facility]) Vital Signs (Past 12 Hours) Vital Signs Temp Pulse Pulse Resp BP BP Pulse Ox 01/07/20 20:16 73 18 156/81 H 91 01/07/20 17:16 36.9 C 81 20 164/86 H 89 L Code Status & VTE Plan Code Status Full Code VTE Prophylaxis Plan VTE Prophylaxis will be ordered: Yes Supervising Physician Co-Signing Physician Notes Patient seen and examined, chart reviewed, case discussed with Dr. Gong and I agree with his assessment and plan as documented above. Briefly, patient is an 84yo female with history of Takotsubo cardiomyopathy presenting with nausea/vomiting. On exam she is afebrile, HD stable, NAD. Resting comfortably in bed. Skin - no rash HEENT - NC/AT, PERRL, EOMI, MMM Heart - +S1/S2, regular, no m/r/g Lungs - CTA Abd - +BS, soft, NT/ND Ext - No edema Labs and images reviewed, troponin mildly elevated and increasing. Patient denies CP/palpitations Assessment/Plan: -Admit to Med/Tele -Trend troponin -Check 2D echo -Cardiology consultation given increasing troponin and history of Takotsubo CM - assistance appreciated -Supportive care -Remainder of plan as above Resident Activity Tracking Resident Involvement: Resident Care Provided Care Provided: Adult Hospital Medicine (1) Nausea & vomiting Vomiting Intractability: non-intractable Vomiting type: unspecified Qualified Code(s): R11.2 - Nausea with vomiting, unspecified
[2020-01-07] MEDS ORDERED: ONDANSETRON INJ 2 MG/ML 2 ML VIAL IV PRN (23:21)
[2020-01-07] MEDS ORDERED: NITROGLYCERIN SL 0.4 MG/TAB TAB SL PRN (23:27)
[2020-01-07 23:44] LABS: Troponin I 0.519 ng/ml (0-0.045)
[2020-01-08] MEDS ORDERED: ALBUTEROL 0.083% NEBU SOLN 3 ML VIAL NEB PRN (00:37)
--- NOTE | 2020-01-08 03:23 | Billing Data ---
Date of Service January 07, 2020 Coding Level of Care Code 85482 Initial Inpt Care Lvl 3
[2020-01-08] MEDS ORDERED: ALPRAZolam 0.5 MG TABLET PO STA (03:41)
[2020-01-08] MEDS: BUDESONIDE 0.25 MG/2 ML VIAL (PULMICORT) INH SCH ×2 (07:23→19:14)
[2020-01-08] MEDS: FORMOTEROL 20 MCG/2 ML VIAL INH SCH ×2 (07:24→19:14)
[2020-01-08] MEDS: IPRATROPIUM BROMIDE NEB SOLN 0.02% 2.5 ML VIAL INH SCH ×2 (07:24→19:14)
--- NOTE | 2020-01-08 07:28 | CT Scan Report ---
ABDOMEN AND PELVIS CT WITH IV CONTRAST CT DOSE: 313.15 mGy.cm HISTORY: Nausea. Vomiting. Diarrhea. TECHNIQUE: Multiaxial CT images of the abdomen and pelvis were performed following the use of intrave nous contrast. A dose lowering technique was utilized adhering to the principles of ALARA. COMPARISON STUDY: Abdomen and pelvis CT 11/20/2019. FINDINGS: There is severe scoliosis again noted. Chronic atelectasis seen within the right lung base and a small right pleural effusion. This is not significantly changed. No pneumoperitoneum. No pneuma tosis. No suspicious lytic or blastic osseous lesions. The liver, gallbladder, spleen, adrenal glands , kidneys are within normal limits. A few punctate calcifications within the pancreatic head, unchang ed. Normal caliber abdominal aorta. No retroperitoneal lymphadenopathy. The bladder is unremarkable. The uterus is surgically absent. No pelvic lymphadenopathy. A few colonic diverticula. No evidence fo r acute diverticulitis. No bowel wall thickening or obstruction. The appendix is not identified and r eportedly surgically absent. IMPRESSION: 1. Severe scoliosis. 2. Chronic atelectasis again noted within the right lung base and a small right pleural effusion. 3. No bowel wall thickening or obstruction. 4. Hysterectomy and appendectomy. ACT 112: Negative or not required by law. Electronically signed by: Ottoniel Fuchs M.D. 01/08/2020 7:26 AM
[2020-01-08] MEDS: ASPIRIN 81 MG ECTAB PO SCH (08:15)
[2020-01-08] MEDS: METOPROLOL SUCC 25MG EXT REL TAB PO SCH (08:15)
[2020-01-08] MEDS: FLUoxetine HCL 10 MG CAP PO SCH (08:15)
[2020-01-08] MEDS: PANTOprazole 40 MG TAB PO SCH (08:16)
[2020-01-08] MEDS: FLUoxetine HCL 20 MG CAP PO SCH (08:16)
[2020-01-08] MEDS: CHOLECALCIFEROL 1,000 UNITS 25 MCG TAB PO SCH (08:16)
[2020-01-08] MEDS: POLYETHYLENE (MIRALAX) 17 GM PACK PO SCH (08:16)
[2020-01-08 08:42] LABS: Basophils # (auto) 0.01 K/uL (0-0.2); Basophils % (auto) 0.2 %; Eosinophils # (auto) 0.05 K/uL (0-0.5); Eosinophils % (auto) 1.2 %; Hemoglobin 11.4 g/dL (12.0-16.0); Immature Granulocytes # (auto) 0.02 K/uL (0.00-0.02); Immature Granulocytes % (auto) 0.5 %; Lymphocytes # (auto) 1.21 K/uL (1.2-3.4); Lymphocytes % (auto) 28.5 %; Mean Corpuscular Hemoglobin 29.8 pg (25-34); Mean Corpuscular Hgb Conc 33.5 g/dL (32-36); Monocytes # (auto) 0.87 K/uL (0.11-0.59); Monocytes % (auto) 20.5 %; Neutrophils # (auto) 2.08 K/uL (1.4-6.5); Neutrophils % (auto) 49.1 %; Platelet Count 219 K/uL (130-400); RDW Coefficient of Variation 14.6 % (11.5-14.5); RDW Standard Deviation 47.7 fL (36.4-46.3); Red Blood Count 3.82 M/uL (4.2-5.4); White Blood Count 4.24 K/uL (4.8-10.8)
[2020-01-08 09:09] LABS: BUN Creatinine Ratio 15.4 (10-20); Calcium 9.1 mg/dl (8.5-10.1); Creatinine Clr Calc Pharmacy 41.9 ml/min; Est GFR (African American) 79.6; Est GFR (Non-African American) 68.7; Magnesium 2.1 mg/dl (1.8-2.4); Potassium 3.1 mmol/L (3.5-5.1)
[2020-01-08 09:10] LABS: Phosphorus 3.6 mg/dl (2.5-4.9)
[2020-01-08] MEDS: ENOXAPARIN INJ 40 MG/0.4 ML SYR SQ SCH (09:27)
--- NOTE | 2020-01-08 12:29 | XCELERA ---
[id number] \\[id number]___[id number]
--- NOTE | 2020-01-08 12:55 | Electrocardiogram Report ---
Test Reason : Blood Pressure : / mmHG Vent. Rate : 078 BPM Atrial Rate : 078 BPM P-R Int : 132 ms QRS Dur : 084 ms QT Int : 396 ms P-R-T Axes : -10 044 062 degrees QTc Int : 451 ms Poor data quality, interpretation may be adversely affected Normal sinus rhythm Possible Old Septal infarct Minor ST depression in Anterolateral leads Abnormal ECG When compared with ECG of 22-NOV-2019 07:02, Premature supraventricular complexes are no longer Present Criteria for Septal infarct is now Present Otherwise no significant change Confirmed by Remberto De Leon ([id number]) on 01/08/2020 12:55:13 PM Referred By: REFERRED SELF Confirmed By:Remberto De Leon
--- NOTE | 2020-01-08 13:16 | Electrocardiogram Report ---
Test Reason : Blood Pressure : / mmHG Vent. Rate : 067 BPM Atrial Rate : 067 BPM P-R Int : 144 ms QRS Dur : 082 ms QT Int : 462 ms P-R-T Axes : -05 057 065 degrees QTc Int : 488 ms Normal sinus rhythm Incomplete right bundle branch block Nonspecific ST abnormality Anterolateral leads Abnormal ECG When compared with ECG of 07-JAN-2020 18:20, Criteria for Septal infarct are no longer Present Nonspecific T wave abnormality no longer evident in Anterior leads Confirmed by Remberto De Leon ([id number]) on 01/08/2020 1:15:50 PM Referred By: REFERRED SELF Confirmed By:Remberto De Leon
--- NOTE | 2020-01-08 16:50 | Hospitalist Progress Note ---
Date of Service January 08, 2020 Assessment & Plan (1) Elevated troponin: Patient recently with Takotsubo cardiomyopathy. Echocardiogram today shows complete resolution of the cardiomyopathy as compared to previous echo Elevated troponin probably is due to ischemic demand No indication for work-up for cardiac ischemia at this time We will check a repeat troponin in the morning Patient is currently asymptomatic Continue metoprolol and aspirin Treat underlying restrictive lung disease (2) Takotsubo cardiomyopathy: Previously she had in November 2019 Echocardiogram today shows complete resolution Follows with [facility] cardiology [facility] Continue to monitor on telemetry No indication for further work-up Further management as an outpatient (3) Nausea & vomiting: Resolved No acute etiology on CT abdomen pelvis Supportive care (4) Asthma: Patient was restrictive lung disease follows with the [facility] pulmonary group Brovana and Pulmicort nebulizers at home Currently no bronchospasm on exam Oxygenating well No chest pain or tightness Continue outpatient management with pulmonary group (5) Electrolyte imbalance: Potassium 3.1 We will order 3 potassium riders for a total of 30 mEq We will also order 40 mEq p.o. Repeat labs in the morning Magnesium level is within normal limits (6) DVT prophylaxis: Continue Lovenox for chemical prophylaxis Ambulate as tolerated Admission and Anticipated Discharge Date Admission Date: January 07, 2020 Subjective Attending: Dr. Morris Patient seen and examined at bedside. Nausea and vomiting is completely resolved. No chest pain or tightness. No shortness of breath. No diaphoresis. No pain in neck shoulder or arms. Patient feels fatigued but otherwise no acute complaints. She has not been out of bed and has not ambulated. I did ask her to ambulate and check for exertion. Review of Systems Review of Systems: All systems reviewed & are unremarkable except as noted in Subjective Physical Exam Physical Exam: GENERAL : No acute distress. Pleasant EYES: No icterus, gaze conjugate NOSE: No evidence of epistaxis MOUTH: No lesions or candidiasis NECK: Supple LUNGS: CTA B/L, no wheezes, rales or rhonchi HEART: Regular, rate controlled. Occasional ectopy ABDOMEN: Soft, NT, ND, BS Present EXTREMITIES: No LE edema, pedal pulses intact NEURO: A&OX3 Results & Data Results & Data ([facility]) Vital Signs (Past 12 Hours) Vital Signs Temp Pulse Pulse Resp BP Pulse Ox 01/08/20 15:10 67 01/08/20 15:00 36.8 C 69 20 98/61 L 97 01/08/20 11:18 36.9 C 64 16 97/58 L 97 01/08/20 07:46 37.3 C 63 16 108/64 97 01/08/20 07:25 68 18 98 01/08/20 07:23 65 Laboratory Results 01/08/20 07:56 01/08/20 07:56 01/07/20 01/07/20 01/08/20 18:30 22:48 13:38 Troponin I 0.104 H* 0.519 H* 0.395 H* Diagnostic Findings XR chest 1V portable HISTORY: 84 years-old Female SEPSIS acute sepsis COMPARISON: Chest radiograph 11/22/2019 TECHNIQUE: Portable AP view of the chest FINDINGS: Cardiac silhouette is enlarged, unchanged. There is mild pulmonary vascular congestion.. Trace right pleural effusion. Asymmetric right lung base opacities. No pneumothorax. Severe sigmoidal thoracolumbar scoliosis. Healed remote fracture deformity of the proximal left humerus. IMPRESSION: 1. Cardiomegaly with pulmonary vascular congestion. 2. Trace right pleural effusion with right lung base opacities suggestive of atelectasis versus pneumonia. 3. Severe sigmoidal thoracolumbar scoliosis. Electronically signed by: Javi Iqbal M.D. 01/07/2020 7:07 [address] AND PELVIS CT WITH IV CONTRAST CT DOSE: 313.15 mGy.cm HISTORY: Nausea. Vomiting. Diarrhea. TECHNIQUE: Multiaxial CT images of the abdomen and pelvis were performed foll owing the use of intravenous contrast. A dose lowering technique was utilized adhering to the principles of ALARA. COMPARISON STUDY: Abdomen and pelvis CT 11/20/2019. FINDINGS: There is severe scoliosis again noted. Chronic atelectasis seen within the right lung base and a small right pleural effusion. This is not significantly changed. No pneumoperitoneum. No pneumatosis. No suspicious lytic or blastic osseous lesions. The liver, gallbladder, spleen, adrenal glands, kidneys are within normal limits. A few punctate calcifications within the pancreatic head, unchanged. Normal caliber abdominal aorta. No retroperitoneal lymphadenopathy. The bladder is unremarkable. The uterus is surgically absent. No pelvic lymphadenopathy. A few colonic diverticula. No evidence for acute diverticulitis. No bowel wall thickening or obstruction. The appendix is not identified and reportedly surgically absent. IMPRESSION: 1. Severe scoliosis. 2. Chronic atelectasis again noted within the right lung base and a small right pleural effusion. 3. No bowel wall thickening or obstruction. 4. Hysterectomy and appendectomy. Electronically signed by: Ottoniel Fuchs M.D. 01/08/2020 7:26 AM PG Care Time/CCT Total # of Minutes Spent Total Time Spent with Patient: Total time spent is greater than 50% in co ordination of care (as documented) at patient's floor/unit and/or counseling patient: 30 minutes including face time with daughter in [facility] and patient as well as discussion with other providers Coding Level of Care Code 76306 Subseq Hosp Care Lvl 3 Diagnoses Elevated troponin R77.8 Takotsubo cardiomyopathy I51.81 Nausea & vomiting R11.2 Vomiting Intractability: non-intractable Vomiting type: unspecified Asthma J45.909 Electrolyte imbalance E87.8 DVT prophylaxis Z29.9 Time Spent (min) 30 (1) Nausea & vomiting Vomiting Intractability: non-intractable Vomiting type: unspecified Qualified Code(s): R11.2 - Nausea with vomiting, unspecified
[2020-01-08] MEDS ORDERED: POTASSIUM CHLORIDE 20 MEQ TABCR PO ONE (17:00)
[2020-01-08] MEDS: POTASSIUM CHLORIDE / WTR 10 MEQ/100 ML PLCT IV SCH ×3 (17:10→19:23)
[2020-01-08] MEDS ORDERED: ALPRAZolam 0.5 MG TABLET PO SCH (21:00)
[2020-01-08] MEDS ORDERED: CALCIUM CARBONATE 1250MG TAB PO SCH (21:00)
[2020-01-08] MEDS ORDERED: VITAMIN B COMPLEX TAB PO SCH (21:00)
[2020-01-09] MEDS: FORMOTEROL 20 MCG/2 ML VIAL INH SCH (07:20)
[2020-01-09] MEDS: IPRATROPIUM BROMIDE NEB SOLN 0.02% 2.5 ML VIAL INH SCH (07:20)
[2020-01-09] MEDS: BUDESONIDE 0.25 MG/2 ML VIAL (PULMICORT) INH SCH (07:20)
[2020-01-09] MEDS: POLYETHYLENE (MIRALAX) 17 GM PACK PO SCH (08:30)
[2020-01-09] MEDS: PANTOprazole 40 MG TAB PO SCH (08:30)
[2020-01-09] MEDS: ENOXAPARIN INJ 40 MG/0.4 ML SYR SQ SCH (08:30)
[2020-01-09] MEDS: CHOLECALCIFEROL 1,000 UNITS 25 MCG TAB PO SCH (08:30)
[2020-01-09] MEDS: METOPROLOL SUCC 25MG EXT REL TAB PO SCH (08:30)
[2020-01-09] MEDS: ASPIRIN 81 MG ECTAB PO SCH (08:30)
[2020-01-09] MEDS: FLUoxetine HCL 10 MG CAP PO SCH (08:30)
[2020-01-09] MEDS: FLUoxetine HCL 20 MG CAP PO SCH (08:30)
[2020-01-09 10:38] LABS: Basophils # (auto) 0.01 K/uL (0-0.2); Basophils % (auto) 0.3 %; Eosinophils # (auto) 0.22 K/uL (0-0.5); Hematocrit (blood only) 33.4 % (37-47); Hemoglobin 10.8 g/dL (12.0-16.0); Immature Granulocytes # (auto) 0.01 K/uL (0.00-0.02); Immature Granulocytes % (auto) 0.3 %; Lymphocytes # (auto) 1.38 K/uL (1.2-3.4); Lymphocytes % (auto) 37.7 %; Mean Corpuscular Hemoglobin 29.3 pg (25-34); Mean Corpuscular Hgb Conc 32.3 g/dL (32-36); Mean Corpuscular Volume 90.5 fL (80-100); Mean Platelet Volume 9.2 fL (7.4-10.4); Monocytes # (auto) 0.41 K/uL (0.11-0.59); Monocytes % (auto) 11.2 %; Neutrophils # (auto) 1.63 K/uL (1.4-6.5); Neutrophils % (auto) 44.5 %; Platelet Count 225 K/uL (130-400); RDW Coefficient of Variation 14.9 % (11.5-14.5); RDW Standard Deviation 49.6 fL (36.4-46.3); Red Blood Count 3.69 M/uL (4.2-5.4); White Blood Count 3.66 K/uL (4.8-10.8)
[2020-01-09 11:27] LABS: BUN Creatinine Ratio 21.2 (10-20); Calcium 8.9 mg/dl (8.5-10.1); Creatinine Clr Calc Pharmacy 36.4 ml/min; Est GFR (African American) 67.2; Potassium 3.7 mmol/L (3.5-5.1)
[2020-01-09] MEDS ORDERED: POTASSIUM CHLORIDE 20 MEQ TABCR PO SCH (11:45)
[2020-01-09 13:07] LABS: Appearance Urine Clear (Clear); Bacteria Urine Automated Negative (Negative); Bilirubin Urine Negative (Negative); Blood Urine 2+ (Negative); Color Urine Dark Yellow; Epithelial Cell Urine Auto 20-30 /lpf (0-5); Glucose Urine UA Negative (Negative); Ketones Urine Negative (Negative); Leukocyte Esterase Urine Negative (Negative); Nitrite Urine Negative (Negative); Protein Urine Trace (Negative); Specific Gravity Urine 1.026 (1.000-1.030); Urobilinogen Urine Negative (Negative); pH Urine 5.5 (4.5-7.5)
--- NOTE | 2020-01-09 16:18 | Discharge Summary ---
Date of Service January 09, 2020 Admission HPI Per Admitting Provider Ms. Gutierrez is an 84 yo female with h/o Takotsubo cardiomyopathy, CAD, HLD, Asthma, restrictive lung disease (on 2L supplemental O2 at night) who presented to [facility] ED for 1-day history of fever/chills, nausea and vomiting. Patient was hospitalized in 11/2019 for N/V that began after drinking Colonoscopy prep, which was determined to be secondary to Takotsubo Cardiomyopathy with EF 25-30% at that time per TTE. Since that hospitalization the patient reports feeling weak and fatigued. Starting last night the patient started to have fever/chills with measured temperature of 100.1F as well as nausea. Called her PCP and was started on Cipro for UTI, which she took for the first time this morning. NBNB vomiting several times this morning after drinking a smoothie, followed by persistent nausea. Has not been able to eat anything today although she has been able to keep down fluids. Denies fever/chills today, denies chest pain, shortness of breath, orthopnea, PND, lower extremity edema. Also denies diarrhea or dysuria, increased urinary frequency/urgency, malodorous urine, flank pain. In the ED the patient received Zofran IV for nausea and was started on NSS @125cc/hr; reports nausea is resolved after Zofran and now only reports feeling fatigued and hungry from not eating. PMHx: extensive, as recorded in chart FamHx: father of MA and brother had MA at age 70 SurgHx: hysterectomy "many years ago" SocialHx: proficient in all ADLs, lives with and he helps with iADLs. Patient mobile in the home without cane or walker but needs walker for stability when walking outside. No alcohol/smoking/drug use. Admission Exam Per Admitting Provider Constitutional: WD/WN, vitals as above Eyes: PERRL, conjunctivae normal, anicteric sclerae Respiratory: normal respiratory effort; no respiratory distress, no labored breathing, does not use accessory muscles and no cough Auscultation: + diminished lung sounds (in right lower lung field); no rales, no rhonchi and no wheezes Cardiovascular: Rate/Rhythm: regular rate and regular rhythm Heart Sounds: + murmur (systolic ejection murmur at right sternal border) Gastrointestinal (Abdomen): normal bowel sounds, soft, nontender, no hepatosplenomegaly Musculoskeletal: no cyanosis or clubbing, extremities motor strength 5/5 Skin: no rashes, warm and dry Psychiatric: A+Ox3, euthymic affect Principal Diagnosis Nausea and vomiting, generalized weakness Discharge Exam GENERAL : No acute distress. Pleasant. Talkative EYES: No icterus, gaze conjugate NOSE: No evidence of epistaxis MOUTH: No lesions or candidiasis. Mucosa moist NECK: Supple LUNGS: CTA B/L, no wheezes, rales or rhonchi HEART: Regular, rate controlled ABDOMEN: Soft, NT, ND, BS Present EXTREMITIES: No LE edema, pedal pulses intact NEURO: A&OX3 Discharge Data Allergies Allergy/AdvReac Type Severity Reaction Status Date / Time ceftriaxone Allergy Intermediate Hives Verified 01/07/20 19:01 prednisone Allergy Intermediate MUSCLE Verified 01/07/20 19:01 CONTROL Scicdro-Dwp-Lbr Reductase Allergy Intermediate MUSCULAR Verified 01/07/20 19:01 Inhibitor ISSUES methylprednisolone Allergy Mild HOT FACE; Verified 01/07/20 19:01 DRY HEAVES; FACIAL MUSCLES TWITCHING gabapentin [From Neurontin] Allergy Unknown Unknown Verified 01/07/20 19:01 nitrofurantoin Allergy Unknown Unknown Verified 01/07/20 19:01 valdecoxib [From Bextra] AdvReac Intermediate increased Verified 01/07/20 19:01 BP Consultations 01/07/20 21:35 ED Decision to Admit Stat Ordered Studies 01/07/20 20:18 CT abd pelvis IV con only Stat 01/09/20 09:50 01/09/20 09:50 Hospital Course (1) Elevated troponin: Patient recently with Takotsubo cardiomyopathy. Echocardiogram with complete resolution of the cardiomyopathy as compared to previous echo Elevated troponin probably is due to ischemic demand No indication for work-up for cardiac ischemia at this time We will check a repeat troponin in the morning Patient is currently asymptomatic Continue metoprolol and aspirin Treat underlying restrictive lung disease (2) Takotsubo cardiomyopathy: Previously diagnosed in November 2019 Echocardiogram now shows complete resolution Follows with [facility] cardiology at [facility]. I spoke with Dr. Meño Diaz from the cardiology group and he will follow her as an outpatient. No indication for further work-up at this time (3) Nausea & vomiting: Resolved No acute etiology on CT abdomen pelvis Supportive care (4) Asthma: Patient was restrictive lung disease follows with the [facility] pulmonary group Brovana and Pulmicort nebulizers at home Currently no bronchospasm on exam Oxygenating well No chest pain or tightness Continue outpatient management with pulmonary group (5) Electrolyte imbalance: Potassium 3.1 yesterday. Treated with 3 potassium riders for a total of 30 mEq and 40 mEq p.o. Potassium level this morning was 3.7 We will discharge home on potassium chloride 20 mEq p.o. daily Advised patient to follow-up with primary care provider for labs within the next 7 days Magnesium level is within normal limits (6) DVT prophylaxis: Lovenox for chemical prophylaxis while inpatient Continue to ambulate as tolerated at home Total Time Total Time Spent Total Time Spent (In Minutes): 40 minutes including 2 FaceTime conferences with the patient's daughter Padmini and discussion with other providers Total Time Includes: Examination of the Patient, Discharge Planning, Medication Reconciliation, Communication With Other Providers and Other (FaceTime conferences with the patient's daughter) Discharge Plan Discharge Items Patient Disposition: Home - Self-Care Reason For Visit: N/V Discharge Diagnosis: Nausea and vomiting, weakness Activity: Resume your previous activity Lifting: Gradually increase as tolerated Bathing: No limitations Sexual Activity: When tolerated Exercise/Sports: Gradually increase as tolerated Driving/Machine Use: No limitations Weightbearing: Full weightbearing Non-emergency contact: Primary Care Provider Call non-emergency contact if: you have any medication questions and your temperature is above 101 Follow-up/Referrals: Siddharth Spaulding MD [Primary Care Provider] - 01/14/20 11:00 am (YOU WILL MEJIA LUCAS LEWIS) Diet: Heart Healthy Addtl Attending Provider Instructions: You were admitted with nausea and vomiting and generalized weakness. He had a urinalysis completed which showed some mild urinary tract infection. A urine culture was completed which grew out E. coli. However, this is a very common contaminant from stool. He had no symptoms of a urinary nature and did not receive any antibiotics while inpatient. He did have a low potassium level. This was corrected with IV potassium as well as oral potassium. You have been started on potassium chloride tablets and should take this every morning. Be sure to follow-up with your primary care physician and have repeat labs to follow your potassium level. If you develop any further urinary symptoms including pain, burning, fever, blood in your urine please call your primary car e physician. He also had an elevated troponin which is an enzyme released by the heart when it is damaged. Although this was elevated, it is significantly lower than your previous admission and is probably residual to your Takotsubo cardiomyopathy. There were no new EKG changes. Your repeat echocardiogram showed resolution of the negative findings from your previous admission. You should keep all of your appointments with cardiology. You should continue on a heart healthy diet due to your history of heart failure. Pending Studies at Discharge: No Stand-Alone Forms: My [facility] Medications and DC Order Prescriptions: New potassium chloride [Klor-Con M20] 20 mEq Tablet,Er Particles/Crystals 20 meq PO QAM Qty: 30 RF: 0 Continued fluoxetine 10 mg capsule 10 mg PO QAM Qty: 90 RF: 2 fluoxetine 20 mg capsule 20 mg PO QAM Qty: 90 RF: 3 budesonide 0.25 mg/2 mL suspension for nebulization 2 ml inhalation BID Qty: 60 RF: 11 ipratropium bromide 0.02 % solution 0.5 mg inhalation BID Qty: 60 RF: 11 Brovana 15 mcg/2 mL solution for nebulization 2 ml INHALATION BID Qty: 60 RF: 11 alprazolam 0.5 mg tablet 0.5 mg PO HS Qty: 30 RF: 0 glucosamine-chondroitin 500-400 mg capsule 1 cap PO QPM RF: 0 B Complex Plus Vitamin C [id number] mg capsule 1 cap PO QPM RF: 0 omega 0-fcm-jth-fish oil [Fish Oil] 1,000 mg (120 mg-180 mg) Capsule 1 cap PO QPM RF: 0 albuterol sulfate [Ventolin HFA] 90 mcg/actuation Hfa Aerosol Inhaler 2 puff INHALATION Q4 PRN (Reason: Shortness Of Breath) RF: 0 aspirin 81 mg Tablet,Delayed Release (Dr/Ec) 81 mg PO QAM Qty: 1 RF: 0 metoprolol succinate 25 mg Tablet Extended Release 24 Hr 25 mg PO QAM Qty: 30 RF: 1 alprazolam 0.5 mg Tablet 0.25 mg PO DAILY PRN (Reason: Anxiety) RF: 0 calcium carbonate [Calcium 600] 600 mg calcium (1,500 mg) Tablet 600 mg PO QPM RF: 0 biotin 5 mg Tablet 5 mg PO QAM RF: 0 cholecalciferol (vitamin D3) [Vitamin D3] 50 mcg (2,000 unit) Capsule 50 mcg PO QAM RF: 0 turmeric root extract 500 mg Capsule 1,000 mg PO QPM RF: 0 polyethylene glycol 3350 [Miralax] 17 gram powder in packet 17 gm PO DAILY RF: 0 omeprazole 20 mg capsule,delayed release(DR/EC) 20 mg PO QAM RF: 0 No Action ondansetron 4 mg tablet,disintegrating 4 mg PO Q8H PRN (Reason: nausea and vomiting) Qty: 20 RF: 0 metoclopramide HCl [Reglan] 10 mg tablet 10 mg PO Q8H PRN (Reason: nausea and vomiting) 3 Days Qty: 9 RF: 0 Discharge Orders: Discharge Order (Routine); Ordered 01/09/20 Ordered By: Renan Gudino Admission Data Admit Date/Time: 01/07/20 23:15 Attending Provider: Benito Morris Admit Provider: Satnam Gong Primary Care Provider: Siddharth Spaulding Other Providers: Nazanin Talavera Eric S. Other Interventions: Discharge Summary Assessment (RN) Last Done: 01/09/20 12:15 Supervising Physician Co-Signing Physician Notes During my face to face encounter with the patient, I interrogated the patient obtaining a history of his symptoms today and physical examination. I reviewed above note and agree with it. I discussed plan of care with patient and DAVID Gudino. Patient appears to have been admitted with ELEVATED TROPONIN However, echocardiogram shows complete resolution of the cardiomyopathy as compared to previous echo Elevated troponin probably is due to ischemic demand Coding Level of Care Code D/C Day Management >30 mins Diagnoses Elevated troponin R77.8 Takotsubo cardiomyopathy I51.81 Nausea & vomiting R11.2 Vomiting Intractability: non-intractable Vomiting type: unspecified Asthma J45.909 Electrolyte imbalance E87.8 DVT prophylaxis Z29.9 Time Spent (min) 40
== END 2020-01-09 13:19 | disposition home or self-care (01) | DRG 392 ==
LOC: ED 17:26 → 2W 23:15 → SUATTDRO 23:15 → 2W 01-08 00:17

== ENCOUNTER 2022-04-27 20:07 | Inpatient (IN) ==
[2022-04-27] MEDS ORDERED: methylPREDNISolone 125 MG/2 ML VIAL IV STA (20:38)
[2022-04-27] MEDS ORDERED: ALBUT/IPRATROP 3MG/0.5MG NEB 3 ML VIAL NEB STA ×2 (20:38→21:44)
[2022-04-27 20:41] LABS: Basophils # (auto) 0.04 K/uL (0-0.2); Basophils % (auto) 0.3 %; Eosinophils # (auto) 0.09 K/uL (0-0.50); Eosinophils % (auto) 0.6 %; Hematocrit (blood only) 38.6 % (37.0-47.0); Immature Granulocytes # (auto) 0.05 K/uL (0.01-0.20); Immature Granulocytes % (auto) 0.3 %; Lymphocytes # (auto) 2.59 K/uL (1.2-3.4); Lymphocytes % (auto) 16.6 %; Mean Corpuscular Hemoglobin 31.2 pg (25.0-34.0); Mean Corpuscular Hgb Conc 33.7 g/dL (32.0-36.0); Mean Corpuscular Volume 92.6 fL (80.0-100.0); Mean Platelet Volume 10.2 fL (9.4-12.4); Monocytes # (auto) 0.94 K/uL (0.11-0.59); Neutrophils # (auto) 11.87 K/uL (1.40-6.50); Neutrophils % (auto) 76.2 %; Platelet Count 249 K/uL (130-400); RDW Coefficient of Variation 14.1 % (11.5-14.5); RDW Standard Deviation 47.8 fL (36.4-46.3); Red Blood Count 4.17 M/uL (4.20-5.40); White Blood Count 15.58 K/ul (4.8-10.8)
[2022-04-27 21:04] LABS: Base Excess VBG -6.6 mEq/L; HCO3 VBG 19 mmol/L; Oxygen Saturation VBG < 60.0 %; PCO2 VBG 38 mmHg (38-50); PO2 VBG 36 mmHg; pH VBG 7.31 (7.36-7.41)
[2022-04-27 21:08] LABS: Alanine Aminotransferase 19 U/L (7-52); Albumin Globulin Ratio 1.1 (0.9-2); Albumin Level 4.3 gm/dl (3.4-5.0); Alkaline Phosphatase 77 U/L (34-104); BUN Creatinine Ratio 34.6 (10-20); Bilirubin,Total 0.4 mg/dl (0.2-1.0); Blood Urea Nitrogen 28 mg/dl (6-23); Calcium 9.5 mg/dl (8.5-10.1); Carbon Dioxide 27 mmol/L (21-32); Chloride 98 mmol/L (98-107); Est GFR (African American) 77.3 ml/min; Est GFR (Non-African American) 66.7 ml/min; Globulin 3.9 gm/dl (2.5-4.0); Glucose 170 mg/dl (70-99(Fasting)); Total Protein 8.2 gm/dl (6.0-8.3)
[2022-04-27] MEDS ORDERED: metroNIDAZOLE 500 MG/100 ML BAG IV STA (21:38)
[2022-04-27] MEDS ORDERED: levoFLOXacin/D5W 750 MG/150 ML BAG IV STA (21:38)
--- NOTE | 2022-04-27 21:38 | Emergency Department Note ---
History of Present Illness General Chief Complaint: Shortness of Breath/Dyspnea Stated Complaint: SOB Time Seen by Provider: 04/27/22 20:31 History of Present Illness Provider Complaint: shortness of breath Onset (ago): hour(s) (1) Severity: moderate Consistency/Duration: + progressively worsening Relieved By: + oxygen Exacerbated By: + lying flat and + coughing Context: + choking/aspiration (Symptoms started when the patient was trying to swallow a pill) Known history of: asthma Associated symptoms: + cough, + wheezing, + sputum production and + chest congestion; no fever Treatment prior to arrival: bronchodilator ( by ems) and NIPPV (cpap by ems) Related Data Home oxygen amount: none Home Medications Medication Instructions Recorded Confirmed Type vitamin B comp and C no.3 15 mg-10 1 cap PO QPM 10/04/18 04/27/22 History mg-50 mg-5 mg-300 mg capsule (B Complex Plus Vitamin C) aspirin 81 mg tablet,delayed 81 mg PO QAM #1 tab 11/23/19 04/27/22 Rx release biotin 5 mg tablet 5 mg PO QAM 01/07/20 04/27/22 History cholecalciferol (vitamin D3) 50 50 mcg PO QAM 01/07/20 04/27/22 History mcg (2,000 unit) capsule (Vitamin D3) turmeric root extract 500 mg 1,000 mg PO QPM 01/07/20 04/27/22 History capsule Oxygen Home 05/13/21 01/04/22 History Portable Oxygen #1 ea 07/20/21 01/04/22 Rx Portable Oxygen #1 ea 07/23/21 01/04/22 Rx albuterol sulfate 90 mcg/actuation 2 puff inhalation Q4 PRN Shortness 07/23/21 04/27/22 Rx aerosol inhaler (Ventolin HFA) Of Breath #18 grams arformoterol 15 mcg/2 mL solution 2 ml inhalation BID #60 vials 07/23/21 04/27/22 Rx for nebulization (Brovana) budesonide 0.25 mg/2 mL suspension 0.25 mg (2 mL) inhalation BID #60 07/23/21 04/27/22 Rx for nebulization vials fluoxetine 40 mg capsule 40 mg PO DAILY #90 caps 12/20/21 04/27/22 Rx alprazolam 0.25 mg tablet See Rx Instructions PO .COMPLEX 01/22/22 04/27/22 Rx Anxiety #60 tabs metoprolol succinate 25 mg 25 mg PO QAM #30 tabs 03/17/22 04/27/22 Rx tablet,extended release 24 hr acetaminophen 500 mg tablet 1,000 mg PO Q8H PRN FEVER/PAIN 04/27/22 04/27/22 History (Tylenol Extra Strength) calcium citrate 200 mg 2 tab PO QPM 04/27/22 04/27/22 History calcium-vitamin D3 6.25 mcg (250 unit) tablet (Citracal-D3 Petites) diphenhydramine 25 1 tab PO HS 04/27/22 04/27/22 History mg-acetaminophen 500 mg tablet (Tylenol PM Extra Strength) glucosamine 750 gq-aaeudnuauz-cwh 1 tab PO QPM 04/27/22 04/27/22 History no.1 625 mg-C 30 zh-swzu-eibb tablet (Glucosamine-Chondroitin 3X) omega-3 fatty acids 1,250 mg 1,250 mg PO DAILY 04/27/22 04/27/22 History capsule prednisone 20 mg tablet 40 mg PO DAILY PRN Congestion 04/27/22 04/27/22 History vitamins A,C,I-bpli-kpfqga 2,148 1 tab PO BID 04/27/22 04/27/22 History mcg-113 mg-45 mg-17.4 mg tablet (PreserVision AREDS) Allergies Allergy/AdvReac Type Severity Reaction Status Date / Time ceftriaxone Allergy Intermediate Hives Verified 04/27/22 22:15 prednisone Allergy Intermediate MUSCLE Verified 04/27/22 22:15 CONTROL Venalan-MCR-UuL Reductase Allergy Intermediate MUSCULAR Verified 04/27/22 22:15 Inhibitor ISSUES [Jocxhjr-Yfy-Hie Reductase Inhibitor] gabapentin [From Neurontin] Allergy Unknown Unknown Verified 04/27/22 22:15 nitrofurantoin Allergy Unknown Unknown Verified 04/27/22 22:15 valdecoxib [From Bextra] AdvReac Intermediate increased Verified 04/27/22 22:15 BP Past Med/Surg History Medical History Abnormal CT scan Acute on chronic diastolic (congestive) heart failure Acute respiratory failure with hypoxia Admitted to intensive care unit Arthralgia of multiple sites Arthritis of left knee Atypical chest pain Cervical myelopathy Cervicalgia Chronic obstructive pulmonary disease Elevated troponin Encounter for pre-operative examination Eustachian tube dysfunction Hearing loss Hypokalemia Hypotension MCTD (mixed connective tissue disease) Multifocal pneumonia Muscle spasm Muscle weakness-general Myopathy Non-occlusive coronary artery disease Non-ST elevated myocardial infarction (non-STEMI) On home oxygen therapy 2L via N/C qpm and HS Oral thrush Osteoarthritis Osteopenia Polyneuropathy Positive MICHAEL (antinuclear antibody) Positive colorectal cancer screening using Cologuard test Restrictive lung disease Scoliosis Sepsis Throat irritation Trapezius muscle spasm Urinary incontinence Surgical History H/O foot surgery History of appendectomy History of arthroscopy of left knee History of bilateral cataract extraction History of biopsy right thigh--showed MCTD History of bronchoscopy x2 History of cardiac cath 04/2017 no stents History of colonoscopy History of thoracentesis History of tonsillectomy and adenoidectomy History of total hysterectomy with bilateral salpingo-oophorectomy (BSO) History of wisdom tooth extraction Family History Mother Alzheimer disease Brother Hx of CABG Depression Father Congestive heart failure Coronary heart disease Hearing loss Unknown Myocardial infarction Other No family history of adverse response to anesthesia Denies family history of Ovarian cancer Prostate cancer Breast cancer Colorectal cancer Social History Smoking Status: Former smoker Second Hand Exposure: No; Hx Alcohol Use: No Hx Substance Use: No Preferred Language: Citizen Of [place] Communication Ability: Effective Visual Impairment: Limited Hearing Ability: Use of Hearing Aid Die Maker Required: No Beliefs That Will Affect Care: None marital status: Current Living Situation: Spouse current occupational status: retired How many Children do You have: 4 Feels Safe at Home: Yes Safety Concerns Comment: lives at [facility] Childhood Exposure to Second-Hand Smoke: Yes caffeine: Yes (one coffee a day ) Dental Care, Regularly: Yes Physical Activity Frequency: 3-4 Times per Week Seatbelt Use: always Sunscreen Use: Yes Assistive Devices: Glasses and Walker Physical Exam Vital Signs: Vital Signs - 24 hr 04/27/22 20:12 04/27/22 20:12 04/27/22 20:20 Pulse Rate 110 H Pulse Rate [Apical ] Pulse Rate from Sp O2 Sensor Pulse Rhythm [Apic al] Pulse Strength [Ap ical] Respiratory Rate 36 H Respiratory Effort / Characteristics Labored Respiratory Depth Shallow Blood Pressure Blood Pressure [Le ft Arm] Blood Pressure Kelly n Blood Pressure Kelly n [Left Arm] Blood Pressure Pos ition [Left Arm] Pulse Oximetry 95 Oxygen Delivery Me thod BiPAP BiPAP BiPAP Fraction of Inspir ed Oxygen Sepsis Recent Feve r Within 48 Hours No Sepsis New/Unexpla ined Change in Men forrest Status No Sepsis Action Take n by Nursing Physician Notified 04/27/22 20:20 04/27/22 20:49 04/27/22 20:50 Pulse Rate Pulse Rate [Apical ] 107 H 102 H Pulse Rate from Sp O2 Sensor Pulse Rhythm [Apic al] Regular Pulse Strength [Ap ical] Normal Respiratory Rate 30 H 20 Respiratory Effort / Characteristics Spontaneous Respiratory Depth Blood Pressure Blood Pressure [Le ft Arm] 131/109 H Blood Pressure Kelly n Blood Pressure Kelly n [Left Arm] 116 Blood Pressure Pos ition [Left Arm] Pulse Oximetry 98 94 93 Oxygen Delivery Me thod BiPAP BiPAP BiPAP Fraction of Inspir ed Oxygen 45 Sepsis Recent Feve r Within 48 Hours Sepsis New/Unexpla ined Change in Men forrest Status Sepsis Action Take n by Nursing 04/27/22 20:10 04/27/22 20:22 04/27/22 20:22 Pulse Rate 107 H 107 H Pulse Rate [Apical ] Pulse Rate from Sp O2 Sensor 107 H Pulse Rhythm [Apic al] Pulse Strength [Ap ical] Respiratory Rate 18 25 H Respiratory Effort / Characteristics Spontaneous Respiratory Depth Blood Pressure 131/109 H Blood Pressure [Le ft Arm] Blood Pressure Kelly n 116 Blood Pressure Kelly n [Left Arm] Blood Pressure Pos ition [Left Arm] Pulse Oximetry 94 97 Oxygen Delivery Me thod Fraction of Inspir ed Oxygen 45 Sepsis Recent Feve r Within 48 Hours Sepsis New/Unexpla ined Change in Men forrest Status Sepsis Action Take n by Nursing 04/27/22 20:30 04/27/22 20:31 04/27/22 20:31 Pulse Rate 106 H 106 H Pulse Rate [Apical ] Pulse Rate from Sp O2 Sensor 108 H 106 H Pulse Rhythm [Apic al] Pulse Strength [Ap ical] Respiratory Rate 17 18 Respiratory Effort / Characteristics Respiratory Depth Blood Pressure 154/100 H Blood Pressure [Le ft Arm] Blood Pressure Kelly n 118 Blood Pressure Kelly n [Left Arm] Blood Pressure Pos ition [Left Arm] Pulse Oximetry 95 96 Oxygen Delivery Me thod Fraction of Inspir ed Oxygen Sepsis Recent Feve r Within 48 Hours Sepsis New/Unexpla ined Change in Men forrest Status Sepsis Action Take n by Nursing 04/27/22 20:40 04/27/22 20:50 04/27/22 21:00 Pulse Rate 104 H 102 H 102 H Pulse Rate [Apical ] Pulse Rate from Sp O2 Sensor 105 H 102 H 102 H Pulse Rhythm [Apic al] Pulse Strength [Ap ical] Respiratory Rate 21 19 22 Respiratory Effort / Characteristics Respiratory Depth Blood Pressure Blood Pressure [Le ft Arm] Blood Pressure Kelly n Blood Pressure Kelly n [Left Arm] Blood Pressure Pos ition [Left Arm] Pulse Oximetry 95 96 94 Oxygen Delivery Me thod Fraction of Inspir ed Oxygen Sepsis Recent Feve r Within 48 Hours Sepsis New/Unexpla ined Change in Men forrest Status Sepsis Action Take n by Nursing 04/27/22 21:10 04/27/22 21:20 04/27/22 21:30 Pulse Rate 103 H 101 H Pulse Rate [Apical ] Pulse Rate from Sp O2 Sensor 103 H 102 H Pulse Rhythm [Apic al] Pulse Strength [Ap ical] Respiratory Rate 18 25 H Respiratory Effort / Characteristics Respiratory Depth Blood Pressure 161/109 H Blood Pressure [Le ft Arm] Blood Pressure Kelyl n 126 Blood Pressure Kelly n [Left Arm] Blood Pressure Pos ition [Left Arm] Pulse Oximetry 95 95 Oxygen Delivery Me thod Fraction of Inspir ed Oxygen Sepsis Recent Feve r Within 48 Hours Sepsis New/Unexpla ined Change in Men forrest Status Sepsis Action Take n by Nursing 04/27/22 21:30 04/27/22 21:40 04/27/22 21:50 Pulse Rate 102 H 102 H 97 H Pulse Rate [Apical ] Pulse Rate from Sp O2 Sensor 104 H 103 H 98 H Pulse Rhythm [Apic al] Pulse Strength [Ap ical] Respiratory Rate 25 H 20 20 Respiratory Effort / Characteristics Respiratory Depth Blood Pressure Blood Pressure [Le ft Arm] Blood Pressure Kelly n Blood Pressure Kelly n [Left Arm] Blood Pressure Pos ition [Left Arm] Pulse Oximetry 95 95 94 Oxygen Delivery Me thod Fraction of Inspir ed Oxygen Sepsis Recent Feve r Within 48 Hours Sepsis New/Unexpla ined Change in Men forrest Status Sepsis Action Take n by Nursing 04/27/22 22:00 04/27/22 22:01 04/27/22 22:01 Pulse Rate 98 H 97 H Pulse Rate [Apical ] Pulse Rate from Sp O2 Sensor 97 H 98 H Pulse Rhythm [Apic al] Pulse Strength [Ap ical] Respiratory Rate 25 H 27 H Respiratory Effort / Characteristics Respiratory Depth Blood Pressure 152/98 H Blood Pressure [Le ft Arm] Blood Pressure Kelly n 116 Blood Pressure Kelly n [Left Arm] Blood Pressure Pos ition [Left Arm] Pulse Oximetry 96 95 Oxygen Delivery Me thod Fraction of Inspir ed Oxygen Sepsis Recent Feve r Within 48 Hours Sepsis New/Unexpla ined Change in Men forrest Status Sepsis Action Take n by Nursing 04/27/22 22:10 04/27/22 22:24 04/27/22 22:24 Pulse Rate 96 H 96 H Pulse Rate [Apical ] 97 H Pulse Rate from Sp O2 Sensor 97 H Pulse Rhythm [Apic al] Pulse Strength [Ap ical] Respiratory Rate 16 20 Respiratory Effort / Characteristics Spontaneous Spontaneous Respiratory Depth Blood Pressure Blood Pressure [Le ft Arm] Blood Pressure Kelly n Blood Pressure Kelly n [Left Arm] Blood Pressure Pos ition [Left Arm] Pulse Oximetry 97 96 96 Oxygen Delivery Me thod BiPAP Fraction of Inspir ed Oxygen 45 45 Sepsis Recent Feve r Within 48 Hours Sepsis New/Unexpla ined Change in Men forrest Status Sepsis Action Take n by Nursing 04/27/22 23:27 Pulse Rate Pulse Rate [Apical ] 96 H Pulse Rate from Sp O2 Sensor Pulse Rhythm [Apic al] Pulse Strength [Ap ical] Respiratory Rate 22 Respiratory Effort / Characteristics Non-Labored Sponta neous Respiratory Depth Normal Blood Pressure Blood Pressure [Le ft Arm] 140/85 Blood Pressure Kelly n Blood Pressure Kelly n [Left Arm] 103 Blood Pressure Pos ition [Left Arm] Lying Pulse Oximetry 94 Oxygen Delivery Me thod BiPAP Fraction of Inspir ed Oxygen Sepsis Recent Feve r Within 48 Hours Sepsis New/Unexpla ined Change in Men forrest Status Sepsis Action Take n by Nursing Physical Exam: Physical Exam GENERAL: Patient on noninvasive positive pressure ventilation. HENT: Exam performed. -Head: Normocephalic and atraumatic. CV: Normal rate, regular rhythm, normal heart sounds and intact distal pulses. There is no peripheral edema. Palpable radial pulses bue. PULM/CHEST: Tachypneic. Rhonchi bilaterally. Expiratory wheezes bilaterally. SKIN: Skin is warm and dry. She is not diaphoretic. Course Course 2030: The patient was evaluated in room A2. A complete history and physical exam was performed Cardiac monitoring: An order was placed for continuous cardiac monitoring. The monitor shows a rate of 100 with sinus rhythm interpreted by me Patient arrived hypoxic on room air via EMS. Patient was quickly transitioned to BiPAP which improved the patient's oxygen saturation. Will give repeat DuoNebs and IV steroids given her history of obstructive lung disease. 2149: On reassessment the patient's oxygen saturation was stable on BiPAP and the patient reports she feels comfortable on the BiPAP. Labs show a leukocytosis of 15.58. Venous pH 7.31 venous PCO2 38 venous PO2 36 venous bicarb 19. BNP negative. Chest x-ray shows severe scoliosis with right-sided pleural effusion as well as bilateral infiltrates. Patient be treated for as piration pneumonia, Rocephin gives patient allergies. Levaquin and Flagyl IV piggyback ordered for the patient. Repeat DuoNeb ordered for the patient. Discussed the case with medicine and the hospitalist team Dr. Talavera and will admit to her service. 2224: Vital signs stable on BiPAP. Patient reports she feels very comfortable on BiPAP. No chest pain or difficulty breathing while on BiPAP. Labs showed elevated troponin. Patient currently reports no chest pain or difficulty breathing. EKG remains unchanged from previous EKG. Dr. Talavera notified. Administered Medications Discontinued Medications Albuterol (Albut/Ipratrop 3mg/0.5mg Neb 3 Ml Vial) 3 ml NEB NOW STA; Protocol Stop: 04/27/22 20:39 Last Admin: 04/27/22 20:49 Dose: 3 ml Documented By: TYLOR Albuterol (Albut/Ipratrop 3mg/0.5mg Neb 3 Ml Vial) 3 ml NEB NOW STA; Protocol Stop: 04/27/22 21:45 Last Admin: 04/27/22 22:23 Dose: 3 ml Documented By: TYLOR Metronidazole (Flagyl) 500 mg in 100 mls @ 100 mls/hr IV NOW STA Stop: 04/27/22 22:37 Last Admin: 04/27/22 23:23 Dose: 100 mls/hr Documented By: CC Levofloxacin/Dextrose (Levaquin/D5w) 750 mg in 150 mls @ 100 mls/hr IV NOW STA Stop: 04/27/22 23:07 Last Infusion: 04/27/22 23:25 Dose: 0 mls/hr Documented By: Admin: 04/27/22 21:48 Dose: 100 mls/hr Documented By: OMER Methylprednisolone (Methylprednisolone 125 Mg/2 Ml Vial) 125 mg IV NOW STA Stop: 04/27/22 20:39 Last Admin: 04/27/22 20:48 Dose: 125 mg Documented By: OMER Medical Decision Making Laboratory Data Attestation: I reviewed the patient's lab results. 04/27/22 20:17 04/27/22 20:17 Lab Results 04/27/22 04/27/22 04/27/22 Range/Units 20:17 20:17 20:46 WBC 15.58 H (4.8-10.8) K/ul RBC 4.17 L (4.20-5.40) M/uL Hgb 13.0 (12.0-16.0) g/dl POC Hgb (12.0-16.0) g/dl Hct 38.6 (37.0-47.0) % POC Hct (37-47) % MCV 92.6 (80.0-100.0) fL MCH 31.2 (25.0-34.0) pg MCHC 33.7 (32.0-36.0) g/dL RDW Std Deviation 47.8 H (36.4-46.3) fL RDW Coeff of Jaren 14.1 (11.5-14.5) % Plt Count 249 (130-400) K/uL MPV 10.2 (9.4-12.4) fL Immature Gran % (Auto) 0.3 % Neut % (Auto) 76.2 % Lymph % (Auto) 16.6 % [place] % (Auto) 6.0 % Eos % (Auto) 0.6 % Baso % (Auto) 0.3 % Neut # (Auto) 11.87 H (1.40-6.50) K/uL Lymph # (Auto) 2.59 (1.2-3.4) K/uL [place] # (Auto) 0.94 H (0.11-0.59) K/uL Eos # (Auto) 0.09 (0-0.50) K/uL Baso # (Auto) 0.04 (0-0.2) K/uL Immature Gran # (Auto) 0.05 (0.01-0.20) K/uL PT (9.0-12.0) Seconds INR (0.9-1.1) APTT (21.0-31.0) Seconds PTT Ratio VBG pH (7.36-7.41) VBG pCO2 (38-50) mmHg VBG pO2 mmHg VBG HCO3 mmol/L VBG O2 Saturation % VBG Base Excess mEq/L POC Sodium (135-144) mmol/L Sodium TNP POC Potassium (3.3-5.0) mmol/L Potassium TNP POC Chloride (101-112) mmol/L Chloride 98 (98-107) mmol/L Carbon Dioxide 27 (21-32) mmol/L POC Total CO2 (24-31) mmol/L Anion Gap TNP POC Anion Gap (16-25) mmol/L POC BUN (7-18) mg/dl BUN 28 H (6-23) mg/dl Creatinine 0.81 (0.6-1.2) mg/dl POC Creatinine (0.6-1.3) mg/dl Est Cr Clr Drug Dosing 48.0 ml/min Est GFR ( Amer) 77.3 ml/min Est GFR (Non-Af Amer) 66.7 ml/min BUN/Creatinine Ratio 34.6 H (10-20) Glucose 170 H (70-99(Fasting)) mg/dl POC Glucose (other) (70-99) mg/dl Calcium 9.5 (8.5-10.1) mg/dl POC Ioniz Calcium Asher (1.12-1.32) mmol/l Total Bilirubin 0.4 (0.2-1.0) mg/dl AST TNP ALT 19 (7-52) U/L Alkaline Phosphatase 77 (34-104) U/L Troponin I High Sens (0-14) pg/ml B-Natriuretic Peptide (0-100) pg/ml Total Protein 8.2 (6.0-8.3) gm/dl Albumin 4.3 (3.4-5.0) gm/dl Globulin 3.9 (2.5-4.0) gm/dl Albumin/Globulin Ratio 1.1 (0.9-2) SARS-CoV-2, RNA, NAAT NEGATIVE (NEGATIVE) 04/27/22 04/27/22 04/27/22 Range/Units 20:56 20:56 21:29 WBC (4.8-10.8) K/ul RBC (4.20-5.40) M/uL Hgb (12.0-16.0) g/dl POC Hgb (12.0-16.0) g/dl Hct (37.0-47.0) % POC Hct (37-47) % MCV (80.0-100.0) fL MCH (25.0-34.0) pg MCHC (32.0-36.0) g/dL RDW Std Deviation (36.4-46.3) fL RDW Coeff of Jaren (11.5-14.5) % Plt Count (130-400) K/uL MPV (9.4-12.4) fL Immature Gran % (Auto) % Neut % (Auto) % Lymph % (Auto) % [place] % (Auto) % Eos % (Auto) % Baso % (Auto) % Neut # (Auto) (1.40-6.50) K/uL Lymph # (Auto) (1.2-3.4) K/uL [place] # (Auto) (0.11-0.59) K/uL Eos # (Auto) (0-0.50) K/uL Baso # (Auto) (0-0.2) K/uL Immature Gran # (Auto) (0.01-0.20) K/uL PT 10.6 (9.0-12.0) Seconds INR 1.0 (0.9-1.1) APTT 22.5 (21.0-31.0) Seconds PTT Ratio 0.8 VBG pH 7.31 L (7.36-7.41) VBG pCO2 38 (38-50) mmHg VBG pO2 36 mmHg VBG HCO3 19 mmol/L VBG O2 Saturation < 60.0 % VBG Base Excess -6.6 mEq/L POC Sodium (135-144) mmol/L Sodium POC Potassium (3.3-5.0) mmol/L Potassium POC Chloride (101-112) mmol/L Chloride (98-107) mmol/L Carbon Dioxide (21-32) mmol/L POC Total CO2 (24-31) mmol/L Anion Gap POC Anion Gap (16-25) mmol/L POC BUN (7-18) mg/dl BUN (6-23) mg/dl Creatinine (0.6-1.2) mg/dl POC Creatinine (0.6-1.3) mg/dl Est Cr Clr Drug Dosing ml/min Est GFR ( Amer) ml/min Est GFR (Non-Af Amer) ml/min BUN/Creatinine Ratio (10-20) Glucose (70-99(Fasting)) mg/dl POC Glucose (other) (70-99) mg/dl Calcium (8.5-10.1) mg/dl POC Ioniz Calcium Asher (1.12-1.32) mmol/l Total Bilirubin (0.2-1.0) mg/dl AST ALT (7-52) U/L Alkaline Phosphatase (34-104) U/L Troponin I High Sens (0-14) pg/ml B-Natriuretic Peptide 42 (0-100) pg/ml Total Protein (6.0-8.3) gm/dl Albumin (3.4-5.0) gm/dl Globulin (2.5-4.0) gm/dl Albumin/Globulin Ratio (0.9-2) SARS-CoV-2, RNA, NAAT (NEGATIVE) 04/27/22 04/27/22 Range/Units 21:29 21:35 WBC (4.8-10.8) K/ul RBC (4.20-5.40) M/uL Hgb (12.0-16.0) g/dl POC Hgb 13.9 (12.0-16.0) g/dl Hct (37.0-47.0) % POC Hct 41 (37-47) % MCV (80.0-100.0) fL MCH (25.0-34.0) pg MCHC (32.0-36.0) g/dL RDW Std Deviation (36.4-46.3) fL RDW Coeff of Jaren (11.5-14.5) % Plt Count (130-400) K/uL MPV (9.4-12.4) fL Immature Gran % (Auto) % Neut % (Auto) % Lymph % (Auto) % [place] % (Auto) % Eos % (Auto) % Baso % (Auto) % Neut # (Auto) (1.40-6.50) K/uL Lymph # (Auto) (1.2-3.4) K/uL [place] # (Auto) (0.11-0.59) K/uL Eos # (Auto) (0-0.50) K/uL Baso # (Auto) (0-0.2) K/uL Immature Gran # (Auto) (0.01-0.20) K/uL PT (9.0-12.0) Seconds INR (0.9-1.1) APTT (21.0-31.0) Seconds PTT Ratio VBG pH (7.36-7.41) VBG pCO2 (38-50) mmHg VBG pO2 mmHg VBG HCO3 mmol/L VBG O2 Saturation % VBG Base Excess mEq/L POC Sodium 135 (135-144) mmol/L Sodium POC Potassium 3.8 (3.3-5.0) mmol/L Potassium POC Chloride 99 L (101-112) mmol/L Chloride (98-107) mmol/L Carbon Dioxide (21-32) mmol/L POC Total CO2 27 (24-31) mmol/L Anion Gap POC Anion Gap 13.0 L (16-25) mmol/L POC BUN 27 H (7-18) mg/dl BUN (6-23) mg/dl Creatinine (0.6-1.2) mg/dl POC Creatinine 0.6 (0.6-1.3) mg/dl Est Cr Clr Drug Dosing ml/min Est GFR ( Amer) ml/min Est GFR (Non-Af Amer) ml/min BUN/Creatinine Ratio (10-20) Glucose (70-99(Fasting)) mg/dl POC Glucose (other) 156 H (70-99) mg/dl Calcium (8.5-10.1) mg/dl POC Ioniz Calcium Asher 1.15 (1.12-1.32) mmol/l Total Bilirubin (0.2-1.0) mg/dl AST ALT (7-52) U/L Alkaline Phosphatase (34-104) U/L Troponin I High Sens 3536.0 H* (0-14) pg/ml B-Natriuretic Peptide (0-100) pg/ml Total Protein (6.0-8.3) gm/dl Albumin (3.4-5.0) gm/dl Globulin (2.5-4.0) gm/dl Albumin/Globulin Ratio (0.9-2) SARS-CoV-2, RNA, NAAT (NEGATIVE) Imaging Data Attestation: I personally reviewed and interpreted this imaging study as follows: My Impression: Chest xray: Severe scoliosis. Right and left lower lobe infiltrate. Right- sided pleural effusion. Airway clear. No pneumothorax. No free air under the diaphragm. No fractures of the skeletal structures. ECG Data Attestation: I personally reviewed and interpreted this ECG as follows: Interpretation: EKG #1 at 2016: sinus tachycardia with rate of 108. WI 166 QRS [address] elevation or ST depression. Baseline artifact due to patient's respiratory distress. EKG #2 at 2221: Sinus rhythm with rate of 98. WI 164 QRS [address] elevation or ST depression. [facility] Narrative 2030: The patient was evaluated in room A2. A complete history and physical exam was performed Cardiac monitoring: An order was placed for continuous cardiac monitoring. The monitor shows a rate of 100 with sinus rhythm interpreted by me Patient arrived hypoxic on room air via EMS. Patient was quickly transitioned to BiPAP which improved the patient's oxygen saturation. Will give repeat DuoNebs and IV steroids given her history of obstructive lung disease. 2149: On reassessment the patient's oxygen saturation was stable on BiPAP and the patient reports she feels comfortable on the BiPAP. Labs show a leukocytosis of 15.58. Venous pH 7.31 venous PCO2 38 venous PO2 36 venous bicarb 19. BNP negative. Chest x-ray shows severe scoliosis with right-sided pleural effusion as well as bilateral infiltrates. Patient be treated for aspiration pneumonia, Rocephin gives patient allergies. Levaquin and Flagyl IV piggyback ordered for the patient. Repeat DuoNeb ordered for the patient. Discussed the case with medicine and the hospitalist team Dr. Talavera and will admit to her service. 2224: Vital signs stable on BiPAP. Patient reports she feels very comfortable on BiPAP. No chest pain or difficulty breathing while on BiPAP. Labs showed elevated troponin. Patient currently reports no chest pain or difficulty breathing. EKG remains unchanged from previous EKG. Dr. Talavera notified. Impression & Plan Hypoxia, Aspiration pneumonia Critical Care Time Critical Care Time: Yes Total Critical Care Time: 48 I have personally spent greater than 48 minutes of critical care time in the direct management of this patient. This includes bedside care, interpretation of diagnostic studies, and testing, discussion with consultants, patient, and family members, and other required patient management activities. This 48 minutes is in excess of all separately billable procedures. Discharge Plan Visit Data Chief Complaint: Shortness of Breath/Dyspnea Stated Complaint: SOB ED Provider: Hector Bernabe Discharge Problem: Hypoxia, Aspiration pneumonia Patient Disposition: Admitted As Inpatient Forms Stand Alone Forms: [facility] Prescriptions Prescriptions: No Action fluoxetine 40 mg capsule 40 mg PO DAILY Qty: 90 3RF alprazolam 0.25 mg tablet See Rx Instructions PO .COMPLEX Qty: 60 0RF Rx Instructions: Take one table orally at bedtime, may take one tablet during the day as needed. metoprolol succinate 25 mg tablet extended release 24 hr 25 mg PO QAM Qty: 30 1RF B Complex Plus Vitamin C 50-91-32-5-300 mg capsule 1 cap PO QPM (DME) Oxygen Home Liters Per Minute See Rx Instructions .Route Rx Instructions: As directed- 2 liters HS albuterol sulfate [Ventolin HFA] 90 mcg/actuation HFA aerosol inhaler 2 puff INHALATION Q4 PRN (Reason: Shortness Of Breath) Qty: 18 3RF Brovana 15 mcg/2 mL solution for nebulization 2 ml INHALATION BID Qty: 60 5RF budesonide 0.25 mg/2 mL suspension for nebulization 0.25 mg inhalation BID Qty: 60 5RF (DME) Portable Oxygen Misc See Rx Instructions .MEDSUPPLY Qty: 1 0RF Rx Instructions: Oxygen 2 liters continuous via nasal cannula round the clock with portable concentrator. SARA 99 (DME) Portable Oxygen Misc See Rx Instructions .Route Qty: 1 0RF Rx Instructions: portable oxygen at 2lpm via NC all the time-SARA-99 aspirin 81 mg Tablet,Delayed Release (Dr/Ec) 81 mg PO QAM Qty: 1 0RF biotin 5 mg Tablet 5 mg PO QAM cholecalciferol (vitamin D3) [Vitamin D3] 50 mcg (2,000 unit) Capsule 50 mcg PO QAM turmeric root extract 500 mg Capsule 1,000 mg PO QPM diphenhydramine-acetaminophen [Tylenol PM Extra Strength] 25-500 mg Tablet 1 tab PO HS prednisone 20 mg Tablet 40 mg PO DAILY PRN (Reason: Congestion) omega-3 fatty acids 1,250 mg Capsule 1,250 mg PO DAILY gurtrzxe-qowr-wuv2-C-xuan-bosw [Glucosamine-Chondroitin 3X] 750-625-30 mg Tablet 1 tab PO QPM Rx Instructions: give after food/meal calcium citrate-vitamin D3 [Citracal-D3 Petites] 200 mg-6.25 mcg (250 unit) Tablet 2 tab PO QPM PreserVision AREDS 2,148 mcg-113 mg-45 mg-17.4mg Tablet 1 tab PO BID Rx Instructions: administer with AM and PM meals acetaminophen [Tylenol Extra Strength] 500 mg tablet 1,000 mg PO Q8H PRN (Reason: FEVER/PAIN) Referrals Referrals: Siddharth Spaulding MD [Primary Care Provider] - : Aspiration pneumonia Qualifiers: Aspiration pneumonia type: unspecified Laterality: unspecified laterality Lung location: unspecified part of lung Qualified Code(s): J69.0 - Pneumonitis due to inhalation of food and vomit
[2022-04-27 21:47] LABS: iSTAT Creatinine 0.6 mg/dl (0.6-1.3); iSTAT Hemoglobin 13.9 g/dl (12.0-16.0); iSTAT Ionized Calcium 1.15 mmol/l (1.12-1.32); iSTAT Potassium 3.8 mmol/L (3.3-5.0)
[2022-04-27 22:17] LABS: Partial Thromboplastin Ratio 0.8; Partial Thromboplastin Time 22.5 Seconds (21.0-31.0); Prothrombin Time 10.6 Seconds (9.0-12.0)
--- NOTE | 2022-04-27 22:21 | History & Physical Report ---
Date of Service April 27, 2022 Assessment & Plan (1) Acute and chronic respiratory failure with hypoxia: Plan: 86yo female with history of asthma/COPD, likely restrictive lung disease given her severe scoliosis, presenting from [facility] with acute on chronic respiratory failure with hypoxia following an episode of choking on her pills. Possible aspiration event. Patient initially 83% on room air (of note, she does use 2L O2 by MA chronically). CPAP was placed by EMS and she has been transitioned to BiPAP - 12/5 45% FiO2 with adequate oxygenation. Possible aspiration event given description - patient with elevated WBC=15.58. She has been given Levaquin and Flagyl in the ER in addition to Solumedrol 125mg IV and an albuterol neb with improvement. Do not suspect PNA immediately following the event - possible chemical pneumonitis from aspiration contributing to patient's SOB and hypoxia -Admit to PCU -Wean BiPAP as tolerated -Aspiration precautions -Will hold on additional antibiotics for now -Repeat CBC and CXR PA and lateral in AM -DuoNeb q 4 hours PRN -Continue Arformoterol -Continue Solumedrol 40mg IV daily -Tylenol as needed for fever Patient with history of dysphagia, MCTD. She reports frequent difficulty taking her medications, specifically her Vitamin C tablet. Discussed with her to consider changing to Vitamin C gummies rather than tablets. Could consider EGD in the future. (2) Chronic obstructive pulmonary disease: Plan: Patient with active wheezing at present. -Solumedrol 40mg IV daily -DuoNebs, Brovana as above -Flutter valve and Incentive spirometry (3) Non-occlusive coronary artery disease: Plan: Patient denies chest pain. Troponin is Negative. No acute changes on EKG -Continue ASA 81mg po daily -Continue Metoprolol 25mg po daily F/E/N - Heplock, Electrolytes WNL, Heart Healthy diet as tolerated Ppx - Lovenox Code - DNR/DNI Dispo - Admit to PCU History of Present Illness Chief Complaint: possible aspiration Primary Care Provider: Siddharth Spaulding MD Sherri Gutierrez is an 87yo female with history of Asthma, Mixed connective tissue disease and HFpEF presenting from [facility] after a suspected aspiration event. Patient was in her usual state of health throughout the day with no complaints. She was taking her pills at dinner and her Vitamin C pill got stuck in her throat. She began to choke and became acutely short of breath. She was dry heaving - no vomiting. Patient was initially 83% on room air. She presented to [facility] via EMS on CPAP. Tachypneic at 36bpm with increased work of breathing. Tachycardic at 110 bpm. She was placed on BiPAP with symptomatic improvement. Patient feels much improved. She does not feel ready to remove the BiPAP yet, however. ER Course: Albuterol Levaquin 750mg IV Flagyl 500mg IV Solumedrol 125mg IV Allergies Allergy/AdvReac Type Severity Reaction Status Date / Time ceftriaxone Allergy Intermediate Hives Verified 04/27/22 22:15 prednisone Allergy Intermediate MUSCLE Verified 04/27/22 22:15 CONTROL Lwkuufw-XSM-UwS Reductase Allergy Intermediate MUSCULAR Verified 04/27/22 22:15 Inhibitor ISSUES [Pfmarwu-Cqf-Qqp Reductase Inhibitor] gabapentin [From Neurontin] Allergy Unknown Unknown Verified 04/27/22 22:15 nitrofurantoin Allergy Unknown Unknown Verified 04/27/22 22:15 valdecoxib [From Bextra] AdvReac Intermediate increased Verified 04/27/22 22:15 BP Home Medications Medication Instructions Recorded Confirmed Type vitamin B comp and C no.3 15 mg-10 1 cap PO QPM 10/04/18 04/27/22 History mg-50 mg-5 mg-300 mg capsule (B Complex Plus Vitamin C) aspirin 81 mg tablet,delayed 81 mg PO QAM #1 tab 11/23/19 04/27/22 Rx release biotin 5 mg tablet 5 mg PO QAM 01/07/20 04/27/22 History cholecalciferol (vitamin D3) 50 50 mcg PO QAM 01/07/20 04/27/22 History mcg (2,000 unit) capsule (Vitamin D3) turmeric root extract 500 mg 1,000 mg PO QPM 01/07/20 04/27/22 History capsule Oxygen Home 05/13/21 01/04/22 History Portable Oxygen #1 ea 07/20/21 01/04/22 Rx Portable Oxygen #1 ea 07/23/21 01/04/22 Rx albuterol sulfate 90 mcg/actuation 2 puff inhalation Q4 PRN Shortness 07/23/21 04/27/22 Rx aerosol inhaler (Ventolin HFA) Of Breath #18 grams arformoterol 15 mcg/2 mL solution 2 ml inhalation BID #60 vials 07/23/21 04/27/22 Rx for nebulization (Brovana) budesonide 0.25 mg/2 mL suspension 0.25 mg (2 mL) inhalation BID #60 07/23/21 04/27/22 Rx for nebulization vials fluoxetine 40 mg capsule 40 mg PO DAILY #90 caps 12/20/21 04/27/22 Rx alprazolam 0.25 mg tablet See Rx Instructions PO .COMPLEX 01/22/22 04/27/22 Rx Anxiety #60 tabs metoprolol succinate 25 mg 25 mg PO QAM #30 tabs 03/17/22 04/27/22 Rx tablet,extended release 24 hr acetaminophen 500 mg tablet 1,000 mg PO Q8H PRN FEVER/PAIN 04/27/22 04/27/22 History (Tylenol Extra Strength) calcium citrate 200 mg 2 tab PO QPM 04/27/22 04/27/22 History calcium-vitamin D3 6.25 mcg (250 unit) tablet (Citracal-D3 Petites) diphenhydramine 25 1 tab PO HS 04/27/22 04/27/22 History mg-acetaminophen 500 mg tablet (Tylenol PM Extra Strength) glucosamine 750 kn-uitydphabr-wgg 1 tab PO QPM 04/27/22 04/27/22 History no.1 625 mg-C 30 er-owob-arrn tablet (Glucosamine-Chondroitin 3X) omega-3 fatty acids 1,250 mg 1,250 mg PO DAILY 04/27/22 04/27/22 History capsule prednisone 20 mg tablet 40 mg PO DAILY PRN Congestion 04/27/22 04/27/22 History vitamins A,C,B-aaqr-qlamoz 2,148 1 tab PO BID 04/27/22 04/27/22 History mcg-113 mg-45 mg-17.4 mg tablet (PreserVision AREDS) Past Med/Surg History Medical History (Updated 04/28/22 @ 00:29 by Nazanin Talavera DO) Abnormal CT scan Acute on chronic diastolic (congestive) heart failure Acute respiratory failure with hypoxia Arthralgia of multiple sites Arthritis of left knee Atypical chest pain Cervical myelopathy Cervicalgia Chronic obstructive pulmonary disease Elevated troponin Eustachian tube dysfunction Hearing loss Hypokalemia Hypotension MCTD (mixed connective tissue disease) Multifocal pneumonia Muscle spasm Muscle weakness-general Myopathy Non-occlusive coronary artery disease Non-ST elevated myocardial infarction (non-STEMI) On home oxygen therapy 2L via N/C qpm and HS Oral thrush Osteoarthritis Osteopenia Polyneuropathy Positive MICHAEL (antinuclear antibody) Positive colorectal cancer screening using Cologuard test Restrictive lung disease Scoliosis Sepsis Throat irritation Trapezius muscle spasm Urinary incontinence Surgical History H/O foot surgery History of appendectomy History of arthroscopy of left knee History of bilateral cataract extraction History of biopsy right thigh--showed MCTD History of bronchoscopy x2 History of cardiac cath 04/2017 no stents History of colonoscopy History of thoracentesis History of tonsillectomy and adenoidectomy History of total hysterectomy with bilateral salpingo-oophorectomy (BSO) History of wisdom tooth extraction Family History Mother Alzheimer disease Brother Hx of CABG Depression Father Congestive heart failure Coronary heart disease Hearing loss Unknown Myocardial infarction Other No family history of adverse response to anesthesia Denies family history of Ovarian cancer Prostate cancer Breast cancer Colorectal cancer Social History Smoking Status: Former smoker Second Hand Exposure: No; Hx Alcohol Use: No Hx Substance Use: No Preferred Language: Croatian Communication Ability: Effective Visual Impairment: Limited Hearing Ability: Use of Hearing Aid Dough Maker Required: No Beliefs That Will Affect Care: None marital status: Current Living Situation: Spouse current occupational status: retired How many Children do You have: 4 Feels Safe at Home: Yes Safety Concerns Comment: lives at [facility] Childhood Exposure to Second-Hand Smoke: Yes caffeine: Yes (one coffee a day ) Dental Care, Regularly: Yes Physical Activity Frequency: 3-4 Times per Week Seatbelt Use: always Sunscreen Use: Yes Assistive Devices: Glasses and Walker Review of Systems Review of Systems: All systems reviewed & are unremarkable except as noted in HPI & below Physical Exam Physical Exam: General: patient resting comfortably, NAD, non-toxic in appearance, AA&O x 4, BiPAP in place - 12/5, 45% FiO2 with adequate saturation Skin: warm, dry, intact, no rashes or lesions HEENT: NC/AT, PERRL, EOMI, anicteric sclera, conjunctiva without injection, external ear normal to inspection and nontender, nares patent, moist mucus membranes, dentition intact, no oropharyngeal lesions, neck supple, trachea midline, no LAD, no thyromegaly, no JVD Heart: +S1/S2, regular, tachycardic, no m/r/g Lungs: equal air entry bilaterally, diffuse end-expiratory wheezing, no rales/rhonchi Abd: +BS, soft, NT/ND, no masses/organomegaly/ascites Ext: warm, 2+ pulses in UE/LE bilaterally, no clubbing/cyanosis or edema Neuro: nonfocal, patient AA&O x 4, speech intact, no facial droop, moving all extremities on command with equal strength 5/5 Results & Data Results & Data ([facility]) Vital Signs (Past 12 Hours) Vital Signs Pulse Pulse Resp BP BP Pulse Ox O2 Del Method 04/27/22 22:10 96 H 16 97 04/27/22 22:01 152/98 H 04/27/22 22:01 97 H 27 H 95 04/27/22 22:00 98 H 25 H 96 04/27/22 21:50 97 H 20 94 04/27/22 21:40 102 H 20 95 04/27/22 21:30 102 H 25 H 95 04/27/22 21:30 161/109 H 04/27/22 21:20 101 H 25 H 95 04/27/22 21:10 103 H 18 95 04/27/22 21:00 102 H 22 94 04/27/22 20:50 102 H 19 96 04/27/22 20:40 104 H 21 95 04/27/22 20:31 154/100 H 04/27/22 20:31 106 H 18 96 04/27/22 20:30 106 H 17 95 04/27/22 20:22 107 H 25 H 97 04/27/22 20:22 131/109 H 04/27/22 20:10 107 H 18 94 04/27/22 20:50 102 H 20 93 BiPAP 04/27/22 20:49 94 BiPAP 04/27/22 20:20 107 H 30 H 131/109 H 98 BiPAP 04/27/22 20:20 BiPAP 04/27/22 20:12 110 H 36 H 95 BiPAP 04/27/22 20:12 BiPAP FiO2 04/27/22 22:10 04/27/22 22:01 04/27/22 22:01 04/27/22 22:00 04/27/22 21:50 04/27/22 21:40 04/27/22 21:30 04/27/22 21:30 04/27/22 21:20 04/27/22 21:10 04/27/22 21:00 04/27/22 20:50 04/27/22 20:40 04/27/22 20:31 04/27/22 20:31 04/27/22 20:30 04/27/22 20:22 04/27/22 20:22 04/27/22 20:10 45 04/27/22 20:50 45 04/27/22 20:49 04/27/22 20:20 04/27/22 20:20 04/27/22 20:12 04/27/22 20:12 Laboratory Results Laboratory Results WBC 15.58 K/ul (4.8-10.8) H 04/27/22 20:17 RBC 4.17 M/uL (4.20-5.40) L 04/27/22 20:17 Hgb 13.0 g/dl (12.0-16.0) 04/27/22 20:17 POC Hgb 13.9 g/dl (12.0-16.0) 04/27/22 21:35 Hct 38.6 % (37.0-47.0) 04/27/22 20:17 POC Hct 41 % (37-47) 04/27/22 21:35 MCV 92.6 fL (80.0-100.0) 04/27/22 20:17 MCH 31.2 pg (25.0-34.0) 04/27/22 20:17 MCHC 33.7 g/dL (32.0-36.0) 04/27/22 20:17 RDW Std Deviation 47.8 fL (36.4-46.3) H 04/27/22 20:17 RDW Coeff of Jaren 14.1 % (11.5-14.5) 04/27/22 20:17 Plt Count 249 K/uL (130-400) 04/27/22 20:17 MPV 10.2 fL (9.4-12.4) 04/27/22 20:17 Immature Gran % (Auto) 0.3 % 04/27/22 20:17 Neut % (Auto) 76.2 % 04/27/22 20:17 Lymph % (Auto) 16.6 % 04/27/22 20:17 Dillingham % (Auto) 6.0 % 04/27/22 20:17 Eos % (Auto) 0.6 % 04/27/22 20:17 Baso % (Auto) 0.3 % 04/27/22 20:17 Neut # (Auto) 11.87 K/uL (1.40-6.50) H 04/27/22 20:17 Lymph # (Auto) 2.59 K/uL (1.2-3.4) 04/27/22 20:17 Dillingham # (Auto) 0.94 K/uL (0.11-0.59) H 04/27/22 20:17 Eos # (Auto) 0.09 K/uL (0-0.50) 04/27/22 20:17 Baso # (Auto) 0.04 K/uL (0-0.2) 04/27/22 20:17 Immature Gran # (Auto) 0.05 K/uL (0.01-0.20) 04/27/22 20:17 PT 10.6 Seconds (9.0-12.0) 04/27/22 21:29 INR 1.0 (0.9-1.1) 04/27/22 21: APTT 22.5 Seconds (21.0-31.0) 04/27/22 21: PTT Ratio 0.8 04/27/22 21:29 VBG pH 7.31 (7.36-7.41) L 04/27/22 20:56 VBG pCO2 38 mmHg (38-50) 04/27/22 20:56 VBG pO2 36 mmHg 04/27/22 20:56 VBG HCO3 19 mmol/L 04/27/22 20:56 VBG O2 Saturation < 60.0 % 04/27/22 20:56 VBG Base Excess -6.6 mEq/L 04/27/22 20:56 POC Sodium 135 mmol/L (135-144) 04/27/22 21:35 Sodium TNP 04/27/22 20:17 POC Potassium 3.8 mmol/L (3.3-5.0) 04/27/22 21:35 Potassium TNP 04/27/22 20:17 POC Chloride 99 mmol/L (101-112) L 04/27/22 21:35 Chloride 98 mmol/L (98-107) 04/27/22 20:17 Carbon Dioxide 27 mmol/L (21-32) 04/27/22 20:17 POC Total CO2 27 mmol/L (24-31) 04/27/22 21:35 Anion Gap TNP 04/27/22 20:17 POC Anion Gap 13.0 mmol/L (16-25) L 04/27/22 21:35 POC BUN 27 mg/dl (7-18) H 04/27/22 21:35 BUN 28 mg/dl (6-23) H 04/27/22 20:17 Creatinine 0.81 mg/dl (0.6-1.2) 04/27/22 20:17 POC Creatinine 0.6 mg/dl (0.6-1.3) 04/27/22 21:35 Est Cr Clr Drug Dosing 48.0 ml/min 04/27/22 20:17 Est GFR ( Amer) 77.3 ml/min 04/27/22 20:17 Est GFR (Non-Af Amer) 66.7 ml/min 04/27/22 20:17 BUN/Creatinine Ratio 34.6 (10-20) H 04/27/22 20:17 Glucose 170 mg/dl (70-99(Fasting)) H 04/27/22 20:17 POC Glucose (other) 156 mg/dl (70-99) H 04/27/22 21:35 Calcium 9.5 mg/dl (8.5-10.1) 04/27/22 20:17 POC Ioniz Calcium Asher 1.15 mmol/l (1.12-1.32) 04/27/22 21:35 Total Bilirubin 0.4 mg/dl (0.2-1.0) 04/27/22 20:17 AST TNP 04/27/22 20:17 ALT 19 U/L (7-52) 04/27/22 20:17 Alkaline Phosphatase 77 U/L (34-104) 04/27/22 20:17 Troponin I High Sens 3536.0 pg/ml (0-14) H* 04/27/22 21:29 B-Natriuretic Peptide 42 pg/ml (0-100) 04/27/22 20:56 Total Protein 8.2 gm/dl (6.0-8.3) 04/27/22 20:17 Albumin 4.3 gm/dl (3.4-5.0) 04/27/22 20:17 Globulin 3.9 gm/dl (2.5-4.0) 04/27/22 20:17 Albumin/Globulin Ratio 1.1 (0.9-2) 04/27/22 20:17 SARS-CoV-2, RNA, NAAT NEGATIVE (NEGATIVE) 04/27/22 20:46 PG Care Time/CCT Total # of Minutes Spent Total Time Spent with Patient: Total time spent is greater than 50% in coordination of care (as documented) at patient's floor/unit and/or counseling patient: Coding Level of Care Code 60357 INT INP/OBS CARE 2/55MIN Diagnoses Acute and chronic respiratory failure with hypoxia J96.21 Chronic obstructive pulmonary disease J44.9 Non-occlusive coronary artery disease I25.10
[2022-04-28] MEDS ORDERED: ONDANSETRON INJ 2 MG/ML 2 ML VIAL IV PRN (02:00)
[2022-04-28 02:31] LABS: Hematocrit (blood only) 35.8 % (37.0-47.0); Hemoglobin 12.2 g/dl (12.0-16.0); Mean Corpuscular Hemoglobin 31.4 pg (25.0-34.0); Mean Corpuscular Hgb Conc 34.1 g/dL (32.0-36.0); Mean Platelet Volume 8.8 fL (9.4-12.4); Platelet Count 247 K/uL (130-400); RDW Coefficient of Variation 13.7 % (11.5-14.5); RDW Standard Deviation 46.7 fL (36.4-46.3); Red Blood Count 3.89 M/uL (4.20-5.40); White Blood Count 14.78 K/ul (4.8-10.8)
[2022-04-28 02:51] LABS: BUN Creatinine Ratio 37.1 (10-20); Calcium 9.3 mg/dl (8.5-10.1); Creatinine Clr Calc Pharmacy 55.5 ml/min; Est GFR (African American) 92.2 ml/min; Est GFR (Non-African American) 79.6 ml/min; Potassium 4.1 mmol/L (3.5-5.1)
[2022-04-28 03:04] LABS: Magnesium 1.7 mg/dl (1.7-2.4)
[2022-04-28 03:08] LABS: Troponin I High Sensitivity 3389.6 pg/ml (0-14)
[2022-04-28 03:09] LABS: Phosphorus 3.2 mg/dl (2.5-4.9)
--- NOTE | 2022-04-28 07:19 | XRay Report ---
XR chest 1V portable HISTORY: 86 years-old Female Dyspnea acute shortness of breath COMPARISON: Chest CT 02/21/2022 TECHNIQUE: AP view of the chest FINDINGS: Cardiomediastinal and hilar silhouettes are unchanged. Severe sigmoidal scoliosis of the spine. No pn eumothorax. Unchanged right lung volume loss. Small right pleural effusion with persistent right basi lar consolidation. Pulmonary vascular congestion with interstitial coarsening, most pronounced in the left midlung. Chronic deformity of the proximal left humerus. IMPRESSION: 1. Cardiomegaly with asymmetric interstitial coarsening throughout the left lung suspicious for asymm etric pulmonary edema. A nonspecific pneumonitis could appear similarly. 2. Similar appearance of the small right pleural effusion with right basilar consolidation. 3. Severe sigmoidal scoliosis. ACT 112: Negative or not required by law. The above report was generated using voice recognition software. It may contain grammatical, syntax o r spelling errors. Electronically signed by: Eliud Iqbal M.D. 04/28/2022 7:18 AM
[2022-04-28] MEDS: FORMOTEROL 20 MCG/2 ML VIAL INH SCH ×2 (07:41→19:57)
--- NOTE | 2022-04-28 08:43 | Electrocardiogram Report ---
Test Reason : Blood Pressure : / mmHG Vent. Rate : 108 BPM Atrial Rate : 108 BPM P-R Int : 166 ms QRS Dur : 078 ms QT Int : 340 ms P-R-T Axes : 069 083 090 degrees QTc Int : 455 ms Poor data quality, interpretation may be adversely affected Sinus tachycardia Biatrial enlargement Anteroseptal infarct , age undetermined ST depression in Anterolateral leads , consider ischemia Abnormal ECG When compared with ECG of 20-MAR-2021 11:22, Vent. rate has increased BY 36 BPM Criteria for Anteroseptal infarct is now Present ST depression in Anterolateral leads now present Confirmed by Remberto De Leon ([id number]) on 04/28/2022 8:43:03 AM Referred By: REFERRED SELF Confirmed By:Remberto De Leon
--- NOTE | 2022-04-28 08:45 | Electrocardiogram Report ---
Test Reason : Blood Pressure : / mmHG Vent. Rate : 098 BPM Atrial Rate : 098 BPM P-R Int : 164 ms QRS Dur : 078 ms QT Int : 392 ms P-R-T Axes : 071 082 091 degrees QTc Int : 500 ms Normal sinus rhythm Left atrial enlargement Anteroseptal infarct (cited on or before 27-APR-2022) , age undetermined ST depression in Anterolateral leads , consider ischemia Abnormal ECG When compared with ECG of 27-APR-2022 20:17, No significant change was found Confirmed by Remberto De Leon ([id number]) on 04/28/2022 8:45:27 AM Referred By: REFERRED SELF Confirmed By:Remberto De Leon
[2022-04-28] MEDS ORDERED: methylPREDNISolone 40 MG in SYRINGE 0 ML IV SCH (09:00)
[2022-04-28] MEDS: ENOXAPARIN INJ 40 MG/0.4 ML SYR SQ SCH (09:04)
[2022-04-28] MEDS: ASPIRIN 81 MG ECTAB PO SCH ×2 (09:04→09:51)
[2022-04-28] MEDS: METOPROLOL SUCC 25MG EXT REL TAB PO SCH ×3 (09:05→20:17)
[2022-04-28] MEDS: methylPREDNISolone 40 MG in SYRINGE 0 ML IV SCH ×2 (09:05→16:08)
[2022-04-28] MEDS: FLUoxetine HCL 20 MG CAP PO SCH ×2 (09:05→09:51)
--- NOTE | 2022-04-28 09:11 | XCELERA ---
[id number]
--- NOTE | 2022-04-28 09:14 | XRay Report ---
XR chest 1V portable HISTORY: 86 years-old Female assess PNA acute shortness of breath COMPARISON: Chest radiograph 04/27/2022 at 9:28 PM, chest CT 02/21/2022 TECHNIQUE: AP view of the chest FINDINGS: Cardiomediastinal and hilar silhouettes are unchanged. Severe sigmoidal scoliosis of the spine is aga in noted. No pneumothorax. Unchanged small right pleural effusion with right basilar consolidation. P rogressively worsened interstitial coarsening of the left greater than right lungs. Chronic deformity of the proximal left humerus. IMPRESSION: 1. Cardiomegaly with progressively worsened pulmonary edema. 2. Unchanged small right pleural effusion with right basilar consolidation. 3. Severe sigmoidal scoliosis. ACT 112: Negative or not required by law. The above report was generated using voice recognition software. It may contain grammatical, syntax o r spelling errors. Electronically signed by: Eliud Iqbal M.D. 04/28/2022 9:13 AM
--- NOTE | 2022-04-28 12:28 | Hospitalist Progress Note ---
Date of Service April 28, 2022 Assessment & Plan (1) Acute and chronic respiratory failure with hypoxia: Plan: Due to suspected aspiration pneumonitis. Continue oxygen per nasal cannula to maintain saturation greater than 90%. Parenteral steroids for aspiration pn eumonitis. Serial chest x-rays. (2) Chronic obstructive pulmonary disease: Plan: Acute exacerbation on admission. Continue parenteral steroids and scheduled nebulizer treatments. (3) Non-occlusive coronary artery disease: Plan: Continue current medical management. No acute EKG changes. She denies chest pain (4) Elevated troponin: Plan: Current cardiac echo reveals anteroseptal hypokinesis with reduced ejection fraction to 45%. This does represent a change from most recent cardiac echo done in February 2022. This raises a question of a recent myocardial infarction. Continue telemetry and current medical management (5) Scoliosis: Plan: Supportive care Plan To be determined. OT and PT assessments requested Admission and Anticipated Discharge Date Admission Date: April 27, 2022 Subjective Alert and oriented but she appears somewhat anxious. She took choked on her medications this morning and developed shortness of breath. She denies any current chest pain. Troponin is markedly elevated and trending downward. No acute EKG changes however. Cardiac echo appears worse than previous imaging done recently in February 2022. She now has anteroseptal akinesis with ejection fraction of 45%. This raises the possibility of a recent IN although there is apparently nothing acute. BNP is 42 and no overt evidence of congestive heart failure and no history of CHF. We will treat suspected aspiration pneumonitis with intravenous steroids. She did receive antibiotics in the ED but these will not be continued going forward. Continue telemetry. Review of Systems Review of Systems: Constitutional-no fever or chills ENT-no blurred vision, no double vision, no epistaxis, no sore throat Respiratory-shortness of breath, wheezing, nonproductive cough. No hemoptysis Cardiac-no palpitations, no chest pain, no syncope GI-no nausea, vomiting, diarrhea, melena, hematochezia -no urinary retention, no urinary incontinence, no dysuria, no hematuria Musculoskeletal-no joint pain, no muscle tenderness Skin-no bruising, no rashes, no pruritus Neuro-no isolated weakness, no paresthesia, no weakness Psych-no depression, no anxiety Physical Exam Physical Exam: General-alert and oriented x3, no fevers, no chills HEENT-head atraumatic and normocephalic, pupils equal and reactive to light, extraocular muscles intact Neck-no lymphadenopathy or thyromegaly, trachea midline Chest-bilateral expiratory wheezes. No inspiratory rales. Cardiac-regular rate and rhythm, normal S1 and S2 Abdomen-normal bowel sounds, nontender, no hepatosplenomegaly Extremities-severe scoliosis of the thoracic spine. No appreciable peripheral edema Neuro-cranial nerves II through XII intact, motor and sensory function within normal limits, strength symmetrical , no focal deficits Psych-normal affect, normal mood Results & Data Results & Data ([facility]) Vital Signs (Past 12 Hours) Vital Signs Temp Pulse Pulse Resp BP Pulse Ox O2 Del Method 04/28/22 11:43 89 24 95 04/28/22 07:54 96 H 25 H 94 04/28/22 07:42 92 H 22 93 Aerosol Mask 04/28/22 05:58 36.8 C 88 25 H 139/81 94 BiPAP 04/28/22 05:32 88 26 H 139/81 93 BiPAP 04/28/22 04:35 BiPAP 04/28/22 04:25 BiPAP 04/28/22 04:00 97 H 24 146/88 H 93 BiPAP 04/28/22 02:00 91 H 23 94 04/28/22 01:37 93 H 24 150/95 H 94 BiPAP O2 Flow Rate FiO2 04/28/22 11:43 40 04/28/22 07:54 40 04/28/22 07:42 6 04/28/22 05:58 04/28/22 05:32 04/28/22 04:35 04/28/22 04:25 04/28/22 04:00 04/28/22 02:00 40 04/28/22 01:37 Laboratory Results 04/28/22 02:21 04/28/22 02:21 PG Care Time/CCT Total # of Minutes Spent Total Time Spent with Patient: Total time spent is greater than 50% in coordination of care (as documented) at patient's floor/unit and/or counseling patient: Coding Level of Care Code 88594 SUB INP/OBS CARE 3/50MIN Diagnoses Acute and chronic respiratory failure with hypoxia J96.21 Chronic obstructive pulmonary disease J44.9 Non-occlusive coronary artery disease I25.10 Elevated troponin R77.8 Scoliosis M41.9
[2022-04-28] MEDS: SODIUM CHLORIDE 0.9% 1000ML 1,000 ML IV SCH (16:08)
--- NOTE | 2022-04-28 19:03 | Cardiology Consultation ---
Date of Consultation April 28, 2022 Assessment & Plan (1) Non-ST elevation (NSTEMI) myocardial infarction: (2) Stress-induced cardiomyopathy: (3) Non-occlusive coronary artery disease: (4) Acute and chronic respiratory failure with hypoxia: Plan 86-year-old woman with recurrent stress-induced cardiomyopathy and previously nonocclusive coronary artery disease presents with acute respiratory failure after choking on a pill. ECG shows recent anteroseptal infarct and anterolateral ischemia, troponin markedly elevated with gradual decline, yet she denies any chest discomfort whatsoever. Although the moderate area of septal/anteroseptal akinesis on echocardiogram is a focal finding rather than the typical apical ballooning, the absence of chest pain and the previously nonocclusive coronary artery disease strongly suggest that she has had a non-STEMI secondary to a third episode of stress-induced cardiomyopathy (which sometimes can cause focal wall motion abnormalities). Doubt acute thrombotic occlusion, therefore no need for heparinization in the absence of chest pain. She is on a beta-gonzalo, but would recommend increasing the dose, since this is the primary defense against recurrent stress-induced cardiomyopathy. Increase metoprolol succinate from 25 mg daily to twice daily, depending upon her heart rate and blood pressure response this could subsequently be titrated to higher doses as needed. Could use IV labetalol or hydralazine for acute hypertensive episodes. Will follow along, she was clinically stable at the time of my evaluation late this afternoon. History of Present Illness Reason for Consultation: elevated troponin, abnormal echo Requesting Physician: Luis Felipe Mejia MD Attending Physician: Luis Felipe Mejia MD History of Present Illness 86-year-old woman with severe restrictive lung disease (oxygen dependent), and 2 prior episodes of stress-induced cardiomyopathy (Takotsubo syndrome) occurring in the context of acute respiratory failure, who was admitted 04/27/2022 with another episode of acute respiratory failure with hypoxia precipitated by choking on a pill, noted to have troponin elevation and new wall motion abnormality without the occurrence of any chest pain whatsoever. She is a resident of [facility] and had no complaints and was feeling well until she took her pills at dinner and choked on a vitamin C pill. Upon ER presentation she was tachypneic and tachycardic and placed on BiPAP with symptomatic improvement. She felt much better and has done well since that time. On careful questioning, she denies any recent chest discomfort and did not note any even while she was having the choking episode. She had been followed by [facility] cardiology, a note from 07/07/2021 details her past cardiac history. As mentioned, she had 2 episodes of Takotsubo syndrome, one with LVEF dropping to 25-30% before subsequently returning to normal. She had a cardiac catheterization in 2018 which showed only very mild nonobstructive coronary artery disease. At the time of my evaluation, she was comfortable on BiPAP at rest in bed. She had difficulty with her hearing aids and our conversation was somewhat limited, but she denied any symptoms. Allergies Allergy/AdvReac Type Severity Reaction Status Date / Time ceftriaxone Allergy Intermediate Hives Verified 04/27/22 22:15 prednisone Allergy Intermediate MUSCLE Verified 04/27/22 22:15 CONTROL Sjjokhe-RDL-RpR Reductase Allergy Intermediate MUSCULAR Verified 04/27/22 22:15 Inhibitor ISSUES [Nghkxbi-Rir-Nae Reductase Inhibitor] gabapentin [From Neurontin] Allergy Unknown Unknown Verified 04/27/22 22:15 nitrofurantoin Allergy Unknown Unknown Verified 04/27/22 22:15 valdecoxib [From Bextra] AdvReac Intermediate increased Verified 04/27/22 22:15 BP Home Medications Medication Instructions Recorded Confirmed Type vitamin B comp and C no.3 15 mg-10 1 cap PO QPM 10/04/18 04/27/22 History mg-50 mg-5 mg-300 mg capsule (B Complex Plus Vitamin C) aspirin 81 mg tablet,delayed 81 mg PO QAM #1 tab 11/23/19 04/27/22 Rx release biotin 5 mg tablet 5 mg PO QAM 01/07/20 04/27/22 History cholecalciferol (vitamin D3) 50 50 mcg PO QAM 01/07/20 04/27/22 History mcg (2,000 unit) capsule (Vitamin D3) turmeric root extract 500 mg 1,000 mg PO QPM 01/07/20 04/27/22 History capsule Oxygen Home 05/13/21 01/04/22 History Portable Oxygen #1 ea 07/20/21 01/04/22 Rx Portable Oxygen #1 ea 07/23/21 01/04/22 Rx albuterol sulfate 90 mcg/actuation 2 puff inhalation Q4 PRN Shortness 07/23/21 04/27/22 Rx aerosol inhaler (Ventolin HFA) Of Breath #18 grams arformoterol 15 mcg/2 mL solution 2 ml inhalation BID #60 vials 07/23/21 04/27/22 Rx for nebulization (Brovana) budesonide 0.25 mg/2 mL suspension 0.25 mg (2 mL) inhalation BID #60 07/23/21 04/27/22 Rx for nebulization vials fluoxetine 40 mg capsule 40 mg PO DAILY #90 caps 12/20/21 04/27/22 Rx alprazolam 0.25 mg tablet See Rx Instructions PO .COMPLEX 01/22/22 04/27/22 Rx Anxiety #60 tabs metoprolol succinate 25 mg 25 mg PO QAM #30 tabs 03/17/22 04/27/22 Rx tablet,extended release 24 hr acetaminophen 500 mg tablet 1,000 mg PO Q8H PRN FEVER/PAIN 04/27/22 04/27/22 History (Tylenol Extra Strength) calcium citrate 200 mg 2 tab PO QPM 04/27/22 04/27/22 History calcium-vitamin D3 6.25 mcg (250 unit) tablet (Citracal-D3 Petites) diphenhydramine 25 1 tab PO HS 04/27/22 04/27/22 History mg-acetaminophen 500 mg tablet (Tylenol PM Extra Strength) glucosamine 750 un-uohowgfwya-sxl 1 tab PO QPM 04/27/22 04/27/22 History no.1 625 mg-C 30 mr-kzlk-jwhp tablet (Glucosamine-Chondroitin 3X) omega-3 fatty acids 1,250 mg 1,250 mg PO DAILY 04/27/22 04/27/22 History capsule prednisone 20 mg tablet 40 mg PO DAILY PRN Congestion 04/27/22 04/27/22 History vitamins A,C,J-chdl-pofkpf 2,148 1 tab PO BID 04/27/22 04/27/22 History mcg-113 mg-45 mg-17.4 mg tablet (PreserVision AREDS) Patient History Medical History Abnormal CT scan Acute on chronic diastolic (congestive) heart failure Acute respiratory failure with hypoxia Arthralgia of multiple sites Arthritis of left knee Atypical chest pain Cervical myelopathy Cervicalgia Chronic obstructive pulmonary disease Elevated troponin Eustachian tube dysfunction Hearing loss Hypokalemia Hypotension MCTD (mixed connective tissue disease) Multifocal pneumonia Muscle spasm Muscle weakness-general Myopathy Non-occlusive coronary artery disease Non-ST elevated myocardial infarction (non-STEMI) On home oxygen therapy 2L via N/C qpm and HS Oral thrush Osteoarthritis Osteopenia Polyneuropathy Positive MICHAEL (antinuclear antibody) Positive colorectal cancer screening using Cologuard test Restrictive lung disease Scoliosis Sepsis Throat irritation Trapezius muscle spasm Urinary incontinence Surgical History H/O foot surgery History of appendectomy History of arthroscopy of left knee History of bilateral cataract extraction History of biopsy right thigh--showed MCTD History of bronchoscopy x2 History of cardiac cath 04/2017 no stents History of colonoscopy History of thoracentesis History of tonsillectomy and adenoidectomy History of total hysterectomy with bilateral salpingo-oophorectomy (BSO) History of wisdom tooth extraction Family History Mother Alzheimer disease Brother Hx of CABG Depression Father Congestive heart failure Coronary heart disease Hearing loss Unknown Myocardial infarction Other No family history of adverse response to anesthesia Denies family history of Ovarian cancer Prostate cancer Breast cancer Colorectal cancer Social History Smoking Status: Never smoker Second Hand Exposure: No; Hx Alcohol Use: No Hx Substance Use: No Preferred Language: Brazilian Communication Ability: Effective Visual Impairment: Limited Hearing Ability: Use of Hearing Aid Veterinary Practice Manager Required: No Beliefs That Will Affect Care: None marital status: Current Living Situation: Spouse and Alf current occupational status: retired How many Children do You have: 4 Feels Safe at Home: Yes Safety Concerns Comment: lives at [facility] Childhood Exposure to Second-Hand Smoke: Yes caffeine: Yes (one coffee a day ) Dental Care, Regularly: Yes Physical Activity Frequency: 3-4 Times per Week Seatbelt Use: always Sunscreen Use: Yes Assistive Devices: Walker Physical Exam Physical Exam: No distress. On BiPAP. Hard of hearing. BP mildly hypertensive. Pulse 92 bpm and regular. Skin: no ecchymoses or generalized lesions. HEENT: unremarkable. Neck: Jugular venous pulse not elevated but with increased respiratory variation and some accessory muscle use. No carotid bruits. Lungs: Moderately decreased breath sounds throughout with coarse rhonchi and few expiratory wheezes. Mild accessory muscle use. No abdominal paradox. Cardiac: Heart tones obscured by respiratory sounds, regular rhythm, no obvious murmur or gallop. Abdomen: benign. Extremities: no edema, pulses intact. Neurologic: normal affect, hard of hearing, normal conversation, nonfocal. Results & Data ([facility]) Laboratory Results High-sensitivity troponin showed marked initial levels which gradually tapered (3500, 3400, 2700, 1900, and 2000). Sodium 132, chloride 97, potassium 4.1, BUN 26, creatinine 0.7. BNP 42. Diagnostic Findings ECG showed sinus tachycardia at 108 bpm with age-indeterminate anteroseptal infarct (Q waves in leads V2 and V3 with minor ST elevation in lead V3) as well as ST depression in the anterolateral leads suggesting ischemia. Compared with 03/20/2021 ECG, criteria for anteroseptal infarct are new and ST depression in the anterolateral leads is new. Echocardiogram showed EF 45 to 50% with a moderate-sized area of septal/ranjana septal akinesis, all other sheridan move normally. Mild MR/mild to moderate TR/mild pulmonary hypertension. Chest x-ray showed cardiomegaly with "pulmonary edema", small right pleural effusion and right basilar consolidation, severe sigmoidal scoliosis. To my eye, the increased interstitial markings are not particularly suggestive of heart failure, but rather rotation related to her scoliosis with crowding of lung markings. PG Care Time/CCT Total # of Minutes Spent Total Time Spent with Patient: Total time spent is greater than 50% in coordination of care (as documented) at patient's floor/unit and/or counseling patient: Coding Level of Care Code INP/OBS CONSULT LVL 4, 60 MIN Diagnoses Non-ST elevation (NSTEMI) myocardial infarction I21.4 Stress-induced cardiomyopathy I51.81 Non-occlusive coronary artery disease I25.10 Acute and chronic respiratory failure with hypoxia J96.21
[2022-04-28] MEDS: ACETAMINOPHEN 325 MG TAB PO PRN (20:16)
[2022-04-28] MEDS: ALPRAZolam 0.25 MG TABLET PO SCH (20:16)
[2022-04-29] MEDS: methylPREDNISolone 40 MG in SYRINGE 0 ML IV SCH ×3 (01:00→17:17)
[2022-04-29] MEDS: ALPRAZolam 0.25 MG TABLET PO PRN (04:30)
[2022-04-29] MEDS: SODIUM CHLORIDE 0.9% 1000ML 1,000 ML IV SCH (05:52)
[2022-04-29] MEDS: FORMOTEROL 20 MCG/2 ML VIAL INH SCH ×2 (07:00→20:27)
[2022-04-29] MEDS: ALBUT/IPRATROP 3MG/0.5MG NEB 3 ML VIAL NEB PRN (07:00)
[2022-04-29] MEDS: ENOXAPARIN INJ 40 MG/0.4 ML SYR SQ SCH (09:27)
[2022-04-29] MEDS: METOPROLOL SUCC 25MG EXT REL TAB PO SCH ×2 (09:27→21:00)
[2022-04-29] MEDS: FLUoxetine HCL 20 MG CAP PO SCH (09:27)
[2022-04-29] MEDS: ASPIRIN 81 MG ECTAB PO SCH (09:27)
[2022-04-29] MEDS: FUROSEMIDE 40 MG/4 ML VIAL IV SCH ×2 (11:16→20:59)
--- NOTE | 2022-04-29 12:27 | Hospitalist Progress Note ---
Date of Service April 29, 2022 Assessment & Plan (1) Acute and chronic respiratory failure with hypoxia: Plan: Due to suspected aspiration pneumonitis. Continue oxygen per nasal cannula to maintain saturation greater than 90%. Parenteral steroids for aspiration p neumonitis. Serial chest x-rays. We will keep on the dry side with intravenous Lasix. Monitor intake and output. (2) Chronic obstructive pulmonary disease: Plan: Acute exacerbation on admission. Continue parenteral steroids and scheduled nebulizer treatments. (3) Non-occlusive coronary artery disease: Plan: Continue current medical management. No acute EKG changes. She denies chest pain (4) Elevated troponin: Plan: She may have had a recent non-ST elevation MO from stress cardiomyopathy. Ejection fraction is 45%. Appreciate cardiology consultation and recommendations. Metoprolol succinate has been increased to twice daily dosing. Current cardiac echo reveals anteroseptal hypokinesis with reduced ejection fraction to 45%. This does represent a change from most recent cardiac echo done in February 2022. (5) Scoliosis: Plan: Supportive care Plan To be determined. Swallowing assessment has yet to be completed due to presence of BiPAP mask and high oxygen requirements. She is not a candidate yet for OT and PT assessments Admission and Anticipated Discharge Date Admission Date: April 27, 2022 Subjective Alert and oriented. She is requiring high flow oxygen per BiPAP mask. Diffuse bilateral pneumonitis noted on chest x-ray. She may have a component of congestive heart failure in addition to the pneumonitis causing her severe respiratory compromise. She is a DNR/DNI patient. Appreciate cardiology consultation and recommendations. We will keep her on the dry side with intravenous Lasix. Although her BN P is normal, she may have a component of congestive heart failure. Recent NSTEMI secondary to stress cardiomyopathy is a consideration. Metoprolol has been uptitrated to twice daily. Intravenous flu ids have been discontinued. Swallowing assessment cannot be completed due to the need for BiPAP mask. This will be done at a later date. Review of Systems Review of Systems: Constitutional-no fever or chills ENT-no blurred vision, no double vision, no epistaxis, no sore throat Respiratory-shortness of breath, wheezing, nonproductive cough. No hemoptysis Cardiac-no palpitations, no chest pain, no syncope GI-no nausea, vomiting, diarrhea, melena, hematochezia -no urinary retention, no urinary incontinence, no dysuria, no hematuria Musculoskeletal-no joint pain, no muscle tenderness Skin-no bruising, no rashes, no pruritus Neuro-no isolated weakness, no paresthesia, no weakness Psych-no depression, no anxiety Physical Exam Physical Exam: General-alert and oriented x3, no fevers, no chills HEENT-head atraumatic and normocephalic, pupils equal and reactive to light, extraocular muscles intact Neck-no lymphadenopathy or thyromegaly, trachea midline Chest-bilateral expiratory wheezes. No inspiratory rales. Cardiac-regular rate and rhythm, normal S1 and S2 Abdomen-normal bowel sounds, nontender, no hepatosplenomegaly Extremities-severe scoliosis of the thoracic spine. No appreciable peripheral edema Neuro-cranial nerves II through XII intact, motor and sensory function within normal limits, strength symmetrical , no focal deficits Psych-normal affect, normal mood Results & Data Results & Data ([facility]) Vital Signs (Past 12 Hours) Vital Signs Temp Pulse Pulse Resp BP Pulse Ox O2 Del Method 04/29/22 08:11 36.5 C 82 21 144/71 H 94 Oxymask 04/29/22 08:00 83 04/29/22 08:00 Room Air 04/29/22 07:03 80 19 95 Oxymask 04/29/22 04:46 36.8 C 88 28 H 130/73 92 Oxymask 04/29/22 02:14 72 23 95 O2 Flow Rate FiO2 04/29/22 08:11 11 04/29/22 08:00 04/29/22 08:00 04/29/22 07:03 12 04/29/22 04:46 12.0 04/29/22 02:14 40 Laboratory Results 04/28/22 02:21 04/28/22 02:21 PG Care Time/CCT Total # of Minutes Spent Total Time Spent with Patient: Total time spent is greater than 50% in coordination of care (as documented) at patient's floor/unit and/or counseling patient: Coding Level of Care Code 19711 SUB INP/OBS CARE 3/50MIN Diagnoses Acute and chronic respiratory failure with hypoxia J96.21 Chronic obstructive pulmonary disease J44.9 Non-occlusive coronary artery disease I25.10 Elevated troponin R77.8 Scoliosis M41.9
--- NOTE | 2022-04-29 16:04 | Cardiology Progress Note ---
Date of Service April 29, 2022 Assessment & Plan (1) Non-ST elevation (NSTEMI) myocardial infarction: (2) Stress-induced cardiomyopathy: (3) Non-occlusive coronary artery disease: (4) Acute and chronic respiratory failure with hypoxia: Plan 86-year-old woman with recurrent stress-induced cardiomyopathy and previously nonocclusive coronary artery disease presents with acute respiratory failure after choking on a pill. Second troponin bump upward may be due to desaturation, she still denies having chest pain at any time. Although her sinus tachycardia is in large part physiologic, given her diagnosis of stress induced cardiomyopathy may need to increase her metoprolol further, would recommend changing metoprolol succinate from 25 mg every 12 hours to 25 mg every 8 hours. BP is markedly improved. Not convincing that she has a major component of fluid overload, but reasonable to attempt to keep on the "dry" side while she is closely monitored in the hospital. Check daily electrolytes and renal function and consider follow-up chest x-ray. Dr. Loepz will be covering cardiology for the weekend, I will ask him to check in on the patient. Admission and Anticipated Discharge Date Admission Date: April 27, 2022 Subjective Brief desaturation this morning, otherwise uneventful night. She remains on BiPAP but denies any dyspnea, chest pain, lightheadedness, or other complaint. Telemetry showed sinus rhythm with rate generally in the 80s, she briefly demonstrated sinus tachycardia to 130 bpm range during a period of oxygen desaturation earlier this morning. Physical Exam Physical Exam: No distress. On BiPAP. Hard of hearing. BP normotensive. Pulse 90 bpm and regular. Skin: no ecchymoses or generalized lesions. HEENT: unremarkable. Neck: Jugular venous pulse difficult to assess due to increased respiratory variation, meniscus mildly elevated. No carotid bruits. Lungs: Moderately decreased breath sounds throughout with coarse rhonchi and few expiratory wheezes. Mild accessory muscle use. No abdominal paradox. Cardiac: Heart tones obscured by respiratory sounds, regular rhythm, no obvious murmur or gallop. Abdomen: benign. Extremities: no edema, pulses intact. Neurologic: normal affect, hard of hearing, normal conversation, nonfocal. Results & Data ([facility]) Laboratory Results Sodium 132, potassium 4.1, chloride 97, BUN 26, creatinine 0.7. Troponin had been dropping but did increase early this morning to 3190 (peak 2 days ago 3536). PG Care Time/CCT Total # of Minutes Spent Total Time Spent with Patient: Total time spent is greater than 50% in coordination of care (as documented) at patient's floor/unit and/or counseling patient: Coding Level of Care Code 57947 SUB INP/OBS CARE 3/50MIN Diagnoses Non-ST elevation (NSTEMI) myocardial infarction I21.4 Stress-induced cardiomyopathy I51.81 Non-occlusive coronary artery disease I25.10 Acute and chronic respiratory failure with hypoxia J96.21
[2022-04-29] MEDS: ALPRAZolam 0.25 MG TABLET PO SCH (20:59)
[2022-04-29] MEDS: ACETAMINOPHEN 325 MG TAB PO PRN (20:59)
[2022-04-30] MEDS: methylPREDNISolone 40 MG in SYRINGE 0 ML IV SCH ×3 (00:19→16:24)
[2022-04-30] MEDS: METOPROLOL SUCC 25MG EXT REL TAB PO SCH ×3 (05:19→20:25)
[2022-04-30] MEDS: FORMOTEROL 20 MCG/2 ML VIAL INH SCH ×2 (06:10→19:23)
[2022-04-30] MEDS ORDERED: guaiFENesin 600 MG TABCR PO SCH (06:45)
--- NOTE | 2022-04-30 07:39 | XRay Report ---
XR chest 1V portable CLINICAL HISTORY: aspiration pneumonitis COMPARISON STUDY: Chest CT February 21, 2022. Chest radiograph April 28, 2022. FINDINGS: Severe scoliosis is again noted. Small right and trace left pleural effusions are present. Cardiomediastinal silhouette is stable. Interstitial thickening, greater within the left lung, is unc hanged. There has been no significant change in appearance of the chest. Bibasilar opacities are pres ent. No pneumothorax. IMPRESSION: 1. No significant change in appearance of the chest. Persistent bibasilar opacities. This may reflect aspiration or pneumonia. 2. Interstitial thickening which favors pulmonary edema. ACT 112: Negative or not required by law. Electronically signed by: Mark Mclaughlin M.D. 04/30/2022 7:37 AM
[2022-04-30] MEDS: FLUoxetine HCL 20 MG CAP PO SCH (08:11)
[2022-04-30] MEDS: ASPIRIN 81 MG ECTAB PO SCH (08:11)
[2022-04-30] MEDS: ENOXAPARIN INJ 40 MG/0.4 ML SYR SQ SCH (08:11)
[2022-04-30 09:06] LABS: Anion Gap 11 (3-11); BUN Creatinine Ratio 50.7 (10-20); Blood Urea Nitrogen 37 mg/dl (6-23); Calcium 9.5 mg/dl (8.5-10.1); Carbon Dioxide 29 mmol/L (21-32); Chloride 100 mmol/L (98-107); Creatinine Clr Calc Pharmacy 50.6 ml/min; Est GFR (African American) 87.7 ml/min; Est GFR (Non-African American) 75.6 ml/min; Glucose 163 mg/dl (70-99(Fasting)); Sodium 140 mmol/L (136-145)
[2022-04-30] MEDS: FUROSEMIDE 40 MG/4 ML VIAL IV SCH ×2 (10:09→20:23)
[2022-04-30 11:05] LABS: D Dimer 980 ug/L FEU (0-500)
[2022-04-30 11:53] LABS: Base Excess ABG 9.4 mEq/L (-9-1.8); HCO3 ABG 32 mmol/L (19-24); Oxygen Saturation ABG 97.9 % (90-95); PCO2 ABG 37 mmHg (35-46); PO2 ABG 76 mmHg (80-95)
[2022-04-30 11:54] LABS: Allen Test Pos (Pos)
[2022-04-30 11:56] LABS: pH ABG 7.55 (7.35-7.45)
[2022-04-30 11:57] LABS: Magnesium 2.4 mg/dl (1.7-2.4); Phosphorus 2.2 mg/dl (2.5-4.9)
[2022-04-30 12:06] LABS: Troponin I High Sensitivity 1386.5 pg/ml (0-14)
[2022-04-30] MEDS ORDERED: OPTIRAY 320 500ml IV ONE (12:12)
--- NOTE | 2022-04-30 12:26 | CT Scan Report ---
CHEST CTA for PULMONARY ARTERIES CT DOSE: 376.24 mGycm HISTORY: acute respiratory failure, elevated d-dimer TECHNIQUE: Multiaxial CT images of the chest were performed following the intravenous administration of contrast to evaluate the pulmonary arteries. Maximal intensity projection images were also obtaine d. A dose lowering technique was utilized adhering to the principles of ALARA. COMPARISON STUDY: Chest CT 02/21/2022. FINDINGS: Severe scoliosis again noted. No evidence for an aortic dissection. The heart remains mildl y enlarged. Trace right pleural effusion, unchanged. No pericardial effusion. The right lower lobe pu lmonary arteries are essentially nondiagnostic due to motion artifact and atelectasis. Otherwise, no filling defects within the remaining pulmonary arteries to suggest a pulmonary embolus. There are mod erate coronary artery calcifications. The visualized liver, spleen, and adrenal glands unremarkable. Normal caliber esophagus. No mediastinal or hilar lymphadenopathy. No pneumothorax. The trachea is pa tent. There are patchy groundglass densities within the lungs most pronounced within the left upper l obe with interlobular septal thickening. This could be due to an atypical pneumonia or pulmonary echo a. Stable 3.2 cm bleb within the right lung base. Chronic atelectasis involving the majority of the r ight middle lobe and lower lobe remains unchanged. This may be due to compression/occlusion of the br onchi from the scoliosis. Patchy densities at the basal left lower lobe have progressed. No acute fra ctures identified. No pneumothorax. IMPRESSION: 1. No evidence for a pulmonary embolus with limitations as described above. 2. There are patchy groundglass densities within the lungs most pronounced within the left upper lobe with interlobular septal thickening. This could be due to an atypical pneumonia or pulmonary edema. 3. Chronic atelectasis involving the majority of the right middle lobe and lower lobe remains unchang ed. This may be due to compression/occlusion of the bronchi from the scoliosis. 4. Trace right pleural effusion, unchanged. ACT 112: Negative or not required by law. Electronically signed by: Ottoniel Fuchs M.D. 04/30/2022 12:23 PM
[2022-04-30] MEDS ORDERED: TPN/PPN CONSULT PHARMACY SCH (12:59)
--- NOTE | 2022-04-30 13:12 | Hospitalist Progress Note ---
Date of Service April 30, 2022 Assessment & Plan (1) Acute and chronic respiratory failure with hypoxia: Plan: Due to suspected aspiration pneumonitis. Continue oxygen per nasal cannula to maintain saturation greater than 90%. Parenteral steroids for aspiration p neumonitis. Serial chest x-rays. We will keep on the dry side with intravenous Lasix. Monitor intake and output. Pulmonary medicine consultation requested (2) Chronic obstructive pulmonary disease: Plan: Acute exacerbation on admission. Continue parenteral steroids and scheduled nebulizer treatments. Known nonfunctioning right lower lobe due to bronchial obstruction from the scoliosis. Pulmonary medicine consultation requested. She is losing her voice due to the dryness associated with high flow oxygen. No CO2 retention on ABG (3) Non-occlusive coronary artery disease: Plan: Continue current medical management. No acute EKG changes. She denies chest pain (4) Elevated troponin: Plan: She may have had a recent non-ST elevation AL from stress cardiomyopathy. Ejection fraction is 45%. Appreciate cardiology consultation and recommendations. Metoprolol succinate has been increased to twice daily dosing. Current cardiac echo reveals anteroseptal hypokinesis with reduced ejection fraction to 45%. This does represent a change from most recent cardiac echo done in February 2022. (5) Scoliosis: Plan: Supportive care. Suspected etiology of obstructed right lower lobe bronchus (6) Aspiration into airway: Plan: Occurred while trying to take medications in applesauce. This resulted in severe shortness of breath and prompted her visit to the ED leading to her admission. She already has a known obstruction of the right lower lobe bronchus from the scoliosis. Pulmonary medicine consultation requested. She may need a bronchoscopy this admission (7) Swallowing dysfunction: Plan: Speech therapy has been unable to complete their evaluation due to the need for BiPAP. Hopefully a swallowing eval can be completed soon (8) Nutrition impaired due to limited access to healthful foods: Plan: We will start TPN today, April 30. Speech will proceed with swallowing evaluation when she is off high flow oxygen Plan To be determined. Swallowing assessment has yet to be completed due to presence of BiPAP mask and high oxygen requirements. She is not a candidate yet for OT and PT assessments Admission and Anticipated Discharge Date Admission Date: April 27, 2022 Subjective Alert and pleasant. She continues to require high flow oxygen. Chest CTA today is negative for PE. Pulmonary medicine consultation requested. She had a significant choking episode and may have aspirated material into her airways. S he already is known to have nonfunctioning right lower lobe due to obstruction of the bronchus from her severe scoliosis. She has given consent for PICC line placement for TPN purposes. The line will also be used for lab draws since there is considerable difficulty with that. Phosphorus replacement underway. ABGs show no sign of CO2 retention. I spoke to her daughter, Padmini, by phone. Review of Systems Review of Systems: Constitutional-no fever or chills ENT-no blurred vision, no double vision, no epistaxis, no sore throat Respiratory-shortness of breath, wheezing, nonproductive cough. No hemoptysis Cardiac-no palpitations, no chest pain, no syncope GI-no nausea, vomiting, diarrhea, melena, hematochezia -no urinary retention, no urinary incontinence, no dysuria, no hematuria Musculoskeletal-no joint pain, no muscle tenderness Skin-no bruising, no rashes, no pruritus Neuro-no isolated weakness, no paresthesia, no weakness Psych-no depression, no anxiety Physical Exam Physical Exam: General-alert and oriented x3, no fevers, no chills HEENT-head atraumatic and normocephalic, pupils equal and reactive to light, extraocular muscles intact Neck-no lymphadenopathy or thyromegaly, trachea midline Chest-bilateral expiratory wheezes. No inspiratory rales. Dullness at the right base Cardiac-regular rate and rhythm, normal S1 and S2 Abdomen-normal bowel sounds, nontender, no hepatosplenomegaly Extremities-severe scoliosis of the thoracic spine. No appreciable peripheral edema Neuro-cranial nerves II through XII intact, motor and sensory function within normal limits, strength symmetrical , no focal deficits Psych-normal affect, normal mood Results & Data Results & Data ([facility]) Vital Signs (Past 12 Hours) Vital Signs Temp Pulse Pulse Resp BP Pulse Ox O2 Del Method 04/30/22 12:24 97 Oxymask 04/30/22 12:16 36.4 C L 83 22 140/68 97 Oxymask 04/30/22 08:29 36.5 C 78 18 144/79 H 94 Oxymask 04/30/22 07:37 Oxymask 04/30/22 06:11 88 18 92 Oxymask 04/30/22 04:15 36.6 C 80 18 134/72 94 Oxymask O2 Flow Rate 04/30/22 12:24 14 04/30/22 12:16 14 04/30/22 08:29 14 04/30/22 07:37 12 04/30/22 06:11 13 04/30/22 04:15 14.0 Laboratory Results 04/28/22 02:21 04/30/22 09:41 PG Care Time/CCT Total # of Minutes Spent Total Time Spent with Patient: Total time spent is greater than 50% in coordination of care (as documented) at patient's floor/unit and/or counseling patient: Coding Level of Care Code 29480 SUB INP/OBS CARE 3/50MIN Diagnoses Acute and chronic respiratory failure with hypoxia J96.21 Chronic obstructive pulmonary disease J44.9 Non-occlusive coronary artery disease I25.10 Elevated troponin R77.8 Scoliosis M41.9 Aspiration into airway T17.908A Swallowing dysfunction R13.10 Nutrition impaired due to limited access to healthful foods E63.9
[2022-04-30] MEDS ORDERED: POTASSIUM PHOSPHATE 15 MMOL in SODIUM CHLORIDE 0.9% 250 ML IV ONE (13:30)
--- NOTE | 2022-04-30 13:54 | Pharmacy Report ---
PHA: Parenteral Nutrition Con - Date of Service April 30, 2022 - Scope Pharmacy was consulted on 04/30/22 to manage parenteral nutrition orders for this patient. - Subjective The patient is currently on day 1 of peripheral parenteral nutrition for inability to swallow, NPO x 3 days, aspiration pneumonia. - Objective Height: 5 ft 2 in Weight: 64.6 kg Diet: NPO Vascular Access:: PICC line attempted by IV team 04/30, not successful, proceeding with peripheral formulation PN for today. Intake & Output (24hrs):: Intake & Output 04/28/22 04/29/22 04/30/22 05/01/22 06:59 06:59 06:59 06:59 Intake Total 250 / 250 1004 / 1004 382.667 / 382.667 Output Total 450 / 450 2350 / 2350 Balance 250 / 250 554 / 554 -1967.333 / -1967.333 Weight 71.8 kg 71.8 kg 64.6 kg 64.6 kg Laboratory Data (Last 24 Hr):: 04/30/22 04/30/22 04/30/22 07:51 09:41 11:08 Sodium 140 Potassium TNP 3.6 Chloride 100 Carbon Dioxide 29 BUN 37 H Creatinine 0.73 Glucose 163 H Calcium 9.5 Phosphorus 2.2 L Magnesium 2.4 Triglycerides 117 Nutrition Assessment:: Please refer to the Notes section of the EMR for the most recent fishing hand note. 1. Recommend TPN goal of Clinimix 10/31 at 50mL/hr continuously plus 50g lipids to provide 96g AAs, 168g dextrose, and 1456 kcals in 1450mL total volume. Start TPN on day 1 at 30mL/hr and increase to goal on day 2. 2. Monitor renal function & TGs and adjust PN prn. 3. Advance diet as medically indicated. - Plan For day 1 of PN administration, the following will be ordered: Phos low at 2.2 - replete with KPhos 15 mmol x1 now, then proceed with PPN as follows: Macronutrients Amino acids 61 grams/day (goal 96 g/day) Dextrose 72 grams/day (goal 168g/day) Lipids 50 grams/day Micronutrients Combined electrolytes 20 mL - contains 35 mEq Na, 20 meq K, 4.5 mEq Ca, 5 mEq Mg, 35 mEq Cl, 29.5 mEq acetate per 20 mL Potassium phosphate 15 mMol Multivitamins 10 mL Trace Elements 1 mL Total volume 1476 mL to be infused over 24 hrs will provide 990 kcal/day Final osmolarity 769 mOsm/L (maximum for PPN is 900 mOsm/L) Labs, as indicated, will be ordered per protocol Pharmacy will continue to follow and adjust parenteral nutrition orders on a daily basis. Thank you for allowing us to participate in the care of this patient.
--- NOTE | 2022-04-30 14:07 | Pulmonary Consultation ---
Date of Consultation April 30, 2022 Assessment & Plan (1) Restrictive lung disease: (2) Acute and chronic respiratory failure with hypoxia: (3) Pulmonary edema: Chronicity: acute Qualified Code(s): J81.0 - Acute pulmonary edema (4) Nocturnal hypoxia: (5) Kyphoscoliosis deformity of spine: (6) Pulmonary hypertension: (7) Aspiration into airway: Plan CT chest 04/30/2022 personally reviewed: Patchy groundglass opacities appreciated bilaterally mostly in the left lung as well as in the right upper lobe Right lower lobe 3.2 cm cyst (Unchanged) No mediastinal lymphadenopathy Severe kyphoscoliosis 2D echo 04/28/2022: EF 45-50%, mild to moderate TR, RVSP 30-40 mmHg, right ventricle normal in size and function ABG 04/30/2022: 7.55/37/76 on 14 L -- Acute on chronic hypoxic respiratory failure Multifactorial Hypoxia is most likely from new onset CHF as well as possible aspiration Nasal MRSA negative SARS NAAT, influenza A/B, RSV negative BNP 624 Procalcitonin 0.22 --Pulmonary hypertension Mild to moderate Combination of type II and type III --Moderate to severe restrictive lung disease From underlying kyphoscoliosis Continue with incentive spirometry PFTs 05/08/2020:Moderate restrictive lung disease with moderate decrease in DLCO which corrects for VA, insignificant bronchodilator response,flow volume loop shows expiratory scooping FVC 1 L, 51%, FEV 1.75 L, 52%, FEV1/FVC 75%, RV 70%, TLC 65%, DLCO 41%, DLCO/VA 90% --Anxiety Patient takes alprazolam 0.5 mg. It is a respiratory suppressive medication It is a lower dose but I would still be careful Patient already taking fluoxetine as well. Plan: Would recommend continue with diuretics to keep the patient negative balance given the elevated BNP Gradually titrate down oxygen to goal 90-92% BiPAP nightly and as needed shortness of breath Continue with Brovana and with saline nebulized Decrease Solu-Medrol to 40 mg every 12 Doxycycline for 5 days Please note the above document was generated using voice recognition software. It may contain grammatical, syntax or spelling errors.Any formal questions or concerns about the content, text or information contained within the body of this dictation should be directly addressed to the provider for clarification. History of Present Illness Attending Physician: Luis Felipe Mejia MD History of Present Illness 85-year-old female presented to the hospital for worsening of shortness of breath Past medical history: Takotsubo cardiomyopathy, latest ejection fraction 55-60%, coronary artery disease, anxiety Patient last had a video encounter with me on 07/23/2021 Patient also has past history of ARDS back in February 2018 where she was intubated for approximately 3 weeks at [facility]. Gradually progressive while she was having her pills one of the pills got stuck in her throat. She was found to be 83% on room air. Patient's family was in the room at the time of examination She was on 10 L saturating 99%. I went down to 8 L and started interrogation. She was still saturating 95-96%. I went down to 6 L at the end of interrogation and she was still saturating 92% - 93% Patient says she is feeling better since coming to the hospital. Diuresis has helped her a lot. Denies any nausea or vomiting She still complains of cough and difficulty bringing up the phlegm. No headache, no blurry vision No dysuria, no diarrhea. Has been using the BiPAP while in the hospital No night sweats, no unintentional weight loss. No autoimmune disease in the family. Patient personally denies Raynaud's phenomena. Social history: Non-smoker,denies any illicit drug use, no alcohol use. Pets: None, no birds or poultry nearby Allergies: Denies Asthma: No personal or family history of asthma. Lung cancer: No family history of lung cancer Allergies Allergy/AdvReac Type Severity Reaction Status Date / Time ceftriaxone Allergy Intermediate Hives Verified 04/27/22 22:15 prednisone Allergy Intermediate MUSCLE Verified 04/27/22 22:15 CONTROL Tgirkox-XCI-FyY Reductase Allergy Intermediate MUSCULAR Verified 04/27/22 22:15 Inhibitor ISSUES [Uezanbo-Fgz-Xjq Reductase Inhibitor] gabapentin [From Neurontin] Allergy Unknown Unknown Verified 04/27/22 22:15 nitrofurantoin Allergy Unknown Unknown Verified 04/27/22 22:15 valdecoxib [From Bextra] AdvReac Intermediate increased Verified 04/27/22 22:15 BP Home Medications Medication Instructions Recorded Confirmed Type vitamin B comp and C no.3 15 mg-10 1 cap PO QPM 10/04/18 04/27/22 History mg-50 mg-5 mg-300 mg capsule (B Complex Plus Vitamin C) aspirin 81 mg tablet,delayed 81 mg PO QAM #1 tab 11/23/19 04/27/22 Rx release biotin 5 mg tablet 5 mg PO QAM 01/07/20 04/27/22 History cholecalciferol (vitamin D3) 50 50 mcg PO QAM 01/07/20 04/27/22 History mcg (2,000 unit) capsule (Vitamin D3) turmeric root extract 500 mg 1,000 mg PO QPM 01/07/20 04/27/22 History capsule Oxygen Home 05/13/21 01/04/22 History Portable Oxygen #1 ea 07/20/21 01/04/22 Rx Portable Oxygen #1 ea 07/23/21 01/04/22 Rx albuterol sulfate 90 mcg/actuation 2 puff inhalation Q4 PRN Shortness 07/23/21 04/27/22 Rx aerosol inhaler (Ventolin HFA) Of Breath #18 grams arformoterol 15 mcg/2 mL solution 2 ml inhalation BID #60 vials 07/23/21 04/27/22 Rx for nebulization (Brovana) budesonide 0.25 mg/2 mL suspension 0.25 mg (2 mL) inhalation BID #60 07/23/21 04/27/22 Rx for nebulization vials fluoxetine 40 mg capsule 40 mg PO DAILY #90 caps 12/20/21 04/27/22 Rx alprazolam 0.25 mg tablet See Rx Instructions PO .COMPLEX 01/22/22 04/27/22 Rx Anxiety #60 tabs metoprolol succinate 25 mg 25 mg PO QAM #30 tabs 03/17/22 04/27/22 Rx tablet,extended release 24 hr acetaminophen 500 mg tablet 1,000 mg PO Q8H PRN FEVER/PAIN 04/27/22 04/27/22 History (Tylenol Extra Strength) calcium citrate 200 mg 2 tab PO QPM 04/27/22 04/27/22 History calcium-vitamin D3 6.25 mcg (250 unit) tablet (Citracal-D3 Petites) diphenhydramine 25 1 tab PO HS 04/27/22 04/27/22 History mg-acetaminophen 500 mg tablet (Tylenol PM Extra Strength) glucosamine 750 ud-dcfcuifpne-fly 1 tab PO QPM 04/27/22 04/27/22 History no.1 625 mg-C 30 fm-hvem-yitk tablet (Glucosamine-Chondroitin 3X) omega-3 fatty acids 1,250 mg 1,250 mg PO DAILY 04/27/22 04/27/22 History capsule prednisone 20 mg tablet 40 mg PO DAILY PRN Congestion 04/27/22 04/27/22 History vitamins A,C,F-fknw-wtwbae 2,148 1 tab PO BID 04/27/22 04/27/22 History mcg-113 mg-45 mg-17.4 mg tablet (PreserVision AREDS) Patient History Medical History (Updated 04/30/22 @ 15:38 by Arnoldo Lopez MD) Abnormal CT scan Acute on chronic diastolic (congestive) heart failure Acute respiratory failure with hypoxia Arthralgia of multiple sites Arthritis of left knee Atypical chest pain CAD (coronary artery disease) Cervical myelopathy Cervicalgia Chronic obstructive pulmonary disease Elevated troponin Eustachian tube dysfunction Hearing loss Hypokalemia Hypotension MCTD (mixed connective tissue disease) Multifocal pneumonia Muscle spasm Muscle weakness-general Myopathy Non-occlusive coronary artery disease Non-ST elevated myocardial infarction (non-STEMI) On home oxygen therapy 2L via N/C qpm and HS Oral thrush Osteoarthritis Osteopenia Polyneuropathy Positive MICHAEL (antinuclear antibody) Positive colorectal cancer screening using Cologuard test Restrictive lung disease Scoliosis Sepsis Throat irritation Trapezius muscle spasm Urinary incontinence Surgical History H/O foot surgery History of appendectomy History of arthroscopy of left knee History of bilateral cataract extraction History of biopsy right thigh--showed MCTD History of bronchoscopy x2 History of cardiac cath 04/2017 no stents History of colonoscopy History of thoracentesis History of tonsillectomy and adenoidectomy History of total hysterectomy with bilateral salpingo-oophorectomy (BSO) History of wisdom tooth extraction Family History Mother Alzheimer disease Brother Hx of CABG Depression Father Congestive heart failure Coronary heart disease Hearing loss Unknown Myocardial infarction Other No family history of adverse response to anesthesia Denies family history of Ovarian cancer Prostate cancer Breast cancer Colorectal cancer Social History Smoking Status: Never smoker Second Hand Exposure: No; Hx Alcohol Use: No Hx Substance Use: No Preferred Language: Latvian Communication Ability: Effective Visual Impairment: Limited Hearing Ability: Use of Hearing Aid Wage Analyst Required: No Beliefs That Will Affect Care: None marital status: Current Living Situation: Spouse and Custodial current occupational status: retired How many Children do You have: 4 Feels Safe at Home: Yes Safety Concerns Comment: lives at [facility] Childhood Exposure to Second-Hand Smoke: Yes caffeine: Yes (one coffee a day ) Dental Care, Regularly: Yes Physical Activity Frequency: 3-4 Times per Week Seatbelt Use: always Sunscreen Use: Yes Assistive Devices: Walker Review of Systems Review of Systems: All systems reviewed & are unremarkable except as noted in HPI & below Physical Exam Physical Exam: Constitutional: No acute distress HEENT: EOMI, PERRLA Respiratory system: Decreased air entry bilaterally, no rhonchi, mild expiratory wheeze, positive crackles appreciated especially anteriorly on the left side CVS: S1-S2 positive, accentuated P2, 3 out of 6 systolic murmur appreciated best at the aorta Abdomen: Soft, nontender, nondistended, positive bowel sounds x4 Extremities: +2 pulses bilaterally radialis/ dorsalis pedis, no cyanosis, +1 edema bilateral lower extremity Neuro: Awake alert oriented x3 Psych: Normal mood and affect G/U: Positive Frank Skin: no rashes, warm and dry Lymphatic: no cervical or axillary lymphadenopathy Results & Data Results & Data ([facility]) Vital Signs (Past 12 Hours) Vital Signs Temp Pulse Pulse Resp BP Pulse Ox O2 Del Method 04/30/22 12:24 97 Oxymask 04/30/22 12:16 36.4 C L 83 22 140/68 97 Oxymask 04/30/22 08:29 36.5 C 78 18 144/79 H 94 Oxymask 04/30/22 07:37 Oxymask 04/30/22 06:11 88 18 92 Oxymask 04/30/22 04:15 36.6 C 80 18 134/72 94 Oxymask O2 Flow Rate 04/30/22 12:24 14 04/30/22 12:16 14 04/30/22 08:29 14 04/30/22 07:37 12 04/30/22 06:11 13 02/11/23 04:15 14.0 Laboratory Results 04/28/22 02:21 04/30/22 09:41 PG Care Time/CCT Total # of Minutes Spent Total Time Spent with Patient: Total time spent is greater than 50% in coordination of care (as documented) at patient's floor/unit and/or counseling patient: Coding Level of Care Code 12656 INT INP/OBS CARE 3/75MIN Diagnoses Restrictive lung disease J98.4 Acute and chronic respiratory failure with hypoxia J96.21 Pulmonary edema J81.0 Chronicity: acute Nocturnal hypoxia G47.34 Kyphoscoliosis deformity of spine M41.9 Pulmonary hypertension I27.20 Aspiration into airway T17.908A
[2022-04-30 15:24] LABS: RSV by PCR Negative (Negative)
--- NOTE | 2022-04-30 15:31 | Cardiology Progress Note ---
Date of Service April 30, 2022 Assessment & Plan (1) Non-ST elevation (NSTEMI) myocardial infarction: (2) Elevated troponin: (3) Stress-induced cardiomyopathy: (4) CAD (coronary artery disease): (5) Acute and chronic respiratory failure with hypoxia: Plan ASSESSMENT/PLAN: 1. NSTEMI: She did not present with acute coronary syndrome and had no angina. Troponin elevation likely due to demand ischemia in the setting of acute respiratory failure with hypoxia during a choking event. Ordered high sensitivity troponin given up trending troponin yesterday. Has nonobstructive CAD based on 03/07/2018 cardiac catheterization. Risk factor modification. 2. Acute on chronic respiratory failure with hypoxia: Began with a choking event. Pulmonology following. Has moderate to severe restrictive lung disease from underlying kyphoscoliosis per pulmonology. Unremarkable BNP on presentation. Seems to be improving with diuresis. 3. Pulmonary hypertension: Mild based on echo findings. Pulmonology Following. This may improve with diuresis. Has known restrictive lung disease. 4. CAD: Nonobstructive in the past. Risk factor modification. Recommend aspirin 81 mg daily if no contraindication. Intolerant to statin therapy per records. Will defer to outpatient strike off machine operator. 5. Cardiomyopathy: Wall motion abnormalities mostly involving the mid segments. Could be due to acute presentation with hypoxia and elevated troponins. Presentation not consistent with acute coronary syndrome. Repeat echocardiogram and if stress induced, would expect some improvement at some point. This may be early to see improvement but can repeat limited 2D echo tomorrow. On beta- gonzalo. If necessary, could initiate MUKESH-inhibitor. 6. Disposition: Cardiology care will be resumed tomorrow by her primary strike off machine operator, Dr. Diaz of [facility], whom she sees in the outpatient setting. Patient care communicated with primary hospitalist, Dr. Mejia. Admission and Anticipated Discharge Date Admission Date: April 27, 2022 Subjective Was asked to follow up on Mrs. Gutierrez, who was seen the past [address] De Leon. She states that her strike off machine operator is Dr. Diaz of [facility] and has an upcoming appointment in the next few weeks. After her choking episode, she has remained short of breath but states that is improving. She believes that diuresis is helping. She was on BiPAP yesterday but currently on a mask. She was sitting at the bedside. She denies any angina or chest pain. She has had occasional palpitations. She continues to have orthopnea but has not noted any edema. She denies syncope or bleeding. The choking episode occurred while trying to swallow a vitamin-C pill. She otherwise does not have any issues with swallowing other medications or food. She was alone in her hospital room. Review of systems: As above. Physical Exam Physical Exam: Gen.: No acute distress. Alert and oriented. HEENT: Anicteric sclera. Neck: No appreciable JVD. No hepatic jugular reflux. Cardiac: No ventricular heave. Regular. Normal S1-S2. No murmurs, rubs, or gallops. Pulmonary: Decreased breath sounds at the right base. Intermittent wheezing. Coarse breath sounds throughout the left lung. Abdomen: Soft, nontender, nondistended, with normoactive bowel sounds. No bruits noted. Extremities: 2+ radial pulses bilaterally. 2+ posterior tibialis pulses bilaterally. No edema or cyanosis. Psychiatric: Affect appears appropriate. Results & Data ([facility]) Vital Signs (Past 12 Hours) Vital Signs Temp Pulse Pulse Resp BP Pulse Ox O2 Del Method 04/30/22 12:24 97 Oxymask 04/30/22 12:16 36.4 C L 83 22 140/68 97 Oxymask 04/30/22 08:29 36.5 C 78 18 144/79 H 94 Oxymask 04/30/22 07:37 Oxymask 04/30/22 06:11 88 18 92 Oxymask 04/30/22 04:15 36.6 C 80 18 134/72 94 Oxymask O2 Flow Rate 04/30/22 12:24 14 04/30/22 12:16 14 04/30/22 08:29 14 04/30/22 07:37 12 04/30/22 06:11 13 04/30/22 04:15 14.0 Intake & Output 04/28/22 04/29/22 04/30/22 05/01/22 06:59 06:59 06:59 06:59 Intake Total 250 / 250 1004 / 1004 382.667 / 382.667 Output Total 450 / 450 2350 / 2350 950 / 950 Balance 250 / 250 554 / 554 -1967.333 / -1967.333 -950 / -950 Weight 158 lb 4.67 oz 158 lb 4.67 oz 142 lb 6.698 oz 142 lb 6.698 oz Laboratory Results Laboratory Results - last 24 hr 04/30/22 04/30/22 04/30/22 07:51 09:41 09:49 D-Dimer 980 H* ABG pH ABG pCO2 ABG pO2 ABG HCO3 ABG O2 Saturation ABG Base Excess Julian Test Oxygen Given Sodium 140 Potassium TNP 3.6 Chloride 100 Carbon Dioxide 29 Anion Gap 11 BUN 37 H Creatinine 0.73 Est Cr Clr Drug Dosing 50.6 Est GFR ( Amer) 87.7 Est GFR (Non-Af Amer) 75.6 BUN/Creatinine Ratio 50.7 H Glucose 163 H Calcium 9.5 Phosphorus Magnesium Troponin I High Sens B-Natriuretic Peptide Triglycerides Procalcitonin Influ A Molecular Assay Influ B Molecular Assay RSV (Molecular) 04/30/22 04/30/22 04/30/22 11:08 11:08 14:44 D-Dimer ABG pH 7.55 H* ABG pCO2 37 ABG pO2 76 L ABG HCO3 32 H ABG O2 Saturation 97.9 H ABG Base Excess 9.4 H Julian Test Pos Oxygen Given 14L Sodium Potassium Chloride Carbon Dioxide Anion Gap BUN Creatinine Est Cr Clr Drug Dosing Est GFR ( Amer) Est GFR (Non-Af Amer) BUN/Creatinine Ratio Glucose Calcium Phosphorus 2.2 L Magnesium 2.4 Troponin I High Sens 1386.5 H* D B-Natriuretic Peptide Pending Triglycerides 117 Procalcitonin Influ A Molecular Assay Influ B Molecular Assay RSV (Molecular) 04/30/22 04/30/22 14:44 Unknown D-Dimer ABG pH ABG pCO2 ABG pO2 ABG HCO3 ABG O2 Saturation ABG Base Excess Julian Test Oxygen Given Sodium Potassium Chloride Carbon Dioxide Anion Gap BUN Creatinine Est Cr Clr Drug Dosing Est GFR ( Amer) Est GFR (Non-Af Amer) BUN/Creatinine Ratio Glucose Calcium Phosphorus Magnesium Troponin I High Sens B-Natriuretic Peptide Triglycerides Procalcitonin Pending Influ A Molecular Assay Pending Influ B Molecular Assay Pending RSV (Molecular) Negative Diagnostic Findings Telemetry personally reviewed: Sinus rhythm with occasional PVCs. No arrhythmia. Cardiology consult and progress note reviewed. Pulmonary consultation from 04/30/2022 reviewed. CTA chest 04/30/2022: No PE identified. Patchy ground- glass densities within the lungs, most pronounced within the left upper lobe and interlobular septal thickening chronic atelectasis involving the majority of the right middle lobe and lower lobe. Trace right pleural effusion. Chest x-ray 04/30/2022 image personally reviewed: Significant scoliosis. Right pleural effusion. Prominent pulmonary vasculature. Per Radiology there is persistent bibasilar opacities and no significant change in the chest appearance. Interstitial thickening favoring pulmonary edema. Echo report reviewed from 04/28/2022: Mildly reduced LV systolic function with EF 45-50%. Septal and anteroseptal akinesis. Mild MR. Mild to moderate TR. Elevated RVSP. Echo images personally reviewed from 04/28/2022: Severe hypokinesis of the mid septal, mid anterolateral, mid inferior, and anteroseptum. [place] appears to be spared. LV systolic function mildly reduced. Mild pulmonary hypertension. ECG personally reviewed 04/27/2022 at 10:22 p.m.: Sinus rhythm 98 beats per minute. Anteroseptal infarct. Nonspecific ST abnormality. Prolonged QT. Medications Administered Current Inpatient Medications Acetaminophen (Acetaminophen 325 Mg Tab) 650 mg PO Q4H PRN PRN Reason: Pain or Fever Stop: 05/28/22 01:59 Last Admin: 04/29/22 20:59 Dose: 650 mg Albuterol (Albut/Ipratrop 3mg/0.5mg Neb 3 Ml Vial) 3 ml NEB Q4R PRN; Protocol PRN Reason: sob or wheeze Stop: 05/28/22 01:59 Last Admin: 04/29/22 07:00 Dose: 3 ml Alprazolam (Alprazolam 0.25 Mg Tablet) 0.25 mg PO HS DAISY Stop: 05/28/22 20:59 Last Admin: 04/29/22 20:59 Dose: 0.25 mg Alprazolam (Alprazolam 0.25 Mg Tablet) 0.25 mg PO DAILY PRN PRN Reason: Anxiety Stop: 05/28/22 02:05 Last Admin: 04/29/22 04:30 Dose: 0.25 mg Aspirin (Aspirin 81 Mg Ectab) 81 mg PO QAM DAISY Stop: 05/28/22 08:59 Last Admin: 04/30/22 08:11 Dose: 81 mg Enoxaparin Sodium (Enoxaparin Inj 40 Mg/0.4 Ml Syr) 40 mg SQ QAM [facility] Stop: 05/28/22 08:59 Last Admin: 04/30/22 08:11 Dose: 40 mg Fluoxetine HCl (Fluoxetine Hcl 20 Mg Cap) 40 mg PO DAILY [facility] Stop: 05/28/22 08:59 Last Admin: 04/30/22 08:11 Dose: 40 mg Formoterol Fumarate (Formoterol 20 Mcg/2 Ml Vial) 20 mcg INH BIDR [facility] Stop: 05/28/22 06:59 Last Admin: 04/30/22 06:10 Dose: 20 mcg Furosemide (Furosemide 40 Mg/4 Ml Vial) 40 mg IV Q12H [facility] Stop: 05/29/22 09:44 Last Admin: 04/30/22 10:09 Dose: 40 mg Guaifenesin (Guaifenesin 600 Mg Tabcr) 600 mg PO Q12 [facility] Stop: 05/30/22 06:44 Last Admin: 04/30/22 08:11 Dose: 600 mg Methylprednisolone 40 mg/ (Syringe) 0.64 mls @ 1.5 mls/min IV Q8H [facility] Stop: 05/28/22 07:44 Last Admin: 04/30/22 08:11 Dose: 1.5 mls/min Dextrose (D10w) 1,000 mls @ 0 mls/hr IV .Q0M PRN PRN Reason: protocol (see label comments) Stop: 05/30/22 15:59 Potassium Phosphate 15 mmol/ (Sodium Chloride) 255 mls @ 102 mls/hr IV ONE ONE Stop: 04/30/22 15:59 Last Admin: 04/30/22 14:24 Dose: 102 mls/hr Amino Acids 1,476 ml/ (Nutrition (Parenteral)) 1,476 mls @ 62 mls/hr IV .[id number] [facility]; Protocol Stop: 05/01/22 15:48 Fat Emulsion-[place]arrison Oil/Soybean Oil (Clinolipid 20% Iv Fat Emulsion) 250 mls @ 41.667 mls/hr IV .Q6H [facility] Stop: 04/30/22 21:59 Metoprolol Succinate (Metoprolol Succ 25mg Ext Rel Tab) 25 mg PO Q8 [facility] Stop: 05/29/22 21:59 Last Admin: 04/30/22 14:25 Dose: 25 mg Miscellaneous (Stop Clinolipid) 1 each N/A DAILY@2200 [facility] Stop: 05/30/22 21:59 Miscellaneous Information (Tpn/Ppn Consult Pharmacy) 1 each N/A UD [facility] Stop: 05/30/22 12:58 Ondansetron HCl (Ondansetron Inj 2 Mg/Ml 2 Ml Vial) 4 mg IV Q6H PRN PRN Reason: Nausea Stop: 05/28/22 01:59 PG Care Time/CCT Total # of Minutes Spent Total Time Spent with Patient: Total time spent is greater than 50% in coordination of care (as documented) at patient's floor/unit and/or counseling patient: Coding Level of Care Code 02293 SUB INP/OBS CARE 3/50MIN Diagnoses Non-ST elevation (NSTEMI) myocardial infarction I21.4 Elevated troponin R77.8 Stress-induced cardiomyopathy I51.81 CAD (coronary artery disease) I25.10 Acute and chronic respiratory failure with hypoxia J96.21
[2022-04-30 15:37] LABS: Influenza A virus by PCR Negative (Negative); Influenza B virus by PCR Negative (Negative)
[2022-04-30] MEDS ORDERED: AMINO ACIDS 4.25% IV SCH (16:00)
[2022-04-30] MEDS ORDERED: DEXTROSE 10% 1,000 ML IV PRN (16:00)
[2022-04-30] MEDS ORDERED: CENTRAL TPN IV SCH (16:00)
[2022-04-30] MEDS ORDERED: AMINO ACID 8% IV SCH (16:00)
[2022-04-30] MEDS ORDERED: PERIPHERAL TPN IV SCH (16:00)
[2022-04-30] MEDS ORDERED: D5W IV SCH (16:00)
[2022-04-30] MEDS ORDERED: [UNRECOGNIZED DRUG - OTHER] IV SCH (16:00)
[2022-04-30] MEDS ORDERED: CLINOLIPID 20% IV FAT EMULSION 250 ML IV SCH (16:00)
[2022-04-30] MEDS: SODIUM CHLOR 7% 4 ML NEB NEB SCH (19:23)
[2022-04-30] MEDS: BUDESONIDE 0.25 MG/2 ML VIAL (PULMICORT) NEB SCH (19:23)
[2022-04-30] MEDS: ALBUT/IPRATROP 3MG/0.5MG NEB 3 ML VIAL NEB PRN (19:47)
[2022-04-30] MEDS: ALPRAZolam 0.25 MG TABLET PO SCH (20:23)
[2022-04-30] MEDS: DOXYCYCLINE HYCLATE 100 MG CAP PO SCH (20:23)
[2022-04-30] MEDS ORDERED: methylPREDNISolone 40 MG in SYRINGE 0 ML IV SCH (21:00)
[2022-04-30] MEDS: STOP CLINOLIPID SCH (22:47)
[2022-05-01] MEDS: METOPROLOL SUCC 25MG EXT REL TAB PO SCH ×3 (05:16→20:21)
[2022-05-01] MEDS: SODIUM CHLOR 7% 4 ML NEB NEB SCH (07:20)
[2022-05-01] MEDS: FORMOTEROL 20 MCG/2 ML VIAL INH SCH ×2 (07:23→19:12)
[2022-05-01] MEDS: BUDESONIDE 0.25 MG/2 ML VIAL (PULMICORT) NEB SCH ×2 (07:23→19:11)
[2022-05-01 07:31] LABS: BUN Creatinine Ratio 60.8 (10-20); Calcium 9.3 mg/dl (8.5-10.1); Creatinine Clr Calc Pharmacy 49.3 ml/min; Est GFR (African American) 86.2 ml/min; Est GFR (Non-African American) 74.4 ml/min; Magnesium 2.4 mg/dl (1.7-2.4); Phosphorus 2.8 mg/dl (2.5-4.9); Potassium 3.3 mmol/L (3.5-5.1)
--- NOTE | 2022-05-01 08:28 | Pulmonology Progress Note ---
Date of Service May 01, 2022 Assessment & Plan (1) Restrictive lung disease: (2) Acute and chronic respiratory failure with hypoxia: (3) Pulmonary edema: Chronicity: acute Qualified Code(s): J81.0 - Acute pulmonary edema (4) Nocturnal hypoxia: (5) Kyphoscoliosis deformity of spine: (6) Pulmonary hypertension: (7) Aspiration into airway: Plan PFT 09/28/2021 personally reviewed: Moderate to severe restrictive lung disease, moderate decrease in DLCO, no obstructive lung dysfunction, insignificant bronchodilator response expiratory scooping on flow volume loop (Decreased FVC by 20 mL, decreased FEV1 by 90 mL, decrease in TLC 65--> 54% compared to 05/10) FVC 0.98 L 54%, FEV1 0.66 L 51%, FEV1/FVC 68%, ERV 14%, RV 59%, TLC 54%, RV/TLC 115%, DLCO 41% CT chest 04/30/2022 personally reviewed: Patchy groundglass opacities appreciated bilaterally mostly in the left lung as well as in the right upper lobe Right lower lobe 3.2 cm cyst (Unchanged) No mediastinal lymphadenopathy Severe kyphoscoliosis 2D echo 04/28/2022: EF 45-50%, mild to moderate TR, RVSP 30-40 mmHg, right ventricle normal in size and function ABG 04/30/2022: 7.55/37/76 on 14 L -- Acute on chronic hypoxic respiratory failure Multifactorial Hypoxia is most likely from new onset CHF as well as possible aspiration Nasal MRSA negative SARS NAAT, influenza A/B, RSV negative BNP 624 Procalcitonin 0.22 --Pulmonary hypertension Mild to moderate Combination of type II and type III --Moderate to severe restrictive lung disease From underlying kyphoscoliosis Continue with incentive spirometry PFT 09/28/2021 personally reviewed: Moderate to severe restrictive lung disease, moderate decrease in DLCO, no obstructive lung dysfunction, insignificant bronchodilator response expiratory scooping on flow volume loop (Decreased FVC by 20 mL, decreased FEV1 by 90 mL, decrease in TLC 65--> 54% compared to 05/10) FVC 0.98 L 54%, FEV1 0.66 L 51%, FEV1/FVC 68%, ERV 14%, RV 59%, TLC 54%, RV/TLC 115%, DLCO 41% --Anxiety Patient takes alprazolam 0.5 mg. It is a respiratory suppressive medication It is a lower dose but I would still be careful Patient already taking fluoxetine as well. Plan: In/out: -1.9 L Continue with diuresis Patient would likely benefit from trilogy machine at home. I advised the patient to use BiPAP at night and if she is able to tolerate it then we will try to get her before she goes home Continue with Brovana and with saline nebulized Doxycycline for 5 days DC hypertonic saline Go down on Solu-Medrol to once a day and then start tapering to prednisone as of day after tomorrow Trial of CoughAssist to help her bring up the phlegm Outpatient follow-up with Dr. Weir, her part maker Case was discussed with RN at bedside Please note the above document was generated using voice recognition software. It may contain grammatical, syntax or spelling errors.Any formal questions or concerns about the content, text or information contained within the body of thi s dictation should be directly addressed to the provider for clarification. Admission and Anticipated Discharge Date Admission Date: April 27, 2022 Subjective Patient seen and examined at bedside. No acute distress. Patient was not able to tolerate hypertonic saline. Still complaining of phlegm unable to bring it up. She has a feeling that something is stuck in her throat. Denies any nausea or vomiting She was saturating 99% on 5 L nasal cannula. I went down to 3 L. Denies any headache. She has been getting PPN. Review of Systems Review of Systems: All systems reviewed & are unremarkable except as noted in Subjective Physical Exam Physical Exam: Constitutional: No acute distress HEENT: EOMI, PERRLA Respiratory system: Decreased air entry bilaterally, no rhonchi, no wheeze, positive crackles appreciated especially anteriorly on the left side CVS: S1-S2 positive, accentuated P2, 3 out of 6 systolic murmur appreciated best at the aorta Abdomen: Soft, nontender, nondistended, positive bowel sounds x4 Extremities: +2 pulses bilaterally radialis/ dorsalis pedis, no cyanosis, +1 edema bilateral lower extremity Neuro: Awake alert oriented x3 Psych: Normal mood and affect G/U: Positive Frank Skin: no rashes, warm and dry Lymphatic: no cervical or axillary lymphadenopathy Results & Data Results & Data ([facility]) Vital Signs (Past 12 Hours) Vital Signs Temp Pulse Pulse Resp BP Pulse Ox O2 Del Method 05/01/22 08:13 36.5 C 84 21 124/72 95 Oxymask 05/01/22 07:41 Oxymask 05/01/22 07:23 79 18 95 Oxymask 05/01/22 07:17 77 05/01/22 04:20 36.7 C 78 18 143/73 H 92 Oxymask 04/30/22 23:10 36.5 C 86 18 147/80 H 92 Oxymask 04/30/22 22:04 Oxymask, BiPAP O2 Flow Rate 05/01/22 08:13 8 05/01/22 07:41 8 05/01/22 07:23 8 05/01/22 07:17 05/01/22 04:20 8.0 04/30/22 23:10 11.0 04/30/22 22:04 Laboratory Results 04/28/22 02:21 05/01/22 06:12 PG Care Time/CCT Total # of Minutes Spent Total Time Spent with Patient: Total time spent is greater than 50% in coordination of care (as documented) at patient's floor/unit and/or counseling patient: Coding Level of Care Code 28302 SUB INP/OBS CARE 3/50MIN Diagnoses Restrictive lung disease J98.4 Acute and chronic respiratory failure with hypoxia J96.21 Pulmonary edema J81.0 Chronicity: acute Nocturnal hypoxia G47.34 Kyphoscoliosis deformity of spine M41.9 Pulmonary hypertension I27.20 Aspiration into airway T17.908A
[2022-05-01] MEDS ORDERED: methylPREDNISolone 40 MG in SYRINGE 0 ML IV SCH (09:00)
[2022-05-01] MEDS ORDERED: GLUCOSE 10 TAB/TUBE PO PRN (09:15)
[2022-05-01] MEDS ORDERED: CARBOHYDRATES FOR HYPOGLYCEMIA PO PRN (09:15)
[2022-05-01] MEDS ORDERED: GLUCOSE 40% GEL 15 GM TUBE PO PRN (09:15)
[2022-05-01] MEDS ORDERED: GLUCAGON FOR INJ 1 MG VIAL IM PRN (09:15)
[2022-05-01] MEDS ORDERED: DEXTROSE 50% 50 ML SYRINGE IV PRN (09:15)
[2022-05-01] MEDS: DOXYCYCLINE HYCLATE 100 MG CAP PO SCH ×2 (10:50→20:20)
[2022-05-01] MEDS: ENOXAPARIN INJ 40 MG/0.4 ML SYR SQ SCH (10:50)
[2022-05-01] MEDS: FLUoxetine HCL 20 MG CAP PO SCH (10:51)
[2022-05-01] MEDS: FUROSEMIDE 40 MG/4 ML VIAL IV SCH ×2 (10:51→20:19)
[2022-05-01] MEDS: ASPIRIN 81 MG ECTAB PO SCH (10:52)
[2022-05-01] MEDS: POTASSIUM CHLORIDE / WTR 10 MEQ/100 ML PLCT IV SCH ×3 (10:53→13:02)
[2022-05-01] MEDS: methylPREDNISolone 40 MG in SYRINGE 0 ML IV SCH ×2 (10:54→20:20)
[2022-05-01] MEDS: INSULIN ASPART PER UNIT SC SCH ×4 (11:35→23:59)
--- NOTE | 2022-05-01 12:51 | Cardiology Progress Note ---
Date of Service May 01, 2022 Assessment & Plan (1) Stress-induced cardiomyopathy: (2) Acute and chronic respiratory failure with hypoxia: (3) Kyphoscoliosis deformity of spine: (4) Non-ST elevation (NSTEMI) myocardial infarction: Plan Complex 86-year-old female admitted with acute hypoxic respiratory failure after a coughing event possible aspiration. Event superimposed on chronic underlying restrictive lung disease severe kyphoscoliosis. In the past as an current admission patient has had evidence of stress-induced cardiomyopathy during acute events Echocardiogram today demonstrates normalization of wall motion abnormalities though patient still dyspneic Agree with continued diuretic We will add low-dose topical nitrates given elevation of blood pressure Continue current dosing of metoprolol succinate Admission and Anticipated Discharge Date Admission Date: April 27, 2022 Subjective Patient is an 86-year-old female with prior history 1. Severe restrictive lung disease O2 dependent 2. Kyphoscoliosis 3. Episode of acute hypoxic respiratory failure/ARDS secondary to pneumonia February 2018 with associated Takotsubo cardiomyopathy 4. Diagnostic cardiac catheterization March 07, 2018 with very mild nonobstructive coronary disease 5. Hyperlipidemia with statin intolerance 6. Hospitalization with acute respiratory failure, severe nausea in the setting of endoscopy bowel prep November 20, 2019. Cardiography with severe Takotsubo type cardiomyopathy findings EF 25 30%, interval improvement in LVEF at 57% per repeat echo 12/2019. Patient admitted this hospitalization after severe respiratory distress while choking on a pill. Echocardiogram demonstrated wall motion abnormalities Echocardiogram this morning demonstrates resolved all wall motion abnormalities with normal overall LV systolic function Patient still with rhonchorous cough, dyspnea with oxygen requirement Receiving parenteral nutrition Review of Systems Review of Systems: All systems reviewed & are unremarkable except as noted in Subjective Physical Exam Constitutional: + ill appearing Eyes: PERRL, conjunctivae normal, anicteric sclerae Neck: trachea midline, no thyromegaly Respiratory: Auscultation: + diminished lung sounds, + crackles and + wheezes Cardiovascular: Rate/Rhythm: regular rate and regular rhythm Heart Sounds: no murmur Chest (Breasts): Additional Comments: Severe kyphosis Gastrointestinal (Abdomen): Inspection/Auscultation: abdomen not distended Results & Data ([facility]) Vital Signs (Past 12 Hours) Vital Signs Temp Pulse Pulse Resp BP Pulse Ox O2 Del Method 05/01/22 11:22 36.7 C 91 H 22 171/82 H 94 Oxymask 05/01/22 08:13 36.5 C 84 21 124/72 95 Oxymask 05/01/22 07:41 Oxymask 05/01/22 07:23 79 18 95 Oxymask 05/01/22 07:17 77 05/01/22 04:20 36.7 C 78 18 143/73 H 92 Oxymask O2 Flow Rate 05/01/22 11:22 8 05/01/22 08:13 8 05/01/22 07:41 8 05/01/22 07:23 8 05/01/22 07:17 05/01/22 04:20 8.0 Laboratory Results Laboratory Results - last 24 hr 04/30/22 04/30/22 04/30/22 14:44 14:44 18:42 Sodium Potassium Chloride Carbon Dioxide Anion Gap BUN Creatinine Est Cr Clr Drug Dosing Est GFR ( Amer) Est GFR (Non-Af Amer) BUN/Creatinine Ratio Glucose POC Glucose 193 H Calcium Phosphorus Magnesium B-Natriuretic Peptide 624 H Procalcitonin 0.22 Influ A Molecular Assay Influ B Molecular Assay RSV (Molecular) 04/30/22 05/01/22 05/01/22 Unknown 06:12 11:33 Sodium 138 Potassium 3.3 L Chloride 97 L Carbon Dioxide 29 Anion Gap 12 H BUN 45 H Creatinine 0.74 Est Cr Clr Drug Dosing 49.3 Est GFR ( Amer) 86.2 Est GFR (Non-Af Amer) 74.4 BUN/Creatinine Ratio 60.8 H Glucose 207 H POC Glucose 183 H Calcium 9.3 Phosphorus 2.8 Magnesium 2.4 B-Natriuretic Peptide Procalcitonin Influ A Molecular Assay Negative Influ B Molecular Assay Negative RSV (Molecular) Negative
[2022-05-01] MEDS: NITROGLYCERIN 2% OINTMENT 30GM TUBE EXT SCH ×2 (14:01→20:15)
--- NOTE | 2022-05-01 14:38 | Hospitalist Progress Note ---
Date of Service May 01, 2022 Assessment & Plan (1) Acute and chronic respiratory failure with hypoxia: Plan: Due to suspected aspiration pneumonitis. Continue oxygen per nasal cannula to maintain saturation greater than 90%. Wean down as tolerated. Continue pa renteral steroids for aspiration pneumonitis. Zosyn added to oral doxycycline in case there is a bacterial component. We will repeat portable chest x-ray tomorrow, May 02. Keep on the dry side with intravenous Lasix. Monitor intake and output. Pulmonary medicine consultation appreciated (2) Chronic obstructive pulmonary disease: Plan: Acute exacerbation on admission. Continue parenteral steroids and scheduled nebulizer treatments. Known nonfunctioning right lower lobe due to bronchial obstruction from the scoliosis. Pulmonary medicine consultation appreciated. She temporarily lost her voice due to the dryness associated with high flow oxygen. No CO2 retention on ABG (3) Non-occlusive coronary artery disease: Plan: Continue current medical management. No acute EKG changes. She denies chest pain (4) Elevated troponin: Plan: She may have had a recent non-ST elevation NE from stress cardiomyopathy. Ejection fraction is 45%. Appreciate cardiology consultation and recommendations. Metoprolol succinate has been increased to twice daily dosing. Current cardiac echo reveals anteroseptal hypokinesis with reduced ejection fraction to 45%. This does represent a change from most recent cardiac echo done in February 2022. (5) Scoliosis: Plan: Supportive care. This is suspected etiology of obstructed right lower lobe bronchus (6) Aspiration into airway: Plan: Occurred while trying to take medications in applesauce. This resulted in severe shortness of breath and prompted her visit to the ED leading to her admission. She already has a known obstruction of the right lower lobe bronchus from the scoliosis. Pulmonary medicine consultation appreciated. No bronchoscopy indicated at this time. Zosyn added to oral doxycycline. (7) Swallowing dysfunction: Plan: Speech therapy has been unable to complete their evaluation due to the need for high flow oxygen. Hopefully a swallowing eval can be completed soon (8) Nutrition impaired due to limited access to healthful foods: Plan: Attempted PICC line failed. She is now on PPN rather than TPN. Speech will proceed with swallowing evaluation when she is off high flow oxygen Plan To be determined. Swallowing assessment has yet to be completed due to need for high oxygen requirements. She is not a candidate yet for OT and PT assessments Admission and Anticipated Discharge Date Admission Date: April 27, 2022 Subjective Alert and oriented. No acute distress. Oxygen requirements have improved. She continues to diurese well with intravenous Lasix. We will add Zosyn and continue oral doxycycline. Potassium replacement parenterally underway for mild hypokalemia from diuresis. Chest CTA negative for PE. PICC line could not be placed due to technical difficulties since she is on PPN rather than TPN at this time. Repeat BNP level is now elevated at 624 which is no surprise. We will repeat chest x-ray tomorrow morning. Review of Systems Review of Systems: Constitutional-no fever or chills ENT-no blurred vision, no double vision, no epistaxis, no sore throat Respiratory-shortness of breath, wheezing, nonproductive cough. No hemoptysis Cardiac-no palpitations, no chest pain, no syncope GI-no nausea, vomiting, diarrhea, melena, hematochezia -no urinary retention, no urinary incontinence, no dysuria, no hematuria Musculoskeletal-no joint pain, no muscle tenderness Skin-no bruising, no rashes, no pruritus Neuro-no isolated weakness, no paresthesia, no weakness Psych-no depression, no anxiety Physical Exam Physical Exam: General-alert and oriented x3, no fevers, no chills HEENT-head atraumatic and normocephalic, pupils equal and reactive to light, extraocular muscles intact Neck-no lymphadenopathy or thyromegaly, trachea midline Chest-bilateral expiratory wheezes have resolved. No inspiratory rales. Dullness at the right base Cardiac-regular rate and rhythm, normal S1 and S2 Abdomen-normal bowel sounds, nontender, no hepatosplenomegaly Extremities-severe scoliosis of the thoracic spine. No appreciable peripheral edema Neuro-cranial nerves II through XII intact, motor and sensory function within normal limits, strength symmetrical , no focal deficits Psych-normal affect, normal mood Results & Data Results & Data ([facility]) Vital Signs (Past 12 Hours) Vital Signs Temp Pulse Pulse Resp BP Pulse Ox O2 Del Method 05/01/22 11:22 36.7 C 91 H 22 171/82 H 94 Oxymask 05/01/22 08:13 36.5 C 84 21 124/72 95 Oxymask 05/01/22 07:41 Oxymask 05/01/22 07:23 79 18 95 Oxymask 05/01/22 07:17 77 05/01/22 04:20 36.7 C 78 18 143/73 H 92 Oxymask O2 Flow Rate 05/01/22 11:22 8 05/01/22 08:13 8 05/01/22 07:41 8 05/01/22 07:23 8 05/01/22 07:17 05/01/22 04:20 8.0 Laboratory Results 04/28/22 02:21 05/01/22 06:12 PG Care Time/CCT Total # of Minutes Spent Total Time Spent with Patient: Total time spent is greater than 50% in coordination of care (as documented) at patient's floor/unit and/or counseling patient: Coding Level of Care Code 44158 SUB INP/OBS CARE 3/50MIN Diagnoses Acute and chronic respiratory failure with hypoxia J96.21 Chronic obstructive pulmonary disease J44.9 Non-occlusive coronary artery disease I25.10 Elevated troponin R77.8 Scoliosis M41.9 Aspiration into airway T17.908A Swallowing dysfunction R13.10 Nutrition impaired due to limited access to healthful foods E63.9
[2022-05-01] MEDS ORDERED: PIPERACILLIN/TAZOBACTAM 3.375 GM (over 30 mins) IV ONE (15:00)
[2022-05-01] MEDS ORDERED: CLINOLIPID 20% IV FAT EMULSION 250 ML IV SCH (16:00)
[2022-05-01] MEDS ORDERED: D5W IV SCH (16:00)
[2022-05-01] MEDS ORDERED: PERIPHERAL TPN IV SCH (16:00)
[2022-05-01] MEDS ORDERED: AMINO ACIDS 4.25% IV SCH (16:00)
[2022-05-01] MEDS: ALBUT/IPRATROP 3MG/0.5MG NEB 3 ML VIAL NEB PRN (19:11)
[2022-05-01] MEDS: ACETAMINOPHEN 325 MG TAB PO PRN (20:15)
[2022-05-01] MEDS: ALPRAZolam 0.25 MG TABLET PO SCH (20:18)
[2022-05-01] MEDS: PIPERACILLIN/TAZOBACTAM 3.375 GM in DEXTROSE 5% 100 ML IV SCH (20:22)
[2022-05-01] MEDS: STOP CLINOLIPID SCH (23:12)
[2022-05-02] MEDS: NITROGLYCERIN 2% OINTMENT 30GM TUBE EXT SCH ×4 (02:20→21:11)
[2022-05-02] MEDS: PIPERACILLIN/TAZOBACTAM 3.375 GM in DEXTROSE 5% 100 ML IV SCH (03:29)
[2022-05-02] MEDS: INSULIN ASPART PER UNIT SC SCH ×4 (05:43→21:04)
[2022-05-02] MEDS: METOPROLOL SUCC 25MG EXT REL TAB PO SCH ×3 (05:43→20:59)
[2022-05-02 06:44] LABS: BUN Creatinine Ratio 61.5 (10-20); Calcium 8.9 mg/dl (8.5-10.1); Creatinine Clr Calc Pharmacy 38.5 ml/min; Est GFR (African American) 62.9 ml/min; Est GFR (Non-African American) 54.3 ml/min; Magnesium 2.4 mg/dl (1.7-2.4); Potassium 4.1 mmol/L (3.5-5.1)
[2022-05-02] MEDS: BUDESONIDE 0.25 MG/2 ML VIAL (PULMICORT) NEB SCH ×2 (07:10→19:28)
[2022-05-02] MEDS: FORMOTEROL 20 MCG/2 ML VIAL INH SCH ×2 (07:10→19:28)
--- NOTE | 2022-05-02 08:32 | Hospitalist Progress Note ---
Date of Service May 02, 2022 Assessment & Plan (1) Acute and chronic respiratory failure with hypoxia: Plan: Due to suspected atypical pneumonia vs. pulmonary edema in patient with baseline restrictive lung disease. Continue oxygen per nasal cannula to maintain saturation greater than 90% (on 2LNC at home, so is approaching baseline). Continue parenteral steroids for aspiration pneumonitis, transition to PO prednisone on taper tomorrow (muscle control intolerance listed on chart, however has had good tolerance to methylpred and steroid benefit>risk). Continue doxycycline for atypical coverage. Keep on the dry side with intravenous Lasix; this is working well and CXR with improved bilateral opacities/effusions. Monitor intake and output. Pulmonary medicine consultation appreciated during this admission. PROMOTIONAL MARKETING ANALYST evaluated patient and advanced to full liquids, and will perform FEES tomorrow. (2) Aspiration into airway: Plan: Occurred while trying to take medications in applesauce. This resulted in severe shortness of breath and prompted her visit to the ED leading to her admission. She already has a known obstruction of the right lower lobe bronchus from the scoliosis. Pulmonary medicine consultation appreciated. No bronchoscopy indicated at this time. Continue doxycycline for aspiration pneumonitis. Do not suspect aspiration pneumonia at this time so Zosyn discontinued, consider if further clinical worsening suggestive of infectious process. (3) Restrictive lung disease: Plan: Continue parenteral steroids and scheduled nebulizer treatments. Known non- functioning right lower lobe due to bronchial obstruction from severe scoliosis. Pulmonary medicine consultation appreciated. She temporarily lost her voice due to the dryness associated with high flow oxygen. No CO2 retention on ABG. (4) Stress-induced cardiomyopathy: Plan: Troponins elevated during admission. Cardiac echo revealed anteroseptal hypokinesis with reduced ejection fraction to 45% -> improved on repeat echocardiogram. Cardiology consulted and appreciate recommendations: continue diuresis for now (furosemide 40mg IV BID), as well as metoprolol succinate 25mg q8h. (5) Non-occlusive coronary artery disease: Plan: Continue current medical management. No acute EKG changes. She denies chest pain (6) Scoliosis: Plan: Supportive care. This is suspected etiology of obstructed right lower lobe bronchus. (7) Swallowing dysfunction: Plan: PROMOTIONAL MARKETING ANALYST evaluated today, no evidence of aspiration. for FEES 05/02. (8) Nutrition impaired due to limited access to healthful foods: Plan: Improving. Attempted PICC line failed. Was on PPN -> discontinued today as patient tolerating PO intake. (9) Pulmonary hypertension: Plan: Will work with Pulm and CM to arrange for Trilogy for patient if able. Plan Lovenox for DVT ppx Admission and Anticipated Discharge Date Admission Date: April 27, 2022 Subjective Patient's breathing significantly improved today compared to yesterday. Easier to take deep breath. On 3LNC this afternoon (baseline is 2LNC). Reports some cough and difficulty yet with "getting up phlegm". Otherwise no complaints today including no chest pain, abdominal pain, nausea, fevers. Review of Systems Review of Systems: All systems reviewed & are unremarkable except as noted in Subjective Physical Exam Constitutional: WD/WN, vitals as above Respiratory: decreased breath sounds over right lung field compared to left. No wheezing noted, good air movement in left lung field, saturating 94% on 3LNC. Cardiovascular: RRR, no murmur, no edema Gastrointestinal (Abdomen): normal bowel sounds, soft, nontender, no hepatosplenomegaly Musculoskeletal: significant sigmoidal scoliosis noted on exam of back Skin: no rashes, warm and dry Psychiatric: A+Ox3, euthymic affect Results & Data Results & Data ([facility]) Vital Signs (Past 12 Hours) Vital Signs Temp Pulse Pulse Resp BP Pulse Ox O2 Del Method 05/02/22 07:19 36.6 C 67 19 125/72 99 Nasal Cannula 05/02/22 07:14 75 18 95 Nasal Cannula 05/02/22 00:00 66 05/02/22 03:51 36.5 C 75 18 134/78 93 Nasal Cannula 05/01/22 21:00 77 17 94 05/02/22 00:04 36.3 C L 73 18 126/73 92 CPAP O2 Flow Rate 05/02/22 07:19 2 05/02/22 07:14 3 05/02/22 00:00 05/02/22 03:51 2 05/01/22 21:00 3 05/02/22 00:04 PG Care Time/CCT Total # of Minutes Spent Total Time Spent with Patient: Total time spent is greater than 50% in coordination of care (as documented) at patient's floor/unit and/or counseling patient: Coding Level of Care Code 57228 SUB INP/OBS CARE 3/50MIN Diagnoses Acute and chronic respiratory failure with hypoxia J96.21 Aspiration into airway T17.908A Restrictive lung disease J98.4 Stress-induced cardiomyopathy I51.81 Non-occlusive coronary artery disease I25.10 Scoliosis M41.9 Swallowing dysfunction R13.10 Nutrition impaired due to limited access to healthful foods E63.9 Pulmonary hypertension I27.20
[2022-05-02] MEDS ORDERED: methylPREDNISolone 40 MG in SYRINGE 0 ML IV SCH (09:00)
[2022-05-02] MEDS: ENOXAPARIN INJ 40 MG/0.4 ML SYR SQ SCH (09:33)
[2022-05-02] MEDS: FUROSEMIDE 40 MG/4 ML VIAL IV SCH ×2 (09:33→20:58)
--- NOTE | 2022-05-02 10:16 | Cardiology Progress Note ---
Date of Service May 02, 2022 Assessment & Plan (1) Stress-induced cardiomyopathy: (2) Acute and chronic respiratory failure with hypoxia: (3) Kyphoscoliosis deformity of spine: (4) Non-ST elevation (NSTEMI) myocardial infarction: Plan Complex 86-year-old female admitted with acute hypoxic respiratory failure after a coughing event possible aspiration. Event superimposed on chronic underlying restrictive lung disease severe kyphoscoliosis. In the past as an current admission patient has had evidence of stress-induced cardiomyopathy during acute events Echocardiogram today demonstrates normalization of wall motion abnormalities though patient still dyspneic Agree with continued diuretic given degree of IV fluids receiving chest x-ray improved Blood pressure controlled with topical nitrates we will continue Continue metoprolol succinate at current dose Admission and Anticipated Discharge Date Admission Date: April 27, 2022 Subjective Patient seen and examined, chart, medications, telemetry reviewed Patient appears brighter this morning less respiratory distress. Has anticipated swallowing study later today Still with rhonchorous cough on forced expiration left greater than right Physical Exam Constitutional: + ill appearing Eyes: PERRL, conjunctivae normal, anicteric sclerae Neck: trachea midline, no thyromegaly Respiratory: Auscultation: + diminished lung sounds, + crackles and + wheezes Cardiovascular: Rate/Rhythm: regular rate and regular rhythm Heart Sounds: no murmur Gastrointestinal (Abdomen): Inspection/Auscultation: abdomen not distended Results & Data ([facility]) Vital Signs (Past 12 Hours) Vital Signs Temp Pulse Pulse Resp BP Pulse Ox O2 Del Method 05/02/22 08:00 Nasal Cannula 05/02/22 07:19 36.6 C 67 19 125/72 99 Nasal Cannula 05/02/22 07:14 75 18 95 Nasal Cannula 05/02/22 00:00 66 05/02/22 03:51 36.5 C 75 18 134/78 93 Nasal Cannula 05/02/22 00:04 36.3 C L 73 18 126/73 92 CPAP O2 Flow Rate 05/02/22 08:00 05/02/22 07:19 2 05/02/22 07:14 3 05/02/22 00:00 05/02/22 03:51 2 05/02/22 00:04 Laboratory Results Laboratory Results - last 24 hr 05/01/22 05/01/22 05/01/22 11:33 18:15 23:52 Sodium Potassium Chloride Carbon Dioxide Anion Gap BUN Creatinine Est Cr Clr Drug Dosing Est GFR ( Amer) Est GFR (Non-Af Amer) BUN/Creatinine Ratio Glucose POC Glucose 183 H 216 H 198 H Calcium Phosphorus Magnesium 05/02/22 05/02/22 05:39 05:39 Sodium 135 L Potassium 4.1 D Chloride 95 L Carbon Dioxide 32 Anion Gap 8 BUN 59 H Creatinine 0.96 Est Cr Clr Drug Dosing 38.5 Est GFR ( Amer) 62.9 Est GFR (Non-Af Amer) 54.3 BUN/Creatinine Ratio 61.5 H Glucose 193 H POC Glucose 182 H Calcium 8.9 Phosphorus 4.0 D Magnesium 2.4
--- NOTE | 2022-05-02 10:26 | Pulmonology Progress Note ---
Date of Service May 02, 2022 Assessment & Plan (1) Acute and chronic respiratory failure with hypoxia: (2) Restrictive lung disease: (3) Pulmonary hypertension: Plan 86-year-old female with acute on chronic respiratory failure and concern for aspiration event in the setting of known significant severe restrictive lung disease. * Patient's FiO2 has improved. She is currently requiring 2 to 3 L nasal cannula. Seems to be improving with IV Lasix and pulmonary toilet. * Patient has been doing well with BiPAP overnight. As discussed previously, patient may benefit from Trilogy in the outpatient setting. Will work with Case Management to see if this is an appropriate option for the patient. * Due to chronic respiratory failure consequent to restrictive lung disease, patient now requires a noninvasive home ventilator. Bilevel therapy with and without a rate would be ineffective as patient requires a volume targeted mode. Ventilation is required to decrease work of breathing and improve pulmonary status. Interruption of ventilator support would lead to decline of health status.NIMV settings should be AVAPS-AE; Breath rate: auto; Inspiratory time:auto; Sigh: off; PS min: 3; PS max 25; EPAP min: 5; EPAP max: 10; AVAPS rate: Auto During sleep and as neededPatient is suffering from chronic respiratory failure due to restriction of the thoracic cage due to morbid obesity. Patient requires the use of noninvasive ventilation for recurrent hypercapnic respiratory failure with a PaCO2 of []. Patient requires ventilation at pressures greater than 30mmHg to maintain achieve appropriate tidal volumes sufficient to provide oxygenation and ventilation. Traditional bilevel devices, which were tried and failed, will only provide a total airway max pressure of 30 mmHg therefore bilevel is an ineffective device for the patient. * Scheduled to complete course of antibiotics. * Titrate down steroids at this time. No wheezing on exam. Symptoms improved. * Can follow-up with her primary missile control pilot upon discharge (Dr. Weir). Thank you for allowing us to participate in the care of this patient. Admission and Anticipated Discharge Date Admission Date: April 27, 2022 Subjective Patient was seen and evaluated bedside. She reports that she is still having a "rattle" in her chest, but otherwise reports that her cough is improved from when she presented to the hospital. She states that her breathing has been poor at baseline and she is not 100%, but reports continued improvement otherwise. She reports doing well overnight with BiPAP in place. She had not tolerated the cough assist well. Review of Systems Review of Systems: A complete 10 point review of systems was reviewed with the patient with pertinent positives and negatives as per history of present illness. All else were negative. Physical Exam Physical Exam: VITAL SIGNS - Vital signs and nursing notes were reviewed. GENERAL - 86-year-old female appearing her stated age who is in no acute distress. Communicates well with provider and answers questions appropriately. NECK - Neck with FROM. Supple to palpation. LUNGS - Impressive scoliosis. Decreased breath sounds to the RIGHT sided lung field. CARDIAC - RRR with S1/S2. No murmur, rubs, or gallops appreciated. No reproducible tenderness to palpation appreciated over the anterior chest wall. EXTREMITIES - No clubbing or peripheral cyanosis. No pretibial edema present. PSYCH - A&Ox3 and cooperates fully with examiner. Pt is very pleasant and interacts well with examiner. Results & Data Results & Data ([facility]) Vital Signs (Past 12 Hours) Vital Signs Temp Pulse Pulse Resp BP Pulse Ox O2 Del Method 05/02/22 08:00 Nasal Cannula 05/02/22 07:19 36.6 C 67 19 125/72 99 Nasal Cannula 05/02/22 07:14 75 18 95 Nasal Cannula 05/02/22 00:00 66 05/02/22 03:51 36.5 C 75 18 134/78 93 Nasal Cannula 05/02/22 00:04 36.3 C L 73 18 126/73 92 CPAP O2 Flow Rate 05/02/22 08:00 05/02/22 07:19 2 05/02/22 07:14 3 05/02/22 00:00 05/02/22 03:51 2 05/02/22 00:04 PG Care Time/CCT Total # of Minutes Spent Total Time Spent with Patient: Total time spent is greater than 50% in coordination of care (as documented) at patient's floor/unit and/or counseling patient: Coding Level of Care Code 98592 SUB INP/OBS CARE 3/50MIN Diagnoses Acute and chronic respiratory failure with hypoxia J96.21 Restrictive lung disease J98.4 Pulmonary hypertension I27.20 Time Spent (min) 52
[2022-05-02 10:52] LABS: Basophils # (auto) 0.02 K/uL (0-0.2); Basophils % (auto) 0.2 %; Hemoglobin 13.2 g/dl (12.0-16.0); Immature Granulocytes # (auto) 0.09 K/uL (0.01-0.20); Immature Granulocytes % (auto) 0.7 %; Lymphocytes # (auto) 1.01 K/uL (1.2-3.4); Lymphocytes % (auto) 7.9 %; Mean Corpuscular Hgb Conc 34.7 g/dL (32.0-36.0); Mean Corpuscular Volume 89.2 fL (80.0-100.0); Mean Platelet Volume 9.6 fL (9.4-12.4); Monocytes # (auto) 1.08 K/uL (0.11-0.59); Monocytes % (auto) 8.4 %; Neutrophils # (auto) 10.62 K/uL (1.40-6.50); Neutrophils % (auto) 82.8 %; Platelet Count 339 K/uL (130-400); RDW Coefficient of Variation 13.9 % (11.5-14.5); RDW Standard Deviation 45.7 fL (36.4-46.3); Red Blood Count 4.26 M/uL (4.20-5.40); White Blood Count 12.82 K/ul (4.8-10.8)
[2022-05-02] MEDS: FLUoxetine HCL 20 MG CAP PO SCH (12:39)
[2022-05-02] MEDS: ASPIRIN 81 MG ECTAB PO SCH (12:40)
[2022-05-02] MEDS: DOXYCYCLINE HYCLATE 100 MG CAP PO SCH ×2 (12:40→20:58)
[2022-05-02] MEDS: ALPRAZolam 0.25 MG TABLET PO PRN (12:48)
--- NOTE | 2022-05-02 13:55 | XRay Report ---
XR chest 1V portable CLINICAL HISTORY: pneumonitis, CHF TECHNIQUE: Single frontal radiograph of the chest was obtained. Comparison: Comparison is made to chest radiograph 04/30/2022 FINDINGS: No lines and tubes are seen. Extensive scoliosis is noted. Calcified aortic knob is seen. Previously noted opacities have somewhat improved. Right pleural effusion is seen. A left effusion cannot be ent irely excluded. IMPRESSION: Bilateral pleural effusions and opacities have somewhat improved from prior exam. ACT 112: Negative or not required by law. Electronically signed by: Todd Hammer M.D. 05/02/2022 1:54 PM
[2022-05-02] MEDS ORDERED: Nursing to Pharmacy Communication SCH (14:00)
[2022-05-02] MEDS ORDERED: CLINOLIPID 20% IV FAT EMULSION 250 ML IV SCH (16:00)
[2022-05-02] MEDS ORDERED: AMINO ACIDS 4.25% IV SCH (16:00)
[2022-05-02] MEDS ORDERED: PERIPHERAL TPN IV SCH (16:00)
[2022-05-02] MEDS ORDERED: D5W IV SCH (16:00)
[2022-05-02] MEDS: ALPRAZolam 0.25 MG TABLET PO SCH (20:57)
[2022-05-02] MEDS: ACETAMINOPHEN 325 MG TAB PO PRN (20:57)
[2022-05-03] MEDS: NITROGLYCERIN 2% OINTMENT 30GM TUBE EXT SCH ×2 (00:18→09:16)
[2022-05-03] MEDS: METOPROLOL SUCC 25MG EXT REL TAB PO SCH ×2 (05:13→20:19)
[2022-05-03 06:53] LABS: Basophils # (auto) 0.02 K/uL (0-0.2); Basophils % (auto) 0.2 %; Eosinophils # (auto) 0.05 K/uL (0-0.50); Eosinophils % (auto) 0.4 %; Hematocrit (blood only) 36.2 % (37.0-47.0); Hemoglobin 12.3 g/dl (12.0-16.0); Immature Granulocytes # (auto) 0.11 K/uL (0.01-0.20); Immature Granulocytes % (auto) 0.9 %; Lymphocytes # (auto) 1.65 K/uL (1.2-3.4); Mean Corpuscular Hemoglobin 31.2 pg (25.0-34.0); Mean Corpuscular Volume 91.9 fL (80.0-100.0); Mean Platelet Volume 9.5 fL (9.4-12.4); Monocytes # (auto) 1.33 K/uL (0.11-0.59); Monocytes % (auto) 11.3 %; Neutrophils # (auto) 8.63 K/uL (1.40-6.50); Neutrophils % (auto) 73.2 %; Platelet Count 293 K/uL (130-400); RDW Coefficient of Variation 13.7 % (11.5-14.5); Red Blood Count 3.94 M/uL (4.20-5.40); White Blood Count 11.79 K/ul (4.8-10.8)
[2022-05-03] MEDS: FORMOTEROL 20 MCG/2 ML VIAL INH SCH ×2 (07:33→19:19)
[2022-05-03] MEDS: BUDESONIDE 0.25 MG/2 ML VIAL (PULMICORT) NEB SCH ×2 (07:33→19:19)
--- NOTE | 2022-05-03 08:02 | Pulmonology Progress Note ---
Date of Service May 03, 2022 Assessment & Plan (1) Acute and chronic respiratory failure with hypoxia: (2) Restrictive lung disease: (3) Pulmonary hypertension: Plan Impression: 86-year-old female with acute on chronic respiratory failure due to severe kyphoscoliosis and concern for aspiration event in the setting of known significant severe restrictive lung disease. Recommendations: 1. Hypoxemic and hypercarbic respiratory failure: Secondary to chest wall abnormalities. She appears to be back to her baseline with regards to oxygen requirement due to the aspiration event. Home noninvasive positive pressure ventilation is being set up by case management. She will need to follow-up with her outpatient acoustical material worker with compliance data and a potential repeat blood gas in 4 to 6 weeks. Continue to wean oxygen targeting an oxygen saturation around 90%. 2. Severe chest wall abnormality. No additional intervention is available at this time. Continue supportive care. 3. Aspiration pneumonitis: The patient does not demonstrate any fever. Her white count is decreasing. She is currently day #3 of 5 doxycycline. She was transitioned to oral prednisone. We will decrease this down fairly rapidly as I am not sure if she requires systemic steroids. Go down to 20 today and then potentially discontinue in the next day or 2. Await formal endoscopic swallow evaluation. 4. Recommend discontinuation of Frank catheter. diuretics per primary and cardiology. Increase activity and ambulate as tolerated. 5.Can continue performist and budesonide nebs as long as the patient feels they are beneficial. Patient appears to be back to her baseline. From pulmonary standpoint, she can be dismissed from the hospital back to her assisted living. She is elected to follow-up with Dr. Weir through [facility]. Pulmonary will sign off, call if ?s Admission and Anticipated Discharge Date Admission Date: April 27, 2022 Subjective Patient seen and examined. And reviewed. The patient used BiPAP last night. She states she feels better this morning. She feels it was effective in improving her breathing. She is not coughing and no longer feels rhonchorous. She would like to have her Frank catheter removed. She feels like she is back to baseline. She is comfortable returning home. Review of Systems Review of Systems: All systems reviewed & are unremarkable except as noted in Subjective Physical Exam Constitutional: WD/WN, vitals as above Neck: trachea midline, no thyromegaly Respiratory: no respiratory distress, no labored breathing, no cough and not tachypneic Auscultation: + diminished lung sounds; no crackles and no wheezes Cardiovascular: RRR, no murmur, no edema Gastrointestinal (Abdomen): normal bowel sounds, soft, nontender, no hepatosplenomegaly Musculoskeletal: Extremities: extremities normal to inspection Skin: no rashes, warm and dry Neurologic: Nonfocal exam Lymphatic: no cervical lymphadenopathy Results & Data Results & Data ([facility]) Vital Signs (Past 12 Hours) Vital Signs Temp Pulse Pulse Resp BP Pulse Ox O2 Del Method 05/03/22 04:12 36.6 C 70 16 114/71 98 Nasal Cannula 05/02/22 23:08 36.4 C L 65 18 105/63 95 BiPAP 05/02/22 22:09 63 05/02/22 23:05 63 20 94 05/02/22 21:21 Nasal Cannula O2 Flow Rate 05/03/22 04:12 3 05/02/22 23:08 05/02/22 22:09 05/02/22 23:05 3 05/02/22 21:21 3 Laboratory Results 05/03/22 05:56 05/02/22 05:39 Diagnostic Findings Speech therapy evaluation noted. Is to undergo functional endoscopic evaluation of swallowing today. PG Care Time/CCT Total # of Minutes Spent Total Time Spent with Patient: Total time spent is greater than 50% in coordination of care (as documented) at patient's floor/unit and/or counseling patient: Coding Level of Care Code 06505 SUB INP/OBS CARE 2/35MIN Diagnoses Acute and chronic respiratory failure with hypoxia J96.21 Restrictive lung disease J98.4 Pulmonary hypertension I27.20
--- NOTE | 2022-05-03 08:20 | Discharge Summary ---
Discharge Summary Date of Service May 03, 2022 Admission HPI Per Admitting Provider Sherri Gutierrez is an 87yo female with history of Asthma, Mixed connective tissue disease and HFpEF presenting from [facility] after a suspected aspiration event. Patient was in her usual state of health throughout the day with no complaints. She was taking her pills at dinner and her Vitamin C pill got stuck in her throat. She began to choke and became acutely short of breath. She was dry heaving - no vomiting. Patient was initially 83% on room air. She presented to [facility] via EMS on CPAP. Tachypneic at 36bpm with increased work of breathing. Tachycardic at 110 bpm. She was placed on BiPAP with symptomatic improvement. Patient feels much improved. She does not feel ready to remove the BiPAP yet, however. ER Course: Albuterol Levaquin 750mg IV Flagyl 500mg IV Solumedrol 125mg IV Principal Dx & Hospital Course #1 = Principal Diagnosis (1) Acute and chronic respiratory failure with hypoxia: Due to suspected atypical pneumonia vs. pulmonary edema in patient with baseline restrictive lung disease. Continue oxygen per nasal cannula to maintain saturation greater than 90% (on 2LNC at home, so is approaching baseline). Continue parenteral steroids for aspiration pneumonitis, transition to PO prednisone on taper tomorrow (muscle control intolerance listed on chart, however has had good tolerance to methylpred and steroid benefit>risk). Continue doxycycline for atypical coverage. Keep on the dry side with intravenous Lasix; this is working well and CXR with improved bilateral opacities/effusions. Monitor intake and output. Pulmonary medicine consultation appreciated during this admission. STRING TOP SEALER evaluated patient and advanced to full liquids, and will perform FEES tomorrow. (2) Aspiration into airway: Occurred while trying to take medications in applesauce. This resulted in severe shortness of breath and prompted her visit to the ED leading to her admission. She already has a known obstruction of the right lower lobe bronchus from the scoliosis. Pulmonary medicine consultation appreciated. No bronchoscopy indicated at this time. Continue doxycycline for aspiration pneumonitis. Do not suspect aspiration pneumonia at this time so Zosyn discontinued, consider if further clinical worsening suggestive of infectious p rocess. (3) Restrictive lung disease: Continue parenteral steroids and scheduled nebulizer treatments. Known non- functioning right lower lobe due to bronchial obstruction from severe scoliosis. Pulmonary medicine consultation appreciated. She temporarily lost her voice due to the dryness associated with high flow oxygen. No CO2 retention on ABG. (4) Stress-induced cardiomyopathy: Troponins elevated during admission. Cardiac echo revealed anteroseptal hypokinesis with reduced ejection fraction to 45% -> improved on repeat echocardiogram. Cardiology consulted and appreciate recommendations: continue diuresis for now (furosemide 40mg IV BID), as well as metoprolol succinate 25mg q8h. (5) Non-occlusive coronary artery disease: Continue current medical management. No acute EKG changes. She denies chest pain (6) Scoliosis: Supportive care. This is suspected etiology of obstructed right lower lobe bronchus. (7) Swallowing dysfunction: STRING TOP SEALER evaluated today, no evidence of aspiration. for FEES 05/02. (8) Nutrition impaired due to limited access to healthful foods: Improving. Attempted PICC line failed. Was on PPN -> discontinued today as patient tolerating PO intake. (9) Pulmonary hypertension: Will work with Pulm and CM to arrange for Trilogy for patient if able. Plan Lovenox for DVT ppx Updated Medication List Medication Instructions Recorded Confirmed Type vitamin B comp and C no.3 15 mg-10 1 cap PO QPM 10/04/18 04/27/22 History mg-50 mg-5 mg-300 mg capsule (B Complex Plus Vitamin C) aspirin 81 mg tablet,delayed 81 mg PO QAM #1 tab 11/23/19 04/27/22 Rx release biotin 5 mg tablet 5 mg PO QAM 01/07/20 04/27/22 History cholecalciferol (vitamin D3) 50 50 mcg PO QAM 01/07/20 04/27/22 History mcg (2,000 unit) capsule (Vitamin D3) turmeric root extract 500 mg 1,000 mg PO QPM 01/07/20 04/27/22 History capsule Oxygen Home 05/13/21 01/04/22 History Portable Oxygen #1 ea 07/20/21 01/04/22 Rx Portable Oxygen #1 ea 07/23/21 01/04/22 Rx albuterol sulfate 90 mcg/actuation 2 puff inhalation Q4 PRN Shortness 07/23/21 04/27/22 Rx aerosol inhaler (Ventolin HFA) Of Breath #18 grams arformoterol 15 mcg/2 mL solution 2 ml inhalation BID #60 vials 07/23/21 04/27/22 Rx for nebulization (Brovana) budesonide 0.25 mg/2 mL suspension 0.25 mg (2 mL) inhalation BID #60 07/23/21 04/27/22 Rx for nebulization vials fluoxetine 40 mg capsule 40 mg PO DAILY #90 caps 12/20/21 04/27/22 Rx alprazolam 0.25 mg tablet See Rx Instructions PO .COMPLEX 01/22/22 04/27/22 Rx Anxiety #60 tabs metoprolol succinate 25 mg 25 mg PO QAM #30 tabs 03/17/22 04/27/22 Rx tablet,extended release 24 hr acetaminophen 500 mg tablet 1,000 mg PO Q8H PRN FEVER/PAIN 04/27/22 04/27/22 History (Tylenol Extra Strength) calcium citrate 200 mg 2 tab PO QPM 04/27/22 04/27/22 History calcium-vitamin D3 6.25 mcg (250 unit) tablet (Citracal-D3 Petites) diphenhydramine 25 1 tab PO HS 04/27/22 04/27/22 History mg-acetaminophen 500 mg tablet (Tylenol PM Extra Strength) glucosamine 750 ym-yursgqvjli-iup 1 tab PO QPM 04/27/22 04/27/22 History no.1 625 mg-C 30 kr-efqz-bqxz tablet (Glucosamine-Chondroitin 3X) omega-3 fatty acids 1,250 mg 1,250 mg PO DAILY 04/27/22 04/27/22 History capsule prednisone 20 mg tablet 40 mg PO DAILY PRN Congestion 04/27/22 04/27/22 History vitamins A,C,U-ghmn-wxflnd 2,148 1 tab PO BID 04/27/22 04/27/22 History mcg-113 mg-45 mg-17.4 mg tablet (PreserVision AREDS) Hospital Stay Data Consultations 04/28/22 14:24 Consult Cardiology Routine 04/30/22 10:51 Consult Pulmonology Routine Diagnostic Imagining Performed 04/30/22 11:11 CT angio chest PE protocol Urgent Coding Diagnoses Acute and chronic respiratory failure with hypoxia J96.21 Aspiration into airway T17.908A Restrictive lung disease J98.4 Stress-induced cardiomyopathy I51.81 Non-occlusive coronary artery disease I25.10 Scoliosis M41.9 Swallowing dysfunction R13.10 Nutrition impaired due to limited access to healthful foods E63.9 Pulmonary hypertension I27.20
[2022-05-03] MEDS: INSULIN ASPART PER UNIT SC SCH (08:24)
[2022-05-03] MEDS ORDERED: predniSONE 20 MG TAB PO SCH (09:00)
[2022-05-03] MEDS ORDERED: FORMOTEROL 20 MCG/2 ML VIAL NEB SCH (09:00)
[2022-05-03] MEDS: ASPIRIN 81 MG ECTAB PO SCH (09:18)
[2022-05-03] MEDS: predniSONE 20 MG TAB PO SCH ×2 (09:18→09:31)
[2022-05-03] MEDS: ENOXAPARIN INJ 40 MG/0.4 ML SYR SQ SCH (09:19)
[2022-05-03] MEDS: FLUoxetine HCL 20 MG CAP PO SCH (09:19)
[2022-05-03] MEDS: DOXYCYCLINE HYCLATE 100 MG CAP PO SCH ×2 (09:19→20:19)
--- NOTE | 2022-05-03 11:24 | Cardiology Progress Note ---
Date of Service May 03, 2022 Assessment & Plan (1) Stress-induced cardiomyopathy: (2) Acute and chronic respiratory failure with hypoxia: (3) Kyphoscoliosis deformity of spine: (4) Non-ST elevation (NSTEMI) myocardial infarction: Plan Complex 86-year-old female admitted with acute hypoxic respiratory failure after a coughing event possible aspiration. Event superimposed on chronic underlying restrictive lung disease severe kyphoscoliosis. In the past as an current admission patient has had evidence of stress-induced cardiomyopathy during acute events Echocardiogram demonstrates normalization of wall motion abnormalities Recommendations: Continue metoprolol succinate at 25 mg twice per day (increased dose) Isosorbide mononitrate 30 mg p.o. daily for preload reduction and blood pressure control working well. Still small bilateral pleural effusions suspect patient would benefit from low-dose furosemide 20 mg 2 days per post discharge CHF instructions Cardiology follow-up 3 to 4-week Admission and Anticipated Discharge Date Admission Date: April 27, 2022 Subjective Patient seen and examined, chart, medications, telemetry reviewed Has continued to improve and looks good today. No chest pain or discomfort still with rhonchorous cough with forced expiration. No fevers or chills. No arrhythmias Review of Systems Review of Systems: All systems reviewed & are unremarkable except as noted in Subjective Physical Exam Constitutional: no acute distress Eyes: PERRL, conjunctivae normal, anicteric sclerae Neck: trachea midline, no thyromegaly Respiratory: Auscultation: + diminished lung sounds Cardiovascular: Rate/Rhythm: regular rate and regular rhythm Heart Sounds: no murmur Gastrointestinal (Abdomen): Inspection/Auscultation: abdomen not distended Results & Data ([facility]) Vital Signs (Past 12 Hours) Vital Signs Temp Pulse Pulse Resp BP Pulse Ox O2 Del Method 05/03/22 08:15 81 05/03/22 08:15 Nasal Cannula 05/03/22 07:52 36.6 C 69 20 121/70 98 Nasal Cannula 05/03/22 07:48 75 18 98 Nasal Cannula 05/03/22 04:12 36.6 C 70 16 114/71 98 Nasal Cannula O2 Flow Rate 05/03/22 08:15 05/03/22 08:15 2 05/03/22 07:52 2 05/03/22 07:48 3 05/03/22 04:12 3 Laboratory Results Laboratory Results - last 24 hr 05/02/22 05/02/22 05/02/22 12:21 16:50 21:03 WBC RBC Hgb Hct MCV MCH MCHC RDW Std Deviation RDW Coeff of Jaren Plt Count MPV Immature Gran % (Auto) Neut % (Auto) Lymph % (Auto) Leslie % (Auto) Eos % (Auto) Baso % (Auto) Neut # (Auto) Lymph # (Auto) Leslie # (Auto) Eos # (Auto) Baso # (Auto) Immature Gran # (Auto) POC Glucose 193 H 98 131 H 05/03/22 05:56 WBC 11.79 H RBC 3.94 L Hgb 12.3 Hct 36.2 L MCV 91.9 MCH 31.2 MCHC 34.0 RDW Std Deviation 47.0 H RDW Coeff of Jaren 13.7 Plt Count 293 MPV 9.5 Immature Gran % (Auto) 0.9 Neut % (Auto) 73.2 Lymph % (Auto) 14.0 Leslie % (Auto) 11.3 Eos % (Auto) 0.4 Baso % (Auto) 0.2 Neut # (Auto) 8.63 H Lymph # (Auto) 1.65 Leslie # (Auto) 1.33 H Eos # (Auto) 0.05 Baso # (Auto) 0.02 Immature Gran # (Auto) 0.11 POC Glucose
[2022-05-03] MEDS: ISOSORBIDE MONO EXTENDED REL 30 MG TABCR PO SCH (13:38)
--- NOTE | 2022-05-03 16:46 | Hospitalist Progress Note ---
Date of Service May 03, 2022 Assessment & Plan (1) Acute and chronic respiratory failure with hypoxia: Plan: Due to suspected atypical pneumonitis vs. pulmonary edema in patient with baseline restrictive lung disease. Continue oxygen per nasal cannula to maintai n saturation greater than 90% (on 2LNC at home, so is at baseline). Continue PO steroids for aspiration pneumonitis (muscle control intolerance listed on chart, however has had good tolerance to methylpred and steroid benefit>risk). Continue doxycycline for atypical coverage, to complete on 05/05. Received several doses of IV diuretics for relative dry state during recovery, and CXR with improved bilateral opacities/effusions. Pulmonary medicine consultation appreciated during this admission. AUTO SERVICE ADVISOR evaluated patient and advanced to regular diet as tolerated as FEES was normal. (2) Aspiration into airway: Plan: Expected cause of pneumonitis. AUTO SERVICE ADVISOR evaluated; no evidence of aspiration on FEES. Suspect aspiration event was isolated event rather than chronic issue. Recommended d/c of vitamin C supplement given difficulty with swallowing it and also eats adequate citrus-y foods so vitamin C deficiency would be unlikely. (3) Restrictive lung disease: Plan: Continue PO steroids and scheduled nebulizer treatments. Known non-functioning right lower lobe due to bronchial obstruction from severe scoliosis. Pulmonary medicine consultation appreciated. She temporarily lost her voice due to the dryness associated with high flow oxygen. No CO2 retention on ABG. (4) Stress-induced cardiomyopathy: Plan: Troponins elevated during admission. Cardiac echo revealed anteroseptal hypokinesis with reduced ejection fraction to 45% -> improved on repeat echocardiogram. Cardiology consulted and appreciate recommendations: continue diuresis for now (furosemide 40mg IV BID), as well as metoprolol succinate 25mg q8h. (5) Non-occlusive coronary artery disease: Plan: Continue current medical management. No acute EKG changes. She denies chest pain (6) Scoliosis: Plan: Supportive care. This is suspected etiology of obstructed right lower lobe bronchus. (7) Nutrition impaired due to limited access to healthful foods: Plan: Resolved with return to PO intake. (8) Pulmonary hypertension: Plan: Working on approval for Trilogy for patient with CM. Hopefully for approval tomorrow and discharge tomorrow as well. Admission and Anticipated Discharge Date Admission Date: April 27, 2022 Subjective Today patient's breathing feels back to normal. Notes that she has had difficulty with swallowing her vitamin C supplement in the past, but that this episode was clearly the worst as it led to her hospitalization (she believes). She denies chest pain, abdominal pain. Did have some nausea during FEES today, but no nausea otherwise and symptoms resolved after FEES was over. Review of Systems Review of Systems: All systems reviewed & are unremarkable except as noted in Subjective Physical Exam Constitutional: WD/WN, vitals as above Respiratory: decreased breath sounds over right lung field compared to left. No wheezing noted, good air movement in left lung field, saturating 98% on 3LNC Cardiovascular: RRR, no murmur, no edema Gastrointestinal (Abdomen): normal bowel sounds, soft, nontender, no hepatosplenomegaly Musculoskeletal: significant sigmoidal scoliosis noted on exam of back Skin: no rashes, warm and dry Psychiatric: A+Ox3, euthymic affect Results & Data Results & Data ([facility]) Vital Signs (Past 12 Hours) Vital Signs Temp Pulse Pulse Resp BP Pulse Ox O2 Del Method 05/03/22 15:57 36.3 C L 76 20 96/57 L 98 Nasal Cannula 05/03/22 15:42 79 05/03/22 11:31 36.3 C L 75 20 101/59 L 97 Room Air 05/03/22 08:15 81 05/03/22 08:15 Nasal Cannula 05/03/22 07:52 36.6 C 69 20 121/70 98 Nasal Cannula 05/03/22 07:48 75 18 98 Nasal Cannula O2 Flow Rate 05/03/22 15:57 3 05/03/22 15:42 05/03/22 11:31 1 05/03/22 08:15 05/03/22 08:15 2 05/03/22 07:52 2 05/03/22 07:48 3 PG Care Time/CCT Total # of Minutes Spent Total Time Spent with Patient: Total time spent is greater than 50% in coordination of care (as documented) at patient's floor/unit and/or counseling patient: Coding Level of Care Code 99054 SUB INP/OBS CARE 2/35MIN Diagnoses Acute and chronic respiratory failure with hypoxia J96.21 Aspiration into airway T17.908A Restrictive lung disease J98.4 Stress-induced cardiomyopathy I51.81 Non-occlusive coronary artery disease I25.10 Scoliosis M41.9 Nutrition impaired due to limited access to healthful foods E63.9 Pulmonary hypertension I27.20
[2022-05-03] MEDS: ACETAMINOPHEN 325 MG TAB PO PRN (20:18)
[2022-05-03] MEDS: ALPRAZolam 0.25 MG TABLET PO SCH (20:19)
[2022-05-04] MEDS: BUDESONIDE 0.25 MG/2 ML VIAL (PULMICORT) NEB SCH (07:03)
[2022-05-04] MEDS: FORMOTEROL 20 MCG/2 ML VIAL INH SCH (07:03)
[2022-05-04] MEDS: FLUoxetine HCL 20 MG CAP PO SCH (08:18)
[2022-05-04] MEDS: METOPROLOL SUCC 25MG EXT REL TAB PO SCH (08:18)
[2022-05-04] MEDS: DOXYCYCLINE HYCLATE 100 MG CAP PO SCH (08:18)
[2022-05-04] MEDS: ASPIRIN 81 MG ECTAB PO SCH (08:18)
[2022-05-04] MEDS: predniSONE 20 MG TAB PO SCH (08:18)
[2022-05-04] MEDS: ISOSORBIDE MONO EXTENDED REL 30 MG TABCR PO SCH (08:18)
[2022-05-04] MEDS: ENOXAPARIN INJ 40 MG/0.4 ML SYR SQ SCH (08:18)
[2022-05-04] MEDS: ALPRAZolam 0.25 MG TABLET PO PRN (08:25)
--- NOTE | 2022-05-04 08:52 | Discharge Summary ---
Discharge Summary Date of Service May 04, 2022 Admission Exam Per Admitting Provider General: patient resting comfortably, NAD, non-toxic in appearance, AA&O x 4, BiPAP in place - 12/5, 45% FiO2 with adequate saturation Skin: warm, dry, intact, no rashes or lesions HEENT: NC/AT, PERRL, EOMI, anicteric sclera, conjunctiva without injection, external ear normal to inspection and nontender, nares patent, moist mucus membranes, dentition intact, no oropharyngeal lesions, neck supple, trachea midline, no LAD, no thyromegaly, no JVD Heart: +S1/S2, regular, tachycardic, no m/r/g Lungs: equal air entry bilaterally, diffuse end-expiratory wheezing, no rales/rhonchi Abd: +BS, soft, NT/ND, no masses/organomegaly/ascites Ext: warm, 2+ pulses in UE/LE bilaterally, no clubbing/cyanosis or edema Neuro: nonfocal, patient AA&O x 4, speech intact, no facial droop, moving all extremities on command with equal strength 5/5 Principal Dx & Hospital Course #1 = Principal Diagnosis (1) Acute and chronic respiratory failure with hypoxia: Due to suspected atypical pneumonitis vs. pulmonary edema in patient with baseline restrictive lung disease. Continue oxygen per nasal cannula to maintain saturation greater than 90% (on 2LNC at home, so is at baseline). Continue PO steroids for aspiration pneumonitis (muscle control intolerance listed on chart, however has had good tolerance to methylpred and steroid benefit>risk), x3 more days on discharge. Completed course of doxycycline for atypical coverage. Received several doses of IV diuretics for relative dry state during recovery, and CXR with improved bilateral opacities/effusions. Will use furosemide 20mg twice weekly per Cardiology recommendations. Pulmonary medicine consultation appreciated during this admission; unable to get Trilogy covered however can get BIPAP for sleep. HEAD OF PRODUCT evaluated patient and advanced to regular diet as tolerated as FEES was normal. (2) Aspiration into airway: Expected cause of pneumonitis. HEAD OF PRODUCT evaluated; no evidence of aspiration on FEES. Suspect aspiration event was isolated event rather than chronic issue. Recommended d/c of vitamin C supplement given difficulty with swallowing it and also eats adequate citrus-y foods so vitamin C deficiency would be unlikely. (3) Restrictive lung disease: Continue PO steroids and scheduled nebulizer treatments. Known non-functioning right lower lobe due to bronchial obstruction from severe scoliosis. Pulmonary medicine consultation appreciated. She temporarily lost her voice due to the dryness associated with high flow oxygen. No CO2 retention on ABG. Due to patient's chronic respiratory failure, COPD, and significant kyphoscoliosis, noninvasive ventilation is recommended to adequately ventilate this patient at home. (4) Stress-induced cardiomyopathy: Troponins elevated during admission. Cardiac echo revealed anteroseptal hypokinesis with reduced ejection fraction to 45% -> improved on repeat echocardiogram. Cardiology consulted and appreciate recommendations: continue furosemide twice weekly on discharge. Have also initiated Imdur 30mg daily and increased metoprolol to 25mg BID. (5) Non-occlusive coronary artery disease: Continue current medical management. No acute EKG changes. She denies chest pain. (6) Scoliosis: Supportive care. This is suspected etiology of obstructed right lower lobe bronchus. (7) Nutrition impaired due to limited access to healthful foods: Resolved with return to PO intake. (8) Pulmonary hypertension: Due to patient's chronic respiratory failure, COPD, and significant kyphoscoliosis, noninvasive ventilation is recommended to adequately ventilate this patient at home. BIPAP nightly for discharge. Discharge Exam Constitutional WD/WN, vitals as above Respiratory RUL air sounds absent, otherwise lungs clear to auscultation Cardiovascular heart RRR no murmurs Psychiatric A+Ox3, euthymic affect Updated Medication List Medication Instructions Recorded Confirmed Type vitamin B comp and C no.3 15 mg-10 1 cap PO QPM 10/04/18 04/27/22 History mg-50 mg-5 mg-300 mg capsule (B Complex Plus Vitamin C) aspirin 81 mg tablet,delayed 81 mg PO QAM #1 tab 11/23/19 04/27/22 Rx release biotin 5 mg tablet 5 mg PO QAM 01/07/20 04/27/22 History cholecalciferol (vitamin D3) 50 50 mcg PO QAM 01/07/20 04/27/22 History mcg (2,000 unit) capsule (Vitamin D3) turmeric root extract 500 mg 1,000 mg PO QPM 01/07/20 04/27/22 History capsule Oxygen Home 05/13/21 01/04/22 History Portable Oxygen #1 ea 07/20/21 01/04/22 Rx Portable Oxygen #1 ea 07/23/21 01/04/22 Rx arformoterol 15 mcg/2 mL solution 2 ml inhalation BID #60 vials 07/23/21 04/27/22 Rx for nebulization (Brovana) budesonide 0.25 mg/2 mL suspension 0.25 mg (2 mL) inhalation BID #60 07/23/21 04/27/22 Rx for nebulization vials fluoxetine 40 mg capsule 40 mg PO DAILY #90 caps 12/20/21 04/27/22 Rx alprazolam 0.25 mg tablet See Rx Instructions PO .COMPLEX 01/22/22 04/27/22 Rx Anxiety #60 tabs acetaminophen 500 mg tablet 1,000 mg PO Q8H PRN FEVER/PAIN 04/27/22 04/27/22 History (Tylenol Extra Strength) calcium citrate 200 mg 2 tab PO QPM 04/27/22 04/27/22 History calcium-vitamin D3 6.25 mcg (250 unit) tablet (Citracal-D3 Petites) diphenhydramine 25 1 tab PO HS 04/27/22 04/27/22 History mg-acetaminophen 500 mg tablet (Tylenol PM Extra Strength) glucosamine 750 la-ktnyleoibi-wcn 1 tab PO QPM 04/27/22 04/27/22 History no.1 625 mg-C 30 qx-maah-vwqd tablet (Glucosamine-Chondroitin 3X) omega-3 fatty acids 1,250 mg 1,250 mg PO DAILY 04/27/22 04/27/22 History capsule prednisone 20 mg tablet 40 mg PO DAILY PRN Congestion 04/27/22 04/27/22 History vitamins A,C,S-kfky-qoojwv 2,148 1 tab PO BID 04/27/22 04/27/22 History mcg-113 mg-45 mg-17.4 mg tablet (PreserVision AREDS) albuterol sulfate 90 mcg/actuation 2 puff inhalation Q4 PRN Shortness 05/04/22 Rx aerosol inhaler (Ventolin HFA) Of Breath #18 grams furosemide 20 mg tablet See Rx Instructions .Route 05/04/22 Rx .COMPLEX #10 tabs isosorbide mononitrate 30 mg 30 mg PO QAM 30 days #30 tabs 05/04/22 Rx tablet,extended release 24 hr metoprolol succinate 25 mg 25 mg PO BID 30 days #60 tabs 05/04/22 Rx tablet,extended release 24 hr prednisone 20 mg tablet 20 mg PO DAILY 3 days #3 tabs 05/04/22 Rx Hospital Stay Data Consultations 04/28/22 14:24 Consult Cardiology Routine 04/30/22 10:51 Consult Pulmonology Routine Diagnostic Imagining Performed 04/30/22 11:11 CT angio chest PE protocol Urgent Discharge Instructions Given to Patient (Per Discharging Provider) You were admitted to the hospital for evaluation and treatment of pneumonia/ pn eumonitis from an aspiration event. While you were here your heart was also evaluated, and you were having stress-related changes to the function of the heart. Dr. Diaz saw you while you were here, and made some medication changes to help your heart function. Please see the medication changes below. You were also evaluated by Pulmonology (Drs. Eduardo and Nani) who started you on antibiotics and steroids to help you breathe better. You will continue the steroids when you go home, one pill daily starting tomorrow x3 days (you already had your steroid today before discharge). You should have close follow up with your primary care doctor and lung doctor to make sure you are doing well after hospitalization. You will need follow up Pulmonary Function Tests in the future through your Pulmonology office. We will be able to get a BIPAP for you to wear at nighttime for your breathing as well. Otherwise, wear your normal home oxygen. Lastly, I prescribed a rescue inhaler albuterol as you were out of your home one. I recommend you stop your vitamin C supplement, given that you endorsed some difficulty with swallowing it a few times in the past, to try to avoid an aspiration in the future. If you supplement your diet with fruit, particularly citrus fruits, you will not need a vitamin C supplement to meet your vitamin needs. If you have any concerns such as chest pain, worsening in breathing, or other urgent medical concerns, please [facility] and seek urgent medical attention. Total Time Total Time Spent Total Time Spent (In Minutes): 45 minutes Coding Level of Care Code HOSP INP/OBS DISCH >30 MIN Diagnoses Acute and chronic respiratory failure with hypoxia J96.21 Aspiration into airway T17.908A Restrictive lung disease J98.4 Stress-induced cardiomyopathy I51.81 Non-occlusive coronary artery disease I25.10 Scoliosis M41.9 Nutrition impaired due to limited access to healthful foods E63.9 Pulmonary hypertension I27.20
--- NOTE | 2022-05-04 14:09 | Cardiology Progress Note ---
Date of Service May 04, 2022 Assessment & Plan (1) Stress-induced cardiomyopathy: (2) Acute and chronic respiratory failure with hypoxia: (3) Kyphoscoliosis deformity of spine: (4) Non-ST elevation (NSTEMI) myocardial infarction: Plan Complex 86-year-old female admitted with acute hypoxic respiratory failure after a coughing event possible aspiration. Event superimposed on chronic underlying restrictive lung disease severe kyphoscoliosis. In the past as an current admission patient has had evidence of stress-induced cardiomyopathy during acute events Echocardiogram demonstrates normalization of wall motion abnormalities Recommendations: Continue metoprolol succinate at 25 mg twice per day (increased dose) Isosorbide mononitrate 30 mg p.o. daily for preload reduction and blood pressure control working well. Furosemide 20 mg 1 to 2 days/week as needed for edema or weight gain. Recommend CHF discharge instructions Cardiology follow-up 3 to 4-week Admission and Anticipated Discharge Date Admission Date: April 27, 2022 Subjective Continues to manifest slow improvement. Now starting to clear some secretions. No further tachypalpitations or worsening shortness of breath. No edema Physical Exam Constitutional: no acute distress Eyes: PERRL, conjunctivae normal, anicteric sclerae Neck: trachea midline, no thyromegaly Respiratory: Auscultation: + diminished lung sounds and + rhonchi (Few scattered with forced cough) Cardiovascular: Rate/Rhythm: regular rate and regular rhythm Heart Sounds: no murmur Gastrointestinal (Abdomen): Inspection/Auscultation: abdomen not distended Results & Data ([facility]) Vital Signs (Past 12 Hours) Vital Signs Temp Pulse Pulse Resp BP Pulse Ox O2 Del Method 05/04/22 11:29 36.6 C 80 18 120/72 97 Nasal Cannula 05/04/22 11:14 36.6 C 86 75 18 120/72 97 05/04/22 08:12 36.6 C 75 18 120/72 97 Nasal Cannula 05/04/22 07:00 Nasal Cannula 05/04/22 07:05 79 18 96 Nasal Cannula 05/04/22 04:00 36.9 C 74 15 114/67 98 Nasal Cannula O2 Flow Rate 05/04/22 11:29 2.0 05/04/22 11:14 05/04/22 08:12 2.0 05/04/22 07:00 2 05/04/22 07:05 05/04/22 04:00 2.5
== END 2022-05-04 14:39 | disposition home or self-care (01) | DRG 189 ==
LOC: ED 20:07 → SUATTDRO 22:19 → EDINP 22:19 → 4W 04-28 00:56